=== PATIENT | female | born 1945 | race Caucasian/White ===

== ENCOUNTER → 2023-11-18 15:11 | Outpatient (REF) | payer MEDICARE, OTHER, SELFPAY | LOC: DHCBC MAIN 15:11 | PROVIDERS: ATTENDING PHYSICIAN Internal Medicine Cardiovascular Disease; FAMILY PHYSICIAN Family Medicine | DX: I25.10 Atherosclerotic heart disease of native coronary artery without angina pectoris (principal); I50.20 Unspecified systolic (congestive) heart failure; I42.0 Dilated cardiomyopathy | CPT/HCPCS: 93308 ==

== ENCOUNTER → 2023-12-17 12:46 | Outpatient (REF) | payer MEDICARE, OTHER, SELFPAY | LOC: RCS 12:46 | PROVIDERS: ATTENDING PHYSICIAN Internal Medicine Cardiovascular Disease; FAMILY PHYSICIAN Family Medicine | DX: I50.20 Unspecified systolic (congestive) heart failure (principal); I50.22 Chronic systolic (congestive) heart failure | CPT/HCPCS: 93308; Q9950 ==

== ENCOUNTER 2024-07-20 17:32 | Emergency (ER) | payer MEDICARE, OTHER, SELFPAY ==
[2024-07-20 17:39] VITALS: BP 153/91
[2024-07-20 17:43] VITALS: BMI 32.3
--- NOTE | 2024-07-20 17:44 | ED.GENMED ---
History of Present Illness
General
Chief Complaint: Weakness
Source: patient
Exam Limitations: none
Time Seen by Provider: 07/20/24 17:36
History of Present Illness
History of Present Illness:
See MDM
Past History
Past History
ED Past Medical History: HTN, Hypercholesterolemia and NIDDM
ED Past Surgical History: Appendectomy
Social History
Tobacco: Former smoker
Alcohol: None
Drug: None
Phy Exam
Physical Exam
Physical Exam:
See MDM
Course
Orders/Labs/Results
Orders:
Orders
07/20/24 17:38
Electrocardiogram (*1) Urgent
Reason for Study: Tachycardia
CXR2 [CR Chest - 2 Views ] Urgent
Comment:
Reason For Exam: weakness
07/20/24 17:39
EKG- Treatment ONCE
07/20/24 17:51
Complete Blood Count/With Diff Urgent
Comprehensive Metabolic Panel Urgent
NT-proBNP Urgent
Troponin I Urgent
07/20/24 18:02
Urinalysis Reflex To Culture Urgent
Date Specimen was Collected: 07/20/24
Time Specimen was Collected: 17:59
Urine Microscopic Reflex Cult Urgent
Urine Culture Urgent
BHUMI Source: U
Specimen Description:
Date Specimen was Collected: 07/20/24
Time Specimen was Collected: 17:59
07/20/24 20:12
Cephalexin Monohydrate [Keflex] 500 mg PO NOW STA
Abnormal Lab Results
07/20/24 07/20/24
17:51 18:02
RBC 4.05 L 10^6/uL
(4.20-5.40)
Hct 36.6 L %
(37.0-47.0)
MCH 33.1 H pg
(27.0-31.0)
MPV 11.2 H fL
(7.4-10.4)
BUN 27 H mg/dl
(7-17)
Creatinine 1.3 H mg/dL
(0.6-1.0)
Glucose 272 H mg/dl
(70-99)
Calcium 10.3 H mg/dl
(8.4-10.2)
AST 39 H U/L
(14-36)
Urine Ketones Trace A
(Negative)
Ur Occult Blood Reflex 4+ A
(Negative)
Urine Bilirubin 1+ A
(Negative)
Leukocyte Esterase Rfl 2+ A
(Negative)
Urine RBC >100 A /HPF
(0-2)
Urine WBC (Reflex) 50-60 A /HPF
(0-5)
Urine Bacteria (Reflex) Few A
(Negative)
Urine Glucose 2+ A
(Negative)
Urine Albumin (Reflex) 2+ A
(Neg - Trace)
07/20/24 17:51
07/20/24 17:51
Vital Signs
Initial and Last Documented VS:
Initial Vital Signs
Temp Pulse Resp BP Pulse Ox
98.7 F 120 20 153/91 96
07/20/24 17:39 07/20/24 17:39 07/20/24 17:39 07/20/24 17:39 07/20/24 17:39
Last Documented Vital Signs
Temp Pulse Resp BP Pulse Ox
98.7 F 114 23 128/69 92
07/20/24 17:39 07/20/24 18:45 07/20/24 18:45 07/20/24 18:16 07/20/24 18:45
MDM/Problems Addressed
Differential Diagnosis Includes:
HPI and MDM Narrative:
79-year-old female presenting for general unwell feeling. Patient states she started get nervous because she had similar symptoms 1 year ago and diagnosed with congestive heart failure. Patient claims compliance with the medicine. She denies pain
with urination, cough or fevers. Given her history, will obtain basic blood work, urinalysis and chest x-ray.
I did question possible urinary tract infection. Patient has noted that she may be urinating more frequently and noticed a discoloration of urine recently
Physical exam
General: Well appearing and non-toxic
HEENT: protecting airway. Mildly dry mucous membranes
Neck: appears supple
CV: No evidence of cyanosis. Tachycardic but regular rhythm
Resp: No accessory muscle use
Abd: Non-distended
Extremities: No deformities
Neuro: alert
Psych: Normal affect
Skin: Intact
Problems Addressed including Acute and Chronic Conditions affecting care:
1. General unwell feeling
Acuity: acute
Prognosis: stable
Details: Will obtain basic blood work to rule out metabolic abnormalities. Will obtain chest x-ray to rule out fluid versus pneumonia
2. UTI
Acuity: acute
Prognosis: stable
Details: Will start Keflex. Discussed having PCP reevaluate urine to evaluate for cessation of hematuria
Updates
After explained with patient that I believe she may have a urinary tract infection, patient feeling better. She is no longer anxious appearing and her tachycardia is resolving. Will start Keflex. Patient states she wants to go home
Differential Diagnosis (but not limited to): Hyponatremia, congestive heart failure, pneumonia, dehydration, overdiuresis
Testing considered: CT head but she has no focal deficits
Drug therapy (if applicable): OTC meds, please see d/c instruction regarding Rx drugs
Amount and/or Complexity of Data Reviewed
Clinical info obtained from: Patient
External data reviewed: N/A
Labs I independently reviewed (but not limited to): Urinalysis
Radiology: X-ray independently reviewed: Chest x-ray clear
Pulse Ox: not hypoxic
EKG independently reviewed: Sinus tachycardia, normal axis, no STEMI
Backwinder: N/A
Critical Care: N/A
Risk of Complication:
Social Determinants of health: Good social support
Discussed with other providers: N/A
Escalation of Care includes Admit/Obs: After being observed in the Emergency Department, pt stable for discharge.
Occasional wrong word or 'sound a like' substitutions may have occurred due to the inherent limitations of voice recognition software. Read the chart carefully and recognize, using context, where substitutions have occurred.
*Critical Care Note
Total Time (30-74mins, 75-104mins- exclusive of procedures): Not Applicable
ED Attending Note
-
Portions of this chart may have been created with voice recognition software.� Occasional wrong word or��sound alike� substitutions may have occurred due to the inherent limitations of voice recognition software.
Discharge Plan
Departure
Patient Disposition: Home (Routine Discharge)
Date of Disposition: 07/20/24
Time of Disposition: 20:14
Patient with high blood pressure during this ER visit?: No
Discharge Problem:
Acute UTI
Instructions: Urinary Tract Infection, Adult ED
Prescriptions:
New
cephalexin 500 mg capsule
500 mg PO BID 7 Days Qty: 14 0RF
No Action
pravastatin 40 MG tablet
40 mg PO DAILY
fenofibrate 160 MG tablet
160 mg PO DAILY
therapeutic multivitamin Tablet
1 tab PO DAILY
timolol maleate 0.5 % Drops
1 drp ophthalmic (eye) DAILY
Rx Instructions:
08/21/2023, patient applies one drop into affected eye according to [facility] records.
polyethylene glycol 3350 17 gram powder in packet
17 g PO DAILY
aspirin [Children's Aspirin] 81 mg Tablet,Chewable
81 mg PO DAILY Qty: 30 0RF
metoprolol succinate 25 mg Tablet Extended Release 24 Hr
25 mg PO DAILY Qty: 30 0RF
lisinopril 2.5 mg Tablet
2.5 mg PO DAILY Qty: 30 0RF
furosemide 20 mg Tablet
20 mg PO DAILY Qty: 30 0RF
Farxiga 10 mg Tablet
10 mg PO DAILY Qty: 30 0RF
Referrals:
Efren Orellana, DO [Family Provider] -
Activity Restrictions/Additional Instructions:
Please return for any worsening symptoms.
You may return at any time if you have further concerns.
Please follow up with your doctor at the first available appointment, preferably this week.
Please discuss your symptoms and have your urine reevaluated to ensure that the blood in your urine resolves. If the blood in your urine persist, your doctor may want to perform other tests.
Thank you for choosing [facility].
Interventions
Interventions:
*Risk Screen - Suicide Last Done: 07/20/24 17:43
*General Assessment Last Done: 07/20/24 17:42
*Neglect/Abuse Screening Last Done: 07/20/24 17:42
Discharge Date and Time
Print Language: KINYARWANDA
[2024-07-20 18:05] LABS: % Basophils 0.5 % (0-2); % Immature Granulocytes 0.4 % (0-0.5); % Lymphocytes 29.1 % (20.5-51.1); % Monocytes 7.9 % (1.7-9.3); % Neutrophils 60.1 % (42.2-75.2); Absolute Eosinophils 0.2 10^3/uL (0-0.7); Absolute Lymphocytes 2.3 10^3/uL (1.2-3.4); Absolute Monocytes 0.6 10^3/uL (0.1-0.6); Absolute Neutrophils 4.8 10^3/uL (1.4-6.5); Hematocrit 36.6 % (37.0-47.0); Hemoglobin 13.4 g/dL (12.0-16.0); Mean Corp Hgb Conc. 36.6 g/dL (33.0-37.0); Mean Corpuscular Hgb 33.1 pg (27.0-31.0); Mean Corpuscular Volume 90.4 fL (81.0-99.0); Mean Platelet Volume 11.2 fL (7.4-10.4); Nucleated Red Blood Cells % 0 %; Platelet Count 221 10^3/uL (130-400); Red Blood Cell Count 4.05 10^6/uL (4.20-5.40); Red Cell Dist. Width 12.2 % (11.5-14.5)
[2024-07-20 18:11] LABS: Urine Albumin 2+ (Neg - Trace); Urine Bilirubin 1+ (Negative); Urine Character Very Cloudy (Clear); Urine Color Yellow; Urine Glucose 2+ (Negative); Urine Ketone Trace (Negative); Urine Leukocyte 2+ (Negative); Urine Nitrite Negative (Negative); Urine Occult Blood 4+ (Negative); Urine Urobilinogen 1+ (Neg - 1+)
[2024-07-20 18:16] VITALS: BP 128/69
[2024-07-20 18:20] LABS: ALT (SGPT) 34 U/L (0-35); AST (SGOT) 39 U/L (14-36); Albumin 4.7 g/dl (3.5-5.0); Alkaline Phosphatase 64 U/L (38-126); Blood Urea Nitrogen 27 mg/dl (7-17); Calcium 10.3 mg/dl (8.4-10.2); Carbon Dioxide 22 mmol/L (22-30); Chloride 100 mmol/L (98-107); Estimated Creatinine Clearance 34 ml/min; Glucose 272 mg/dl (70-99); Potassium 4.5 mmol/L (3.5-5.1); Sodium 140 mmol/L (135-145); Total Bilirubin 0.6 mg/dl (0.2-1.3); Total Protein 7.2 g/dl (6.3-8.2); eGFR 41.83
[2024-07-20 18:25] LABS: NT-proBNP 1940 pg/ml; Troponin I 0.019 ng/ml
[2024-07-20 18:33] LABS: Urine Red Blood Cell >100 /HPF (0-2)
[2024-07-20 18:34] LABS: Urine Bacteria Few (Negative); Urine White Cell 50-60 /HPF (0-5)
[2024-07-20 19:00] VITALS: BP 115/68
[2024-07-20 20:00] VITALS: BP 123/65
[2024-07-20] MEDS: KEFLEX 500 MG PO (20:23)
== END 2024-07-20 20:37 | disposition home or self-care (01) ==
LOC: EMR 17:32
PROVIDERS: EMERGENCY PHYSICIAN Student in an Organized Health Care Education/Training Program; FAMILY PHYSICIAN Family Medicine
DX: N39.0 Urinary tract infection, site not specified (principal); I11.9 Hypertensive heart disease without heart failure; E78.00 Pure hypercholesterolemia, unspecified; E11.9 Type 2 diabetes mellitus without complications; Z87.891 Personal history of nicotine dependence; Z90.49 Acquired absence of other specified parts of digestive tract
CPT/HCPCS: 99283; 71046; 80053; 81003; 81015; 83880; 84484; 85025; 87086; 93005

== ENCOUNTER → 2024-08-17 12:28 | Outpatient (REF) | payer MEDICARE, OTHER, SELFPAY ==
--- NOTE | 2024-08-17 13:55 | CARDSERVLU ---
Echocardiogram with [facility] completed after protocol screening completed. Allergies verified.
Patent IV site: __new start 1st attempt 24 P RH___
IV site flushed with 0.9% NaCl pre and post administration.
Diluted bolus method utilized to enhance visualization of ventricular russo.
Total volume given: __4.0__ mL
Patient tolerated all procedures well without complications.
== END ==
LOC: RCS 12:28
PROVIDERS: ATTENDING PHYSICIAN Internal Medicine Cardiovascular Disease; FAMILY PHYSICIAN Family Medicine
DX: I50.20 Unspecified systolic (congestive) heart failure (principal); I25.10 Atherosclerotic heart disease of native coronary artery without angina pectoris; I42.0 Dilated cardiomyopathy; I50.22 Chronic systolic (congestive) heart failure
CPT/HCPCS: 93306; Q9950

== ENCOUNTER 2025-02-17 02:58 | Inpatient (IN) | payer MEDICARE, OTHER, SELFPAY ==
[2025-02-16 22:53] VITALS: BP 144/94
[2025-02-16 22:55] VITALS: BP 145/94
[2025-02-16 23:00] VITALS: BP 132/74
[2025-02-16 23:02] VITALS: BMI 31.2
[2025-02-17] VITALS (16 sets, daily range): BP systolic 96–149; BP diastolic 50–78; BMI 30.6
--- NOTE | 2025-02-17 01:30 | ED.GENMED ---
History of Present Illness
General
Chief Complaint: Musculo-Skeletal Complaint
Source: patient, spouse and ambulance crew
Exam Limitations: none
Time Seen by Provider: 02/16/25 23:01
Nursing documentation reviewed up to this point in time: agreed with
History of Present Illness
History of Present Illness:
80-year-old female past medical history of hypertension hyperlipidemia, diabetes presenting to the emergency department after she turned quickly at home lost her balance and hit her left anterior knee directly immediately felt a crack unable to
ambulate since and called EMS and was brought here. Think she may have hit the left side of her head but denies any significant discomfort to the area no neck pain no chest pain or abdominal pain. No numbness or weakness.
Past History
Past History
ED Past Medical History: HTN, Hypercholesterolemia and NIDDM
ED Past Surgical History: Appendectomy
Social History
Tobacco: Former smoker
Alcohol: None
Drug: None
Review of Systems
Review of Systems
Allergies reviewed?: Yes
All Other Systems: ROS reviewed and negative except as documented in HPI and ROS
Phy Exam
Physical Exam
Physical Exam:
GENERAL: Alert , in no apparent distress
EYE: pupils equal and reactive
NECK: Supple, no significant adenopathy.
ENT: o/p clr, mmm.
CARDIAC: Regular rate and rhythm .
LUNGS: Clear breath sounds bilaterally, no acute respiratory distress, no wheezes/rales/rhonchi
ABDOMEN: Soft, without focal tenderness, no r/g, no cvat
NEUROLOGICAL: Alert and oriented, no focal neuro deficits
SKIN: Warm and dry, skin intact.
MUSCULOSKELETAL: Swelling to the proximal cheng anteriorly on the left side pain at the tibial plateau no tenderness to the patella. Patient unwilling to straight leg raise or move at the knee to any extent. Able to move the ankle. No tenderness
to the ankle or foot. No tenderness to the thigh. Well perfused.
PSYCH: Normal and appropriate interaction.
Course
Orders/Labs/Results
Orders:
Orders
02/16/25 23:08
Tibia/Fibula, Left 2 View [CR Leg Tibia/fibula Left 2 Vw] Urgent
Comment:
Reason For Exam: fell, upper tibia swollen and tender
02/17/25 00:30
CT Head W/o Iv Contrast Urgent
Comment:
Reason For Exam: fall hit left head
CT Lower Ext W/o Iv Cont Lt Urgent
Comment:
Reason For Exam: left proximal tib/fib fx
Cervical Spine wo Contrast CT [CT Cervical Spine W/o Iv Contr] Urgent
Comment:
Reason For Exam: fall neck [pain
02/17/25 00:40
BMP [Basic Metabolic Panel] Urgent
CBC/With Diff [Complete Blood Count/With Diff] Urgent
02/17/25 02:38
Admit/Transfer Patient As Directed
Co-Sign Provider:
Level of Care: Inpatient admission
Assign to:: Medical/Surgical
Physician / Group: Nestor
Diagnosis: L Tib-Fib Fracture
Reason for Hospitalization: L Tib-Fib Fracture
Expected length of stay greater than two midnights?: Yes
ELOS- Estimated Length of Stay in days: 3
I certify the patient meets the requirements for IP care: Yes
EKG [Electrocardiogram (*1)] Urgent
Reason for Study: PreOp
02/17/25 02:39
PRN Pain Medication Management As Directed
May give lesser potent ordered pain med per pt: Yes
preference::
Protocol:: Medication orders for pain may be administered in a
manner that supports deferring to patient preference
when the pt is:
- Requesting an ordered lesser potent pain medication.
Least to most potent pain medications are defined
as: acetaminophen < NSAID < tramadol < opioids
(morphine, oxycodone, hydromorphone).
- Requesting a lesser dose of the same medication IF
ORDERED.
- Requesting a less intrusive route of administration
if both routes are prescribed by the provider (PO <
IV).
02/17/25 02:40
Code Status As Directed
Resuscitation Status: Full Code
Abnormal Lab Results
02/17/25
00:40
RBC 3.40 L 10^6/uL
(4.20-5.40)
Hgb 10.6 L g/dL
(12.0-16.0)
Hct 32.7 L %
(37.0-47.0)
MCH 31.2 H pg
(27.0-31.0)
MCHC 32.4 L g/dL
(33.0-37.0)
RDW 14.6 H %
(11.5-14.5)
MPV 11.8 H fL
(7.4-10.4)
Monocytes % 9.4 H %
(1.7-9.3)
Chloride 110 H mmol/L
(98-107)
BUN 25 H mg/dl
(7-17)
Glucose 121 H mg/dl
(70-99)
02/17/25 00:40
02/17/25 00:40
Vital Signs
Initial and Last Documented VS:
Initial Vital Signs
Temp Pulse Resp BP Pulse Ox
97.8 F 94 18 144/94 97
02/16/25 22:53 02/16/25 22:53 02/16/25 22:53 02/16/25 22:53 02/16/25 22:53
Last Documented Vital Signs
Temp Pulse Resp BP Pulse Ox
97.8 F 84 19 115/63 96
02/16/25 22:53 02/17/25 00:46 02/17/25 00:46 02/17/25 02:04 02/16/25 23:30
Procedures
Splinting/Sling Placement
Left Posterior Leg:
Pre-splint extermity exam: neurovascular intact
Type of splint: posterior long leg
Splint material: fiberglass
Splint checked by provider?: Yes
Normal distal neurovascular exam?: Yes
MDM/Problems Addressed
MDM/Problems Addressed:
80-year-old female presenting to the emergency department today with concerns of mechanical fall injuring her left leg. Also may have hit her head as well. Patient is on a baby aspirin daily but no other additional blood thinning agents. Patient
has obvious swelling to the proximal tibia and fibula region. X-ray showing fracture. CT scan ordered for further assessment. Tibia and fibular injury possibly. Case discussed with Ortho that will need to take to the OR. Long-leg splint was
placed. Otherwise neurovascular intact distally. Admitted to medicine.
*Critical Care Note
Total Time (30-74mins, 75-104mins- exclusive of procedures): Not Applicable
ED Attending Note
-
Portions of this chart may have been created with voice recognition software.� Occasional wrong word or��sound alike� substitutions may have occurred due to the inherent limitations of voice recognition software.
Discharge Plan
Departure
Patient Disposition: Admit
Date of Disposition: 02/17/25
Time of Disposition: 03:34
Admit to: Med/Surg
Admit to doctor: Nestor
Presentation/result/management discussed w/ accepting MD/DO: Hospitalist
Patient with high blood pressure during this ER visit?: No
Condition: Good
Covid-19: Not Applicable
Discharge Problem:
Closed tibial fracture, Fracture of fibula, proximal
Interventions
Interventions:
*Risk Screen - Suicide Last Done: 02/16/25 22:53
*Neglect/Abuse Screening Last Done: 02/16/25 22:53
*ED- Fall Risk Assessment Last Done: 02/16/25 23:02
*ED COVID-19 Vaccine History Last Done: 02/16/25 23:02
ED-Musculoskeletal Assessment Last Done: 02/16/25 23:02
ED- Neurological Assessment Last Done: 02/16/25 23:02
ED-Skin Assessment Last Done: 02/16/25 23:02
[2025-02-17 01:35] LABS: % Basophils 0.4 % (0-2); % Eosinophils 3.1 % (0-6); % Immature Granulocytes 0.1 % (0-0.5); % Monocytes 9.4 % (1.7-9.3); Absolute Eosinophils 0.2 10^3/uL (0-0.7); Absolute Lymphocytes 2.5 10^3/uL (1.2-3.4); Absolute Monocytes 0.6 10^3/uL (0.1-0.6); Absolute Neutrophils 3.5 10^3/uL (1.4-6.5); Hematocrit 32.7 % (37.0-47.0); Hemoglobin 10.6 g/dL (12.0-16.0); Mean Corp Hgb Conc. 32.4 g/dL (33.0-37.0); Mean Corpuscular Hgb 31.2 pg (27.0-31.0); Mean Corpuscular Volume 96.2 fL (81.0-99.0); Mean Platelet Volume 11.8 fL (7.4-10.4); Nucleated Red Blood Cells % 0 %; Platelet Count 223 10^3/uL (130-400); Red Cell Dist. Width 14.6 % (11.5-14.5); White Blood Cell Count 6.8 10^3/uL (4.8-10.8)
[2025-02-17 01:52] LABS: Blood Urea Nitrogen 25 mg/dl (7-17); Calcium 9.5 mg/dl (8.4-10.2); Carbon Dioxide 26 mmol/L (22-30); Chloride 110 mmol/L (98-107); Estimated Creatinine Clearance 54 ml/min; Glucose 121 mg/dl (70-99); Potassium 4.2 mmol/L (3.5-5.1); Sodium 142 mmol/L (135-145); eGFR > 60.00
--- NOTE | 2025-02-17 02:45 | HPS.HSE ---
Family Physician
-
Family Physician: Efren Orellana
Chief Complaint
-
Fall, LLE Pain
History of Present Illness
Patient is an 80y F with PMH significant for hypertension, DM-II and HFrEF who presents to ED complaining of fall at home and L leg pain. Patient states that she has been feeling well recently. This evening she was walking with her cane when her
L foot 'stuck' and she lost her balance and fell. Patient notes that she struck her head on a chair during her fall. She did not lose consciousness and complained of no significant headache / pain. She landed on her L side. Patient did note
immediate pain in the L leg / knee area. 911 was called and patient was brought to the ED for further evaluation and treatment.
Evaluation in the ED reveals L tib-fib fracture. No other significant fracture / dislocation.
Patient denies any prodrome of lightheadedness, dizziness, chest pain or dyspnea prior to her fall.
Medical History
Past Medical History
Past Medical History: Reports Other
Additional Past Medical History:
Hypertension
DM-II
Ischemic Cardiomyopathy
Chronic HFrEF (25%)
Osteoporosis
Glaucoma
Anxiety
Past Surgical History: Reports Other
Additional Past Surgical History:
Cardiac Cath - No Stent
Appendectomy
Eye Surgery
Social History
Tobacco: Former Smoker (Quit smoking many years ago.)
Alcohol: None
Drug: None
Family History
Family History: Not pertinent
Allergies / Home Medications
Allergies reflects when Allergies were last updated in [email or web address].
Home Medications with original date entered in [email or web address]
Allergy/Medication List:
Allergies
Allergy/AdvReac Type Severity Reaction Status Date / Time
No Known Allergies Allergy Verified 02/16/25 22:58
Home Medications
fenofibrate 160 mg tablet 160 mg PO DAILY High Cholesterol 12/06/14
polyethylene glycol 3350 17 gram oral powder packet 17 g PO DAILY PRN Constipation 08/21/23
therapeutic multivitamin 1 tab PO DAILY Supplement 08/21/23
aspirin 81 mg chewable tablet (Children's Aspirin) 81 mg PO DAILY #30 tabs 08/27/23
furosemide 20 mg tablet 20 mg PO DAILY #30 tabs 08/27/23
atorvastatin 40 mg tablet 40 mg PO QPM 02/17/25
latanoprost 0.005 % eye drops 1 drp ophthalmic (eye) QPM 02/17/25
metformin 850 mg tablet 850 mg PO BID 02/17/25
metoprolol succinate 100 mg tablet,extended release 24 hr 150 mg PO QPM 02/17/25
pioglitazone 30 mg tablet 30 mg PO QPM 02/17/25
valsartan 160 mg tablet 160 mg PO DAILY 02/17/25
Review of Systems
-
History Source: Patient
A 12 point ROS was completed and negative except as noted: Yes
Constitutional: Denies Fever or Chills
Respiratory: Denies Cough or Trouble Breathing
Cardiac: Denies Chest Pain or Palpitations
Abdomen/GI: Denies Abdominal Pain, Nausea, Vomiting or Diarrhea
: Denies Dysuria, Frequency or Flank Pain
Musculoskeletal: Reports Joint Pain, Joint Swelling and Edema
Neurological: Denies Dizzy or Headache
Psych: Denies Depression or Anxiety
Physical Exam
Vital Signs
Vital Signs
Temp Pulse Resp BP Pulse Ox
97.8 F 84 19 115/63 96
02/16/25 22:53 02/17/25 00:46 02/17/25 00:46 02/17/25 02:04 02/16/25 23:30
Physical Exam
General: Other (80y F in mild distress due to pain.)
HEENT: Moist mucous membranes and PERRLA
Respiratory: Clear; No Wheezes, Rales or Rhonchi
Cardiac: S1/S2 and Regular Rhythm; No Murmur
GI: Soft, Non Tender, Non Distended and Normal Bowel Sounds
Musculoskeletal: Other (LLE with evident deformity lateral aspect of the leg just distal to the knee. Mild bruising. 1+ edema b/l feet.)
Neuro: AO x 3
Laboratory Results
-
02/17/25 00:40
02/17/25 00:40
Impression/Plan
-
A/P: Patient is an 80y F with PMH significant for HFrEF, hypertension and DM-II who presents to ED complaining of LLE pain s/p fall at home.
Left Tib-Fib Fracture
Left Ankle Hemarthrosis
- Admit for further evaluation and treatment.
- Immobilize / splint to be placed in ED.
- Supportive care, pain control, bedrest.
- Ortho eval for probable operative repair.
- Post-op PT, DVT prophylaxis, etc per Ortho.
Ischemic Cardiomyopathy
Chronic HFrEF
- Stable. Mild increase in edema recently - likely related to pioglitazone.
- Would avoid this medication given HFrEF.
- Continue usual diuretic dose.
- Continue Toprol / ARB.
- Follow I/Os, daily weights, etc.
- Will ask Cardiology to evaluate patient in kate-operative period given cardiomyopathy.
Normocytic Anemia
- Hgb = 10.6. Baseline somewhat variable - most recent 13 but multiple prior values in the 9-10 range.
- Patient denies any gross blood loss.
- Not on OAC - takes ASA 81mg only.
- Check iron studies, B12, etc.
- Follow H&H for any changes.
- Monitor for any evidence of bleeding, etc.
Benign Hypertension
- Stable. Continue metoprolol and valsartan with holding parameters.
DM-II
- Stable. Hold / discontinue pioglitazone as noted above.
- Follow glucose and cover with SSI as needed.
- Update A1C.
Glaucoma
- Stable. Continue latanoprost.
DVT Prophylaxis: None at present given planned surgery / lower leg injury. Post-op DVT prophylaxis per Ortho.
Code Status: Full
[2025-02-17 05:07] LABS: Glucose - Point of Care 158 mg/dl (70-99)
--- NOTE | 2025-02-17 07:33 | W.PN.UPDATE ---
Update Note
Progress Note Update
Full orthopedic consult dictated:
Dx: Left tibial plateau fracture with proximal fibular fracture
Plan: Patient is going to require open reduction internal fixation left tibial plateau fracture later today with Dr. Barajas. She was placed into knee immobilizer and will be on bedrest for now. Remain n.p.o. and Ancef on-call to operating
room. Await cardiac clearance.
[2025-02-17] MEDS: TYLENOL 1000 MG PO ×3 (07:49→22:56)
[2025-02-17] MEDS: LOW STRENGTH ASPIRIN 81 MG PO (07:49)
[2025-02-17] MEDS: DIOVAN 160 MG PO (07:49)
[2025-02-17] MEDS: LASIX 20 MG PO (07:49)
[2025-02-17 08:49] LABS: Hematocrit 29.7 % (37.0-47.0); Hemoglobin 9.7 g/dL (12.0-16.0); Mean Corp Hgb Conc. 32.7 g/dL (33.0-37.0); Mean Corpuscular Hgb 30.8 pg (27.0-31.0); Mean Corpuscular Volume 94.3 fL (81.0-99.0); Mean Platelet Volume 10.9 fL (7.4-10.4); Platelet Count 222 10^3/uL (130-400); Red Blood Cell Count 3.15 10^6/uL (4.20-5.40); Red Cell Dist. Width 14.6 % (11.5-14.5); White Blood Cell Count 8.3 10^3/uL (4.8-10.8)
--- NOTE | 2025-02-17 09:13 | CON.CAR ---
Addendum entered and electronically signed by Dereck Cisneros MD 02/17/25 12:37:
80 yo female with PMH of multivessel CAD, ICM EF 25%, chronic HFrEF is admitted following a mechanical fall. She needs ORIF for left tibial plateau fracture with proximal fibular fracture. She has no symptoms concerning for acute HF or unstable
angina. Exam with RRR, no murmurs, no edema. Cr 0.8. EKG: NSR, LAFB, LVH.
She is a high risk surgical candidate. She is medically optimized and can proceed to OR. ASA and metoprolol should not be interrupted.
Original Note:
Consultation
Consultation Request
Date/Time Consultation Requested: 02/17/25340
Date/Time Consultation Performed: 02/17/25912
Requesting Provider: Dr. Baez
Performing Provider: Yakelin HORTA for Dr. Cisneros
Reason for Consultation: pre-op cardiovascular risk assessment
Medical History
-
Chief Complaint: fall with LLE pain
History of Present Illness:
80 y/o female (patient of Dr. Diaz) with multivessel CAD, ICM (most recent EF 25%), dyslipidemia, DM2, chronic pancreatitis who had a fall (foot was stuck, no syncope) and sustained left tibial plateau fracture with proximal fibular fracture.
Plan is for surgical intervention and we are consulted for pre-op cardiovascular risk assessment. She has no CP or SOB.
Past Medical History
Past Medical History: CAD, CHF, Hypercholesterolemia, NIDDM and Other (as above )
Social History
Tobacco: Former Smoker
Family History
Family History: Reviewed & Not Pertinent
Allergies / Home Medications
Allergy/AdvReac Type Severity Reaction Status Date / Time
No Known Allergies Allergy Verified 02/16/25 22:58
�Medication �Instructions �Recorded �Confirmed �Type
fenofibrate 160 mg tablet 160 mg PO DAILY High Cholesterol 12/06/14 02/17/25 History
polyethylene glycol 3350 17 gram 17 g PO DAILY PRN Constipation 08/21/23 02/17/25 History
oral powder packet
therapeutic multivitamin 1 tab PO DAILY Supplement 08/21/23 02/17/25 History
aspirin 81 mg chewable tablet 81 mg PO DAILY #30 tabs 08/27/23 02/17/25 Rx
([facility] Aspirin)
furosemide 20 mg tablet 20 mg PO DAILY #30 tabs 08/27/23 02/17/25 Rx
atorvastatin 40 mg tablet 40 mg PO QPM 02/17/25 02/17/25 History
latanoprost 0.005 % eye drops 1 drp ophthalmic (eye) QPM 02/17/25 02/17/25 History
metformin 850 mg tablet 850 mg PO BID 02/17/25 02/17/25 History
metoprolol succinate 100 mg 150 mg PO QPM 02/17/25 02/17/25 History
tablet,extended release 24 hr
pioglitazone 30 mg tablet 30 mg PO QPM 02/17/25 02/17/25 History
valsartan 160 mg tablet 160 mg PO DAILY 02/17/25 02/17/25 History
Review of Systems
-
History Source: Patient
All other systems: Negative unless noted
Musculoskeletal: Other (fall with LLE pain)
Physical Exam
Vital Signs
Temp Pulse Resp BP Pulse Ox
98.6 F 90 18 147/75 96
02/17/25 07:30 02/17/25 07:30 02/17/25 07:30 02/17/25 07:30 02/17/25 07:30
Lab Results
02/17/25 08:05
Physical Exam
General: Well Developed, Well Nourished and No Apparent Distress
HEENT: Normocephalic and Anicteric
Respiratory: Clear and Non Labored Respirations
Cardiac: Regular Rhythm
Skin: Warm and Dry
Neuro: AO x 3
Psych: Calm
Impression / Plan
-
Left tibial plateau fracture with proximal fibular fracture:
-this diagnosis is threat to bodily function
-plan per ortho open reduction internal fixation left tibial plateau fracture today with Dr. Barajas
-pre-op risk assessment: patient has significant CAD (medically managed) and chronic HFrEF with CM EF 20-25%. She is at elevated risk for proposed procedure. Does not have angina and does not appear volume overloaded. Continue ASA, statin, BB.
Follow telemetry and monitor volume.
HFrEF, chronic:
-continue lasix and monitor volume
-regarding ICM EF 25%- on Lasix, metoprolol, valsartan. SGLT2I unaffordable. She declined spironolactone (didn't want more meds) and ICD.
CAD, multivessel:
-cath 2022: Right dominant circulation with severe, multivessel coronary artery disease. There is a subtotal occlusion of the mid RCA, tandem 40-50% lesions in the proximal LAD followed by chronic total occlusion of the mid LAD, a 50% lesion in the
ostium of the circumflex followed by discrete 70% lesion in the proximal vessel and a long 70% lesion in the mid vessel.
-symptomatically stable without CP
-continue ASA, statin, BB
HTN:
-continue ARB and BB and monitor
Data Reviewed
-
EKG: Tracing Personally Visualized and interpreted (NSR LAFB similar to previous)
CT Scan: Report Reviewed by me (head CT: No acute intracranial abnormality noted.) and Other (Acute fractures of the proximal tibia and fibula)
Medical Tests (Nuc Med, Echo etc): Report Reviewed by me (echo 08/17/24: Dilated LV with severe global hypokinesis and an ejection fraction of approximately 25% by visual estimation. 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 Normal right ventricular
size and function. No significant valvular disease. Estimated PASP of 16 mmHg. )
Labs: Labs Reviewed by me
[2025-02-17 09:52] LABS: Blood Urea Nitrogen 20 mg/dl (7-17); Calcium 9.5 mg/dl (8.4-10.2); Carbon Dioxide 27 mmol/L (22-30); Chloride 109 mmol/L (98-107); Estimated Creatinine Clearance 53 ml/min; Glucose 134 mg/dl (70-99); Iron 60 ug/dl (37-170); Potassium 3.9 mmol/L (3.5-5.1); Sodium 142 mmol/L (135-145); eGFR > 60.00
[2025-02-17 10:03] LABS: Percent Saturation 13 % (20-50); Total Iron Binding Capacity 433 ug/dl (265-497)
[2025-02-17 10:30] LABS: Ferritin 43.1 ng/ml (11.1-264.0)
[2025-02-17 10:44] LABS: Vitamin B12 215 pg/ml (239-931)
[2025-02-17 10:52] LABS: Glycohemoglobin (HgbA1c) 6.7 % (4.0-5.6)
[2025-02-17 11:44] LABS: Glucose - Point of Care 131 mg/dl (70-99)
--- NOTE | 2025-02-17 13:40 | W.PN.UPDATE ---
Update Note
Progress Note Update
Going to the OR today
Pain is under control
PT/OT and DVT prophylaxis after
[2025-02-17 19:19] LABS: Hepatitis C Antibody Negative (Negative)
[2025-02-17 21:24] LABS: Glucose - Point of Care 104 mg/dl (70-99)
--- NOTE | 2025-02-17 21:55 | W.IMMPOSTOP ---
Surgical Immed Post Op Note
-
Primary Surgeon: Desmond Barajas MD
Assisting Surgeon:
Pre-op Diagnosis: left tibial plateau fracture, tibial tubercle fracture
Post-op Diagnosis: left tibial plateau fracture, tibial tubercle fracture
Procedure Performed: open reduction and internal fixation left tibial plateau and tibial tubercle
Anesthesia Type: general and spinal
Specimen / Cultures: none
Estimated Blood Loss: 50mL
Complications: none apparent
Operative Findings: separate tibial tubercle fracture
Implants: [employer] AxSOS 3 Titanium 4mm 4 hole lateral tibial plateau plate; 4.0mm cannulated partially threaded screws with washers x2; OsteoSelect DBM putty
Operative dictation #: [id number]
[2025-02-17] MEDS: TOPROL XL 150 MG PO (22:56)
[2025-02-17] MEDS: SENOKOT 17.2 MG PO (22:56)
[2025-02-17] MEDS: LIPITOR 40 MG PO (22:57)
[2025-02-17] MEDS: XALATAN OPHTHALMIC SOLUTION 1 DROP BOTH EYES (22:58)
--- NOTE | 2025-02-17 23:00 | PTCARENOTE ---
Received report and patient from Baldo LERMA. S/P ORIF L TIB/FIB. Patient AAO*4, Neurovascular check intact and completed with SHUTTLER. Pt denies any pain, VSS on 4LNC. Purwick placed as patient is on bedrest. Pt appears comfortable, no distress
noted. Bed placed in low position with call dorsey in reach. All orders reviewed and discussed with patient. Will continue to monitor.
[2025-02-17] MEDS: ANCEF 5 IV (23:17)
[2025-02-17] MEDS: ROXICODONE 5 MG PO (23:23)
[2025-02-18] VITALS (11 sets, daily range): BP systolic 108–144; BP diastolic 52–71; PULSE 89; O2SAT 94
[2025-02-18] MEDS: MORPHINE SULFATE 2 MG IV (02:47)
[2025-02-18] MEDS: ROXICODONE 10 MG PO (04:54)
[2025-02-18] MEDS: ASPIRIN 325 MG PO ×2 (04:54→14:22)
[2025-02-18 07:36] LABS: Hematocrit 27.5 % (37.0-47.0); Hemoglobin 9.2 g/dL (12.0-16.0); Mean Corp Hgb Conc. 33.5 g/dL (33.0-37.0); Mean Corpuscular Hgb 31.7 pg (27.0-31.0); Mean Corpuscular Volume 94.8 fL (81.0-99.0); Mean Platelet Volume 10.9 fL (7.4-10.4); Platelet Count 188 10^3/uL (130-400); Red Cell Dist. Width 14.7 % (11.5-14.5); White Blood Cell Count 8.5 10^3/uL (4.8-10.8)
[2025-02-18 08:10] LABS: Blood Urea Nitrogen 17 mg/dl (7-17); Calcium 9.2 mg/dl (8.4-10.2); Carbon Dioxide 29 mmol/L (22-30); Chloride 107 mmol/L (98-107); Estimated Creatinine Clearance 48 ml/min; Glucose 140 mg/dl (70-99); Sodium 141 mmol/L (135-145); eGFR > 60.00
[2025-02-18 08:16] LABS: Glucose - Point of Care 151 mg/dl (70-99)
--- NOTE | 2025-02-18 08:43 | W.PN.ORTHO ---
Today's Communication / Plan
-
80-year-old female postop day 1 left tibial plateau ORIF with Dr. Barajas
- PT/OT/discharge planning
- Nonweightbearing to left lower extremity. Brace will be locked in extension when ambulatory however nonweightbearing
- Currently in postoperative hinged knee brace. May progress to 0 to 30 degrees of flexion and range of motion but again nonweightbearing
- Pain currently controlled with current regimen
- Diet per primary
- DVT PPx: ASA 325 mg daily for at least 30 days unless recommend otherwise per primary
Orthopedic surgery will continue to follow
Assessment
.
Distal Motor Intact: Yes
Dressing:
Clean, dry and intact.
Plan
.
Surgery / Date: 02/17/[address] Barajas
DVT Prophylaxis: Aspirin
Activity:
Out of bed.
PT/OT
Subjective
.
.:
Patient resting comfortably. Reports occasional sharp pain to dorsum of foot.
Vital Signs and Labs
.
Vital Signs and Labs:
Lab Results
02/18/25 07:10
02/18/25 07:10
Temp Pulse Resp BP Pulse Ox
97.9 F 84 16 108/64 90
02/18/25 07:35 02/18/25 07:35 02/18/25 07:35 02/18/25 07:35 02/18/25 07:35
[2025-02-18] MEDS: DIOVAN PO (09:57)
[2025-02-18] MEDS: LOW STRENGTH ASPIRIN 81 MG PO (09:58)
[2025-02-18] MEDS: TYLENOL 1000 MG PO ×2 (09:58→17:22)
[2025-02-18] MEDS: LASIX 20 MG PO (09:58)
[2025-02-18] MEDS: ANCEF 5 IV (09:59)
[2025-02-18] MEDS: COLACE PO (10:07)
[2025-02-18] MEDS: NOVOLOG FLEXPEN-LOW RESISTANCE SC ×3 (10:55→17:21)
--- NOTE | 2025-02-18 11:35 | W.PN.CD ---
Addendum entered and electronically signed by Dereck Cisneros MD 02/18/25 12:22:
80 yo female with PMH of multivessel CAD, ICM EF 25%, chronic HFrEF is admitted following a mechanical fall. s/p ORIF for left tibial plateau fracture with proximal fibular fracture 02/18. Exam with RRR, no murmurs, no edema. Cr 0.9. Tele: sinus
80s, no arrhythmia.
Stable from cardiac perspective post op.
Continue current regimen for ICM, including Toprol XL and valsartan.
Original Note:
Today's Communication / Plan
-
continue medical therapy.
Impression / Plan
-
Left tibial plateau fracture with proximal fibular fracture - s/p ORIF by Dr. Barajas.
- hemodynamically stable.
- pain well controlled, managed by ortho.
HFrEF/ICM EF 25% - chronic.
- continue Lasix and monitor volume, daily weights.
- on Lasix, metoprolol, valsartan.
- SGLT2I is unaffordable.
- She declined spironolactone (didn't want more meds) and ICD.
CAD, multivessel - stable.
- denies angina.
- cath 2022: Right dominant circulation with severe, multivessel coronary artery disease. There is a subtotal occlusion of the mid RCA, tandem 40-50% lesions in the proximal LAD followed by chronic total occlusion of the mid LAD, a 50% lesion in
the ostium of the circumflex followed by discrete 70% lesion in the proximal vessel and a long 70% lesion in the mid vessel.
- continue ASA, statin, BB
HTN - stable.
- continue ARB and BB and monitor.
Physical Exam
Vital Signs/Labs
Vital Signs
Temp Pulse Resp BP Pulse Ox
97.9 F 84 16 108/66 90
02/18/25 07:35 02/18/25 07:35 02/18/25 07:35 02/18/25 09:57 02/18/25 07:35
02/17/25 02/18/25 02/19/25
06:59 06:59 06:59
Actual Weight 167 lb
02/18/25 07:10
02/18/25 07:10
Physical Exam
Constitutional: No acute distress
EENT: Anicteric and Moist mucous membranes
Cardiovascular: Rhythm & rate is regular
Respiratory: Respiratory effort normal and Lungs clear to auscul.
GI: Soft, Non tender and Normal bowel sounds
Neuro/Psych: AO x 3
Other: Skin (warm, dry )
Data Reviewed
-
Date of Service: February 18, 2025
Medical Decision Making: External Notes
EKG: Tracing Personally Visualized and interpreted
Echo: Report Reviewed by me
Labs: Labs Reviewed by me
Old Records: Reviewed
[2025-02-18 12:14] LABS: Glucose - Point of Care 173 mg/dl (70-99)
--- NOTE | 2025-02-18 12:55 | PN.CDI ---
CDI
- -
CDI:
Physician Documentation Request
Admit Date: 02/17/25 02:58
Dear Doctor,
Please review the following and provide your response in the progress notes.
Clinical Indicators:
Pt admitted with left tibial plateau fracture, tibial tubercle fracture s/p ORIF
Documented in the record in ' HX of Osteoporosis'
Documented per ED, ' she turned quickly at home lost her balance and hit her left anterior knee directly immediately felt a crack unable to ambulate since and called EMS and was brought here....'
Please specify the suspected etiology of the documented fractures :
left tibial plateau fracture, tibial tubercle fracture multifactorial due to osteoporosis / fall
left tibial plateau fracture, tibial tubercle fracture due to osteoporosis
left tibial plateau fracture, tibial tubercle fracture due to fall
Other ( please specify)
Use of terms such as suspected, likely, concern for, or probable (associated with a specific diagnosis that is being evaluated, monitored, or treated as if it exists) are acceptable and can be coded in the inpatient setting, when documented at the
time of discharge.
Thank you,
Janet Nugent RN
CDI Specialist
[place] [facility]
Please use your independent medical judgment in providing your response.
--- NOTE | 2025-02-18 13:19 | W.PN.HOSP.TC ---
Today's Communication/Plan
-
325mg daily asa
PT/OT
monitor hgb
monitor foot drop
Assessment / Plan
Assessment / Plan
Physical Exam
Constitutional: No acute distress
EENT: Anicteric and Moist mucous membranes
Cardiovascular: Rhythm & rate is regular
Respiratory: Respiratory effort normal and Lungs clear to auscul.
GI: Soft, Non tender and Normal bowel sounds
Neuro/Psych: AO x 3; Left foot weakness/drop - reportded to Ortho
Other: Skin (warm, dry )
A/P: Patient is an 80y F with PMH significant for HFrEF, hypertension and DM-II who presents to ED complaining of LLE pain s/p fall at home.
Left Tib-Fib Fracture
Left Ankle Hemarthrosis
Postop day 1 left tibial plateau ORIF
PT/OT/discharge planning
- Nonweightbearing to left lower extremity. Brace will be locked in extension when ambulatory however nonweightbearing
- Currently in postoperative hinged knee brace. May progress to 0 to 30 degrees of flexion and range of motion but again nonweightbearing
- Pain currently controlled with current regimen
-- DVT PPx: ASA 325 mg daily for at least 30 days
-monitor HgB
#Left foot drop
-most likely neurapraxia of the peroneal nerves.
-informed Ortho, they are aware
-monitor
Ischemic Cardiomyopathy
Chronic HFrEF
- Stable. Mild increase in edema recently - likely related to pioglitazone.
- Would avoid this medication given HFrEF.
- Continue usual diuretic dose.
- Continue Toprol / ARB.
- Follow I/Os, daily weights, etc.
- Will ask Cardiology to evaluate patient in kate-operative period given cardiomyopathy.
Normocytic Anemia
- Hgb = 10.6. Baseline somewhat variable - most recent 13 but multiple prior values in the 9-10 range.
- Patient denies any gross blood loss.
- Not on OAC - takes ASA 81mg only.; On ASA 325mg daily for 30 days
- Check iron studies, B12, etc.
- Follow H&H for any changes.
- Monitor for any evidence of bleeding, etc.
Benign Hypertension
- Stable. Continue metoprolol and valsartan with holding parameters.
DM-II
- Stable. Hold / discontinue pioglitazone as noted above.
- Follow glucose and cover with SSI as needed.
- Update A1C.
Glaucoma
- Stable. Continue latanoprost.
DVT Prophylaxis: Aspirin 325
Code Status: Full
Anticipated Discharge: 24 - 48 hours
Subjective/Interval History
-
Date of Service: February 18, 2025
no acute events
day 1 left tibial plateau ORIF with Dr. Barajas
Objective Data
-
Labs:
Laboratory Results
02/18/25
07:10
WBC 8.5
Hgb 9.2 L
Hct 27.5 L
Plt Count 188
Sodium 141
Potassium 4.0
Chloride 107
Carbon Dioxide 29
BUN 17
Creatinine 0.9
Glucose 140 H
Calcium 9.2
Vital Signs:
Vital Signs
Temp Pulse Resp BP Pulse Ox
98.8 F 88 16 125/56 90
02/18/25 11:30 02/18/25 11:30 02/18/25 11:30 02/18/25 11:30 02/18/25 11:30
I&O
02/17/25 02/18/25 02/19/25
06:59 06:59 06:59
Output Total 250 / 250 950 / 950
Balance -250 / -250 -950 / -950
Review of Systems
-
History Source: Patient
All other systems: Not reviewed unless documented
Data Reviewed
-
Diagnostic Radiology: Report Reviewed by me
Labs: Labs Reviewed by me
[2025-02-18 16:42] LABS: Glucose - Point of Care 150 mg/dl (70-99)
[2025-02-18] MEDS: LIPITOR 40 MG PO (17:22)
[2025-02-18] MEDS: TOPROL XL 150 MG PO (17:22)
[2025-02-18] MEDS: COLACE 100 MG PO (20:29)
[2025-02-18] MEDS: SENOKOT 17.2 MG PO (20:29)
--- NOTE | 2025-02-18 20:30 | PTCARENOTE ---
Patient refused to OOB at this time
[2025-02-18] MEDS: XALATAN OPHTHALMIC SOLUTION 1 DROP BOTH EYES (20:33)
[2025-02-18 21:47] LABS: Glucose - Point of Care 173 mg/dl (70-99)
[2025-02-18] MEDS: TYLENOL PO (23:36)
[2025-02-19] VITALS (7 sets, daily range): BP systolic 106–143; BP diastolic 50–69; PULSE 92; O2SAT 99; BMI 28.3
[2025-02-19 07:09] LABS: Hematocrit 24.6 % (37.0-47.0); Hemoglobin 8.1 g/dL (12.0-16.0); Mean Corp Hgb Conc. 32.9 g/dL (33.0-37.0); Mean Corpuscular Hgb 30.9 pg (27.0-31.0); Mean Corpuscular Volume 93.9 fL (81.0-99.0); Mean Platelet Volume 10.9 fL (7.4-10.4); Platelet Count 157 10^3/uL (130-400); Red Blood Cell Count 2.62 10^6/uL (4.20-5.40); Red Cell Dist. Width 14.6 % (11.5-14.5); White Blood Cell Count 9.2 10^3/uL (4.8-10.8)
[2025-02-19 08:17] LABS: Blood Urea Nitrogen 19 mg/dl (7-17); Calcium 9.1 mg/dl (8.4-10.2); Carbon Dioxide 26 mmol/L (22-30); Chloride 105 mmol/L (98-107); Estimated Creatinine Clearance 46 ml/min; Glucose 143 mg/dl (70-99); Potassium 3.9 mmol/L (3.5-5.1); Sodium 141 mmol/L (135-145); eGFR > 60.00
[2025-02-19 08:30] LABS: Glucose - Point of Care 153 mg/dl (70-99)
--- NOTE | 2025-02-19 08:33 | W.PN.UPDATE ---
Update Note
Progress Note Update
Ms. Farfan is POD2 following her left tibial plateau ORIF performed by Dr. Barajas. She is resting comfortably in bed this morning. She endorses only a mild amount of aching pain in the knee at present.
Directed exam of the left lower extremity reveals hinged knee brace in place. Dressing clean, dry and intact. No significant tenderness to palpation about the knee. Calf soft and nontender. Patient has flicker of dorsiflexion, but has difficulty
extending toes. Sensation intact to light touch. Capillary refill <2 seconds.
Hgb 8.1 this AM.
80-year-old female postop day left tibial plateau ORIF with Dr. Barajas
--Nonweightbearing to left lower extremity. Brace will be locked in extension when ambulatory. May progress to 0 to 30 degrees of flexion and range of motion when seated. We appreciate the assistance of PT/OT.
--Recommend ASA 325 mg daily for at least 30 days for DVT ppx unless recommend otherwise per primary.
--Pain control prn. Ice and elevation for edema control.
--Dressing to remain in place.
--Case management consult for dc planning. Plan for outpatient follow up at 2 weeks post-op.
--Orthopedic surgery will continue to follow
[2025-02-19] MEDS: ASPIRIN 325 MG PO (09:50)
[2025-02-19] MEDS: NOVOLOG FLEXPEN-LOW RESISTANCE SC ×3 (09:50→17:50)
[2025-02-19] MEDS: DIOVAN 160 MG PO (09:51)
[2025-02-19] MEDS: TYLENOL 1000 MG PO ×3 (09:51→22:50)
[2025-02-19] MEDS: LASIX 20 MG PO (09:51)
[2025-02-19] MEDS: LOW STRENGTH ASPIRIN PO ×2 (09:51→13:46)
[2025-02-19] MEDS: COLACE 100 MG PO ×2 (09:51→20:58)
[2025-02-19] MEDS: FLUSH (NSS) 1 FLUSH IV (09:52)
[2025-02-19 11:54] LABS: Hemoglobin 7.9 g/dL (12.0-16.0)
[2025-02-19 12:29] LABS: Glucose - Point of Care 183 mg/dl (70-99)
--- NOTE | 2025-02-19 13:23 | W.PN.HOSP.TC ---
Today's Communication/Plan
-
monitor hgb
Asa 325mg daily, stop asa 81mg
Ortho recs
Assessment / Plan
Assessment / Plan
Physical Exam
Constitutional: No acute distress
EENT: Anicteric and Moist mucous membranes
Cardiovascular: Rhythm & rate is regular
Respiratory: Respiratory effort normal and Lungs clear to auscul.
GI: Soft, Non tender and Normal bowel sounds
Neuro/Psych: AO x 3; Left foot weakness/drop - reportded to Ortho
Other: Skin (warm, dry )
A/P: Patient is an 80y F with PMH significant for HFrEF, hypertension and DM-II who presents to ED complaining of LLE pain s/p fall at home.
Left Tib-Fib Fracture
Left Ankle Hemarthrosis
Postop day 2 left tibial plateau ORIF
PT/OT/discharge planning
- Nonweightbearing to left lower extremity. Brace will be locked in extension when ambulatory however nonweightbearing
- Currently in postoperative hinged knee brace. May progress to 0 to 30 degrees of flexion and range of motion but again nonweightbearing
- Pain currently controlled with current regimen
-- DVT PPx: ASA 325 mg daily for at least 30 days
-Plan for outpatient follow up at 2 weeks post-op.
-monitor HgB
#Acute Blood Loss Anemia
-kate-operative +/- post operative blood losses
-transfuse as needed
-HgB goal >7
- ASA 325mg daily
#Left foot drop
-most likely neurapraxia of the peroneal nerves.
-informed Ortho, they are aware
-monitor
#Ischemic Cardiomyopathy
#Chronic HFrEF
- Stable. Mild increase in edema recently - likely related to pioglitazone.
- Would avoid this medication given HFrEF.
- Continue usual diuretic dose.
- Continue Toprol / ARB.
- Follow I/Os, daily weights, etc.
- Will ask Cardiology to evaluate patient in kate-operative period given cardiomyopathy.
Normocytic Anemia
- Hgb = 10.6. Baseline somewhat variable - most recent 13 but multiple prior values in the 9-10 range.
- Patient denies any gross blood loss.
- Not on OAC - takes ASA 81mg only.; On ASA 325mg daily for 30 days
- Check iron studies, B12, etc.
- Follow H&H for any changes.
- Monitor for any evidence of bleeding, etc.
Benign Hypertension
- Stable. Continue metoprolol and valsartan with holding parameters.
DM-II
- Stable. Hold / discontinue pioglitazone as noted above.
- Follow glucose and cover with SSI as needed.
- Update A1C.
Glaucoma
- Stable. Continue latanoprost.
DVT Prophylaxis: Aspirin 325
Code Status: Full
Anticipated Discharge: 24 - 48 hours
Subjective/Interval History
-
Date of Service: February 19, 2025
no acute events
Objective Data
-
Labs:
Laboratory Results
02/19/25 02/19/25
06:31 11:00
WBC 9.2
Hgb 8.1 L 7.9 L
Hct 24.6 L
Plt Count 157
Sodium 141
Potassium 3.9
Chloride 105
Carbon Dioxide 26
BUN 19 H
Creatinine 0.9
Glucose 143 H
Calcium 9.1
Vital Signs:
Vital Signs
Temp Pulse Resp BP Pulse Ox
98.5 F 92 16 115/53 95
02/19/25 11:10 02/19/25 11:10 02/19/25 11:10 02/19/25 11:10 02/19/25 11:10
I&O
02/18/25 02/19/25 02/20/25
06:59 06:59 06:59
Intake Total 240 / 240
Output Total 950 / 950 500 / 500
Balance -950 / -950 -260 / -260
Review of Systems
-
History Source: Patient
All other systems: Not reviewed unless documented
Data Reviewed
-
Diagnostic Radiology: Report Reviewed by me
Labs: Labs Reviewed by me
[2025-02-19] MEDS: NOVOLOG FLEXPEN-LOW RESISTANCE 1 UNITS SC (14:11)
--- NOTE | 2025-02-19 15:49 | CM ---
Alert awake oriented patient who lives with her Matty in a 2 story home with 10 steps to enter and 6 steps to bed/bathroom. She is independent in activates of daily living.She does not drive .She uses a cane . Pt had surgery ORIF Left
tibia on 02/17/25.PT indicated SNF . Pt agrees with SNF.NWB Left leg.
VN in past . No SNF hx
Pharmacy [facility]
PCP Dr Orellana
PLAN To SNf after located
[2025-02-19] MEDS: ROXICODONE 5 MG PO ×2 (16:55→20:58)
[2025-02-19] MEDS: LIPITOR 40 MG PO (16:56)
[2025-02-19] MEDS: TOPROL XL 150 MG PO (16:57)
[2025-02-19 17:23] LABS: Glucose - Point of Care 137 mg/dl (70-99)
[2025-02-19] MEDS: SENOKOT 17.2 MG PO (20:58)
[2025-02-19 22:19] LABS: Glucose - Point of Care 244 mg/dl (70-99)
[2025-02-19] MEDS: XALATAN OPHTHALMIC SOLUTION 1 DROP BOTH EYES (22:50)
[2025-02-20] VITALS (8 sets, daily range): BP systolic 107–147; BP diastolic 54–76; PULSE 98; O2SAT 94; BMI 28.4
[2025-02-20 06:30] LABS: Hematocrit 24.2 % (37.0-47.0); Mean Corp Hgb Conc. 33.1 g/dL (33.0-37.0); Mean Corpuscular Hgb 30.7 pg (27.0-31.0); Mean Corpuscular Volume 92.7 fL (81.0-99.0); Mean Platelet Volume 10.8 fL (7.4-10.4); Platelet Count 166 10^3/uL (130-400); Red Blood Cell Count 2.61 10^6/uL (4.20-5.40); Red Cell Dist. Width 14.5 % (11.5-14.5); White Blood Cell Count 6.8 10^3/uL (4.8-10.8)
[2025-02-20 06:54] LABS: Blood Urea Nitrogen 23 mg/dl (7-17); Calcium 9.4 mg/dl (8.4-10.2); Carbon Dioxide 26 mmol/L (22-30); Chloride 108 mmol/L (98-107); Estimated Creatinine Clearance 59 ml/min; Glucose 150 mg/dl (70-99); Potassium 3.8 mmol/L (3.5-5.1); Sodium 143 mmol/L (135-145); eGFR > 60.00
[2025-02-20 08:24] LABS: Glucose - Point of Care 165 mg/dl (70-99)
[2025-02-20] MEDS: NOVOLOG FLEXPEN-LOW RESISTANCE 1 UNITS SC ×3 (08:55→17:46)
[2025-02-20] MEDS: TYLENOL 1000 MG PO ×3 (08:57→21:00)
[2025-02-20] MEDS: ASPIRIN 325 MG PO (08:57)
[2025-02-20] MEDS: LASIX 20 MG PO (08:58)
[2025-02-20] MEDS: DIOVAN 160 MG PO (08:58)
[2025-02-20] MEDS: COLACE 100 MG PO ×2 (08:58→21:00)
--- NOTE | 2025-02-20 09:35 | W.PN.UPDATE ---
Update Note
Progress Note Update
Ms. Farfan is POD3 following her left tibial plateau ORIF performed by Dr. Barajas. She is resting comfortably in bed this morning. She endorses only a mild amount of aching pain in the knee, but states her primary concern is pain in the dorsal
aspect of her foot. She endorses only occasional 'zinging' pain in the foot. She otherwise reports she is doing well.
Directed exam of the left lower extremity reveals hinged knee brace in place. Dressing clean, dry and intact. Mild tenderness about the anterior knee. Calf soft and nontender. Patient has flicker of dorsiflexion, but has difficulty extending toes
(patient reports this has been an ongoing issue for her and is not new post-operatively). Sensation intact to light touch. Capillary refill <2 seconds.
Hgb 8.0 this AM.
80-year-old female postop day 3 left tibial plateau ORIF with Dr. Barajas
--Nonweightbearing to left lower extremity. Brace will be locked in extension when ambulatory. May progress to 0 to 30 degrees of flexion and range of motion when seated. We appreciate the assistance of PT/OT.
--Patient reports baseline difficulty extending her toes and dorsiflexing her ankle. This significantly decreases my concern for post-operative peroneal nerve injury.
--Recommend ASA 325 mg daily for at least 30 days for DVT ppx unless recommend otherwise per primary.
--Pain control prn. Ice and elevation for edema control.
--Dressing to remain in place.
--Case management consult for dc planning. Plan for outpatient follow up at 2 weeks post-op.
--Patient is stable post-operatively from an orthopedic standpoint. Orthopedics will sign off for now. Please reach out with any additional orthopedic questions or concerns.
--- NOTE | 2025-02-20 13:58 | W.PN.HOSP.TC ---
Addendum entered and electronically signed by Jamshid Reyes MD 02/20/25 14:51:
left tibial plateau fracture, tibial tubercle fracture multifactorial due to osteoporosis / fall
Original Note:
Today's Communication/Plan
-
medically clear
asa 325
dc ready, cm aware
Assessment / Plan
Assessment / Plan
Physical Exam
Constitutional: No acute distress
EENT: Anicteric and Moist mucous membranes
Cardiovascular: Rhythm & rate is regular
Respiratory: Respiratory effort normal and Lungs clear to auscul.
GI: Soft, Non tender and Normal bowel sounds
Neuro/Psych: AO x 3; Left foot weakness/drop - reportded to Ortho
Other: Skin (warm, dry )
A/P: Patient is an 80y F with PMH significant for HFrEF, hypertension and DM-II who presents to ED complaining of LLE pain s/p fall at home.
Left Tib-Fib Fracture
Left Ankle Hemarthrosis
Postop day 2 left tibial plateau ORIF
PT/OT/discharge planning
- Nonweightbearing to left lower extremity. Brace will be locked in extension when ambulatory however nonweightbearing
- Currently in postoperative hinged knee brace. May progress to 0 to 30 degrees of flexion and range of motion but again nonweightbearing
- Pain currently controlled with current regimen
-- DVT PPx: ASA 325 mg daily for at least 30 days
-Plan for outpatient follow up at 2 weeks post-op.
-monitor HgB
#Acute Blood Loss Anemia
-kate-operative +/- post operative blood losses
-transfuse as needed
-HgB goal >7
-appears stable
- ASA 325mg daily
#Left foot drop, improving
-most likely neurapraxia of the peroneal nerves.
-informed Ortho, they are aware
-monitor
#Ischemic Cardiomyopathy
#Chronic HFrEF
- Stable. Mild increase in edema recently - likely related to pioglitazone.
- Would avoid this medication given HFrEF.
- Continue usual diuretic dose.
- Continue Toprol / ARB.
- Follow I/Os, daily weights, etc.
- Will ask Cardiology to evaluate patient in kate-operative period given cardiomyopathy.
Normocytic Anemia
- Hgb = 10.6. Baseline somewhat variable - most recent 13 but multiple prior values in the 9-10 range.
- Patient denies any gross blood loss.
- Not on OAC - takes ASA 81mg only.; On ASA 325mg daily for 30 days
- Check iron studies, B12, etc.
- Follow H&H for any changes.
- Monitor for any evidence of bleeding, etc.
Benign Hypertension
- Stable. Continue metoprolol and valsartan with holding parameters.
DM-II
- Stable. Hold / discontinue pioglitazone as noted above.
- Follow glucose and cover with SSI as needed.
- Update A1C.
Glaucoma
- Stable. Continue latanoprost.
DVT Prophylaxis: Aspirin 325
Code Status: Full
Anticipated Discharge: Within 24 hours
Subjective/Interval History
-
Date of Service: February 20, 2025
no acute events
Objective Data
-
Labs:
Laboratory Results
02/20/25
06:16
WBC 6.8
Hgb 8.0 L
Hct 24.2 L
Plt Count 166
Sodium 143
Potassium 3.8
Chloride 108 H
Carbon Dioxide 26
BUN 23 H
Creatinine 0.7
Glucose 150 H
Calcium 9.4
Vital Signs:
Vital Signs
Temp Pulse Resp BP Pulse Ox
98.1 F 95 18 115/55 92
02/20/25 11:10 02/20/25 11:10 02/20/25 11:10 02/20/25 11:10 02/20/25 11:10
I&O
02/19/25 02/20/25 02/21/25
06:59 06:59 06:59
Intake Total 240 / 240 720 / 720
Output Total 500 / 500 100 / 100
Balance -260 / -260 620 / 620
Review of Systems
-
History Source: Patient
All other systems: Not reviewed unless documented
Physical Exam
-
General: No Apparent Distress
HEENT: Moist Mucous Membranes
Respiratory: Clear to Auscultation
Cardiac: Regular Rhythm and S1/S2
GI: Soft, Nontender, Nondistended and Normal Bowel Sounds
Genito-urinary: No Costovertebral Tender
Neuro: AO x 3
Psych: Calm
Data Reviewed
-
Diagnostic Radiology: Report Reviewed by me
Labs: Labs Reviewed by me
[2025-02-20 14:26] LABS: Glucose - Point of Care 161 mg/dl (70-99)
[2025-02-20] MEDS: ROXICODONE 5 MG PO (16:26)
[2025-02-20 17:38] LABS: Glucose - Point of Care 178 mg/dl (70-99)
[2025-02-20] MEDS: TOPROL XL 150 MG PO (17:44)
[2025-02-20] MEDS: LIPITOR 40 MG PO (17:45)
[2025-02-20] MEDS: SENOKOT 17.2 MG PO (21:00)
[2025-02-20] MEDS: XALATAN OPHTHALMIC SOLUTION 1 DROP BOTH EYES (21:01)
[2025-02-20 21:23] LABS: Glucose - Point of Care 202 mg/dl (70-99)
[2025-02-21 03:00] VITALS: BP 134/75
[2025-02-21] MEDS: ROXICODONE 5 MG PO ×2 (03:09→16:07)
[2025-02-21 06:00] VITALS: BMI 28.1
[2025-02-21 07:10] VITALS: BP 139/72
[2025-02-21 07:55] LABS: Hematocrit 23.2 % (37.0-47.0); Hemoglobin 7.7 g/dL (12.0-16.0); Mean Corp Hgb Conc. 33.2 g/dL (33.0-37.0); Mean Corpuscular Hgb 31.3 pg (27.0-31.0); Mean Corpuscular Volume 94.3 fL (81.0-99.0); Mean Platelet Volume 10.5 fL (7.4-10.4); Platelet Count 206 10^3/uL (130-400); Red Blood Cell Count 2.46 10^6/uL (4.20-5.40); Red Cell Dist. Width 14.2 % (11.5-14.5); White Blood Cell Count 6.4 10^3/uL (4.8-10.8)
[2025-02-21 08:05] LABS: Blood Urea Nitrogen 24 mg/dl (7-17); Calcium 9.3 mg/dl (8.4-10.2); Carbon Dioxide 26 mmol/L (22-30); Chloride 108 mmol/L (98-107); Estimated Creatinine Clearance 51 ml/min; Glucose 144 mg/dl (70-99); Potassium 4.3 mmol/L (3.5-5.1); Sodium 142 mmol/L (135-145); eGFR > 60.00
[2025-02-21 08:07] LABS: Glucose - Point of Care 154 mg/dl (70-99)
[2025-02-21] MEDS: NOVOLOG FLEXPEN-LOW RESISTANCE 1 UNITS SC ×2 (09:46→17:33)
[2025-02-21] MEDS: DIOVAN 160 MG PO (09:47)
[2025-02-21] MEDS: TYLENOL 1000 MG PO ×2 (09:47→16:06)
[2025-02-21] MEDS: ASPIRIN 325 MG PO (09:48)
[2025-02-21] MEDS: LASIX 20 MG PO (09:48)
[2025-02-21] MEDS: COLACE 100 MG PO (09:49)
--- NOTE | 2025-02-21 10:14 | W.PN.HOSP.TC ---
Today's Communication/Plan
-
see bold
Assessment / Plan
Assessment / Plan
Gen: NAD, AAOx3.
Eyes: EOMI, PERRLA, no scleral icterus.
Neck: supple.
CV: RRR, +S1/S2, no m/r/g.
Resp: CTAB, no rales, wheezes, or rhonchi.
Abd: +BS, soft, NT, ND
Skin: No rashes.
Neuro: CN 2-12 intact, non-focal.
Psych: Normal mood and affect.
Left Tib-Fib Fracture, Left Ankle Hemarthrosis:
-s/p left tibial plateau ORIF 02/17/25
-Nonweightbearing to left lower extremity. Currently in postoperative hinged knee brace. Brace will be locked in extension when ambulatory however nonweightbearing
-PT/OT
-pain control
-DVT PPx: ASA 325 mg daily for at least 30 days as per ortho
Acute Blood Loss Anemia:
-due to surgery
-Hb stable and > 7
Left foot drop:
-improving
-most likely neurapraxia of the peroneal nerves
-ortho made aware
Chronic HFrEF/ICM:
-Mild increase in edema recently, likely due to pioglitazone. Would avoid thiazolidinediones in this HF pt.
-cont BB/ARB/Lasix
DM2: a1c 6.7%, SSI/accucheck/diabetic diet
Essential HTN: cont BB/ARB
Glaucoma: cont latanoprost
FULL/Aspirin
Medically cleared for d/c, case management aware.
Anticipated Discharge: Today
Subjective/Interval History
-
Date of Service: February 21, 2025
Denies chest pain or shortness of breath.
Objective Data
-
Labs:
Laboratory Results
02/21/25
07:04
WBC 6.4
Hgb 7.7 L
Hct 23.2 L
Plt Count 206 D
Sodium 142
Potassium 4.3
Chloride 108 H
Carbon Dioxide 26
BUN 24 H
Creatinine 0.8
Glucose 144 H
Calcium 9.3
Vital Signs:
Vital Signs
Temp Pulse Resp BP Pulse Ox
98.2 F 98 16 139/72 93
02/21/25 07:10 02/21/25 07:10 02/21/25 07:10 02/21/25 09:47 02/21/25 07:10
I&O
02/20/25 02/21/25 02/22/25
06:59 06:59 06:59
Intake Total 720 / 720 960 / 960
Output Total 100 / 100 200 / 200
Balance 620 / 620 760 / 760
[2025-02-21 11:05] VITALS: BP 143/74
[2025-02-21 12:46] LABS: Glucose - Point of Care 216 mg/dl (70-99)
[2025-02-21] MEDS: NOVOLOG FLEXPEN-LOW RESISTANCE 2 UNITS SC (13:01)
[2025-02-21 13:27] VITALS: BP 143/76; PULSE 100
[2025-02-21 13:33] VITALS: BP 98/66; PULSE 110; O2SAT 93
--- NOTE | 2025-02-21 14:58 | CM ---
Received confirmation from attending that patient is cleared for discharge. [facility] and spoke with Siobhan in admissions who confirmed acceptance # For report [phone] fax# [phone].
Met with patient who initially was not agreeable to transferring however stated that she would go.
Completed medical necessity and transfer sheet for discharge.
IMM completed, signed and on chart.
Plan: Case management will continue to follow and assist with discharge planning. Sherlyn Webster.
[2025-02-21 15:10] VITALS: BP 128/67
--- NOTE | 2025-02-21 16:34 | W.DCSUMMARY ---
Discharge Summary
Discharge Data
Date of Admission: 02/17/25
Date of Discharge: 02/21/25
-
Pending Results: No
Hospital Course
Primary Diagnoses:
Left Tib-Fib Fracture, Left Ankle Hemarthrosis, s/p left tibial plateau ORIF 02/17/25
Acute blood loss anemia due to surgery
Secondary Diagnoses:
Left foot drop
Chronic heart failure with reduced ejection fraction nonischemic cardiomyopathy
Type 2 diabetes mellitus
Essential hypertension
Glaucoma
Consultants:
Orthopedics
Imaging:
CT LLE: Acute fractures of the proximal tibia and fibula
CT brain: No acute intracranial abnormality noted.
CT C-spine: No acute fractures identified. Multilevel degenerative disc disease.
Hospital course: 80-year-old female who presented with a chief complaint of a fall resulting in left hip pain as outlined in the H&P done on admission. She was found to have a left Tib-Fib Fracture as well as Left Ankle Hemarthrosis. She underwent
left tibial plateau ORIF on 02/17/25 and tolerated the procedure well. She had acute blood loss centimeters her surgery but did not require packed red blood cell transfusion. Her hemoglobin was stable at the time of discharge and greater than 7.
She was to be nonweightbearing to left lower extremity. Currently in postoperative hinged knee brace. Brace will be locked in extension when ambulatory however nonweightbearing. Patient was discharged in medically stable condition on aspirin for
DVT prophylaxis as per orthopedics.
Discharge Plan
-
Patient Disposition: Care Home/SNF
Discharge Diagnosis/Procedures: Left Tib-Fib Fracture, Left Ankle Hemarthrosis, s/p left tibial plateau ORIF 02/17/25
Condition: Good
Diet: Diabetic, Carb Controlled
Activity: With assistance
Additional Activity: Nonweightbearing to left lower extremity. Currently in postoperative hinged knee brace. Brace will be locked in extension when ambulatory however nonweightbearing
Driving Restrictions: No driving
Referrals:
Efren Orellana, DO [Family Provider] - in less than 1 week
Prescriptions:
New
acetaminophen 325 mg Tablet
650 mg PO Q4HPRN PRN (Reason: headache, temp >101F) Qty: 0 0RF
aspirin 325 mg Tablet
325 mg PO DAILY Qty: 0 0RF
docusate sodium 100 mg Capsule
100 mg PO BID Qty: 0 0RF
sennosides [Sharron-xiao] 8.6 mg Tablet
17.2 mg PO HS Qty: 0 0RF
Continued
fenofibrate 160 MG tablet
160 mg PO DAILY
therapeutic multivitamin Tablet
1 tab PO DAILY
polyethylene glycol 3350 17 gram powder in packet
17 g PO DAILY PRN (Reason: Constipation)
furosemide 20 mg Tablet
20 mg PO DAILY Qty: 30 0RF
latanoprost 0.005 % Drops
1 drp OPHTHALMIC (EYE) QPM
Rx Instructions:
1 gtt both eyes at bedtime daily
atorvastatin 40 mg Tablet
40 mg PO QPM
metoprolol succinate 100 mg Tablet Extended Release 24 Hr
150 mg PO QPM
metformin 850 mg Tablet
850 mg PO BID
valsartan 160 mg Tablet
160 mg PO DAILY
Discontinued
aspirin [Children's Aspirin] 81 mg Tablet,Chewable
81 mg PO DAILY Qty: 30 0RF
pioglitazone 30 mg Tablet
30 mg PO QPM
Discharge Orders:
Discharge Patient (As Directed); Ordered 02/21/25
Ordered By: Vivke Thorne
Discharge Date and Time
Print Language: JAMAICAN
[2025-02-21 16:56] LABS: Glucose - Point of Care 150 mg/dl (70-99)
[2025-02-21] MEDS: TOPROL XL 150 MG PO (17:34)
[2025-02-21] MEDS: LIPITOR 40 MG PO (17:34)
== END 2025-02-21 18:28 | DRG 493 ==
LOC: 4 EAST ACU 02:58
PROVIDERS: Internal Medicine; Physician Assistant; ADMITTING PHYSICIAN Hospitalist; ATTENDING PHYSICIAN Internal Medicine; CONSULT PHYSICIAN Student in an Organized Health Care Education/Training Program; EMERGENCY PHYSICIAN Emergency Medicine; FAMILY PHYSICIAN Family Medicine; OTHER PHYSICIAN Internal Medicine
PROC: 0QSH04Z Reposition Left Tibia with Internal Fixation Device, Open Approach (ICD-10-PCS; 2025-02-17)
DX: M80.062A Age-related osteoporosis with current pathological fracture, left lower leg, initial encounter for fracture (principal); D62 Acute posthemorrhagic anemia; I50.22 Chronic systolic (congestive) heart failure; K86.1 Other chronic pancreatitis; I11.0 Hypertensive heart disease with heart failure; I25.10 Atherosclerotic heart disease of native coronary artery without angina pectoris; I25.5 Ischemic cardiomyopathy; E11.40 Type 2 diabetes mellitus with diabetic neuropathy, unspecified; F41.9 Anxiety disorder, unspecified; E78.00 Pure hypercholesterolemia, unspecified; W01.0XXA Fall on same level from slipping, tripping and stumbling without subsequent striking against object, initial encounter; H40.9 Unspecified glaucoma; M21.372 Foot drop, left foot; Z87.891 Personal history of nicotine dependence; Z79.899 Other long term (current) drug therapy; Z79.84 Long term (current) use of oral hypoglycemic drugs; Z79.82 Long term (current) use of aspirin; Y92.009 Unspecified place in unspecified non-institutional (private) residence as the place of occurrence of the external cause
CPT/HCPCS: 29505; 70450; 72125; 73560; 73590; 73700; 76000; 80048; 82607; 82728; 82962; 83036; 83540; 83550; 85018; 85025; 85027; 86803; 86850; 86900; 86901; 93005; 97163; 97167; 97530; 97535; 99285

== ENCOUNTER 2025-03-18 02:51 | Inpatient (IN) | payer MEDICARE, OTHER, SELFPAY ==
[2025-03-18] VITALS (34 sets, daily range): BP systolic 71–112; BP diastolic 45–65; BMI 26.3; BMI 26.6
[2025-03-18 00:34] LABS: % Basophils 0.5 % (0-2); % Eosinophils 2.9 % (0-6); % Immature Granulocytes 2.1 % (0-0.5); % Lymphocytes 18.9 % (20.5-51.1); % Monocytes 6.5 % (1.7-9.3); % Neutrophils 69.1 % (42.2-75.2); Absolute Basophils 0.1 10^3/uL (0-0.2); Absolute Eosinophils 0.4 10^3/uL (0-0.7); Absolute Immature Granulocytes 0.3 10^3/uL (0-0.05); Absolute Lymphocytes 2.8 10^3/uL (1.2-3.4); Absolute Neutrophils 10.1 10^3/uL (1.4-6.5); Hematocrit 32.9 % (37.0-47.0); Hemoglobin 10.7 g/dL (12.0-16.0); Mean Corp Hgb Conc. 32.5 g/dL (33.0-37.0); Mean Corpuscular Hgb 30.7 pg (27.0-31.0); Mean Corpuscular Volume 94.3 fL (81.0-99.0); Mean Platelet Volume 10.8 fL (7.4-10.4); Nucleated Red Blood Cells % 0 %; Platelet Count 295 10^3/uL (130-400); Red Blood Cell Count 3.49 10^6/uL (4.20-5.40); Red Cell Dist. Width 15.3 % (11.5-14.5); White Blood Cell Count 14.6 10^3/uL (4.8-10.8)
[2025-03-18 00:53] LABS: ALT (SGPT) 39 U/L (0-35); AST (SGOT) 69 U/L (14-36); Albumin 3.4 g/dl (3.5-5.0); Alkaline Phosphatase 75 U/L (38-126); Calcium 9.5 mg/dl (8.4-10.2); Carbon Dioxide 17 mmol/L (22-30); Chloride 113 mmol/L (98-107); Estimated Creatinine Clearance 19 ml/min; Glucose 101 mg/dl (70-99); Potassium 4.8 mmol/L (3.5-5.1); Sodium 140 mmol/L (135-145); Total Bilirubin 1.2 mg/dl (0.2-1.3); Total Protein 6.2 g/dl (6.3-8.2); eGFR 23.38
[2025-03-18 01:04] LABS: Blood Urea Nitrogen 134 mg/dl (7-17)
--- NOTE | 2025-03-18 01:11 | ED.GENMED ---
History of Present Illness
General
Chief Complaint: Abnormal Lab Value
Source: patient and ambulance crew
Exam Limitations: none
Time Seen by Provider: 03/18/25 01:11
Nursing documentation reviewed up to this point in time: agreed with
History of Present Illness
History of Present Illness:
Pleasant 80-year-old female from [facility] presents to the emergency department with elevated BUN. She had lab work earlier today and it came back elevated. [facility] sent her here for evaluation. Patient has no complaints. She states
that she has been eating and drinking less than normal. Denies fever, chills, nausea or vomiting. No chest pain or shortness of breath. Denies any known bleeding. She does have a sacral decubiti which has been followed.
Past History
Past History
ED Past Medical History: HTN, Hypercholesterolemia and NIDDM
ED Past Surgical History: Appendectomy
Social History
Tobacco: Former smoker
Alcohol: None
Drug: None
Review of Systems
Review of Systems
Allergies reviewed?: Yes
All Other Systems: ROS reviewed and negative except as documented in HPI and ROS
Constitutional: Reports no symptoms
EENT: Reports no symptoms
Respiratory: Reports no symptoms
Cardiac: Reports no symptoms
ABD/GI: Reports anorexia; Denies abdominal pain, nausea, vomiting, diarrhea, constipated or bloody stools
: Reports no symptoms
Musculoskeletal: Reports no symptoms
Skin: Reports no symptoms
Neurological: Reports no symptoms
Endocrine: Reports no symptoms
Hematologic/Lymphatic: Reports no symptoms
Psychiatric: Reports anxiety
Phy Exam
General Physical Exam
General Presentation: well appearing and no apparent distress
General age: appears stated age
General Skin: warm and pale
General Habitus: elderly
General Mental: alert
General Hydration: dry mucous membranes
ENT Exam
ENT Exam: EOMI, pharynx normal, neck supple and normocephalic
Eye Exam
Eye Exam: PERRL, cornea clear and conjunctiva normal
Cardiovascular Exam
Cardiovascular Exam: regular rate/rhythm, no edema, no murmur and normal peripheral pulses
Pulmonary Exam
Pulmonary Exam: lungs clear, no respiratory distress, no rales, no crackles, no rhonchi, no stridor, no wheezing and no cough
Gastrointestinal Exam
Gastrointestinal Exam: normal bowel sounds, non tender, soft, no organomegaly, no pulsatile mass and non distended
Neurological Exam
Neurological Exam: alert, oriented x3, no motor deficits and speech normal
Musculoskeletal Exam
Musculoskeletal Exam: full ROM and no edema
Skin Exam
Skin Exam: warm/dry, no rash, no petechia and pallor
Psychiatric Exam
Psychiatric Exam: normal mood/affect
Course
Orders/Labs/Results
Orders:
Orders
03/18/25 00:18
Complete Blood Count/With Diff Urgent
Comprehensive Metabolic Panel Urgent
03/18/25 01:14
0.9% Sodium Chloride 1000 ml [Nss] 1,000 ml IV BOLUS
03/18/25 01:16
Urinalysis Reflex To Culture Urgent
03/18/25 01:17
Osmolality, Random Urine Urgent
03/18/25 01:24
Lactic Acid Q4H
Comment: CANCEL 2nd LACTIC ACID IF 1st LACTIC ACID IS LESS THAN 2
NT-proBNP Urgent
03/18/25 05:30
Lactic Acid Q4H
Comment: CANCEL 2nd LACTIC ACID IF 1st LACTIC ACID IS LESS THAN 2
Abnormal Lab Results
03/18/25
00:18
WBC 14.6 H 10^3/uL
(4.8-10.8)
RBC 3.49 L 10^6/uL
(4.20-5.40)
Hgb 10.7 L g/dL
(12.0-16.0)
Hct 32.9 L %
(37.0-47.0)
MCHC 32.5 L g/dL
(33.0-37.0)
RDW 15.3 H %
(11.5-14.5)
MPV 10.8 H fL
(7.4-10.4)
Abs Immat Gran (auto) 0.3 H 10^3/uL
(0-0.05)
Absolute Neuts (auto) 10.1 H 10^3/uL
(1.4-6.5)
Absolute Monos (auto) 1.0 H 10^3/uL
(0.1-0.6)
Immature Gran % 2.1 H %
(0-0.5)
Lymphocytes % 18.9 L %
(20.5-51.1)
Chloride 113 H mmol/L
(98-107)
Carbon Dioxide 17 L mmol/L
(22-30)
BUN 134 H* mg/dl
(7-17)
Creatinine 2.1 H mg/dL
(0.6-1.0)
Glucose 101 H mg/dl
(70-99)
AST 69 H U/L
(14-36)
ALT 39 H U/L
(0-35)
Total Protein 6.2 L g/dl
(6.3-8.2)
Albumin 3.4 L g/dl
(3.5-5.0)
03/18/25 00:18
03/18/25 00:18
Vital Signs
Initial and Last Documented VS:
Initial Vital Signs
Temp Pulse Resp BP Pulse Ox
98.1 F 93 16 100/53 94
03/18/25 00:10 03/18/25 00:10 03/18/25 00:10 03/18/25 00:10 03/18/25 00:10
Last Documented Vital Signs
Temp Pulse Resp BP Pulse Ox
98.1 F 88 18 101/56 95
03/18/25 00:10 03/18/25 01:45 03/18/25 01:45 03/18/25 01:37 03/18/25 01:30
*Pulse Oximetry
Patient hypoxic: no (Pulse ox 95 on room air)
*Critical Care Note
Total Time (30-74mins, 75-104mins- exclusive of procedures): 38 (Critical care statement: A total of 38 minutes of critical care time was provided for this patient. This time is separate from time utilized to perform the aforementioned documented
procedures. Aggregate critical care time includes only time during which I was engaged in work directl)
Update Note
Update Note:
Spoke with nephrology Dr. Mariee, and reviewed lab work. He recommended 2 L of IV fluid. This has been already ordered. Patient to be admitted to the hospitalist
ED Attending Note
-
Portions of this chart may have been created with voice recognition software.� Occasional wrong word or��sound alike� substitutions may have occurred due to the inherent limitations of voice recognition software.
Discharge Plan
Departure
Patient Disposition: Admit
Date of Disposition: 03/18/25
Time of Disposition: 01:45
Presentation/result/management discussed w/ accepting MD/DO: Hospitalist
Condition: Fair
Discharge Problem:
Azotemia, Hypotension
Prescriptions:
No Action
fenofibrate 160 MG tablet
160 mg PO DAILY
therapeutic multivitamin Tablet
1 tab PO DAILY
polyethylene glycol 3350 17 gram powder in packet
17 g PO DAILY PRN (Reason: Constipation)
furosemide 20 mg Tablet
20 mg PO DAILY Qty: 30 0RF
latanoprost 0.005 % Drops
1 drp OPHTHALMIC (EYE) QPM
Rx Instructions:
1 gtt both eyes at bedtime daily
atorvastatin 40 mg Tablet
40 mg PO QPM
metoprolol succinate 100 mg Tablet Extended Release 24 Hr
150 mg PO QPM
metformin 850 mg Tablet
850 mg PO BID
valsartan 160 mg Tablet
160 mg PO DAILY
acetaminophen 325 mg Tablet
650 mg PO Q4HPRN PRN (Reason: headache, temp >101F) Qty: 0 0RF
aspirin 325 mg Tablet
325 mg PO DAILY Qty: 0 0RF
docusate sodium 100 mg Capsule
100 mg PO BID Qty: 0 0RF
sennosides [Sharron-xiao] 8.6 mg Tablet
17.2 mg PO HS Qty: 0 0RF
Referrals:
Issa Mancini MD [Family Provider]
Interventions
Interventions:
*Risk Screen - Suicide Last Done: 03/18/25 00:10
*General Assessment Last Done: 03/18/25 00:10
*Neglect/Abuse Screening Last Done: 03/18/25 00:10
*ED- Fall Risk Assessment Last Done: 03/18/25 00:26
*ED COVID-19 Vaccine History Last Done: 03/18/25 00:26
Discharge Date and Time
Print Language: TELUGU
[2025-03-18] MEDS: NSS 1000 IV (01:34)
--- NOTE | 2025-03-18 01:46 | HPS.HSE ---
Family Physician
-
Family Physician: Issa Mancini
Chief Complaint
-
Abnormal blood work
History of Present Illness
This is a 80-year-old female with past medical history significant for hypertension, hyperlipidemia, CHF with a EF of 25% 1 year ago presents to the emergency management from rehab facility for elevated creatinine to 2.1 and a BUN of 140 on routine
blood test.
Patient was recently admitted to the hospital about 1 month ago following fall and left hip pain for which she was found to have a left tib-fib fracture as well as a left ankle hemarthrosis. She underwent left tibial plateau ORIF on 02 17 and is
currently in immobilizer on the left leg. She had transient blood loss in the OR and was discharged with a hemoglobin of 7 she did not require transfusion. Patient apparently had been doing well in rehab and she self denied any symptoms until
being transferred to the emergency department today for elevated creatinine.
On questioning patient reports reduced appetite and low p.o. intake. She denies diarrhea. She denies any melena or hematochezia. She denies vomiting. She denies any urinary symptoms but is unable to quantify how much urine she makes. She
reports soreness in the back secondary to chronic sacral decubitus ulcer. She denies having any chills. She denies any fevers. Patient denies any flank pain abdominal distention or bloating.
On arrival in the emergency department she was hypotensive to 88/50, pulse was in the 90s and she was satting 95% on room air. She was afebrile. She had a white count of 14.6 with 2.1% immature cells, hemoglobin was 10.7 up from 7.7 on discharge.
Platelet count was normal.
Sodium 140, potassium 4.8, chloride 113, bicarb 17, BUN 134, creatinine 2.1 and normal glucose. She had mild elevation in the AST to 79 and ALT 239. Baseline creatinine was 0.8 and BUN of around 20 last month.
Medical History
Past Medical History
Past Medical History: Reports Other
Additional Past Medical History:
Hypertension
DM-II
Ischemic Cardiomyopathy
Chronic HFrEF (25%)
Osteoporosis
Glaucoma
Anxiety
Past Surgical History: Reports Other
Additional Past Surgical History:
Cardiac Cath - No Stent
Appendectomy
Eye Surgery
Social History
Tobacco: Former Smoker (Quit smoking many years ago.)
Alcohol: None
Drug: None
Family History
Family History: Not pertinent
Allergies / Home Medications
Allergies reflects when Allergies were last updated in [facility].
Home Medications with original date entered in [facility]
Allergy/Medication List:
Allergies
Allergy/AdvReac Type Severity Reaction Status Date / Time
No Known Allergies Allergy Verified 02/16/25 22:58
Home Medications
fenofibrate 160 mg tablet 160 mg PO DAILY High Cholesterol 12/06/14
polyethylene glycol 3350 17 gram oral powder packet 17 g PO DAILY PRN Constipation 08/21/23
therapeutic multivitamin 1 tab PO DAILY Supplement 08/21/23
aspirin 81 mg chewable tablet (Children's Aspirin) 81 mg PO DAILY #30 tabs 08/27/23
furosemide 20 mg tablet 20 mg PO DAILY #30 tabs 08/27/23
atorvastatin 40 mg tablet 40 mg PO QPM 02/17/25
latanoprost 0.005 % eye drops 1 drp ophthalmic (eye) QPM 02/17/25
metformin 850 mg tablet 850 mg PO BID 02/17/25
metoprolol succinate 100 mg tablet,extended release 24 hr 150 mg PO QPM 02/17/25
pioglitazone 30 mg tablet 30 mg PO QPM 02/17/25
valsartan 160 mg tablet 160 mg PO DAILY 02/17/25
Review of Systems
-
Constitutional: Reports No Symptoms
EENT: Reports No Symptoms
Respiratory: Reports No Symptoms
Cardiac: Reports No Symptoms
Abdomen/GI: Reports No Symptoms
: Reports No Symptoms
Musculoskeletal: Reports No Symptoms
Skin: Reports No Symptoms
Neurological: Reports No Symptoms
Endocrine: Reports No Symptoms
Hematologic/Lymphatic: Reports No Symptoms
Psych: Reports No Symptoms
Physical Exam
Vital Signs
Vital Signs
Temp Pulse Resp BP Pulse Ox
98.1 F 88 18 101/56 95
03/18/25 00:10 03/18/25 01:45 03/18/25 01:45 03/18/25 01:37 03/18/25 01:30
Physical Exam
General: Other (Patient uncomfortable due to discomfort in lower back secondary to early ulcer); No Comfortable
HEENT: Moist mucous membranes and PERRLA; No Oxygen
Respiratory: Clear; No Wheezes, Rales or Rhonchi
Cardiac: S1/S2 and Regular Rhythm; No Murmur
GI: Soft, Non Tender, Non Distended and Normal Bowel Sounds
Rectal: Deferred by Provider
Genito-urinary: Deferred by me
Musculoskeletal: Other (LLE with evident deformity lateral aspect of the leg just distal to the knee. Mild bruising. 1+ edema b/l feet.)
Neuro: AO x 3
Laboratory Results
-
03/18/25 00:18
03/18/25 00:18
Laboratory Results
Total Bilirubin 1.2 mg/dl (0.2-1.3) 03/18/25 00:18
AST 69 U/L (14-36) H 03/18/25 00:18
ALT 39 U/L (0-35) H 03/18/25 00:18
Alkaline Phosphatase 75 U/L (38-126) 03/18/25 00:18
Data Reviewed
-
Lab Data: Labs Reviewed by me
Old Records: Reviewed
Impression/Plan
-
IMPRESSION:
80-year-old presented emergency department with acute kidney injury. Creatinine 2.1 up from a baseline of 0.8. BUN 134 from a baseline of 20s. Soft BPs on arrival in the emergency department. She has not been able to provide any urine and
bladder scan shows no retention. Potassium is 4.8, bicarb 17.
PLAN:
LISETTE on mild CKD without any acute indication for BOILER TUBE BLOWER at this time. She is not volume overloaded despite history of CHF with EF of 25%. Based on BUN to creatinine ratio suspect prerenal azotemia. Cannot rule out internal bleeding as patient was
placed on aspirin for DVT prophylaxis after surgery. She self denies any melena or hematochezia denies any abdominal pain nausea or vomiting. She is not on any nephrotoxins but does take diuretics and ARB. Suspect prerenal azotemia but cannot
rule out ATN if blood pressure has been low for some time. She shows no signs of active infection at this time to suggest sepsis.
-Admit to telemetry for serial V/S due to relative low BP
-Will give sepsis fluid resuscitation of 1.5 L total
-Continue with bicarb drip after that 60 cc an hour
- lactate pending, get Blood cultures if febrile or lactate elevated
-UA urine cultures
-Acute renal serologies including ESR CRP rheumatoid factor, DANO, ANCA, ASO, C3-C4
-Holding ARB, holding diuretic,
-Metoprolol with hold parameters will reduce dose for now to 50 mg daily
- Renal ultrasound with Dopplers
-Strict I/O's
- fecal occult testing
- orthostatics
-Nephrology consultation
[2025-03-18 01:48] LABS: Lactic Acid 0.7 mmol/L (0.7-2.0)
[2025-03-18 02:00] LABS: NT-proBNP 1900 pg/ml
[2025-03-18] MEDS: ProAmatine 2.5 MG PO (02:56)
[2025-03-18] MEDS: FLUSH (NSS) 1 FLUSH IV (02:56)
[2025-03-18] MEDS: NSS 500 IV (02:59)
[2025-03-18] MEDS: SODIUM BICARBONATE 50 MEQ IV (02:59)
[2025-03-18] MEDS: SODIUM CHLORIDE 1109.625 MEQ IV ×4 (04:57→20:32)
[2025-03-18 05:34] LABS: Hematocrit 28.5 % (37.0-47.0); Hemoglobin 9.3 g/dL (12.0-16.0); Mean Corp Hgb Conc. 32.6 g/dL (33.0-37.0); Mean Corpuscular Hgb 30.6 pg (27.0-31.0); Mean Corpuscular Volume 93.8 fL (81.0-99.0); Mean Platelet Volume 10.9 fL (7.4-10.4); Platelet Count 233 10^3/uL (130-400); Red Blood Cell Count 3.04 10^6/uL (4.20-5.40); Red Cell Dist. Width 15.2 % (11.5-14.5); White Blood Cell Count 11.2 10^3/uL (4.8-10.8)
[2025-03-18 06:24] LABS: Blood Urea Nitrogen 120 mg/dl (7-17); Calcium 8.9 mg/dl (8.4-10.2); Carbon Dioxide 18 mmol/L (22-30); Chloride 117 mmol/L (98-107); Estimated Creatinine Clearance 23 ml/min; Glucose 90 mg/dl (70-99); Potassium 4.6 mmol/L (3.5-5.1); Sodium 143 mmol/L (135-145); eGFR 30.13
[2025-03-18 06:27] LABS: Cortisol, Random 25.1 ug/dl
[2025-03-18 08:01] LABS: Glucose - Point of Care 99 mg/dl (70-99)
--- NOTE | 2025-03-18 08:14 | W.CON.NEPH ---
Consultation
-
Date/Time Consultation Requested: 03/18/2025 7 AM
Date/Time Consultation Performed: 03/18/2025 8 AM
Requesting Provider: Dr. Jorge
Performing Provider: Dr. Stockton
Reason for Consultation: LISETTE, azotemia
Medical History
-
Chief Complaint: LISETTE
History of Present Illness:
This is a 80-year-old female with hypertension typically on a multidrug regimen, hyperlipidemia treated with statin therapy and stable, HFrEF 25% on chronic diuretic therapy who was in the hospital at the end of February with a left tib-fib fracture and
ankle hemarthrosis. She underwent left tibial plateau ORIF on February 17. She was placed in an immobilizer and ultimately was sent to rehab. She was anemic at the time of discharge with a hemoglobin around 7. While at rehab oral intake may not have
been as robust. At 1 point blood work was checked which revealed elevated creatinine and BUN and she was sent to the hospital for evaluation. On admission her creatinine was 2.1 up from a baseline of 0.83 weeks prior. BUN was 134. She was also
noted to be hypotensive. There is also a mild metabolic acidosis. She was started on intravenous fluids. We are asked to assist with management of her acute kidney injury. Also of note is borderline oxygen saturations as well as elevated LFTs.
Past Medical History
Hypertension
DM-II
Ischemic Cardiomyopathy
Chronic HFrEF (25%)
Osteoporosis
Glaucoma
Anxiety
left tibial plateau ORIF
Cardiac Cath - No Stent
Appendectomy
Eye Surgery
Social History
Tobacco: Former Smoker
Alcohol: None
Family History
Family History: Not Pertinent
Allergies / Home Medications
Allergy/AdvReac Type Severity Reaction Status Date / Time
No Known Allergies Allergy Verified 03/18/25 00:09
�Medication �Instructions �Recorded �Confirmed �Type
fenofibrate 160 mg tablet 160 mg PO DAILY High Cholesterol 12/06/14 02/17/25 History
polyethylene glycol 3350 17 gram 17 g PO DAILY PRN Constipation 08/21/23 02/17/25 History
oral powder packet
therapeutic multivitamin 1 tab PO DAILY Supplement 08/21/23 02/17/25 History
furosemide 20 mg tablet 20 mg PO DAILY #30 tabs 08/27/23 02/17/25 Rx
atorvastatin 40 mg tablet 40 mg PO QPM High Cholesterol 02/17/25 02/17/25 History
latanoprost 0.005 % eye drops 1 drp ophthalmic (eye) QPM Eye 02/17/25 02/17/25 History
Condition
metformin 850 mg tablet 850 mg PO BID Diabetes 02/17/25 02/17/25 History
metoprolol succinate 100 mg 150 mg PO QPM Blood Pressure 02/17/25 02/17/25 History
tablet,extended release 24 hr
valsartan 160 mg tablet 160 mg PO DAILY Blood Pressure 02/17/25 02/17/25 History
acetaminophen 325 mg tablet 650 mg (2 x 325 mg) PO Q4HPRN PRN 02/21/25 Rx
headache, temp >101F #0 tabs
aspirin 325 mg tablet 325 mg PO DAILY #0 tabs 02/21/25 Rx
docusate sodium 100 mg capsule 100 mg PO BID #0 caps 02/21/25 Rx
sennosides 8.6 mg tablet (Sharron-xiao) 17.2 mg (2 x 8.6 mg) PO HS #0 tabs 02/21/25 Rx
Review of Systems
-
Poor appetite, mild thirst. No chest pain. No shortness of breath. No diarrhea. Decreased urine output
All other systems: Negative unless noted
Physical Exam
Vital Signs
Vital Signs
Temp Pulse Resp BP Pulse Ox
97.9 F 88 21 111/61 91
03/18/25 04:19 03/18/25 06:00 03/18/25 06:00 03/18/25 06:00 03/18/25 05:42
Lab Results
WBC 11.2 10^3/uL (4.8-10.8) H 03/18/25 05:06
RBC 3.04 10^6/uL (4.20-5.40) L 03/18/25 05:06
Hgb 9.3 g/dL (12.0-16.0) L 03/18/25 05:06
Hct 28.5 % (37.0-47.0) L 03/18/25 05:06
Plt Count 233 10^3/uL (130-400) D 03/18/25 05:06
Sodium 143 mmol/L (135-145) 03/18/25 05:06
Potassium 4.6 mmol/L (3.5-5.1) 03/18/25 05:06
Chloride 117 mmol/L (98-107) H 03/18/25 05:06
Carbon Dioxide 18 mmol/L (22-30) L 03/18/25 05:06
BUN 120 mg/dl (7-17) H* 03/18/25 05:06
Creatinine 1.7 mg/dL (0.6-1.0) H 03/18/25 05:06
eGFR 30.13 03/18/25 05:06
Glucose 90 mg/dl (70-99) 03/18/25 05:06
Calcium 8.9 mg/dl (8.4-10.2) 03/18/25 05:06
Fsi-Y-Tpbmcnjuxeh Pept 1900 pg/ml 03/18/25 01:24
Albumin 3.4 g/dl (3.5-5.0) L 03/18/25 00:18
Laboratory Tests
02/21/25 03/18/25 03/18/25
07:04 00:18 01:24
Chloride 108 H
Carbon Dioxide 26
BUN 24 H 134 H*
Creatinine 0.8 2.1 H
Lactic Acid 0.7
AST 69 H
ALT 39 H
Random Cortisol
03/18/25
05:06
Chloride
Carbon Dioxide
BUN
Creatinine
Lactic Acid
AST
ALT
Random Cortisol 25.1
Physical Exam
Patient is awake alert oriented and in no distress. Mood and affect were pleasant, insight and judgment were fair.. Pupils are equal round and reactive to light, extraocular movements are intact, sclera were anicteric. Hearing was normal, ears and
nose are intact. Oropharynx was clear but dry. Neck was supple with trachea midline and no thyromegaly. Heart was regular rate and rhythm without rubs. Lower extremities without edema. Lungs were clear to auscultation bilaterally and with normal
excursion. Abdomen was soft, nontender, with normal active bowel sounds, and no hepatosplenomegaly. Skin was without rash and with normal turgor.
Data Reviewed
-
Radiology: Image Personally Visualized and interpreted (Chest x-ray 03/18/2025 by my reading shows no acute disease)
Medical Tests (Nuc Med, Echo etc): Report Reviewed by me (Echocardiogram 08/17/2024 EF 25% no valvular disease)
Labs: Labs Reviewed by me
Old Records: Reviewed
Assessment/Plan
-
Assessment
Left tib-fib fracture, ORIF, immobilizer
LISETTE
azotemia
Metabolic acidosis
Hypotension
HFrEF 25%
Plan
Continue light IV fluids with bicarbonate therapy
Follow BMP
Urine studies when available
Check bladder scan
Holding metformin and Lasix and valsartan
Watch hemoglobin especially if she is hemoconcentrated
[2025-03-18 08:17] LABS: Erythrocyte Sed Rate 62 mm/hour (0-20)
[2025-03-18] MEDS: NOVOLOG FLEXPEN-LOW RESISTANCE SC ×3 (09:00→17:35)
[2025-03-18] MEDS: HEPARIN 5000 UNITS SC ×2 (09:15→17:33)
[2025-03-18] MEDS: SODIUM BICARBONATE 650 MG PO ×3 (09:16→20:59)
[2025-03-18 12:18] LABS: Glucose - Point of Care 94 mg/dl (70-99)
--- NOTE | 2025-03-18 14:36 | W.PN.HOSP.TC ---
Today's Communication/Plan
-
IVF with bicarb, monitor BP
consulted ortho re: LLE brace
Assessment / Plan
Assessment / Plan
80-year-old w/HTN, HLD, CHF, Ef25%, recent L Tib-fib fx s/p ORIF, presents from acute rehab with acute kidney injury on routine labs, found to be hypotensive in ED.
LISETTE
suspect poor renal perfusion 2/2 dehydration, hypotension. no e/o obstruction on renal US, no CHUCKY on renal artery duplex
holding BP meds and nephrotoxic agents
improved somewhat after IVF
continue IVF
appreciate nephrology c/s
Metabolic acidosis
Acute renal serologies including ESR CRP rheumatoid factor, DANO, ANCA, ASO, C3-C4
Nephrology consulted pt is getting bicarb drip - continue for now, monitor BMP
Hypotension
remains low despite gentle IVF and holding BP meds. LA wnl
no e/o active bleed
if needed will support with peripheral levophed as IVF will be limited by her severe CHF
left hip hip fracture s/p ORIF
Nonweightbearing to left leg
Consulted orthopedic surgery for follow-up as patient is still in a brace
DVT ppx
HSQ
Anticipated Discharge: > 48 hours
Subjective/Interval History
-
Date of Service: March 18, 2025
Patient was sleeping when I entered the room, when I woke her up she denied any acute issues. was at bedside
Objective Data
-
Labs:
Laboratory Results
03/18/25
05:06
WBC 11.2 H
Hgb 9.3 L
Hct 28.5 L
Plt Count 233 D
Sodium 143
Potassium 4.6
Chloride 117 H
Carbon Dioxide 18 L
BUN 120 H*
Creatinine 1.7 H
Glucose 90
Calcium 8.9
Vital Signs:
Vital Signs
Temp Pulse Resp BP Pulse Ox
98.0 F 90 21 111/57 80
03/18/25 12:15 03/18/25 12:04 03/18/25 12:04 03/18/25 12:04 03/18/25 12:02
Review of Systems
-
History Source: Patient and Family
All other systems: Reviewed and negative
Physical Exam
-
General: Well Developed, No Apparent Distress, Comfortable and Obese
HEENT: Anicteric, PERRLA, Neck Non Tender and Other (Dry oral mucosa)
Respiratory: Rales and Non Labored Respirations; Negative Wheezes or Rhonchi
Cardiac: Regular Rhythm and S1/S2; Negative Murmur
GI: Soft, Nontender, Nondistended and Normal Bowel Sounds
Musculoskeletal: Other (Left leg in brace)
Skin: Warm and Dry
Neuro: Awake and AO x 3
Hematologic / Lymphatic: No Lymphadenopathy
Psych: Calm
Data Reviewed
-
Diagnostic Radiology: Image personally visualized and interpreted and Discussed with Patient (CXR)
Labs: Labs Reviewed by me, Discussed with Patient and Discussed with Family
--- NOTE | 2025-03-18 16:11 | PTCARENOTE ---
Pt presents as assessed. Aox3. NSR on tele monitor. BP remains soft; MD aware. Grossly incontinent of urine, kate care completed. Q2T and bed alarm maintained.
--- NOTE | 2025-03-18 16:44 | CM ---
Patient from [facility] with Hx left hip hip fracture s/p ORIF, NWB left leg with Dx metabolic acidosis, hypotension. Room air, Receiving IVF w Bicarb.
Spoke with Adm Siobh[facility];
the patient was there for STR and was not on a bed hold.
She required mod assist for bed mobility and transfers and was utilizing w/c - was dependent for ambulation.
Dressing required max assist, dependent for toileting.
Patient will need PT/OT Evals when stable.
Plan follow up with patient re; return to [facility] for rehab.
[2025-03-18] MEDS: TOPROL XL PO (17:34)
[2025-03-18] MEDS: XALATAN OPHTHALMIC SOLUTION 1 DROP BOTH EYES (17:37)
[2025-03-18 17:46] LABS: Glucose - Point of Care 84 mg/dl (70-99)
[2025-03-18] MEDS: LEVOPHED 250 IV (20:39)
[2025-03-18 21:28] LABS: Glucose - Point of Care 119 mg/dl (70-99)
[2025-03-19] VITALS (50 sets, daily range): BP systolic 88–136; BP diastolic 32–104; BMI 26.6
[2025-03-19] MEDS: HEPARIN 5000 UNITS SC ×4 (00:41→22:01)
[2025-03-19 06:09] LABS: Hematocrit 31.3 % (37.0-47.0); Hemoglobin 10.4 g/dL (12.0-16.0); Mean Corp Hgb Conc. 33.2 g/dL (33.0-37.0); Mean Corpuscular Hgb 30.7 pg (27.0-31.0); Mean Corpuscular Volume 92.3 fL (81.0-99.0); Mean Platelet Volume 10.8 fL (7.4-10.4); Platelet Count 262 10^3/uL (130-400); Red Blood Cell Count 3.39 10^6/uL (4.20-5.40); Red Cell Dist. Width 15.4 % (11.5-14.5); White Blood Cell Count 12.2 10^3/uL (4.8-10.8)
[2025-03-19 06:29] LABS: Blood Urea Nitrogen 79 mg/dl (7-17); Calcium 9.4 mg/dl (8.4-10.2); Carbon Dioxide 20 mmol/L (22-30); Chloride 111 mmol/L (98-107); Estimated Creatinine Clearance 40 ml/min; Glucose 162 mg/dl (70-99); Potassium 4.2 mmol/L (3.5-5.1); Sodium 145 mmol/L (135-145); eGFR 56.95
--- NOTE | 2025-03-19 08:13 | W.PN.HOSP.TC ---
Today's Communication/Plan
-
Monitor kidney function.
Wean Levophed
Assessment / Plan
Assessment / Plan
Impression:
patient is 80-year-old with past medical history known for hypertension, hyperlipidemia, congestive heart failure with EF 25%,recent L Tib-fib fx s/p ORIF, presented emergency department with acute kidney injury. Creatinine 2.1 up from a baseline
of 0.8. BUN 134 from a baseline of 20s. Soft BPs on arrival in the emergency department. She has not been able to provide any urine and bladder scan shows no retention. Potassium is 4.8, bicarb 17
Kidney function continue to improve but the patient dropped her blood pressure and required to start Levophed.
Assessment/plan:
LISETTE
suspect poor renal perfusion 2/2 dehydration, hypotension. no e/o obstruction on renal US, no CHUCKY on renal artery duplex
holding BP meds and nephrotoxic agents
improved somewhat after IVF
continue IVF
appreciate nephrology c/s
03/19
Kidney function improved
Metabolic acidosis
Secondary to kidney failure, improving
Hypotension/hypovolemia
Cautious with IV fluid secondary to history of CHF
Started on Levophed
left hip hip fracture s/p ORIF
Nonweightbearing to left leg
Appreciate orthopedic input.
History of diabetes mellitus
Hold metformin
Insulin sliding scale
Blood sugar controlled, no need for diabetic diet
Hemoglobin A1c pending
CODE STATUS: Full code
DVT prophylaxis: Heparin
Diet: regular.
Total time spent on today's encounter was 75 minutes which included time spent in counseling the patient/family regarding diagnosis and treatment plan as listed above, goals of care, and symptom management. Case was discussed with nursing staff,
specialists, and care coordinators/case management. All labs and imaging personally reviewed by me. Remainder the time spent in detailed review of previous records, lab data, imaging, and other medical provider documentation.
Anticipated Discharge: > 48 hours
Subjective/Interval History
-
Date of Service: March 19, 2025
Patient seen and examined at bedside, patient looks tired but otherwise denies any chest pain or shortness of breath, seen by orthopedic today, continue to not weight-bear left lower extremity.
Overnight blood pressure dropped required Levophed.
Objective Data
-
Labs:
Laboratory Results
03/19/25
05:40
WBC 12.2 H
Hgb 10.4 L
Hct 31.3 L
Plt Count 262
Sodium 145
Potassium 4.2
Chloride 111 H
Carbon Dioxide 20 L
BUN 79 H
Creatinine 1.0
Glucose 162 H
Calcium 9.4
Vital Signs:
Vital Signs
Temp Pulse Resp BP Pulse Ox
97.6 F 79 19 116/58 96
03/19/25 03:25 03/19/25 06:30 03/19/25 06:30 03/19/25 06:30 03/18/25 23:32
I&O
03/18/25 03/19/25 03/20/25
06:59 06:59 06:59
Output Total 250 / 250
Balance -250 / -250
Physical Exam
-
General: Well Developed, Well Nourished and Other (Looks tired)
HEENT: Normocephalic, Atraumatic, Moist Mucous Membranes, No Ptosis, PERRLA and Nose Appears Normal
Respiratory: Rales and Non Labored Respirations
Cardiac: Regular Rhythm and S1/S2
Breast: Deferred by me
GI: Soft, Nontender, Nondistended and Normal Bowel Sounds
Genito-urinary: No Costovertebral Tender
Musculoskeletal: No Clubbing, No Cyanosis and Other (Left lower extremity brace, left foot cold, discoloration noted at left big toe )
Skin: Warm
Neuro: Awake, Alert, Oriented, AO x 3 and No Motor Deficits
Psych: Calm
Data Reviewed
-
Diagnostic Radiology: Image personally visualized and interpreted and Report Reviewed by me
CT Scan: Image personally visualized and interpreted and Report Reviewed by me
Ultrasound: Image personally visualized and interpreted and Report Reviewed by me
MRI: Image personally visualized and interpreted and Report Reviewed by me
Medical Tests (Nuc Med, Echo etc): Image personally visualized and interpreted and Report Reviewed by me
Labs: Labs Reviewed by me
Old Records: Reviewed
[2025-03-19 08:14] LABS: Glucose - Point of Care 157 mg/dl (70-99)
--- NOTE | 2025-03-19 09:30 | W.PN.NEPH.PH ---
Today's Communication / Plan
-
continue IVF
Assessment/Plan
-
Assessment
Left tib-fib fracture, ORIF, immobilizer
LISETTE
azotemia
Metabolic acidosis
Hypotension
HFrEF 25%
Plan
Continue light IV fluids with bicarbonate therapy
Follow BMP
Urine studies when available
wean levophed as allowed
Holding metformin and Lasix and valsartan
critical care time 31 minutes
-
-
Date of Service: March 19, 2025
CC / HPI / ROS
-
Chief Complaint:
LISETTE
History of Present Illness:
BP low, on levophed
LISETTE/Cr down to 1.0
mild acidosis persists
poor appetite
Review of Systems:
no CP/SOB
feels cold
Labs
-
Labs:
WBC 12.2 10^3/uL (4.8-10.8) H 03/19/25 05:40
RBC 3.39 10^6/uL (4.20-5.40) L 03/19/25 05:40
Hgb 10.4 g/dL (12.0-16.0) L 03/19/25 05:40
Hct 31.3 % (37.0-47.0) L 03/19/25 05:40
Plt Count 262 10^3/uL (130-400) 03/19/25 05:40
Sodium 145 mmol/L (135-145) 03/19/25 05:40
Potassium 4.2 mmol/L (3.5-5.1) 03/19/25 05:40
Chloride 111 mmol/L (98-107) H 03/19/25 05:40
Carbon Dioxide 20 mmol/L (22-30) L 03/19/25 05:40
BUN 79 mg/dl (7-17) H 03/19/25 05:40
Creatinine 1.0 mg/dL (0.6-1.0) 03/19/25 05:40
eGFR 56.95 03/19/25 05:40
Glucose 162 mg/dl (70-99) H 03/19/25 05:40
Calcium 9.4 mg/dl (8.4-10.2) 03/19/25 05:40
Akx-U-Ofwwisbfpyz Pept 1900 pg/ml 03/18/25 01:24
Albumin 3.4 g/dl (3.5-5.0) L 03/18/25 00:18
Physical Exam
-
Vital Signs:
Vital Signs
Temp Pulse Resp BP Pulse Ox
97.8 F 104 21 118/92 96
03/19/25 08:34 03/19/25 08:00 03/19/25 08:00 03/19/25 08:00 03/18/25 23:32
Cardiovascular:: Regular rate and rhythm
Respiratory:: Bilateral: CTA
Lung Excursion:: Normal
Abdomen:: Nontender and Soft
Bowel Sounds:: Normal
Extremity Edema:: None: Bilateral:
[2025-03-19] MEDS: SODIUM BICARBONATE 650 MG PO ×2 (10:53→16:18)
[2025-03-19] MEDS: NOVOLOG FLEXPEN-LOW RESISTANCE 1 UNITS SC ×3 (10:54→18:21)
[2025-03-19] MEDS: SODIUM CHLORIDE 1109.625 MEQ IV ×2 (10:54)
[2025-03-19 12:07] LABS: Glucose - Point of Care 190 mg/dl (70-99)
--- NOTE | 2025-03-19 12:22 | W.PN.UPDATE ---
Update Note
Progress Note Update
Patient is status post a left tibial plateau ORIF, performed under the direction of Dr. Barajas on 02/17/2025. She was seen in the outpatient office at 2 weeks postop, where repeat x-rays were taken and the brace was unlocked to allow 90 degrees of
flexion. This brace will remain in place and locked at 90 degrees until further notice. Repeat x-rays taken during her hospital admission show stable appearance of the tibial plateau. No evidence of hardware failure. She will remain
nonweightbearing on her left lower extremity until further follow-up with Dr. Barajas. She has an appointment to follow-up in the outpatient office with Dr. Barajas on 03/30/2025.
[2025-03-19] MEDS: LEVOPHED 250 IV (16:25)
[2025-03-19] MEDS: TYLENOL 650 MG PO (16:39)
--- NOTE | 2025-03-19 18:00 | PTCARENOTE ---
Patient levo drip at 2mcg all day. Drip needed to be increased to 4mcg/15mls/hr. SBP trending below 100. IV fluids infusing as ordered. Patient remains on bedrest. NWB at left leg. Splint/brace in place. Patient appetite poor. Diet changed to
regular diet. Medicated patient with tylenol and repositioned for sacral pain. Patient [place] and slightly forgetful. Using call dorsey appropriately.
[2025-03-19] MEDS: TOPROL XL PO ×2 (18:10→18:32)
[2025-03-19] MEDS: XALATAN OPHTHALMIC SOLUTION 1 DROP BOTH EYES (18:11)
[2025-03-19 18:14] LABS: Glucose - Point of Care 186 mg/dl (70-99)
[2025-03-19 18:45] LABS: Osmolality Urine 466 mOsm/kg (300-900)
[2025-03-19 20:24] LABS: Urine Protein 168 mg/dl; Urine Sodium 77 mmol/L (30-90)
[2025-03-19 20:53] LABS: Protein/creatinine Ratio 4.9
--- NOTE | 2025-03-19 21:20 | PTCARENOTE ---
Received pt at change of shift. Attempted to wean Levo down to 3 mcg/min; SBP <90; increased gtt back up to 4 mcg/min. Notified VAT for midline placement.
[2025-03-19 21:55] LABS: Glucose - Point of Care 176 mg/dl (70-99)
[2025-03-19] MEDS: ZOFRAN 4 MG IV (22:01)
[2025-03-19] MEDS: SODIUM BICARBONATE PO (22:01)
[2025-03-20] VITALS (54 sets, daily range): BP systolic 78–136; BP diastolic 46–118; BMI 26.5
[2025-03-20 04:01] LABS: ANA, IgG Reflex to HEp-2 None Detected (None Detected)
[2025-03-20 04:43] LABS: Hematocrit 30.4 % (37.0-47.0); Hemoglobin 10.2 g/dL (12.0-16.0); Mean Corp Hgb Conc. 33.6 g/dL (33.0-37.0); Mean Corpuscular Volume 92.4 fL (81.0-99.0); Mean Platelet Volume 10.6 fL (7.4-10.4); Platelet Count 205 10^3/uL (130-400); Red Blood Cell Count 3.29 10^6/uL (4.20-5.40); Red Cell Dist. Width 15.4 % (11.5-14.5); White Blood Cell Count 9.4 10^3/uL (4.8-10.8)
[2025-03-20 04:57] LABS: Blood Urea Nitrogen 55 mg/dl (7-17); Calcium 9.1 mg/dl (8.4-10.2); Carbon Dioxide 30 mmol/L (22-30); Chloride 108 mmol/L (98-107); Estimated Creatinine Clearance 36 ml/min; Glucose 171 mg/dl (70-99); Magnesium 1.6 mg/dl (1.6-2.3); Potassium 4.2 mmol/L (3.5-5.1); Sodium 144 mmol/L (135-145)
[2025-03-20 07:42] LABS: Glucose - Point of Care 158 mg/dl (70-99)
[2025-03-20] MEDS: NOVOLOG FLEXPEN-LOW RESISTANCE 1 UNITS SC ×2 (08:43→12:42)
[2025-03-20] MEDS: HEPARIN 5000 UNITS SC ×3 (08:43→23:49)
[2025-03-20] MEDS: SODIUM BICARBONATE 650 MG PO ×3 (08:44→20:51)
[2025-03-20] MEDS: SODIUM CHLORIDE IV ×2 (09:31)
--- NOTE | 2025-03-20 09:34 | W.PN.NEPH.PH ---
Today's Communication / Plan
-
IV fluids
Assessment/Plan
-
Assessment
Left tib-fib fracture, ORIF, immobilizer
LISETTE
azotemia
Metabolic acidosis
Hypotension
HFrEF 25%
Nephrotic range proteinuria 4.9 g
Plan
IV fluids at this time
Follow BMP
Urine studies when available
wean levophed as allowed
Holding metformin and Lasix and valsartan
Check A1c this may be diabetic nephropathy. Serologies are pending
Encourage p.o. intake
critical care time 31 minutes
-
-
Date of Service: March 20, 2025
CC / HPI / ROS
-
Chief Complaint:
LISETTE
History of Present Illness:
BP low, on levophed still
LISETTE/Cr stable 1.1
mild acidosis resolved
poor appetite still
Review of Systems:
no CP/SOB
Labs
-
Labs:
WBC 9.4 10^3/uL (4.8-10.8) 03/20/25 04:19
RBC 3.29 10^6/uL (4.20-5.40) L 03/20/25 04:19
Hgb 10.2 g/dL (12.0-16.0) L 03/20/25 04:19
Hct 30.4 % (37.0-47.0) L 03/20/25 04:19
Plt Count 205 10^3/uL (130-400) D 03/20/25 04:19
Sodium 144 mmol/L (135-145) 03/20/25 04:19
Potassium 4.2 mmol/L (3.5-5.1) 03/20/25 04:19
Chloride 108 mmol/L (98-107) H 03/20/25 04:19
Carbon Dioxide 30 mmol/L (22-30) 03/20/25 04:19
BUN 55 mg/dl (7-17) H 03/20/25 04:19
Creatinine 1.1 mg/dL (0.6-1.0) H 03/20/25 04:19
eGFR 50.80 03/20/25 04:19
Glucose 171 mg/dl (70-99) H 03/20/25 04:19
Calcium 9.1 mg/dl (8.4-10.2) 03/20/25 04:19
Dcx-R-Renxwxiwgqp Pept 1900 pg/ml 03/18/25 01:24
Albumin 3.4 g/dl (3.5-5.0) L 03/18/25 00:18
Physical Exam
-
Vital Signs:
Vital Signs
Temp Pulse Resp BP Pulse Ox
97.8 F 94 17 109/66 95
03/20/25 08:58 03/20/25 07:30 03/20/25 07:30 03/20/25 07:30 03/19/25 18:26
Cardiovascular:: Regular rate and rhythm
Respiratory:: Bilateral: CTA
Lung Excursion:: Normal
Abdomen:: Nontender and Soft
Bowel Sounds:: Normal
Extremity Edema:: None: Bilateral:
[2025-03-20 12:10] LABS: Glucose - Point of Care 174 mg/dl (70-99)
[2025-03-20 12:52] LABS: Myeloperoxidase Antibody 0 AU/mL (0-19); Serine Protease-3, IgG 0 AU/mL (0-19)
--- NOTE | 2025-03-20 13:59 | W.PN.HOSP.TC ---
Today's Communication/Plan
-
Wean Levophed
Physical therapy evaluation
Assessment / Plan
Assessment / Plan
Impression:
patient is 80-year-old with past medical history known for hypertension, hyperlipidemia, congestive heart failure with EF 25%,recent L Tib-fib fx s/p ORIF, presented emergency department with acute kidney injury. Creatinine 2.1 up from a baseline
of 0.8. BUN 134 from a baseline of 20s. Soft BPs on arrival in the emergency department. She has not been able to provide any urine and bladder scan shows no retention. Potassium is 4.8, bicarb 17
Kidney function continue to improve but the patient dropped her blood pressure and required to start Levophed.
03/20
Pressure improved but then dropped again at 7 AM, Levophed started.
Kidney function improved.
Physical therapy evaluation pending.
Assessment/plan:
LISETTE
suspect poor renal perfusion 2/2 dehydration, hypotension. no e/o obstruction on renal US, no CHUCKY on renal artery duplex
holding BP meds and nephrotoxic agents
improved somewhat after IVF
continue IVF
appreciate nephrology c/s
03/19
Kidney function improved
Metabolic acidosis
Secondary to kidney failure, improving
Hypotension/hypovolemia
Cautious with IV fluid secondary to history of CHF
Started on Levophed
left hip hip fracture s/p ORIF
Nonweightbearing to left leg
Appreciate orthopedic input.
History of diabetes mellitus
Hold metformin
Insulin sliding scale
Blood sugar controlled, no need for diabetic diet
Hemoglobin A1c pending
CODE STATUS: Full code
DVT prophylaxis: Heparin
Diet: regular.
Total time spent on today's encounter was 75 minutes which included time spent in counseling the patient/family regarding diagnosis and treatment plan as listed above, goals of care, and symptom management. Case was discussed with nursing staff,
specialists, and care coordinators/case management. All labs and imaging personally reviewed by me. Remainder the time spent in detailed review of previous records, lab data, imaging, and other medical provider documentation.
Anticipated Discharge: > 48 hours
Subjective/Interval History
-
Date of Service: March 20, 2025
Patient seen and examined at bedside, creatinine remained stable but patient still hypotensive required Levophed.
Will wean Levophed.
Patient denies any chest pain or shortness of breath.
Objective Data
-
Labs:
Laboratory Results
03/20/25
04:19
WBC 9.4
Hgb 10.2 L
Hct 30.4 L
Plt Count 205 D
Sodium 144
Potassium 4.2
Chloride 108 H
Carbon Dioxide 30
BUN 55 H
Creatinine 1.1 H
Glucose 171 H
Calcium 9.1
Vital Signs:
Vital Signs
Temp Pulse Resp BP Pulse Ox
98.1 F 94 17 109/66 97
03/20/25 12:13 03/20/25 07:30 03/20/25 07:30 03/20/25 07:30 03/20/25 08:45
I&O
03/19/25 03/20/25 03/21/25
06:59 06:59 06:59
Intake Total 2480 / 2480
Output Total 250 / 250 850 / 850
Balance -250 / -250 1630 / 1630
Physical Exam
-
General: Well Developed, Well Nourished and Other (Looks tired)
HEENT: Normocephalic, Atraumatic, Moist Mucous Membranes, No Ptosis, PERRLA and Nose Appears Normal
Respiratory: Rales and Non Labored Respirations
Cardiac: Regular Rhythm and S1/S2
Breast: Deferred by me
GI: Soft, Nontender, Nondistended and Normal Bowel Sounds
Genito-urinary: No Costovertebral Tender
Musculoskeletal: No Clubbing, No Cyanosis and Other (Left lower extremity brace, left foot cold, discoloration noted at left big toe )
Skin: Warm
Neuro: Awake, Alert, Oriented, AO x 3 and No Motor Deficits
Psych: Calm
Data Reviewed
-
Diagnostic Radiology: Image personally visualized and interpreted and Report Reviewed by me
CT Scan: Image personally visualized and interpreted and Report Reviewed by me
Ultrasound: Image personally visualized and interpreted and Report Reviewed by me
MRI: Image personally visualized and interpreted and Report Reviewed by me
Medical Tests (Nuc Med, Echo etc): Image personally visualized and interpreted and Report Reviewed by me
Labs: Labs Reviewed by me
Old Records: Reviewed
[2025-03-20 17:17] LABS: Glucose - Point of Care 148 mg/dl (70-99)
[2025-03-20] MEDS: XALATAN OPHTHALMIC SOLUTION 1 DROP BOTH EYES (18:10)
[2025-03-20] MEDS: TOPROL XL 50 MG PO (18:10)
[2025-03-20] MEDS: NOVOLOG FLEXPEN-LOW RESISTANCE SC ×2 (18:10→18:12)
--- NOTE | 2025-03-20 19:00 | PTCARENOTE ---
Patient alert and oriented x3. very [place] but communicates well if pt can see person and read lips along with listening. Pt assessment completed and documented. Complete care provide as needed and pt encouraged to participate in self care. Her hair is
completed matted to her head and adamantly refuses staff to assist in detangling it. Hygiene provided with much encouragement and convincing. Pt pleasant but disinterested in care at times. Appetite is improving but liquid po intake is poor, pt
generally drinks water with meds and ice chips otherwise no fluids to drink.
[2025-03-20 19:24] LABS: Urine Albumin 3+ (Neg - Trace); Urine Bilirubin Negative (Negative); Urine Character Slightly Cloudy (Clear); Urine Color Yellow; Urine Glucose Negative (Negative); Urine Ketone 1+ (Negative); Urine Leukocyte 3+ (Negative); Urine Nitrite Positive (Negative); Urine Occult Blood 4+ (Negative); Urine Urobilinogen Negative (Neg - 1+)
[2025-03-20 19:29] LABS: Urine Squamous Cell 0-2 /LPF (Few)
[2025-03-20 19:31] LABS: Urine Bacteria Many (Negative)
[2025-03-20 19:32] LABS: Urine White Cell >100 /HPF (0-5)
[2025-03-20 19:34] LABS: Urine Red Blood Cell 90-100 /HPF (0-2); Urine Triple Phosphate Crystal Present
[2025-03-20] MEDS: ProAmatine 5 MG PO (20:51)
[2025-03-20 21:19] LABS: Glucose - Point of Care 179 mg/dl (70-99)
[2025-03-20 23:41] LABS: Complement C3 124 mg/dl (88-165)
[2025-03-21] VITALS (27 sets, daily range): BP systolic 57–119; BP diastolic 29–81; PULSE 116; O2SAT 98; BMI 26.2
--- NOTE | 2025-03-21 02:05 | PTCARENOTE ---
Received pt at change of shift. Pt currently off Levo since dayshift. BP starting to drop with SBP into the 80s. Notified ENGINEERING SCIENTIST. Dose of Midodrine prior to putting pt back on Levo. SBP remains >90. Pt offers no complaints at this time. Resting
in bed with call dorsey in reach.
[2025-03-21 06:35] LABS: Blood Urea Nitrogen 43 mg/dl (7-17); Calcium 8.9 mg/dl (8.4-10.2); Carbon Dioxide 29 mmol/L (22-30); Chloride 113 mmol/L (98-107); Estimated Creatinine Clearance 35 ml/min; Glucose 126 mg/dl (70-99); Magnesium 1.7 mg/dl (1.6-2.3); Potassium 3.7 mmol/L (3.5-5.1); Sodium 147 mmol/L (135-145); eGFR 56.95
[2025-03-21 08:47] LABS: Glucose - Point of Care 121 mg/dl (70-99)
[2025-03-21 10:07] LABS: Glycohemoglobin (HgbA1c) 5.8 % (4.0-5.6)
[2025-03-21] MEDS: HEPARIN 5000 UNITS SC ×3 (10:18→23:38)
[2025-03-21] MEDS: SODIUM BICARBONATE 650 MG PO (10:18)
[2025-03-21] MEDS: NOVOLOG FLEXPEN-LOW RESISTANCE SC ×2 (10:35→18:09)
[2025-03-21 10:44] LABS: Rheumatoid Agglutinin Less Than 10 IU (<10 IU)
--- NOTE | 2025-03-21 10:49 | W.PN.NEPH.PH ---
Today's Communication / Plan
-
follow bmp
Push p.o. fluids are I will have to start hypotonic fluids for worsening dehydration (discussed with nursing)
Assessment/Plan
-
Assessment
Left tib-fib fracture, ORIF, immobilizer
LISETTE
azotemia
Metabolic acidosis
Hypotension
HFrEF 25%
Nephrotic range proteinuria 4.9 g
Plan
Will push p.o. fluids given evolving hypernatremia
If hyponatremia exacerbates I will have to give hypotonic IV fluid
LISETTE and azotemia resolving
Follow BMP
Continues to be intermittently hemodynamically labile
DC p.o. sodium bicarbonate as metabolic acidosis resolved
Holding metformin and Lasix and valsartan
Check A1c this may be diabetic nephropathy. 5.8, serologies negative
Encourage p.o. intake
-
-
Date of Service: March 21, 2025
CC / HPI / ROS
-
Chief Complaint:
LISETTE
History of Present Illness:
hemodynamically labile
Hypernatremia worsening
LISETTE/Cr stable 1.0
mild acidosis resolved
poor appetite still
Review of Systems:
no CP/SOB
Labs
-
Labs:
WBC 9.4 10^3/uL (4.8-10.8) 03/20/25 04:19
RBC 3.29 10^6/uL (4.20-5.40) L 03/20/25 04:19
Hgb 10.2 g/dL (12.0-16.0) L 03/20/25 04:19
Hct 30.4 % (37.0-47.0) L 03/20/25 04:19
Plt Count 205 10^3/uL (130-400) D 03/20/25 04:19
Sodium 147 mmol/L (135-145) H 03/21/25 05:55
Potassium 3.7 mmol/L (3.5-5.1) 03/21/25 05:55
Chloride 113 mmol/L (98-107) H 03/21/25 05:55
Carbon Dioxide 29 mmol/L (22-30) 03/21/25 05:55
BUN 43 mg/dl (7-17) H 03/21/25 05:55
Creatinine 1.0 mg/dL (0.6-1.0) 03/21/25 05:55
eGFR 56.95 03/21/25 05:55
Glucose 126 mg/dl (70-99) H 03/21/25 05:55
Calcium 8.9 mg/dl (8.4-10.2) 03/21/25 05:55
Zna-R-Hedcecydbjr Pept 1900 pg/ml 03/18/25 01:24
Albumin 3.4 g/dl (3.5-5.0) L 03/18/25 00:18
Physical Exam
-
Vital Signs:
Vital Signs
Temp Pulse Resp BP Pulse Ox
97.6 F 87 18 116/67 97
03/21/25 03:05 03/21/25 09:00 03/21/25 09:00 03/21/25 09:00 03/21/25 10:11
Cardiovascular:: Regular rate and rhythm
Respiratory:: Bilateral: CTA
Lung Excursion:: Normal
Abdomen:: Nontender and Soft
Bowel Sounds:: Normal
Extremity Edema:: None: Bilateral:
[2025-03-21 12:14] LABS: Glucose - Point of Care 240 mg/dl (70-99)
--- NOTE | 2025-03-21 14:44 | PN.CDI ---
CDI
- -
CDI:
Physician Documentation Request
Admit Date: 03/18/25 02:51
Dear Doctor Marcell,
Clinical Indicators:
Patient admitted with LISETTE.
6 PN, 'Hypotension/hypovolemia...Started on Levophed'
Levophed requirements:
03/18/25
20:43 03/19/25
18:00 03/19/25
19:40
CURRENT dosage in mcg/min 2 4 3
03/19/25
20:33 03/20/25
06:06 03/20/25
07:00
CURRENT dosage in mcg/min 4 0 2
Please clarify which of the following is the most likely etiology of the above symptoms and treatment rendered:
Hypovolemic shock
Hypotension only
Other, please specify
Use of terms such as suspected, likely, concern for, or probable (associated with a specific diagnosis that is being evaluated, monitored, or treated as if it exists) are acceptable and can be coded in the inpatient setting, when documented at the
time of discharge.
Thank you,
MELLO Arias RN
CDI Specialist
available via tiger text
Please use your independent medical judgment in providing your response.
--- NOTE | 2025-03-21 15:32 | W.PN.HOSP.TC ---
Addendum entered and electronically signed by Peter Faith MD 03/21/25 15:43:
Hypovolemic shock
Original Note:
Today's Communication/Plan
-
Monitor lab, monitor BP
Assessment / Plan
Assessment / Plan
Impression:
patient is 80-year-old with past medical history known for hypertension, hyperlipidemia, congestive heart failure with EF 25%,recent L Tib-fib fx s/p ORIF, presented emergency department with acute kidney injury. Creatinine 2.1 up from a baseline
of 0.8. BUN 134 from a baseline of 20s. Soft BPs on arrival in the emergency department. She has not been able to provide any urine and bladder scan shows no retention. Potassium is 4.8, bicarb 17
Kidney function continue to improve but the patient dropped her blood pressure and required to start Levophed.
03/20
Pressure improved but then dropped again at 7 AM, Levophed started.
Kidney function improved.
Physical therapy evaluation pending.
03/21
Physical therapy recommending rehab.
Worsening hypernatremia
Assessment/plan:
LISETTE
suspect poor renal perfusion 2/2 dehydration, hypotension. no e/o obstruction on renal US, no CHUCKY on renal artery duplex
holding BP meds and nephrotoxic agents
improved somewhat after IVF
continue IVF
appreciate nephrology c/s
03/19
Kidney function improved
Hypernatremia
Encourage oral intak
Metabolic acidosis
Secondary to kidney failure, improving
Hypotension/hypovolemia
Cautious with IV fluid secondary to history of CHF
Started on Levophed
Chronic HFrEF/ICM:
-stable
left hip hip fracture s/p ORIF
Nonweightbearing to left leg
Appreciate orthopedic input.
History of diabetes mellitus
Hold metformin
Insulin sliding scale
Blood sugar controlled, no need for diabetic diet
Hemoglobin A1c 5.8
CODE STATUS: Full code
DVT prophylaxis: Heparin
Diet: regular.
Total time spent on today's encounter was 75 minutes which included time spent in counseling the patient/family regarding diagnosis and treatment plan as listed above, goals of care, and symptom management. Case was discussed with nursing staff,
specialists, and care coordinators/case management. All labs and imaging personally reviewed by me. Remainder the time spent in detailed review of previous records, lab data, imaging, and other medical provider documentation.
Anticipated Discharge: 24 - 48 hours
Subjective/Interval History
-
Date of Service: March 21, 2025
Patient looks very tired, denies chest pain or shortness of breath.
Physical therapy recommending rehab.
Objective Data
-
Labs:
Laboratory Results
03/21/25
05:55
Sodium 147 H
Potassium 3.7
Chloride 113 H
Carbon Dioxide 29
BUN 43 H
Creatinine 1.0
Glucose 126 H
Calcium 8.9
Vital Signs:
Vital Signs
Temp Pulse Resp BP Pulse Ox
97.6 F 87 18 116/67 97
03/21/25 03:05 03/21/25 09:00 03/21/25 09:00 03/21/25 09:00 03/21/25 10:11
I&O
03/20/25 03/21/25 03/22/25
06:59 06:59 06:59
Intake Total 2480 / 2480 320 / 320
Output Total 850 / 850 550 / 550
Balance 1630 / 1630 -230 / -230
Physical Exam
-
General: Well Developed, Well Nourished and Other (Looks tired)
HEENT: Normocephalic, Atraumatic, Moist Mucous Membranes, No Ptosis, PERRLA and Nose Appears Normal
Respiratory: Rales and Non Labored Respirations
Cardiac: Regular Rhythm and S1/S2
Breast: Deferred by me
GI: Soft, Nontender, Nondistended and Normal Bowel Sounds
Genito-urinary: No Costovertebral Tender
Musculoskeletal: No Clubbing, No Cyanosis and Other (Left lower extremity brace, left foot cold, discoloration noted at left big toe )
Skin: Warm
Neuro: Awake, Alert, Oriented, AO x 3 and No Motor Deficits
Psych: Calm
Data Reviewed
-
Diagnostic Radiology: Image personally visualized and interpreted and Report Reviewed by me
CT Scan: Image personally visualized and interpreted and Report Reviewed by me
Ultrasound: Image personally visualized and interpreted and Report Reviewed by me
MRI: Image personally visualized and interpreted and Report Reviewed by me
Medical Tests (Nuc Med, Echo etc): Image personally visualized and interpreted and Report Reviewed by me
Labs: Labs Reviewed by me
Old Records: Reviewed
[2025-03-21] MEDS: NOVOLOG FLEXPEN-LOW RESISTANCE 2 UNITS SC (15:38)
--- NOTE | 2025-03-21 16:00 | PTCARENOTE ---
Patient drowsy today. Sleeping intermittently. BP's better today. Patient on 1L o2, tried to wean her but she dropped to 86-87%. She has a frequent moist nonproductive cough. Unable to work with therapy today due to feeling dizzy. Patient
needs encouragement to eat and drink more. INC of soft BM today. Will monitor.
[2025-03-21 18:07] LABS: Glucose - Point of Care 135 mg/dl (70-99)
[2025-03-21] MEDS: XALATAN OPHTHALMIC SOLUTION 1 DROP BOTH EYES (18:10)
[2025-03-21] MEDS: TOPROL XL PO (18:10)
[2025-03-21 22:18] LABS: Glucose - Point of Care 181 mg/dl (70-99)
[2025-03-21] MEDS: TYLENOL 650 MG PO (22:18)
[2025-03-22] VITALS (20 sets, daily range): BP systolic 89–141; BP diastolic 28–83; BMI 26.4
--- NOTE | 2025-03-22 03:11 | PTCARENOTE ---
assumed care of patient. patient is AAOx3 but forgetful. incontinent using the purewick. 1L NC. NSR on monitor. right midline in place. non weight bearing on left leg. assessment and vital signs as charted. call dorsey in reach.
[2025-03-22 03:50] LABS: Hematocrit 28.3 % (37.0-47.0); Hemoglobin 9.2 g/dL (12.0-16.0); Mean Corp Hgb Conc. 32.5 g/dL (33.0-37.0); Mean Corpuscular Hgb 30.5 pg (27.0-31.0); Mean Corpuscular Volume 93.7 fL (81.0-99.0); Mean Platelet Volume 10.8 fL (7.4-10.4); Platelet Count 208 10^3/uL (130-400); Red Blood Cell Count 3.02 10^6/uL (4.20-5.40); Red Cell Dist. Width 15.6 % (11.5-14.5); White Blood Cell Count 8.5 10^3/uL (4.8-10.8)
[2025-03-22 04:12] LABS: Blood Urea Nitrogen 37 mg/dl (7-17); Calcium 9.2 mg/dl (8.4-10.2); Carbon Dioxide 31 mmol/L (22-30); Chloride 111 mmol/L (98-107); Estimated Creatinine Clearance 36 ml/min; Glucose 142 mg/dl (70-99); Magnesium 1.6 mg/dl (1.6-2.3); Potassium 3.6 mmol/L (3.5-5.1); Sodium 147 mmol/L (135-145)
[2025-03-22 09:12] LABS: Glucose - Point of Care 148 mg/dl (70-99)
[2025-03-22] MEDS: HEPARIN 5000 UNITS SC ×3 (10:30→22:41)
[2025-03-22] MEDS: TYLENOL 650 MG PO (10:30)
[2025-03-22] MEDS: NOVOLOG FLEXPEN-LOW RESISTANCE SC (10:30)
--- NOTE | 2025-03-22 12:05 | W.PN.NEPH.PH ---
Today's Communication / Plan
-
D5W x 1 L for persistent hypernatremia
Follow BMP
Assessment/Plan
-
Assessment
Left tib-fib fracture, ORIF, immobilizer
LISETTE
azotemia
Metabolic acidosis
Hypotension
HFrEF 25%
Nephrotic range proteinuria 4.9 g
Plan
Will push p.o. fluids given persistent hypernatremia, patient does not appear to adequately be able to maintain p.o. fluid and
I will provide 1 L of D5W
Creatinine at 1.1
If hyponatremia exacerbates I will have to give hypotonic IV fluid
LISETTE and azotemia resolving
Follow BMP
Hemodynamically more
DC p.o. sodium bicarbonate as metabolic acidosis resolved
Holding metformin and Lasix and valsartan,weights unchanged
Check A1c this may be diabetic nephropathy. 5.8, serologies negative
Encourage p.o. intake
-
-
Date of Service: March 22, 2025
CC / HPI / ROS
-
Chief Complaint:
LISETTE
History of Present Illness:
hemodynamically more stable
Hypernatremia unchanged to 140s
LISETTE/Cr stable 1.1
mild acidosis resolved
poor appetite still
Review of Systems:
no CP/SOB
Subjectively nonoliguric
Weights unchanged
Labs
-
Labs:
WBC 8.5 10^3/uL (4.8-10.8) 03/22/25 03:25
RBC 3.02 10^6/uL (4.20-5.40) L 03/22/25 03:25
Hgb 9.2 g/dL (12.0-16.0) L 03/22/25 03:25
Hct 28.3 % (37.0-47.0) L 03/22/25 03:25
Plt Count 208 10^3/uL (130-400) 03/22/25 03:25
Sodium 147 mmol/L (135-145) H 03/22/25 03:25
Potassium 3.6 mmol/L (3.5-5.1) 03/22/25 03:25
Chloride 111 mmol/L (98-107) H 03/22/25 03:25
Carbon Dioxide 31 mmol/L (22-30) H 03/22/25 03:25
BUN 37 mg/dl (7-17) H 03/22/25 03:25
Creatinine 1.1 mg/dL (0.6-1.0) H 03/22/25 03:25
eGFR 50.80 03/22/25 03:25
Glucose 142 mg/dl (70-99) H 03/22/25 03:25
Calcium 9.2 mg/dl (8.4-10.2) 03/22/25 03:25
Eod-U-Dorrzwudcwt Pept 1900 pg/ml 03/18/25 01:24
Albumin 3.4 g/dl (3.5-5.0) L 03/18/25 00:18
Physical Exam
-
Vital Signs:
Vital Signs
Temp Pulse Resp BP Pulse Ox
97.3 F 114 24 130/70 94
03/22/25 07:45 03/22/25 10:26 03/22/25 10:26 03/22/25 10:26 03/22/25 10:26
Cardiovascular:: Regular rate and rhythm
Respiratory:: Bilateral: CTA
Lung Excursion:: Normal
Abdomen:: Nontender and Soft
Bowel Sounds:: Normal
Extremity Edema:: None: Bilateral:
[place] Catheter: No
[2025-03-22 12:33] LABS: Glucose - Point of Care 235 mg/dl (70-99)
[2025-03-22] MEDS: NOVOLOG FLEXPEN-LOW RESISTANCE 2 UNITS SC (13:52)
[2025-03-22] MEDS: D5W 1000 IV (13:52)
[2025-03-22] MEDS: FLUSH (NSS) 1 FLUSH IV (13:53)
--- NOTE | 2025-03-22 14:02 | W.PN.HOSP.TC ---
Today's Communication/Plan
-
Continue to monitor sodium
Start low-dose midodrine
Assessment / Plan
Assessment / Plan
Impression:
patient is 80-year-old with past medical history known for hypertension, hyperlipidemia, congestive heart failure with EF 25%,recent L Tib-fib fx s/p ORIF, presented emergency department with acute kidney injury. Creatinine 2.1 up from a baseline
of 0.8. BUN 134 from a baseline of 20s. Soft BPs on arrival in the emergency department. She has not been able to provide any urine and bladder scan shows no retention. Potassium is 4.8, bicarb 17
Kidney function continue to improve but the patient dropped her blood pressure and required to start Levophed.
03/20
Pressure improved but then dropped again at 7 AM, Levophed started.
Kidney function improved.
Physical therapy evaluation pending.
03/21
Physical therapy recommending rehab.
Worsening hypernatremia
03/22
Trial of D5W
Assessment/plan:
LISETTE
suspect poor renal perfusion 2/2 dehydration, hypotension. no e/o obstruction on renal US, no CHUCKY on renal artery duplex
holding BP meds and nephrotoxic agents
improved somewhat after IVF
continue IVF
appreciate nephrology c/s
03/19
Kidney function improved
Hypernatremia
Encourage oral intak
D5W
Metabolic acidosis
Secondary to kidney failure, improving
Hypotension/hypovolemia
Cautious with IV fluid secondary to history of CHF
Started on Levophed
03/22
Blood pressure improved, will start midodrine
Chronic HFrEF/ICM:
-stable
left hip hip fracture s/p ORIF
Nonweightbearing to left leg
Appreciate orthopedic input.
History of diabetes mellitus
Hold metformin
Insulin sliding scale
Blood sugar controlled, no need for diabetic diet
Hemoglobin A1c 5.8
CODE STATUS: Full code
DVT prophylaxis: Heparin
Diet: regular.
Recommendation: tried to call the but no answer, I called the son with updates.
Total time spent on today's encounter was 65 minutes which included time spent in counseling the patient/family regarding diagnosis and treatment plan as listed above, goals of care, and symptom management. Case was discussed with nursing staff,
specialists, and care coordinators/case management. All labs and imaging personally reviewed by me. Remainder the time spent in detailed review of previous records, lab data, imaging, and other medical provider documentation.
Anticipated Discharge: > 48 hours
Subjective/Interval History
-
Date of Service: March 22, 2025
Patient looks tired, still with hypernatremia, discussed discharge plan, tried to call the but no answer, I called the son with updates.
Objective Data
-
Labs:
Laboratory Results
03/22/25
03:25
WBC 8.5
Hgb 9.2 L
Hct 28.3 L
Plt Count 208
Sodium 147 H
Potassium 3.6
Chloride 111 H
Carbon Dioxide 31 H
BUN 37 H
Creatinine 1.1 H
Glucose 142 H
Calcium 9.2
Vital Signs:
Vital Signs
Temp Pulse Resp BP Pulse Ox
97.3 F 99 20 102/55 91
03/22/25 07:45 03/22/25 12:00 03/22/25 12:00 03/22/25 12:00 03/22/25 12:00
I&O
03/21/25 03/22/25 03/23/25
06:59 06:59 06:59
Intake Total 320 / 320 720 / 720 240 / 240
Output Total 550 / 550 210 / 210 100 / 100
Balance -230 / -230 510 / 510 140 / 140
Physical Exam
-
General: Well Developed, Well Nourished and Other (Looks tired)
HEENT: Normocephalic, Atraumatic, Moist Mucous Membranes, No Ptosis, PERRLA and Nose Appears Normal
Respiratory: Rales and Non Labored Respirations
Cardiac: Regular Rhythm and S1/S2
Breast: Deferred by me
GI: Soft, Nontender, Nondistended and Normal Bowel Sounds
Genito-urinary: No Costovertebral Tender
Musculoskeletal: No Clubbing, No Cyanosis and Other (Left lower extremity brace, left foot cold, discoloration noted at left big toe )
Skin: Warm
Neuro: Awake, Alert, Oriented, AO x 3 and No Motor Deficits
Psych: Calm
Data Reviewed
-
Diagnostic Radiology: Image personally visualized and interpreted and Report Reviewed by me
CT Scan: Image personally visualized and interpreted and Report Reviewed by me
Ultrasound: Image personally visualized and interpreted and Report Reviewed by me
MRI: Image personally visualized and interpreted and Report Reviewed by me
Medical Tests (Nuc Med, Echo etc): Image personally visualized and interpreted and Report Reviewed by me
Labs: Labs Reviewed by me
Old Records: Reviewed
--- NOTE | 2025-03-22 15:22 | PN.CDI ---
CDI
- -
CDI:
Physician Documentation Request
Admit Date: 03/18/25 02:51
Dear Doctor Marcell,
Clinical Indicators:
Patient admitted with LISETTE.
03/18 - 03/20 RN skin/wound assessments: Sacrum Stage 3 Pressure Injury, POA
Treatment: Silicone border foam dressing
Physician documentation of the type and location of wounds is required for compliant documentation. Based on the above clinical findings and your assessment, please provide the following in your progress note:
1. Location of the ulcer/wound, including laterality.
2. Type (etiology) of ulcer/wound:
- Pressure (decubitus) ulcer
- Other, please specify
3. If a pressure ulcer, please also include the stage* of the ulcer:
- Stage 1 - Skin intact, non-blanchable redness
- Stage 2 - Partial thickness loss of dermis, includes intact or open blister
- Stage 3 - Full thickness tissue not including bone, tendon or muscle
- Stage 4 - Full thickness tissue loss, including exposed bone, tendon or muscle
- Unstageable - Full thickness loss in which the base of the ulcer is covered by slough (yellow, krueger, hawkins, green or brown) and/or eschar (krueger, brown or black) in the wound bed.
- Unable to determine
Use of terms such as suspected, likely, concern for, or probable (associated with a specific diagnosis that is being evaluated, monitored, or treated as if it exists) are acceptable and can be coded in the inpatient setting, when documented at the
time of discharge.
Thank you,
MELLO Arias RN
CDI Specialist
available via tiger text
Please use your independent medical judgment in providing your response.
*Source: National Pressure Ulcer Advisory Panel (NPUAP)
--- NOTE | 2025-03-22 15:39 | CM ---
Patient from [facility] with Hx left hip fracture s/p ORIF, with Dx LISETTE. NWB left leg. Room air. Receiving IVF. PT recommends skilled rehab. Per nurse; drowsy.
Met with patient who was sleeping.
Spoke with Matty by phone;
he states he does not want his to return to [facility] as they did not promptly respond to her changing condition.
He volunteers that he and his son are planning on going over to [facility] tomorrow to take a tour.
Matty is agreeable to a referral to [facility]. He does not want any additional referrals at this time.
Phone call to [facility], [facility]; left message notifying her of referral and that family is planning on taking a tour.
Plan follow up with Ketan for acceptance/bed availability.
--- NOTE | 2025-03-22 15:45 | PTCARENOTE ---
Medicated patient with tylenol for lower back and sacral pain. Repositioned patient for comfort. IV fluids infusing as per renal D5W@70mls/hr via right midline. VS stable. BP's stable,afebrile. Patient's appetite continues to be poor.
Encouraging oral fluids. Urine cloudy josette. Sacral dressing intact. Patient downgraded to telemetry. SR/ST on monitor HR 90-low 100's.
[2025-03-22] MEDS: ProAmatine 2.5 MG PO ×2 (18:00→22:34)
[2025-03-22] MEDS: NOVOLOG FLEXPEN-LOW RESISTANCE 1 UNITS SC (18:05)
[2025-03-22] MEDS: TOPROL XL PO (18:06)
[2025-03-22] MEDS: XALATAN OPHTHALMIC SOLUTION 1 DROP BOTH EYES (18:06)
[2025-03-22 18:20] LABS: Glucose - Point of Care 151 mg/dl (70-99)
--- NOTE | 2025-03-22 18:51 | PTCARENOTE ---
Report given to Milan LERMA. Patient transferred to [address] [place] [address] bed 2. All belongings with the patient.
[2025-03-22 19:09] LABS: Glucose - Point of Care 151 mg/dl (70-99)
[2025-03-22 21:29] LABS: Glucose - Point of Care 146 mg/dl (70-99)
[2025-03-23] VITALS (7 sets, daily range): BP systolic 103–171; BP diastolic 58–107; PULSE 110–120; O2SAT 95
[2025-03-23] MEDS: ROXICODONE 5 MG PO ×2 (03:19→13:10)
[2025-03-23 07:16] LABS: Glucose - Point of Care 130 mg/dl (70-99)
[2025-03-23] MEDS: NOVOLOG FLEXPEN-LOW RESISTANCE SC ×2 (08:33→17:32)
[2025-03-23] MEDS: HEPARIN 5000 UNITS SC ×2 (08:35→16:17)
[2025-03-23] MEDS: ProAmatine 2.5 MG PO ×3 (08:37→21:20)
[2025-03-23] MEDS: STERILE WATER FOR INJECTION 10 ML IV (10:22)
[2025-03-23] MEDS: ROCEPHIN 1000 MG IV (10:22)
[2025-03-23] MEDS: TYLENOL 650 MG PO (10:48)
--- NOTE | 2025-03-23 11:16 | W.PN.HOSP.TC ---
Addendum entered and electronically signed by Peter Faith MD 03/24/25 11:44:
Patient has Sacrum Stage 3 Pressure Injury, POA
1. Location of the ulcer/wound, Sacrum
2. Type (etiology) of ulcer/wound: Pressure (decubitus) ulcer
3. Stage: Stage 3 - Full thickness tissue not including bone, tendon or muscle
Original Note:
Today's Communication/Plan
-
Started Rocephin.
Discharge to rehab once bed available
Assessment / Plan
Assessment / Plan
Impression:
patient is 80-year-old with past medical history known for hypertension, hyperlipidemia, congestive heart failure with EF 25%,recent L Tib-fib fx s/p ORIF, presented emergency department with acute kidney injury. Creatinine 2.1 up from a baseline
of 0.8. BUN 134 from a baseline of 20s. Soft BPs on arrival in the emergency department. She has not been able to provide any urine and bladder scan shows no retention. Potassium is 4.8, bicarb 17
Kidney function continue to improve but the patient dropped her blood pressure and required to start Levophed.
03/20
Pressure improved but then dropped again at 7 AM, Levophed started.
Kidney function improved.
Physical therapy evaluation pending.
03/21
Physical therapy recommending rehab.
Worsening hypernatremia
03/22
Trial of D5W
03/23
Mental status improved.
Patient found to have UTI, started Rocephin
Assessment/plan:
Severe sepsis with acute organ dysfunction
Septic shock
Patient meets sepsis criteria on admission
Tachycardia and leukocytosis
Source of infection is UTI
IV fluid/previously was on levo
IV antibiotic in form of Rocephin
Blood culture Negative
Urine culture came back Proteus Mirabilis
Switch to Ceftin
LISETTE
suspect poor renal perfusion 2/2 dehydration, hypotension. no e/o obstruction on renal US, no CHUCKY on renal artery duplex
holding BP meds and nephrotoxic agents
improved somewhat after IVF
continue IVF
appreciate nephrology c/s
03/19
Kidney function improved
Hypernatremia
Encourage oral intak
D5W
Improving
Metabolic acidosis
Secondary to kidney failure, improving
Hypotension/hypovolemia secondary to sepsis
Cautious with IV fluid secondary to history of CHF
Started on Levophed
03/22
Blood pressure improved, will start midodrine
Chronic HFrEF/ICM:
-stable
left hip hip fracture s/p ORIF
Nonweightbearing to left leg
Appreciate orthopedic input.
History of diabetes mellitus
Hold metformin
Insulin sliding scale
Blood sugar controlled, no need for diabetic diet
Hemoglobin A1c 5.8
CODE STATUS: Full code
DVT prophylaxis: Heparin
Diet: regular.
Recommendation: Discussed with son and in the phone.
Total time spent on today's encounter was 65 minutes which included time spent in counseling the patient/family regarding diagnosis and treatment plan as listed above, goals of care, and symptom management. Case was discussed with nursing staff,
specialists, and care coordinators/case management. All labs and imaging personally reviewed by me. Remainder the time spent in detailed review of previous records, lab data, imaging, and other medical provider documentation.
Anticipated Discharge: Within 24 hours
Subjective/Interval History
-
Date of Service: March 23, 2025
Patient seen and examined at bedside, looks better, denies any chest pain or shortness of breath, no abdominal pain, no nausea, no vomiting, no diarrhea or constipation.
Objective Data
-
Labs:
Laboratory Results
03/23/25
06:00
Sodium Pending
Potassium Pending
Chloride Pending
Carbon Dioxide Pending
BUN Pending
Creatinine Pending
Glucose Pending
Calcium Pending
Vital Signs:
Vital Signs
Temp Pulse Resp BP Pulse Ox
97.4 F 121 20 103/60 92
03/23/25 11:12 03/23/25 11:12 03/23/25 11:12 03/23/25 11:12 03/23/25 11:12
I&O
03/22/25 03/23/25 03/24/25
06:59 06:59 06:59
Intake Total 720 / 720 805 / 805 240 / 240
Output Total 210 / 210 375 / 375
Balance 510 / 510 430 / 430 240 / 240
Physical Exam
-
General: Well Developed, Well Nourished and Other (Looks tired)
HEENT: Normocephalic, Atraumatic, Moist Mucous Membranes, No Ptosis, PERRLA and Nose Appears Normal
Respiratory: Rales and Non Labored Respirations
Cardiac: Regular Rhythm and S1/S2
Breast: Deferred by me
GI: Soft, Nontender, Nondistended and Normal Bowel Sounds
Genito-urinary: No Costovertebral Tender
Musculoskeletal: No Clubbing, No Cyanosis and Other (Left lower extremity brace, left foot cold, discoloration noted at left big toe )
Skin: Warm
Neuro: Awake, Alert, Oriented, AO x 3 and No Motor Deficits
Psych: Calm
Data Reviewed
-
Diagnostic Radiology: Image personally visualized and interpreted and Report Reviewed by me
CT Scan: Image personally visualized and interpreted and Report Reviewed by me
Ultrasound: Image personally visualized and interpreted and Report Reviewed by me
MRI: Image personally visualized and interpreted and Report Reviewed by me
Medical Tests (Nuc Med, Echo etc): Image personally visualized and interpreted and Report Reviewed by me
Labs: Labs Reviewed by me
Old Records: Reviewed
[2025-03-23 12:00] LABS: Glucose - Point of Care 261 mg/dl (70-99)
--- NOTE | 2025-03-23 12:53 | WOUNDNOTE ---
[facility] RN note: Patient admitted with acute kidney injury.
See H&P for complete history.
PMH: hypertension, hyperlipidemia, congestive heart failure with EF 25%,recent L Tib-fib fx s/p ORIF, presented emergency department with acute kidney injury.
Wound Location and type/assessment: Patient admitted with: stage 3 sacral/coccyx pressure injury vs unstageable, ulcer yellow fibrin with scattered pink tissue. R lateral ankle scabbed abrasion. Heels blanchable red and intact.
Appetite: good.
Pressure redistribution devices in place: [employer] air bed. Patient on a turning schedule. Air chair cushion. Foam turning wedge.
Plan: Sacral silicone border foam dressing changed. Patient turned to left semi side lying position with help from [facility] RN student Natasha. Heels off bed with pillow and air chair cushion. Confirmed with Elizabeth Eckert that is there is a concern of L leg
skin breakdown, may open/remove L leg brace and re-wrap Issa while patient in bed avoiding knee flexion greater than 90 degrees daily prn concern for skin breakdown.
Will confirm orders with Dr. Faith and updated RN Anand nurse.
Care plan to be updated and will follow as needed.
Note to case management of equipment requested for discharge: Air mattress at [facility].
Recommend follow up at wound care center upon discharge.
[2025-03-23] MEDS: NOVOLOG FLEXPEN-LOW RESISTANCE 3 UNITS SC (13:10)
--- NOTE | 2025-03-23 14:07 | W.PN.NEPH.PH ---
Today's Communication / Plan
-
encourage po intake
Assessment/Plan
-
Assessment
Left tib-fib fracture, ORIF, immobilizer
LISETTE
azotemia
Metabolic acidosis
Hypotension
HFrEF 25%
Nephrotic range proteinuria 4.9 g
Plan
d/w pt need to drink 64oz/day.
she said she couldn't do that and would only drink if thirsty (which is <40oz/day)
follow BMP
dc planning
high risk of readmission
-
-
Date of Service: March 23, 2025
CC / HPI / ROS
-
Chief Complaint:
LISETTE
History of Present Illness:
hemodynamically more stable
Hypernatremia 147 yesterday, no labs today
LISETTE/Cr stable 1.1 yesterday
mild acidosis resolved
poor appetite still
Review of Systems:
no CP/SOB
Subjectively nonoliguric
Weights unchanged
Labs
-
Labs:
WBC 8.5 10^3/uL (4.8-10.8) 03/22/25 03:25
RBC 3.02 10^6/uL (4.20-5.40) L 03/22/25 03:25
Hgb 9.2 g/dL (12.0-16.0) L 03/22/25 03:25
Hct 28.3 % (37.0-47.0) L 03/22/25 03:25
Plt Count 208 10^3/uL (130-400) 03/22/25 03:25
eGFR 50.80 03/22/25 03:25
Nfb-W-Ursxpxvlgmg Pept 1900 pg/ml 03/18/25 01:24
Albumin 3.4 g/dl (3.5-5.0) L 03/18/25 00:18
Physical Exam
-
Vital Signs:
Vital Signs
Temp Pulse Resp BP Pulse Ox
97.4 F 121 20 103/60 92
03/23/25 11:12 03/23/25 11:12 03/23/25 11:12 03/23/25 11:12 03/23/25 11:12
Cardiovascular:: Regular rate and rhythm
Respiratory:: Bilateral: Coarse
Lung Excursion:: Normal
Abdomen:: Nontender and Soft
Bowel Sounds:: Normal
Extremity Edema:: None: Bilateral:
--- NOTE | 2025-03-23 16:10 | WOUNDNOTE ---
WOC RN note: Kwaku eHrnandez re: recommend an air mattress for patient at SNF. She has a stage 3 sacral/coccyx pressure injury.
[2025-03-23 16:53] LABS: Glucose - Point of Care 108 mg/dl (70-99)
--- NOTE | 2025-03-23 16:57 | CM ---
Spoke with pt and .
Both requested [facility] .
[facility] requested air mattress at SNF .
Ambar at [facility] said she has a rehab bed tomorrow and she will pass on pt needs air mattress.
IMM reviewed and all questions answered IMM signed on chart.
Pt requested ambulance
[facility]
report [phone]
fax [phone]
PLAN To [facility] in am
[2025-03-23] MEDS: TOPROL XL 50 MG PO (17:38)
[2025-03-23] MEDS: XALATAN OPHTHALMIC SOLUTION 1 DROP BOTH EYES (17:39)
[2025-03-23 21:12] LABS: Glucose - Point of Care 129 mg/dl (70-99)
[2025-03-24] MEDS: HEPARIN 5000 UNITS SC ×2 (00:05→08:21)
[2025-03-24 03:22] VITALS: BP 113/63
[2025-03-24 07:14] LABS: Blood Urea Nitrogen 26 mg/dl (7-17); Calcium 9.1 mg/dl (8.4-10.2); Carbon Dioxide 26 mmol/L (22-30); Chloride 111 mmol/L (98-107); Estimated Creatinine Clearance 44 ml/min; Glucose 120 mg/dl (70-99); Potassium 3.7 mmol/L (3.5-5.1); Sodium 142 mmol/L (135-145); eGFR > 60.00
[2025-03-24 07:22] LABS: Hematocrit 27.7 % (37.0-47.0); Hemoglobin 9.2 g/dL (12.0-16.0); Mean Corp Hgb Conc. 33.2 g/dL (33.0-37.0); Mean Corpuscular Volume 93.3 fL (81.0-99.0); Mean Platelet Volume 11.7 fL (7.4-10.4); Platelet Count 214 10^3/uL (130-400); Red Blood Cell Count 2.97 10^6/uL (4.20-5.40); Red Cell Dist. Width 15.3 % (11.5-14.5); White Blood Cell Count 8.8 10^3/uL (4.8-10.8)
[2025-03-24 07:23] LABS: Glucose - Point of Care 138 mg/dl (70-99)
[2025-03-24 07:25] VITALS: BP 135/74
[2025-03-24] MEDS: NOVOLOG FLEXPEN-LOW RESISTANCE SC ×2 (08:20→12:34)
[2025-03-24] MEDS: ProAmatine PO (08:29)
[2025-03-24] MEDS: ROCEPHIN 1000 MG IV (08:29)
[2025-03-24] MEDS: STERILE WATER FOR INJECTION 10 ML IV (08:30)
--- NOTE | 2025-03-24 10:34 | CM ---
Addendum entered by Treasure Fernandes 03/24/25 10:47:
Patient scheduled for 3:30 p.m. ambulance transport.
Original Note:
CM reviewed chart, patient seen bedside, for discharge today. CM confirmed [facility] has ability to accept patient, ambulance transport required. CM will continue to follow for all discharge planning needs.
Plan; [facility], ambulance transport
[facility]
Report [phone]
[2025-03-24 11:07] VITALS: BP 121/70
[2025-03-24 11:53] LABS: Glucose - Point of Care 171 mg/dl (70-99)
--- NOTE | 2025-03-24 12:06 | W.PN.HOSP.TC ---
Today's Communication/Plan
-
Discharge to rehab
Assessment / Plan
Assessment / Plan
Impression:
patient is 80-year-old with past medical history known for hypertension, hyperlipidemia, congestive heart failure with EF 25%,recent L Tib-fib fx s/p ORIF, presented emergency department with acute kidney injury. Creatinine 2.1 up from a baseline
of 0.8. BUN 134 from a baseline of 20s. Soft BPs on arrival in the emergency department. She has not been able to provide any urine and bladder scan shows no retention. Potassium is 4.8, bicarb 17
Kidney function continue to improve but the patient dropped her blood pressure and required to start Levophed.
03/20
Pressure improved but then dropped again at 7 AM, Levophed started.
Kidney function improved.
Physical therapy evaluation pending.
03/21
Physical therapy recommending rehab.
Worsening hypernatremia
03/22
Trial of D5W
03/23
Mental status improved.
Patient found to have UTI, started Rocephin
03/24
Overall clinically patient improved and will be discharged to rehab once bed available on [facility] for additional 5 days.
Assessment/plan:
Severe sepsis with acute organ dysfunction
Septic shock
Patient meets sepsis criteria on admission
Tachycardia and leukocytosis
Source of infection is UTI
IV fluid/previously was on levo
IV antibiotic in form of Rocephin
Blood culture Negative
Urine culture came back Proteus Mirabilis
Switch to Ceftin
LISETTE
suspect poor renal perfusion 2/2 dehydration, hypotension. no e/o obstruction on renal US, no CHUCKY on renal artery duplex
holding BP meds and nephrotoxic agents
improved somewhat after IVF
continue IVF
appreciate nephrology c/s
03/19
Kidney function improved
Hypernatremia
Encourage oral intak
D5W
Improving
Metabolic acidosis
Secondary to kidney failure, improving
Hypotension/hypovolemia secondary to sepsis
Cautious with IV fluid secondary to history of CHF
Started on Levophed
03/22
Blood pressure improved, will start midodrine
Chronic HFrEF/ICM:
-stable
left hip hip fracture s/p ORIF
Nonweightbearing to left leg
Appreciate orthopedic input.
History of diabetes mellitus
Hold metformin
Insulin sliding scale
Blood sugar controlled, no need for diabetic diet
Hemoglobin A1c 5.8
CODE STATUS: Full code
DVT prophylaxis: Heparin
Diet: regular.
Recommendation: Discharge to rehab
Total time spent on today's encounter was 65 minutes which included time spent in counseling the patient/family regarding diagnosis and treatment plan as listed above, goals of care, and symptom management. Case was discussed with nursing staff,
specialists, and care coordinators/case management. All labs and imaging personally reviewed by me. Remainder the time spent in detailed review of previous records, lab data, imaging, and other medical provider documentation.
Anticipated Discharge: Today
Subjective/Interval History
-
Date of Service: March 24, 2025
Patient seen and examined at bedside, denies any chest pain or shortness of breath, no abdominal pain, no nausea, no vomiting, no diarrhea or constipation.
Objective Data
-
Labs:
Laboratory Results
03/24/25
05:49
WBC 8.8
Hgb 9.2 L
Hct 27.7 L
Plt Count 214
Sodium 142
Potassium 3.7
Chloride 111 H
Carbon Dioxide 26
BUN 26 H
Creatinine 0.9
Glucose 120 H
Calcium 9.1
Vital Signs:
Vital Signs
Temp Pulse Resp BP Pulse Ox
97.7 F 104 18 121/70 96
03/24/25 11:07 03/24/25 11:07 03/24/25 11:07 03/24/25 11:07 03/24/25 11:07
I&O
03/23/25 03/24/25 03/25/25
06:59 06:59 06:59
Intake Total 805 / 805 1200 / 1200
Output Total 375 / 375
Balance 430 / 430 1200 / 1200
Physical Exam
-
General: Well Developed, Well Nourished and Other (Looks tired)
HEENT: Normocephalic, Atraumatic, Moist Mucous Membranes, No Ptosis, PERRLA and Nose Appears Normal
Respiratory: Rales and Non Labored Respirations
Cardiac: Regular Rhythm and S1/S2
Breast: Deferred by me
GI: Soft, Nontender, Nondistended and Normal Bowel Sounds
Genito-urinary: No Costovertebral Tender
Musculoskeletal: No Clubbing, No Cyanosis and Other (Left lower extremity brace, left foot cold, discoloration noted at left big toe )
Skin: Warm
Neuro: Awake, Alert, Oriented, AO x 3 and No Motor Deficits
Psych: Calm
Data Reviewed
-
Diagnostic Radiology: Image personally visualized and interpreted and Report Reviewed by me
CT Scan: Image personally visualized and interpreted and Report Reviewed by me
Ultrasound: Image personally visualized and interpreted and Report Reviewed by me
MRI: Image personally visualized and interpreted and Report Reviewed by me
Medical Tests (Nuc Med, Echo etc): Image personally visualized and interpreted and Report Reviewed by me
Labs: Labs Reviewed by me
Old Records: Reviewed
--- NOTE | 2025-03-24 12:10 | W.DCSUMMARY ---
Discharge Summary
Discharge Data
Date of Admission: 03/18/25
Date of Discharge: 03/24/25
-
Pending Results: No
Hospital Course
Hospital course
patient is 80-year-old with past medical history known for hypertension, hyperlipidemia, congestive heart failure with EF 25%,recent L Tib-fib fx s/p ORIF, presented emergency department with acute kidney injury. Creatinine 2.1 up from a baseline
of 0.8. BUN 134 from a baseline of 20s. Soft BPs on arrival in the emergency department. She has not been able to provide any urine and bladder scan shows no retention. Potassium is 4.8, bicarb 17
Kidney function continue to improve but the patient dropped her blood pressure and required to start Levophed.
03/20
Pressure improved but then dropped again at 7 AM, Levophed started.
Kidney function improved.
Physical therapy evaluation pending.
03/21
Physical therapy recommending rehab.
Worsening hypernatremia
03/22
Trial of D5W
03/23
Mental status improved.
Patient found to have UTI, started Rocephin
03/24
Overall clinically patient improved and will be discharged to rehab once bed available on Ceftin for additional 5 days.
During hospitalization patient was treated from the following
Severe sepsis with acute organ dysfunction
Septic shock
Patient meets sepsis criteria on admission
Tachycardia and leukocytosis
Source of infection is UTI
IV fluid/previously was on levo
IV antibiotic in form of Rocephin
Blood culture Negative
Urine culture came back Proteus Mirabilis
Switch to Ceftin
LISETTE
suspect poor renal perfusion 2/2 dehydration, hypotension. no e/o obstruction on renal US, no CHUCKY on renal artery duplex
holding BP meds and nephrotoxic agents
improved somewhat after IVF
continue IVF
appreciate nephrology c/s
03/19
Kidney function improved
Hypernatremia
Encourage oral intak
D5W
Improving
Metabolic acidosis
Secondary to kidney failure, improving
Hypotension/hypovolemia secondary to sepsis
Cautious with IV fluid secondary to history of CHF
Started on Levophed
03/22
Blood pressure improved, will start midodrine
Chronic HFrEF/ICM:
-stable
left hip hip fracture s/p ORIF
Nonweightbearing to left leg
Appreciate orthopedic input.
History of diabetes mellitus
Hold metformin
Insulin sliding scale
Blood sugar controlled, no need for diabetic diet
Hemoglobin A1c 5.8
CODE STATUS: Full code
DVT prophylaxis: Heparin
Diet: regular.
Recommendation: Discharge to rehab
Total time spent on today's encounter was 40 minutes which included time spent in counseling the patient/family regarding diagnosis and treatment plan as listed above, goals of care, and symptom management. Case was discussed with nursing staff,
specialists, and care coordinators/case management. All labs and imaging personally reviewed by me. Remainder the time spent in detailed review of previous records, lab data, imaging, and other medical provider documentation.
Anticipated Discharge: Today
Discharge Plan
-
Patient Disposition: Halfway/SNF
Discharge Diagnosis/Procedures: Acute renal failure
Acute UTI
Diet: As tolerated
Activity: As tolerated
Other Services: PT and OT
Activity Restrictions/Additional Instructions:
Wound Care Instructions
Sacral/coccyx ulcer-clean with saline or soap and water, honey gel, alginate, silicone border foam, change daily and prn drainage.
L leg brace. May open/remove L leg brace, re-wrap Issa, and reapply/secure brace while patient in bed avoiding knee flexion greater than 90 degrees daily prn concern for skin breakdown.
NWB LLE.
May open/remove L leg brace, re-wrap Issa, and reapply/secure brace while patient in bed avoiding knee flexion greater than 90 degrees daily prn concern for skin breakdown.
Elevate heels off bed with pillow/s and air chair cushion/s.
Pressure redistributing chair cushion (i.e. air chair cushion, Roho).
Air mattress.
Turning schedule
Follow up with orthopedic surgeon.
Follow up with wound customer care voice consultant or at wound care center call for an appointment.
Referrals:
Dawson Conte DO [Active, Nephrology] - in three to four weeks
Issa Mancini MD [Family Provider]
Prescriptions:
New
metoprolol succinate 50 mg Tablet Extended Release 24 Hr
50 mg PO QPM Qty: 0 0RF
midodrine 2.5 mg Tablet
2.5 mg PO TID Qty: 30 0RF
Rx Instructions:
hold for SBP>110
oxycodone 5 mg Tablet
5 mg PO Q6HPRN PRN (Reason: severe pain) Qty: 5 0RF
cefuroxime axetil 500 mg tablet
500 mg PO BID 5 Days Qty: 10 0RF
Continued
fenofibrate 160 MG tablet
160 mg PO DAILY
therapeutic multivitamin Tablet
1 tab PO DAILY
polyethylene glycol 3350 17 gram powder in packet
17 g PO DAILY PRN (Reason: Constipation)
latanoprost 0.005 % Drops
1 drp OPHTHALMIC (EYE) QPM
Rx Instructions:
1 gtt both eyes at bedtime daily
atorvastatin 40 mg Tablet
40 mg PO QPM
metformin 850 mg Tablet
850 mg PO BID
acetaminophen 325 mg Tablet
650 mg PO Q4HPRN PRN (Reason: headache, temp >101F) Qty: 0 0RF
aspirin 325 mg Tablet
325 mg PO DAILY Qty: 0 0RF
sennosides [Sharron-xiao] 8.6 mg Tablet
17.2 mg PO HS Qty: 0 0RF
Changed
docusate sodium 100 mg Capsule
100 mg PO BID PRN (Reason: Constipation) Qty: 0 0RF
Held
furosemide 20 mg Tablet
20 mg PO DAILY Qty: 30 0RF
Hold Instructions: hold till seen by nephrology
Discontinued
metoprolol succinate 100 mg Tablet Extended Release 24 Hr
150 mg PO QPM
valsartan 160 mg Tablet
160 mg PO DAILY
Discharge Orders:
Discharge Patient (As Directed); Ordered 03/24/25
Ordered By: Peter Faith
Discharge Date and Time
Print Language: [place]AST [place]
--- NOTE | 2025-03-24 12:48 | W.PN.NEPH.PH ---
Today's Communication / Plan
-
dc
Assessment/Plan
-
Assessment
Left tib-fib fracture, ORIF, immobilizer
LISETTE
azotemia
Metabolic acidosis
Hypotension
HFrEF 25%
Nephrotic range proteinuria 4.9 g
Plan
d/w pt need to drink 64oz/day.
follow BMP
for dc
-
-
Date of Service: March 24, 2025
CC / HPI / ROS
-
Chief Complaint:
LISETTE
History of Present Illness:
hemodynamically more stable
Hypernatremia better 142
LISETTE/Cr stable 0.9
mild acidosis resolved
Review of Systems:
no CP/SOB
Subjectively nonoliguric
Weights unchanged
Labs
-
Labs:
WBC 8.8 10^3/uL (4.8-10.8) 03/24/25 05:49
RBC 2.97 10^6/uL (4.20-5.40) L 03/24/25 05:49
Hgb 9.2 g/dL (12.0-16.0) L 03/24/25 05:49
Hct 27.7 % (37.0-47.0) L 03/24/25 05:49
Plt Count 214 10^3/uL (130-400) 03/24/25 05:49
Sodium 142 mmol/L (135-145) 03/24/25 05:49
Potassium 3.7 mmol/L (3.5-5.1) 03/24/25 05:49
Chloride 111 mmol/L (98-107) H 03/24/25 05:49
Carbon Dioxide 26 mmol/L (22-30) 03/24/25 05:49
BUN 26 mg/dl (7-17) H 03/24/25 05:49
Creatinine 0.9 mg/dL (0.6-1.0) 03/24/25 05:49
eGFR > 60.00 03/24/25 05:49
Glucose 120 mg/dl (70-99) H 03/24/25 05:49
Calcium 9.1 mg/dl (8.4-10.2) 03/24/25 05:49
Pcx-O-Ilbnxzpkqbf Pept 1900 pg/ml 03/18/25 01:24
Albumin 3.4 g/dl (3.5-5.0) L 03/18/25 00:18
Physical Exam
-
Vital Signs:
Vital Signs
Temp Pulse Resp BP Pulse Ox
97.7 F 104 18 121/70 96
03/24/25 11:07 03/24/25 11:07 03/24/25 11:07 03/24/25 11:07 03/24/25 11:07
Cardiovascular:: Regular rate and rhythm
Respiratory:: Bilateral: Coarse
Lung Excursion:: Normal
Abdomen:: Nontender and Soft
Bowel Sounds:: Normal
Extremity Edema:: None: Bilateral:
[2025-03-24 13:39] VITALS: BMI 26.4
[2025-03-24] MEDS: ROXICODONE 5 MG PO (14:14)
== END 2025-03-24 15:31 | DRG 871 ==
LOC: 4 EAST ACU 02:51
PROVIDERS: ADMITTING PHYSICIAN Internal Medicine; ATTENDING PHYSICIAN General Practice; EMERGENCY PHYSICIAN Student in an Organized Health Care Education/Training Program; FAMILY PHYSICIAN Internal Medicine; OTHER PHYSICIAN Specialist
DX: A41.9 Sepsis, unspecified organism (principal); L89.153 Pressure ulcer of sacral region, stage 3; R65.21 Severe sepsis with septic shock; N39.0 Urinary tract infection, site not specified; N17.9 Acute kidney failure, unspecified; E87.0 Hyperosmolality and hypernatremia; E87.20 Acidosis, unspecified; I13.0 Hypertensive heart and chronic kidney disease with heart failure and stage 1 through stage 4 chronic kidney disease, or unspecified chronic kidney disease; I50.22 Chronic systolic (congestive) heart failure; E78.00 Pure hypercholesterolemia, unspecified; N18.2 Chronic kidney disease, stage 2 (mild); E86.1 Hypovolemia; E11.22 Type 2 diabetes mellitus with diabetic chronic kidney disease; Z79.84 Long term (current) use of oral hypoglycemic drugs; I25.5 Ischemic cardiomyopathy; M81.0 Age-related osteoporosis without current pathological fracture; F41.9 Anxiety disorder, unspecified; Z87.891 Personal history of nicotine dependence; Z79.82 Long term (current) use of aspirin; Z79.899 Other long term (current) drug therapy; K59.00 Constipation, unspecified
CPT/HCPCS: 71045; 73560; 73590; 76770; 80048; 80053; 81003; 81015; 82533; 82570; 82962; 83036; 83516; 83605; 83735; 83880; 83935; 84156; 84300; 85025; 85027; 85652; 86038; 86140; 86160; 86430; 87040; 87070; 87077; 87086; 87186; 93975; 96360; 96361; 97163; 97530; 99291

== ENCOUNTER → 2025-03-28 09:50 | Outpatient (REF) | payer OTHER, MEDICARE, SELFPAY ==
[2025-03-28 13:17] LABS: Hematocrit 30.8 % (37.0-47.0); Hemoglobin 9.7 g/dL (12.0-16.0); Mean Corp Hgb Conc. 31.5 g/dL (33.0-37.0); Mean Corpuscular Hgb 30.6 pg (27.0-31.0); Mean Corpuscular Volume 97.2 fL (81.0-99.0); Mean Platelet Volume 12.1 fL (7.4-10.4); Platelet Count 218 10^3/uL (130-400); Red Blood Cell Count 3.17 10^6/uL (4.20-5.40); Red Cell Dist. Width 16.2 % (11.5-14.5); White Blood Cell Count 7.1 10^3/uL (4.8-10.8)
[2025-03-28 13:50] LABS: ALT (SGPT) 29 U/L (0-35); AST (SGOT) 41 U/L (14-36); Albumin 3.3 g/dl (3.5-5.0); Alkaline Phosphatase 76 U/L (38-126); Blood Urea Nitrogen 18 mg/dl (7-17); Calcium 9.7 mg/dl (8.4-10.2); Carbon Dioxide 23 mmol/L (22-30); Chloride 113 mmol/L (98-107); Glucose 112 mg/dl (70-99); Magnesium 1.4 mg/dl (1.6-2.3); Potassium 4.1 mmol/L (3.5-5.1); Sodium 141 mmol/L (135-145); Total Bilirubin 0.6 mg/dl (0.2-1.3); eGFR > 60.00
== END ==
LOC: OLABWHC 09:50
PROVIDERS: ATTENDING PHYSICIAN Family Medicine
DX: S82.202D Unspecified fracture of shaft of left tibia, subsequent encounter for closed fracture with routine healing (principal); E11.9 Type 2 diabetes mellitus without complications; I50.9 Heart failure, unspecified
CPT/HCPCS: 36415; 80053; 83735; 85027

== ENCOUNTER → 2025-04-19 11:28 | Outpatient (REF) | payer OTHER, MEDICARE, SELFPAY ==
[2025-04-19 11:50] LABS: Hematocrit 27.1 % (37.0-47.0); Hemoglobin 8.7 g/dL (12.0-16.0); Mean Corp Hgb Conc. 32.1 g/dL (33.0-37.0); Mean Corpuscular Volume 95.4 fL (81.0-99.0); Platelet Count 207 10^3/uL (130-400); Red Cell Dist. Width 15.9 % (11.5-14.5)
[2025-04-19 12:16] LABS: ALT (SGPT) 36 U/L (0-35); AST (SGOT) 42 U/L (14-36); Albumin 3.3 g/dl (3.5-5.0); Alkaline Phosphatase 47 U/L (38-126); Blood Urea Nitrogen 19 mg/dl (7-17); Calcium 9.5 mg/dl (8.4-10.2); Carbon Dioxide 26 mmol/L (22-30); Chloride 107 mmol/L (98-107); Glucose 102 mg/dl (70-99); Magnesium 1.2 mg/dl (1.6-2.3); Potassium 3.7 mmol/L (3.5-5.1); Sodium 139 mmol/L (135-145); Total Protein 5.6 g/dl (6.3-8.2); eGFR > 60.00
== END ==
LOC: OLABWHC 11:28
PROVIDERS: ATTENDING PHYSICIAN Family Medicine
DX: E11.9 Type 2 diabetes mellitus without complications (principal); E78.5 Hyperlipidemia, unspecified; I10 Essential (primary) hypertension
CPT/HCPCS: 36415; 80053; 83735; 85027

== ENCOUNTER 2025-04-27 21:01 | Inpatient (IN) | payer MEDICARE, OTHER, SELFPAY ==
[2025-04-27] VITALS (7 sets, daily range): BP systolic 108–136; BP diastolic 59–102; BMI 28.7; BMI 28.5
--- NOTE | 2025-04-27 16:35 | ED.GENMED ---
History of Present Illness
<Shelly Fletcher NP - Last Filed: 04/28/25 17:11>
General
Chief Complaint: Fever
Source: patient and correction
Exam Limitations: none
Time Seen by Provider: 04/27/25 16:23
Nursing documentation reviewed up to this point in time: agreed with
History of Present Illness
History of Present Illness:
Patient to ED from [place] for chills, vomiting. Symptoms started 'a couple days ago'. SHe had labs drawn at [place], WBC 15.7. Sent to ED for eval. SHe denies any pain but states her abd. feels 'uncomfortable'. Denies any cough or SOB, no urinary
symptoms. Brought to ED via EMS
Past History
<Shelly Fletcher SAND TEMPERER - Last Filed: 04/28/25 17:11>
Past History
ED Past Medical History: HTN, Hypercholesterolemia, NIDDM, Renal failure and Other (glaucoma)
ED Past Surgical History: Appendectomy
Social History
Tobacco: Former smoker
Alcohol: None
Drug: None
Review of Systems
<Shelly Fletcher NP - Last Filed: 04/28/25 17:11>
Review of Systems
Allergies reviewed?: Yes
All Other Systems: ROS reviewed and negative except as documented in HPI and ROS
Constitutional: Reports fever and chills
EENT: Reports no symptoms
Respiratory: Reports no symptoms
Cardiac: Reports no symptoms
ABD/GI: Reports vomiting
: Reports no symptoms
Musculoskeletal: Reports no symptoms
Skin: Reports no symptoms
Neurological: Reports weakness
Psychiatric: Reports no symptoms
Phy Exam
<Shelly Fletcher SAND TEMPERER - Last Filed: 04/28/25 17:11>
General Physical Exam
General Presentation: moderate distress
General age: appears stated age
General Skin: dry, feels hot and pale
General Habitus: elderly and obese
General Mental: alert
Cardiovascular Exam
Cardiovascular Exam: regular rate/rhythm
Pulmonary Exam
Pulmonary Exam: lungs clear and no respiratory distress
Gastrointestinal Exam
Gastrointestinal Exam: normal bowel sounds, soft, no organomegaly, no pulsatile mass and non distended
Palpation: left upper quadrant: Mild tenderness, left lower quadrant: Mild tenderness, right upper quadrant: Mild tenderness and right lower quadrant: Mild tenderness
Musculoskeletal Exam
Musculoskeletal Exam: full ROM and neuro vasc intact
Skin Exam
Skin Exam: warm/dry, no rash and pallor
Psychiatric Exam
Psychiatric Exam: normal mood/affect
Sepsis
<Shelly Fletcher SAND TEMPERER - Last Filed: 04/28/25 17:11>
Sepsis Screening
Sepsis Assessment: Sepsis
Sepsis Screen
Sepsis Screen: Sepsis
Date: 04/28/25
Time: 17:11
Course
<Shelly Fletcher SAND TEMPERER - Last Filed: 04/28/25 17:11>
Orders/Labs/Results
Orders:
Orders
04/27/25 Breakfast
Cholesterol Lowering
At Your Request: Limited Participation
Cholesterol Lowering: Sodium, 2 Gram
1800 brody/15 CHO Diabetic
04/27/25 16:31
ECG [Electrocardiogram (*1)] Urgent
Reason for Study: Tachycardia
04/27/25 16:32
EKG- Treatment ONCE
04/27/25 16:33
Acetaminophen 1000MG/100Ml [Ofirmev] 1,000 mg in 100 ml IV ONCE
Acetaminophen IV Indication:: No MD & No Enteral Access
04/27/25 16:34
Ondansetron Injectable [Zofran] 4 mg IV NOW STA
04/27/25 16:35
CT Abd/pelvis W Iv Cont Urgent
Comment:
Reason For Exam: fever, vomiting
Complete Blood Count/With Diff Urgent
Comprehensive Metabolic Panel Urgent
Lactate Level [Lactic Acid] Q4H
Lipase Urgent
Blood Culture Urgent
BHUMI Source: Blood/Venous
Specimen Description:
CR Chest - 2 Views Urgent
Comment:
Reason For Exam: fever
04/27/25 17:21
Piperacillin/Tazo 4.5 Gram [Zosyn] 4.5 gram in 100 ml IV NOW
04/27/25 17:32
COVID-19 Antigen Urgent
Source: Nasal Swab
Influenza A+B Rapid Molecular Urgent
BHUMI Source: Nasal Swab
Specimen Description:
04/27/25 17:58
0.9% Sodium Chloride 500 ml [Nss] 500 ml IV BOLUS
04/27/25 18:38
Vancomycin [Vancocin] 2,000 mg 0.9% Sodium Chloride 500 ml [Nss] 500 ml IV NOW
04/27/25 19:01
Urinalysis Reflex To Culture Urgent
Date Specimen was Collected: 04/27/25
Time Specimen was Collected: 18:40
Urine Microscopic Reflex Cult Urgent
Urine Culture Urgent
BHUMI Source: U
Specimen Description:
Date Specimen was Collected: 04/27/25
Time Specimen was Collected: 18:40
04/27/25 20:42
Admit/Transfer Patient As Directed
Co-Sign Provider:
Level of Care: Inpatient admission
Assign to:: IMU- Intermediate Care
Physician / Group: htay
Diagnosis: sepsis due to complicated UTI with acute PN, LISETTE, Hypotension
Reason for Hospitalization: sepsis due to complicated UTI with acute PN, LISETTE, Hypotension
Expected length of stay greater than two midnights?: Yes
ELOS- Estimated Length of Stay in days: 3
I certify the patient meets the requirements for IP care: Yes
04/27/25 20:44
Code Status As Directed
Resuscitation Status: Full Code
04/27/25 21:43
Lactate Level [Lactic Acid] Q4H
04/27/25 22:58
Blood Culture Q30M
BHUMI Source: Blood/Venous
Specimen Description:
Comment: IF NOT OBTAINED IN ED
Dextrose 50%-Water [Dextrose 50% Syringe] 12.5 grams IV [id number] PRN
Glucagon [GlucaGen] 1 mg IM PRN PRN
Lactated Ringers [Lr] 1,000 ml IV 80 mls/hr
04/27/25 22:58
Urinalysis Reflex To Culture Urgent
Date Specimen was Collected: 04/28/25
Time Specimen was Collected: 06:07
Activity As Directed
Activity Level: With Assistance
Bedside Glucose Monitoring As Directed
Frequency: AC&HS
Additional Instructions:: Change to q6h if pt on TPN, tube feeding or not eating
Intake/ Output As Directed
Frequency: Per unit guidelines
Vital Signs As Directed
Frequency: Per unit guidelines
Weight As Directed
Frequency: Daily
DX Deep Vein Thrombosis Video Routine
04/27/25 23:00
Latanoprost [Xalatan Ophthalmic Solution] See Dose Instructions OPHTH HS
04/27/25 23:28
Blood Culture Q30M
BHUMI Source: Blood/Venous
Specimen Description:
Comment: IF NOT OBTAINED IN ED
04/28/25 00:00
Piperacillin/Tazo 2.25 Gram [Zosyn] 2.25 grams in 50 ml IV Q6H
04/28/25 03:31
Complete Blood Count/No Diff IN AM
Comprehensive Metabolic Panel IN AM
Glycohemoglobin (HgbA1c) IN AM
04/28/25 07:30
Insulin Aspart Corrective Low [Novolog Flexpen-Low Resistance] See Protocol SC AC
04/28/25 08:00
Aspirin 325 mg PO DAILY
Heparin 5,000 units SC Q12
Abnormal Lab Results
04/27/25 04/27/25
16:35 19:01
WBC 16.3 H 10^3/uL
(4.8-10.8)
RBC 3.16 L 10^6/uL
(4.20-5.40)
Hgb 9.8 L g/dL
(12.0-16.0)
Hct 30.5 L %
(37.0-47.0)
MCHC 32.1 L g/dL
(33.0-37.0)
RDW 15.6 H %
(11.5-14.5)
MPV 11.0 H fL
(7.4-10.4)
Abs Immat Gran (auto) 0.1 H 10^3/uL
(0-0.05)
Absolute Neuts (auto) 14.1 H 10^3/uL
(1.4-6.5)
Absolute Monos (auto) 0.9 H 10^3/uL
(0.1-0.6)
Neutrophils % 86.5 H %
(42.2-75.2)
Lymphocytes % 7.1 L %
(20.5-51.1)
BUN 23 H mg/dl
(7-17)
Creatinine 1.3 H mg/dL
(0.6-1.0)
Glucose 140 H mg/dl
(70-99)
Lactic Acid 3.0 H mmol/L
(0.7-2.0)
AST 47 H U/L
(14-36)
Ur Occult Blood Reflex 2+ A
(Negative)
Leukocyte Esterase Rfl 1+ A
(Negative)
Urine RBC 7-10 A /HPF
(0-2)
Urine WBC (Reflex) 50-60 A /HPF
(0-5)
Urine Bacteria (Reflex) Moderate A
(Negative)
Urine Albumin (Reflex) 3+ A
(Neg - Trace)
04/27/25 16:35
04/27/25 16:35
Vital Signs
Initial and Last Documented VS:
Initial Vital Signs
Temp Pulse Resp BP Pulse Ox
101.9 F H 125 24 136/102 94
04/27/25 16:20 04/27/25 16:20 04/27/25 16:20 04/27/25 16:20 04/27/25 16:20
Last Documented Vital Signs
Temp Pulse Resp BP Pulse Ox
98.6 F 104 33 137/82 96
04/28/25 16:12 04/28/25 16:30 04/28/25 16:30 04/28/25 14:09 04/28/25 16:30
<Dawson Pettit, DO - Last Filed: 04/27/25 23:50>
Orders/Labs/Results
Orders:
Orders
04/27/25 Breakfast
Cholesterol Lowering
At Your Request: Limited Participation
Cholesterol Lowering: Sodium, 2 Gram
1800 brody/15 CHO Diabetic
04/27/25 16:31
ECG [Electrocardiogram (*1)] Urgent
Reason for Study: Tachycardia
04/27/25 16:32
EKG- Treatment ONCE
04/27/25 16:33
Acetaminophen 1000MG/100Ml [Ofirmev] 1,000 mg in 100 ml IV ONCE
Acetaminophen IV Indication:: No MD & No Enteral Access
04/27/25 16:34
Ondansetron Injectable [Zofran] 4 mg IV NOW STA
04/27/25 16:35
CT Abd/pelvis W Iv Cont Urgent
Comment:
Reason For Exam: fever, vomiting
Complete Blood Count/With Diff Urgent
Comprehensive Metabolic Panel Urgent
Lactate Level [Lactic Acid] Q4H
Lipase Urgent
Blood Culture Urgent
BHUMI Source: Blood/Venous
Specimen Description:
CR Chest - 2 Views Urgent
Comment:
Reason For Exam: fever
04/27/25 17:21
Piperacillin/Tazo 4.5 Gram [Zosyn] 4.5 gram in 100 ml IV NOW
04/27/25 17:32
COVID-19 Antigen Urgent
Source: Nasal Swab
Influenza A+B Rapid Molecular Urgent
BHUMI Source: Nasal Swab
Specimen Description:
04/27/25 17:58
0.9% Sodium Chloride 500 ml [Nss] 500 ml IV BOLUS
04/27/25 18:38
Vancomycin [Vancocin] 2,000 mg 0.9% Sodium Chloride 500 ml [Nss] 500 ml IV NOW
04/27/25 19:01
Urinalysis Reflex To Culture Urgent
Date Specimen was Collected: 04/27/25
Time Specimen was Collected: 18:40
Urine Microscopic Reflex Cult Urgent
Urine Culture Urgent
BHUMI Source: U
Specimen Description:
Date Specimen was Collected: 04/27/25
Time Specimen was Collected: 18:40
04/27/25 20:42
Admit/Transfer Patient As Directed
Co-Sign Provider:
Level of Care: Inpatient admission
Assign to:: IMU- Intermediate Care
Physician / Group: htay
Diagnosis: sepsis due to complicated UTI with acute PN, LISETTE, Hypotension
Reason for Hospitalization: sepsis due to complicated UTI with acute PN, LISETTE, Hypotension
Expected length of stay greater than two midnights?: Yes
ELOS- Estimated Length of Stay in days: 3
I certify the patient meets the requirements for IP care: Yes
04/27/25 20:44
Code Status As Directed
Resuscitation Status: Full Code
04/27/25 21:43
Lactate Level [Lactic Acid] Q4H
04/27/25 22:58
Blood Culture Q30M
BHUMI Source: Blood/Venous
Specimen Description:
Comment: IF NOT OBTAINED IN ED
Dextrose 50%-Water [Dextrose 50% Syringe] 12.5 grams IV [id number] PRN
Glucagon [GlucaGen] 1 mg IM PRN PRN
Lactated Ringers [Lr] 1,000 ml IV 80 mls/hr
04/27/25 22:58
Urinalysis Reflex To Culture Urgent
Date Specimen was Collected: 04/28/25
Time Specimen was Collected: 06:07
Activity As Directed
Activity Level: With Assistance
Bedside Glucose Monitoring As Directed
Frequency: AC&HS
Additional Instructions:: Change to q6h if pt on TPN, tube feeding or not eating
Intake/ Output As Directed
Frequency: Per unit guidelines
Vital Signs As Directed
Frequency: Per unit guidelines
Weight As Directed
Frequency: Daily
DX Deep Vein Thrombosis Video Routine
04/27/25 23:00
Latanoprost [Xalatan Ophthalmic Solution] See Dose Instructions OPHTH HS
04/27/25 23:28
Blood Culture Q30M
BHUMI Source: Blood/Venous
Specimen Description:
Comment: IF NOT OBTAINED IN ED
04/28/25 00:00
Piperacillin/Tazo 2.25 Gram [Zosyn] 2.25 grams in 50 ml IV Q6H
04/28/25 03:31
Complete Blood Count/No Diff IN AM
Comprehensive Metabolic Panel IN AM
Glycohemoglobin (HgbA1c) IN AM
04/28/25 07:30
Insulin Aspart Corrective Low [Novolog Flexpen-Low Resistance] See Protocol SC AC
04/28/25 08:00
Aspirin 325 mg PO DAILY
Heparin 5,000 units SC Q12
Abnormal Lab Results
04/27/25 04/27/25
16:35 19:01
WBC 16.3 H 10^3/uL
(4.8-10.8)
RBC 3.16 L 10^6/uL
(4.20-5.40)
Hgb 9.8 L g/dL
(12.0-16.0)
Hct 30.5 L %
(37.0-47.0)
MCHC 32.1 L g/dL
(33.0-37.0)
RDW 15.6 H %
(11.5-14.5)
MPV 11.0 H fL
(7.4-10.4)
Abs Immat Gran (auto) 0.1 H 10^3/uL
(0-0.05)
Absolute Neuts (auto) 14.1 H 10^3/uL
(1.4-6.5)
Absolute Monos (auto) 0.9 H 10^3/uL
(0.1-0.6)
Neutrophils % 86.5 H %
(42.2-75.2)
Lymphocytes % 7.1 L %
(20.5-51.1)
BUN 23 H mg/dl
(7-17)
Creatinine 1.3 H mg/dL
(0.6-1.0)
Glucose 140 H mg/dl
(70-99)
Lactic Acid 3.0 H mmol/L
(0.7-2.0)
AST 47 H U/L
(14-36)
Ur Occult Blood Reflex 2+ A
(Negative)
Leukocyte Esterase Rfl 1+ A
(Negative)
Urine RBC 7-10 A /HPF
(0-2)
Urine WBC (Reflex) 50-60 A /HPF
(0-5)
Urine Bacteria (Reflex) Moderate A
(Negative)
Urine Albumin (Reflex) 3+ A
(Neg - Trace)
04/27/25 16:35
04/27/25 16:35
Vital Signs
Initial and Last Documented VS:
Initial Vital Signs
Temp Pulse Resp BP Pulse Ox
101.9 F H 125 24 136/102 94
04/27/25 16:20 04/27/25 16:20 04/27/25 16:20 04/27/25 16:20 04/27/25 16:20
Last Documented Vital Signs
Temp Pulse Resp BP Pulse Ox
98.6 F 104 33 137/82 96
04/28/25 16:12 04/28/25 16:30 04/28/25 16:30 04/28/25 14:09 04/28/25 16:30
<Shelly Fletcher NP - Last Filed: 04/28/25 17:11>
*Radiology
Radiology exam reviewed: radiology read reviewed
*Pulse Oximetry
SaO2: 94
Oxygen Mode of Delivery: Room air
Patient hypoxic: no
<Dawson Pettit DO - Last Filed: 04/27/25 23:50>
*Radiology
Radiology exam reviewed: preliminary read by ED provider (No acute process)
*Die Attaching Machine Tender Interpretation
Rate: tachycardiac
Interpretation: abnormal
Rhythm: sinus
*Critical Care Note
Total Time (30-74mins, 75-104mins- exclusive of procedures): 40 minutes
ED Attending Note
<Shelly Fletcher NP - Last Filed: 04/28/25 17:11>
-
Portions of this chart may have been created with voice recognition software.� Occasional wrong word or��sound alike� substitutions may have occurred due to the inherent limitations of voice recognition software.
<Dawson Pettit DO - Last Filed: 04/27/25 23:50>
ED Attending Note
Patient seen and examined by attending physician: Yes
I performed the substantive portion of visit, reviewed & personally made and approve the management plan that is documented in note by myself or LINA.: Yes
ED Attending Note:
80-year-old female with recent ORIF to the left lower extremity who presents with fever, tachycardia and evidence of sepsis and possibly severe sepsis. CT suspicious for pyelonephritis and confirmed by urinalysis. Treat with broad-spectrum
antibiotics, IV fluids. Patient is mentating well. Blood culture sent
Discharge Plan
Departure
Patient Disposition: Admit
Date of Disposition: 04/27/25
Time of Disposition: 19:20
Presentation/result/management discussed w/ accepting MD/DO: Hospitalist
Patient with high blood pressure during this ER visit?: No
Condition: Fair
Covid-19: Not Applicable
Discharge Problem:
Sepsis, Acute pyelonephritis
Interventions
Interventions:
*Risk Screen - Suicide Last Done: 04/27/25 16:30
*General Assessment Last Done: 04/27/25 16:30
*Neglect/Abuse Screening Last Done: 04/27/25 16:30
*ED- Fall Risk Assessment Last Done: 04/27/25 19:58
*ED COVID-19 Vaccine History Last Done: 04/27/25 19:58
*Nursing Disposition Last Done: 04/27/25 23:07
YR-Enbhfo-Eislthjjmz Assessment Last Done: 04/27/25 17:11
ED- Neurological Assessment Last Done: 04/27/25 17:11
ED-Skin Assessment Last Done: 04/27/25 17:11
Discharge Date and Time
Discharge Date/Time: 04/27/25 23:08
[2025-04-27 16:42] LABS: Hematocrit 30.5 % (37.0-47.0); Hemoglobin 9.8 g/dL (12.0-16.0); Mean Corp Hgb Conc. 32.1 g/dL (33.0-37.0); Mean Corpuscular Volume 96.5 fL (81.0-99.0); Nucleated Red Blood Cells % 0 %; Platelet Count 231 10^3/uL (130-400); Red Cell Dist. Width 15.6 % (11.5-14.5)
[2025-04-27] MEDS: OFIRMEV 100 IV (16:48)
[2025-04-27] MEDS: ZOFRAN 4 MG IV ×2 (16:48→22:44)
[2025-04-27 17:06] LABS: ALT (SGPT) 33 U/L (0-35); AST (SGOT) 47 U/L (14-36); Albumin 4.1 g/dl (3.5-5.0); Alkaline Phosphatase 53 U/L (38-126); Blood Urea Nitrogen 23 mg/dl (7-17); Calcium 10.1 mg/dl (8.4-10.2); Carbon Dioxide 27 mmol/L (22-30); Chloride 106 mmol/L (98-107); Estimated Creatinine Clearance 32 ml/min; Glucose 140 mg/dl (70-99); Potassium 4.3 mmol/L (3.5-5.1); Sodium 140 mmol/L (135-145); Total Protein 6.7 g/dl (6.3-8.2); eGFR 41.57
[2025-04-27 17:07] LABS: Lipase 122 U/L (23-300)
[2025-04-27 18:05] LABS: COVID-19 Antigen Negative (Negative)
[2025-04-27] MEDS: NSS 500 IV (18:35)
[2025-04-27] MEDS: ZOSYN 100 IV (18:35)
[2025-04-27 19:17] LABS: Urine Character Clear (Clear)
[2025-04-27 19:23] LABS: Urine Squamous Cell 0-2 /LPF (Few)
[2025-04-27 19:24] LABS: Urine White Cell 50-60 /HPF (0-5)
[2025-04-27] MEDS: VANCOCIN 540 MG IV (19:50)
--- NOTE | 2025-04-27 20:35 | HPS.HSE ---
Family Physician
-
Family Physician: Armen Hernandez MD
Chief Complaint
-
for chills, vomiting
History of Present Illness
HPI
80F Res of [place] , Brought to ED via EMS with PMHX hypertension, hyperlipidemia, chr HFrEF , LVEF 25%, sepsis with shock due to UTI, LISETTE Nephrotic range proteinuria 4.9gm sent to ER ;
- evaluation for for chills, vomiting. Symptoms started 'a couple days ago'.
- labs drawn at [place], WBC 15.7.
- Then sent to ED for eval.
ROS
denies any pain but states her abd. feels 'uncomfortable'.
Denies any cough or SOB, no urinary symptoms.
Medical History
Past Medical History
Past Medical History: Reports Other
Additional Past Medical History:
Hypertension
DM-II
Ischemic Cardiomyopathy
Chronic HFrEF (25%)
Osteoporosis
Glaucoma
Anxiety
Past Surgical History: Reports Other
Additional Past Surgical History:
Cardiac Cath - No Stent
Appendectomy
Eye Surgery
Social History
Tobacco: Former Smoker (Quit smoking many years ago.)
Alcohol: None
Drug: None
Family History
Family History: Not pertinent
Allergies / Home Medications
Allergies reflects when Allergies were last updated in [facility].
Home Medications with original date entered in [facility]
Allergy/Medication List:
Allergies
Allergy/AdvReac Type Severity Reaction Status Date / Time
No Known Allergies Allergy Verified 02/16/25 22:58
Home Medications
fenofibrate 160 mg tablet 160 mg PO DAILY High Cholesterol 12/06/14
polyethylene glycol 3350 17 gram oral powder packet 17 g PO DAILY PRN Constipation 08/21/23
therapeutic multivitamin 1 tab PO DAILY Supplement 08/21/23
aspirin 81 mg chewable tablet (Children's Aspirin) 81 mg PO DAILY #30 tabs 08/27/23
furosemide 20 mg tablet 20 mg PO DAILY #30 tabs 08/27/23
atorvastatin 40 mg tablet 40 mg PO QPM 02/17/25
latanoprost 0.005 % eye drops 1 drp ophthalmic (eye) QPM 02/17/25
metformin 850 mg tablet 850 mg PO BID 02/17/25
metoprolol succinate 100 mg tablet,extended release 24 hr 150 mg PO QPM 02/17/25
pioglitazone 30 mg tablet 30 mg PO QPM 02/17/25
valsartan 160 mg tablet 160 mg PO DAILY 02/17/25
Review of Systems
-
Constitutional: Reports Chills
EENT: Reports No Symptoms
Respiratory: Reports No Symptoms
Cardiac: Reports No Symptoms
Abdomen/GI: Reports No Symptoms
: Reports No Symptoms
Musculoskeletal: Reports No Symptoms
Skin: Reports No Symptoms
Neurological: Reports No Symptoms
Endocrine: Reports No Symptoms
Hematologic/Lymphatic: Reports No Symptoms
Psych: Reports No Symptoms
Physical Exam
Vital Signs
Vital Signs
Temp Pulse Resp BP Pulse Ox
98.4 F 106 26 114/59 98
04/27/25 19:47 04/27/25 20:00 04/27/25 19:00 04/27/25 20:00 04/27/25 20:06
Physical Exam
General: Well Developed, Well Nourished and No Apparent Distress
HEENT: NormoCephalic, Moist mucous membranes and Atraumatic
Respiratory: Clear
Cardiac: S1/S2, Regular Rhythm and Tachycardia; No Murmur or Rub
GI: Soft, Non Tender, Non Distended and Normal Bowel Sounds; No Organomegaly
Rectal: Deferred by Provider
Musculoskeletal: No Clubbing, No Cyanosis and No Edema
Skin: No Rash
Neuro: Nonfocal/grossly intact
Laboratory Results
-
04/27/25 16:35
04/27/25 16:35
Laboratory Results
Lactic Acid 3.0 mmol/L (0.7-2.0) H 04/27/25 16:35
Total Bilirubin 1.1 mg/dl (0.2-1.3) 04/27/25 16:35
AST 47 U/L (14-36) H 04/27/25 16:35
ALT 33 U/L (0-35) 04/27/25 16:35
Alkaline Phosphatase 53 U/L (38-126) 04/27/25 16:35
Lipase 122 U/L (23-300) 04/27/25 16:35
Data Reviewed
-
CT Scan: Report Reviewed by me
Lab Data: Labs Reviewed by me
Old Records: Requested
Impression/Plan
-
Vital Signs
Temp Pulse Resp BP Pulse Ox
98.4 F 106 26 114/59 98
04/27/25 19:47 04/27/25 20:00 04/27/25 19:00 04/27/25 20:00 04/27/25 20:06
significant admissin Data
03/28/25 04/27/25 04/27/25
: 16:35 17:32
WBC 16.3 H
Hgb 9.7 L 9.8 L
Plt Count 231
BUN 23 H
Creatinine 1.3 H
eGFR 41.57
AST 47 H
Leukocyte Esterase Rfl 1+
Urine WBC (Reflex) 50-60
Urine Bacteria (Reflex) moderate
SARS-CoV-2 Antigen Negative
EKG
SINUS TACHYCARDIA
LEFT ANTERIOR FASCICULAR BLOCK
MINIMAL VOLTAGE CRITERIA FOR LVH, MAY BE NORMAL VARIANT ( [place] product )
POSSIBLE LATERAL INFARCT (CITED ON OR BEFORE 06-DEC-2014)
ABNORMAL ECG
WHEN COMPARED WITH ECG OF 17-FEB-2025 05:33,
VENT. RATE HAS INCREASED BY 40 BPM
ST ELEVATION NOW PRESENT IN ANTERIOR LEADS
T WAVE INVERSION LESS EVIDENT IN ANTEROLATERAL LEADS
CXR
No acute cardiopulmonary abnormality.
CT AP W Iv Cont
- mild urinary bladder wall thickening with surrounding stranding suggestive of cystitis.
- asymmetric stranding and edema along the right ureter and kidney suggestive of ascending infection/right-sided pyelonephritis. Recommend correlation with urinalysis.
- There is a 1.1 cm stone in the lower pole of the right kidney just proximal to the renal pelvis.
- Findings of likely chronic pancreatitis. There are no findings suggestive of acute on chronic pancreatitis.
- 2.4 cm hyperdense lesion along the posterior aspect of the uterine fundus which likely represents a uterine fibroid.
Last hospitalist admission:03/18/25 - 03/24/25
ASSESSMENT & PLAN
Pending Rx reconciliation
Severe sepsis due to complicated UTI , likely with acute ascending infection/right-sided pyelonephritis.
Hypotension/hypovolemia to sepsis: s/p 1 L NS
HX UCx POS for Proteus Mirabilis
- switch to LR IVF
- risk for evolving septic shock - and at risk for requirement of pressors
- holding BP Meds
- Pending LA
- BCx sent
- Agree with empiric IV vancomycin nadn Zosyn
LISETTE suspect poor renal perfusion 2/2 dehydration, hypotension.
- no prior Renal US evidence of obstruction ,, no CHUCKY on renal artery duplex
- holding BP Meds and nephrotoxic agents
- Trend Cr in to septic IVF
HX chr HFrEF
- at risk for decompensated chr HFrEF in repsosne to septic fluid
- Hold valsartan and Frusemide due to sepsis associated hypotension
T2DM
- Hold metformin
- Low ISS
- last A1C 5.8 in March 2025
DVT Px: SQH
Full code
IMU
--- NOTE | 2025-04-27 23:14 | PHA.VAN.IN ---
Assessment
- Assessment
Renal Function: SCR Appears Elevated from baseline (04/19/25 BASELINE SCR: 0.7)
Concomitant Antimicrobials: ZOSYN
- Previous Dosing Experience
Previous Regimen: NONE
Plan
- Plan
Initial / Loading Dose: 2GM
Maintenance Regimen: DOSING BY RANDOM LEVEL
Monitoring: RANDOM VANCOMYCIN LEVEL 04/28/25 AM
Pharmacokinetics Vancomycin I
- -
Patient Age: 80
Patient Sex: Female
Vancomycin Day #: 1
Indication: Genito-Urinary Tract (SEPSIS)
Requesting Provider: HTAY
Height / Weight:
Height 5 ft 2 in
Actual Weight 71.2 kg
- Vital Signs / Lab Results
Temp Pulse Resp BP Pulse Ox
98.4 F 122 26 115/82 95
04/27/25 19:47 04/27/25 22:30 04/27/25 19:00 04/27/25 22:00 04/27/25 22:15
Lab Results - Hematology
04/27/25
16:35
WBC 16.3 H
Lab Results - Chemistry
04/27/25
16:35
BUN 23 H
Creatinine 1.3 H
Estimated Creat Clear 32
Albumin 4.1
04/27/25 04/27/25
16:35 21:43
Lactic Acid 3.0 H 0.9
Lab Results - Urine
04/27/25
19:01
Urine Nitrite (Reflex) Negative
Leukocyte Esterase Rfl 1+ A
Urine WBC (Reflex) 50-60 A
Ur Squamous Epith Cells 0-2
Urine Bacteria (Reflex) Moderate A
Microbiology Results
04/27/25 17:32 Influenza Types A & B (DANY) - Final
Nasal Swab Negative for Influenza A & B, NAAT
Negative results must be combined with clinical observations
and patient history.
Nucleic Acid Amplification test (NAAT)performed on the
[employer] NOW platform.
[2025-04-27] MEDS: LR 1000 IV (23:49)
[2025-04-27] MEDS: ZOSYN 50 IV (23:54)
[2025-04-27] MEDS: XALATAN OPHTHALMIC SOLUTION 1 DROP OPHTH (23:54)
[2025-04-28] VITALS (12 sets, daily range): BP systolic 116–137; BP diastolic 61–88; BMI 28.3
--- NOTE | 2025-04-28 01:02 | PTCARENOTE ---
Pt received to floor from ED RN. this RN assuming care of Pt. Pt aaox3, [place]. leg brace present to left leg from previous injury prior to admission, to be removed to while lying in bed per pt. Admission completed. LR infusing @ 80 ml/hr per order via
right AC site. BP 127/70(87). Pt on 3L 02 satting 98%, dyspneic on exertion. c/o nausea, but has since subsided, per MAR Pt received zofran in the ED shortly before coming to floor. CHG bath completed. call light in reach.
[2025-04-28 04:06] LABS: Hematocrit 24.8 % (37.0-47.0); Hemoglobin 8.1 g/dL (12.0-16.0); Mean Corp Hgb Conc. 32.7 g/dL (33.0-37.0); Mean Corpuscular Volume 95.0 fL (81.0-99.0); Platelet Count 169 10^3/uL (130-400); Red Cell Dist. Width 15.6 % (11.5-14.5)
[2025-04-28 04:15] LABS: ALT (SGPT) 30 U/L (0-35); AST (SGOT) 63 U/L (14-36); Albumin 3.1 g/dl (3.5-5.0); Alkaline Phosphatase 45 U/L (38-126); Blood Urea Nitrogen 24 mg/dl (7-17); Calcium 9.6 mg/dl (8.4-10.2); Carbon Dioxide 25 mmol/L (22-30); Chloride 111 mmol/L (98-107); Estimated Creatinine Clearance 38 ml/min; Glucose 155 mg/dl (70-99); Potassium 4.1 mmol/L (3.5-5.1); Sodium 139 mmol/L (135-145); Total Protein 5.5 g/dl (6.3-8.2); eGFR 50.80
[2025-04-28] MEDS: ZOSYN 50 IV ×4 (05:16→23:04)
--- NOTE | 2025-04-28 05:52 | W.PN.UPDATE ---
Update Note
Progress Note Update
RN reports hgb drop from 9.8-8.1, asymptomatic, 98.2, 21, 107, 123/66,100.9, will check heme test, h&h series.
[2025-04-28] MEDS: TYLENOL 650 MG PO ×2 (06:10→14:01)
[2025-04-28] MEDS: ZOFRAN 4 MG IV (06:10)
[2025-04-28 06:21] LABS: Urine Character Slightly Cloudy (Clear)
--- NOTE | 2025-04-28 06:28 | PTCARENOTE ---
am hgb 8.1. Pt c/o chills and nausea. rectal temp 100.9. PAPER TUBE GRADER on shift made aware. order received for q6 hgb, PO tylenol, and Iv zofran order received. medications administered. HR 115. BP 128/79(92).
[2025-04-28 06:29] LABS: Urine Squamous Cell >30 /LPF (Few)
[2025-04-28 06:30] LABS: Urine White Cell 80-90 /HPF (0-5)
[2025-04-28 06:56] LABS: Hematocrit 26.9 % (37.0-47.0); Hemoglobin 8.7 g/dL (12.0-16.0)
[2025-04-28 08:07] LABS: Glucose - Point of Care 167 mg/dl (70-99)
--- NOTE | 2025-04-28 08:10 | WOUNDNOTE ---
LLE/DISTAL LATERAL KNEE
--- NOTE | 2025-04-28 08:10 | WOUNDNOTE ---
[facility] RN note: Patient admitted with UTI, R sided pyelonephritis. Patient admitted from [facility] rehab.
See H&P for complete history.
PMH: HTN, CHF, UTI, DM, CM, anxiety, [place], former smoker, obesity, ORIF L tibial plateau (patient wears a brace while out of bed).
Wound Location and type/assessment: Patient admitted with: Newly healed sacral pressure injury with red scar/fragile skin. R heel blanchable red/boggy. L lateral knee bony prominence slow to grecia red. Dry scabbed small R lateral ankle abrasion.
Appetite: on low cholesterol, 2 gm Sodium diet/15 CHO diet.
Pressure redistribution devices in place: [employer] air bed. Patient can turn self in bed.
Plan: Protective silicone border foam applied to L lateral knee. Protective foam applied to heels and dry scabbed R lateral ankle abrasion. Sacral shaped silicone border foam applied to sacrum. Patient turned with help from MARIA GUADALUPE Mcclain. L heel off
bed with pillow. R heel off bed with folded bath blanket. t/c SPD and ordered air chair cushion and pillows.
Will confirm orders with Dr. Calvin and discussed with RN.
Care plan to be updated, will sign off, call if needed.
Note to case management of equipment requested for discharge: Air mattress if not already in place.
--- NOTE | 2025-04-28 09:39 | PHA.VAN.FU ---
Vancomycin Assessment / Plan
- Assessment
Renal Function: SCR Decreasing
WBC's are: Trending Down
Concomitant Antimicrobials: piperacillin/tazobactam
- Assessment - Therapeutic Drug Monitoring
Random Level: 20.5 - drawn ~7.5H after 2g loading dose
- Dosing Plan
Dosing by Level: Hold off on dosing today
- Monitoring Plan
Random Level: 04/29 06
- Follow Up
Pharmacy will continue to follow.
Vancomycin Follow UP
- -
Patient Age: 80
Patient Sex: Female
Vancomycin Day #: 2
Indication: Genito-Urinary Tract
Requesting Provider: Dr. Schneider
Pertinent Antimicrobial Allergies:
NKDA
Height / Weight:
Height 5 ft 2 in
Actual Weight 70.08 kg
Pertinent Past Medical History: DM II
- Vital Signs / Lab Results
Temp Pulse Resp BP Pulse Ox
98.3 F 115 31 128/79 97
04/28/25 07:44 04/28/25 06:30 04/28/25 06:30 04/28/25 06:15 04/28/25 06:30
Lab Results - Hematology
04/27/25 04/28/25
16:35 03:31
WBC 16.3 H 14.4 H
Lab Results - Chemistry
04/27/25 04/28/25
16:35 03:31
BUN 23 H 24 H
Creatinine 1.3 H 1.1 H
Estimated Creat Clear 32 38
Albumin 4.1 3.1 L
04/27/25 04/27/25 04/27/25
16:35 21:43 22:58
Lactic Acid 3.0 H 0.9 Cancelled
04/28/25 04/28/25 04/28/25
02:58 06:58 10:58
Lactic Acid Cancelled Cancelled Cancelled
Lab Results - Urine
04/27/25 04/28/25
19:01 06:09
Urine Nitrite (Reflex) Negative Negative
Leukocyte Esterase Rfl 1+ A 2+ A
Ur Squamous Epith Cells 0-2 >30
Microbiology Results
04/27/25 16:35 Blood Culture - Preliminary
Blood/Venous Escherichia coli
Proteus species
Gram Stain - Final
04/27/25 17:32 Influenza Types A & B (DANY) - Final
Nasal Swab Negative for Influenza A & B, NAAT
Negative results must be combined with clinical observations
and patient history.
Nucleic Acid Amplification test (NAAT)performed on the
[address] platform.
Therapeutic Drug Monitoring
Random Vancomycin 20.5 ug/ml 04/28/25 03:31
[2025-04-28] MEDS: ASPIRIN 325 MG PO (10:16)
[2025-04-28] MEDS: NOVOLOG FLEXPEN-LOW RESISTANCE 1 UNITS SC ×3 (10:16→18:49)
[2025-04-28] MEDS: HEPARIN 5000 UNITS SC ×2 (10:18→20:54)
--- NOTE | 2025-04-28 10:40 | CM ---
Addendum entered by Lise Dow 04/28/25 14:44:
CM called to [facility] and will send referral, Per admissions and they will accept patient if bed available. CM will continue to follow for discharge planning needs.
Original Note:
Patient seen at bedside with physician in IMU. Patient from [facility] where she was living for [facility]. CM will continue to follow for discharge planning needs/
--- NOTE | 2025-04-28 11:10 | W.PN.HOSP.TC ---
Addendum entered and electronically signed by Debbie Calvin MD 04/28/25 14:55:
I saw and evaluated the patient independently. I reviewed the resident�s note and agree with findings and plan as documented by Dr. Frank.
GENERAL: well developed, well nourished, in no apparent distress
HEENT:NC/AT, O2 NC in place--[place]
HEART: regular rate and rhythm, +S1, +S2
LUNGS : clear to auscultation bilaterally
ABDOM: soft, nontender, nondistended, + bowel sounds
EXT: no cyanosis, clubbing, or edema
NEUROLOGIC: grossly intact
Severe sepsis with lactic acidosis due to complicated UTI/pyelonephritis--also with nonobstructing stone--lactate 3 down to 0.9-- blood cultures positive for E. coli and Proteus, await repeat--cont IVF--cont zosyn--can stop vanco
LISETTE --due to sepsis--cont IVF--creat 1.3 but baseline 0.9--renal dose meds--hold nephrotoxic agents
Anemia of chronic disease--no signs of bleeding--recent drop likely due to IVF dilution
Elevated AST--likely due to infection--trend
chronic HFrEF --watch volume status, given need for IVF--holding valsartan and lasix for now
type 2 DM--hold metformin--SSI with accuchecks--HGB A1C March 2025= 5.8
DVT Proph
CODE STATUS--Full code
Original Note:
Today's Communication/Plan
-
Urine cultures with Proteus mirabilis
Blood cultures with E. coli Proteus mirabilis
DC vancomycin
Continue IV fluids, Zosyn
Zofran as needed
Assessment / Plan
Assessment / Plan
Ms Farfan is an 80-year-old woman with a history of hypertension hyperlipidemia heart failure with reduced ejection fraction LVEF 25% type 2 diabetes osteoporosis glaucoma and anxiety presenting from [facility] for chills, vomiting. Symptoms started 'a
couple days ago'. She had labs drawn at [place], WBC 15.7. Sent to ED, she denies any pain but states her abd but feels 'uncomfortable'. Denies any cough or SOB, no urinary symptoms. Urine and blood cultures were sent. In the ED she was tachycardic
febrile tachypneic with blood pressures in the 110s over 50s and requiring supplementary oxygen, she met SIRS and sepsis criteria. Lactic acid was 3 but improved
to 0.9. Creatinine was 1.3 on presentation, BUN 23. Urine culture positive for Proteus mirabilis, patient has history of Proteus mirabilis UTI, blood cultures positive for E. coli and Proteus species. Patient was discontinued from vancomycin
#Severe sepsis due to complicated UTI
# Pyelonephritis
# Nephrolithiasis
CT positive for right-sided nephrolithiasis 1.1 cm
likely with acute ascending infection/right-sided pyelonephritis.
Lactic acid 3--0.9
Patient was fluid responsive
HX UCx POS for Proteus Mirabilis
-LR IVF
- holding BP Meds
- UA with WBCs, leukoesterase, RBCs
-Urine culture positive for Proteus mirabilis pending sensitivities
- BCx positive for E. coli Proteus mirabilis pending sensitivities
- empiric Zosyn
- Discontinue vancomycin
- Zofran as needed for nausea
#LISETTE
Baseline around 0.9
CR admission 1.3--1.1
suspect poor renal perfusion 2/2 dehydration, hypotension.
-IV fluids
- no prior Renal US
- holding BP Meds and nephrotoxic agents
- Trend Cr
# Anemia
Hgb drop from 9.8-8.1
No associated symptoms
Likely dilutional
- Trend H&H
# Elevated AST
47�63
In the setting of acute infection
Continue to trend
#HX chr HFrEF
- at risk for decompensated chr HFrEF in repsosne to septic fluid
- Hold valsartan and Frusemide due to sepsis associated hypotension
#T2DM
- Hold metformin
- Low ISS
- last A1C 5.8 in March 2025
DVT Px:
SQH
CODE STATUS
Full code
Anticipated Discharge: > 48 hours
Subjective/Interval History
-
She reports feeling slightly better but still has some shortness of breath. She does not use oxygen at home but here is requiring 3 L. She reports no symptoms of burning with urination, but does report slight discomfort on her right abdominal
side started a week ago. The pain comes and goes and she reports that she has not felt this kind of pain before. She also still reports feeling warm. Date of Service: April 28, 2025
Objective Data
-
Labs:
Laboratory Results
04/28/25 04/28/25 04/28/25
03:31 06:46 12:00
WBC 14.4 H
Hgb 8.1 L 8.7 L Pending
Hct 24.8 L 26.9 L Pending
Plt Count 169 D
Sodium 139
Potassium 4.1
Chloride 111 H
Carbon Dioxide 25
BUN 24 H
Creatinine 1.1 H
Glucose 155 H
Calcium 9.6
Total Bilirubin 1.2
AST 63 H
ALT 30
Alkaline Phosphatase 45
04/28/25
18:00
WBC
Hgb Pending
Hct Pending
Plt Count
Sodium
Potassium
Chloride
Carbon Dioxide
BUN
Creatinine
Glucose
Calcium
Total Bilirubin
AST
ALT
Alkaline Phosphatase
Vital Signs:
Vital Signs
Temp Pulse Resp BP Pulse Ox
98.3 F 90 29 120/68 97
04/28/25 07:44 04/28/25 10:00 04/28/25 10:00 04/28/25 10:00 04/28/25 10:00
I&O
04/27/25 04/28/25 04/29/25
06:59 06:59 06:59
Output Total 300 / 300
Balance -300 / -300
Review of Systems
-
History Source: Patient
Constitutional: Reports Fever; Denies Fatigue
EENT: Denies Tearing or Runny Nose
Respiratory: Reports Trouble Breathing; Denies Wheezing
Cardiac: Reports No Symptoms; Denies Chest Pain or Palpitations
Abdomen/GI: Reports Abdominal Pain and Nausea; Denies Vomiting
Genitourinary: Reports Flank Pain; Denies Dysuria or Frequency
Musculoskeletal: Reports No Symptoms
Skin: Reports No Symptoms
Neuro: Reports No Symptoms
Physical Exam
-
General: Well Developed and Well Nourished
HEENT: Normocephalic, Atraumatic and Oxygen (3 L)
Respiratory: Clear to Auscultation and Other (Tachypneic); Negative Wheezes or Crackles
Cardiac: Regular Rhythm, S1/S2 and Tachycardic; Negative Murmur
GI: Soft, Nontender, Nondistended and Normal Bowel Sounds
Musculoskeletal: No Clubbing, No Edema and Other (Left lower extremity in Issa bandage, known fibular tibia fracture)
Skin: Warm and Dry; Negative Rash
Neuro: Awake, Alert and Oriented
[2025-04-28 11:36] LABS: Glucose - Point of Care 155 mg/dl (70-99)
[2025-04-28 12:20] LABS: Hematocrit 23.7 % (37.0-47.0); Hemoglobin 7.8 g/dL (12.0-16.0)
[2025-04-28] MEDS: ZOFRAN 4 MG PO ×2 (13:50→22:45)
[2025-04-28] MEDS: LR 1000 IV (15:44)
[2025-04-28 17:20] LABS: Glucose - Point of Care 162 mg/dl (70-99)
--- NOTE | 2025-04-28 17:21 | PTCARENOTE ---
Patient needed to be straight cath x2. Unable to void. Last straight cath at 1715. Bladder scanned for 415mls and removed 450mls. Patient had oral temperature of 100.6 at 1500. Tylenol given and patient now afebrile at 98.2. Patient INC of
soft stool x2.
[2025-04-28 18:53] LABS: Hematocrit 23.0 % (37.0-47.0); Hemoglobin 7.6 g/dL (12.0-16.0)
[2025-04-28] MEDS: XALATAN OPHTHALMIC SOLUTION 1 DROP OPHTH (21:08)
[2025-04-28 21:59] LABS: Glucose - Point of Care 158 mg/dl (70-99)
[2025-04-29] VITALS (29 sets, daily range): BP systolic 99–145; BP diastolic 51–115; PULSE 2–117; BMI 28.2
--- NOTE | 2025-04-29 00:28 | W.PN.UPDATE ---
Update Note
Progress Note Update
RN reports patient with HR 150 sustaining, BP 128/78 30 89-91% 3L, 99.0. Patient seen and evaluated, reports shortness of breath, nausea, denies chest pain, denies fever/chills, Lungs with rales/wheezes, tachypneic 36, tachy RR, +BS tender pubic
area
labs now, chest xray, bladder scan, ABG
IV Metoprolol 1mg IV, Morphine 1mg IV, DuoNeb, hold fluid for now
On metoprolol at home
lab results, chest results in
Discussed case with the Pattern Layout Worker.
Acute on Heart Failure, Respiratory Acidosis
IV Lasix 40mg, Sodium Bicarb 50meq IVx1 Bipap
Added labs Pro BNP Troponin now,
Echo in AM
Patient refusing neb treatment, BiPap. addressed code status, remains full code.
VS 106/60 HR 115 28 94% 3l
will order labs, VBG in AM.
D Dimer elevated Trop elevated, Bank Consultant Consult, Trend Troponin, heparin infusion per [facility] protocol
[2025-04-29] MEDS: MORPHINE SULFATE 1 MG IV (00:37)
[2025-04-29] MEDS: LOPRESSOR 2.5 MG IV (00:37)
[2025-04-29 00:57] LABS: Blood Urea Nitrogen 26 mg/dl (7-17); Calcium 9.5 mg/dl (8.4-10.2); Carbon Dioxide 17 mmol/L (22-30); Chloride 111 mmol/L (98-107); Estimated Creatinine Clearance 29 ml/min; Glucose 166 mg/dl (70-99); Magnesium 2.3 mg/dl (1.6-2.3); Potassium 4.3 mmol/L (3.5-5.1); Sodium 142 mmol/L (135-145); eGFR 38.03
[2025-04-29 00:59] LABS: Hematocrit 30.3 % (37.0-47.0); Hemoglobin 9.3 g/dL (12.0-16.0); Mean Corp Hgb Conc. 30.7 g/dL (33.0-37.0); Mean Corpuscular Volume 100.0 fL (81.0-99.0); Platelet Count 264 10^3/uL (130-400); Red Cell Dist. Width 15.1 % (11.5-14.5)
[2025-04-29] MEDS: DUONEB 3 ML INH (01:06)
[2025-04-29 01:10] LABS: B.E. -13.8 mmol/L; O2 Saturation % 98.5 % (94-98); PCO2 31 mmHg (32-35); PO2 160 mmHg (83-108)
[2025-04-29 01:11] LABS: HCO3 12.7 mmol/L (21-28)
[2025-04-29 01:40] LABS: D-Dimer 3.72 ug/mlFEU (0.00-0.50)
[2025-04-29] MEDS: ZOFRAN 4 MG IV ×2 (01:47→15:01)
[2025-04-29] MEDS: SODIUM BICARBONATE 50 MEQ IV (01:48)
[2025-04-29] MEDS: LASIX 40 MG IV (01:50)
[2025-04-29] MEDS: LR IV (01:57)
--- NOTE | 2025-04-29 02:19 | RESPNOTE ---
PT was ordered for BIPAP STAT due to her increased WOB/SOB and I attempted to place it on. She adamantly refused, I tried to coax her to try it for a little while and she ripped it off immediately. Machine is on STBY at the bedside.
--- NOTE | 2025-04-29 02:36 | PTCARENOTE ---
Addendum entered by Elizabeth Gutierrez RN 04/29/25 06:15:
D-dimer 3.72. Troponin 13.7. BNP >01420. RULA Richardson new orders for heparin. Baseline PTT drawn, heparin gtt started see MAR and worklist.
Original Note:
Assumed care for patient overnight. Pt became tachypneic RR 40 and had increase SOB with increased WOB. SpO2 90% on 3L NC. Pt bumped up to 4L NC. Pt coarse with rhonchi throughout the lungs. Pt restless. Pt pallor with mottled legs. HR 150s
sustaining. Pt c/o nausea at change of shift, administered PO Zofran with minimal relief. Pt coughing with worsening tachycardia tachypnea. RULA Richardson made aware. Orders for STAT CXR, morphine see MAR, Lopressor see MAR. Orders to hold IV fluids.
Increased O2 to 4L NC. EKG showed Sinus tach HR 147. ABG ordered and drawn. Bicarb 12.7. IV Bicarb ordered and administered, 40 mg IV Lasix, and IV Zofran see MAR. Orders for BiPAP RT bedside to attempt to place mask, pt adamantly refusing and
ripping off mask. RULA Richardson bedside to speak to pt. HR 110s SpO2 96% on 4L NC.
[2025-04-29 02:56] LABS: Troponin I 13.700 ng/ml
[2025-04-29] MEDS: HEPARIN 25000 UNITS/250 ML IV (05:15)
[2025-04-29 05:17] LABS: Venous Blood Gas B.E. -4.0 mmol/L (-4 to +4); Venous Blood Gas O2 Sat % 98.9 %
[2025-04-29] MEDS: ZOSYN 50 IV ×4 (05:20→23:36)
[2025-04-29 05:41] LABS: APTT 34.9 Sec (23.4-35.0)
[2025-04-29 05:43] LABS: Hematocrit 24.6 % (37.0-47.0); Hemoglobin 7.9 g/dL (12.0-16.0); Mean Corp Hgb Conc. 32.1 g/dL (33.0-37.0); Mean Corpuscular Volume 95.3 fL (81.0-99.0); Platelet Count 138 10^3/uL (130-400); Red Cell Dist. Width 14.8 % (11.5-14.5)
[2025-04-29 05:58] LABS: Blood Urea Nitrogen 30 mg/dl (7-17); Calcium 8.9 mg/dl (8.4-10.2); Carbon Dioxide 21 mmol/L (22-30); Chloride 110 mmol/L (98-107); Estimated Creatinine Clearance 26 ml/min; Glucose 173 mg/dl (70-99); Potassium 4.5 mmol/L (3.5-5.1); Sodium 140 mmol/L (135-145); eGFR 32.40
[2025-04-29 06:15] LABS: Troponin I 16.800 ng/ml
[2025-04-29] MEDS: ZOFRAN 4 MG PO (06:44)
[2025-04-29 08:13] LABS: Glucose - Point of Care 190 mg/dl (70-99)
[2025-04-29] MEDS: ASPIRIN 325 MG PO (08:19)
[2025-04-29] MEDS: NOVOLOG FLEXPEN-LOW RESISTANCE 1 UNITS SC (08:19)
--- NOTE | 2025-04-29 09:51 | PTCARENOTE ---
Assumed care of patient this morning. She is aaox3 but anxious. Reports she is still nauseous and having abdominal pain to lower abd when she coughs. Pt remains on 4L O2, she reports breathing is better but still not fully comfortable. Lungs with
fine crackles at the bases. Heparin gtt infusing. All complaints voiced to and . Orders for CT abd/pelvis, ABG, LA, troponin and Lasix IV. Ureña catheter also to be placed for strict I&O's. also at bedside and advised
to trend troponins but no further orders. Assessment, care and VS as charted.
[2025-04-29 10:18] LABS: B.E. -3.8 mmol/L; HCO3 20.3 mmol/L (21-28); O2 Saturation % 98.7 % (94-98); PCO2 32 mmHg (32-35); PO2 94 mmHg (83-108)
[2025-04-29] MEDS: LASIX 80 MG IV ×2 (10:32→14:49)
--- NOTE | 2025-04-29 10:44 | CON.CAR ---
Consultation
Consultation Request
Date/Time Consultation Requested: 04/29/2025 at 8 AM
Date/Time Consultation Performed: 04/29/2025 at 8:15 AM
Requesting Provider: Hospitalist
Performing Provider: Dr. Diaz
Reason for Consultation: Abnormal troponin
Medical History
-
History of Present Illness:
.
80-year-old woman with a history of severe multivessel coronary artery disease including chronic LAD occlusion and RCA subtotal occlusion (previously evaluated by CT surgery and plan is for continued medical therapy), cardiomyopathy with ejection
fraction 25% based on echocardiogram 08/2024, HFrEF, diabetes, hypertension, hypercholesterolemia. Patient is admitted with sepsis and pyelonephritis and is noted to have elevation in troponin which is up to 16. No complaints of chest pain.
Patient states she has just not felt well for the last 2 to 3 days. Currently has some lower abdominal pain across her lower abdomen. No nausea vomiting or diarrhea. No chest pain or shortness of breath.
Past medical history
Multivessel coronary artery disease. Last catheterization in 2022 with occluded LAD subocclusive RCA. Patient was seen by CT surgery at that time based on risk and benefit decision was made not to proceed with surgery and patient's been maintained
on medical therapy
Heart failure reduced ejection fraction
Ischemic cardiomyopathy with ejection fraction 25%
Diabetes
Hypertension
Hypercholesterolemia
Anemia
Social History
Tobacco: Other ()
Family History
Family History: CAD
Allergies / Home Medications
Allergy/AdvReac Type Severity Reaction Status Date / Time
No Known Allergies Allergy Verified 03/18/25 00:09
�Medication �Instructions �Recorded �Confirmed �Type
fenofibrate 160 mg tablet 160 mg PO DAILY High Cholesterol 12/06/14 02/17/25 History
polyethylene glycol 3350 17 gram 17 g PO DAILY PRN Constipation 08/21/23 02/17/25 History
oral powder packet
therapeutic multivitamin 1 tab PO DAILY Supplement 08/21/23 02/17/25 History
furosemide 20 mg tablet 20 mg PO DAILY #30 tabs 08/27/23 02/17/25 Rx
Held on 03/24/25.
Instructions: hold till seen
by nephrology
atorvastatin 40 mg tablet 40 mg PO QPM High Cholesterol 02/17/25 02/17/25 History
latanoprost 0.005 % eye drops 1 drp ophthalmic (eye) QPM Eye 02/17/25 02/17/25 History
Condition
metformin 850 mg tablet 850 mg PO BID Diabetes 02/17/25 02/17/25 History
acetaminophen 325 mg tablet 650 mg (2 x 325 mg) PO Q4HPRN PRN 02/21/25 Rx
headache, temp >101F #0 tabs
aspirin 325 mg tablet 325 mg PO DAILY #0 tabs 02/21/25 Rx
sennosides 8.6 mg tablet (Sharron-xiao) 17.2 mg (2 x 8.6 mg) PO HS #0 tabs 02/21/25 Rx
cefuroxime axetil 500 mg tablet 500 mg PO BID 5 days #10 tabs 03/24/25 Rx
docusate sodium 100 mg capsule 100 mg PO BID PRN Constipation #0 03/24/25 Rx
caps
metoprolol succinate 50 mg 50 mg PO QPM #0 tabs 03/24/25 Rx
tablet,extended release 24 hr
midodrine 2.5 mg tablet 2.5 mg PO TID #30 tabs 03/24/25 Rx
oxycodone 5 mg tablet 5 mg PO Q6HPRN PRN severe pain #5 03/24/25 Rx
tabs
Review of Systems
-
All other systems: Negative unless noted
Physical Exam
Vital Signs
Temp Pulse Resp BP Pulse Ox
97.5 F 112 24 129/92 96
04/29/25 07:30 04/29/25 10:32 04/29/25 09:00 04/29/25 10:32 04/29/25 09:32
Lab Results
04/29/25 05:08
04/29/25 05:08
Troponin I 16.800 ng/ml H* 04/29/25 05:08
Wdx-M-Ylhmgfimawy Pept > 18580 pg/ml 04/29/25 02:07
Physical Exam
General: Other (Awake alert reports lower abdominal pain in general just feels hot. Appears pale)
HEENT: Normocephalic and Other (No clear JVD no carotid bruit)
Respiratory: Other (No wheezes rales or rhonchi)
Cardiac: Regular Rhythm
Rectal: Other (Soft. No masses detected reports diffuse lower abdominal discomfort)
Musculoskeletal: No Clubbing, No Cyanosis and No Edema
Neuro: Awake
Psych: Calm
Impression / Plan
-
.
Elevated troponin/Up to 16.8. No complaints of chest pain ECG with sinus rhythm LVH and nonspecific ICD. Likely type II HI secondary to combination of severe multivessel coronary artery disease, sepsis and severe anemia
- No plans for cardiac catheterization at this time
- Continue supportive treatment
- Treatment of sepsis/pyelonephritis
- Would recommend additional optimization/treatment of anemia consider addition of PRBCs will need additional diuresis and then would need diuretic with PRBC
-Aspirin
.
Coronary artery disease. Known multivessel coronary artery disease with chronically occluded LAD and subtotally occluded RCA based on prior cardiac catheterization. Continued medical therapy as noted above
.
Heart failure reduced ejection fraction. Acute on chronic
- Ischemic cardiomyopathy ejection fraction 25%.
- GDMT in the past has been limited based on what patient is willing to take and what she can afford.
- Most recent chest x-ray with component of left heart failure.
- Cautious diuresis.
.
Sepsis/pyelonephritis. Management directed by primary team
.
Diabetes management as directed by primary team
Data Reviewed
-
EKG: Report Reviewed by me
Radiology: Report Reviewed by me
Medical Tests (Nuc Med, Echo etc): Report Reviewed by me
Labs: Discussed with Physician
--- NOTE | 2025-04-29 10:45 | W.CON.NEPH ---
Consultation
-
Date/Time Consultation Requested: 04/29/2025 10:30 AM
Date/Time Consultation Performed: 04/29/2025 1045 AM
Requesting Provider: Dr. Barnes
Performing Provider: Dr. Small
Reason for Consultation: Acute kidney injury
Medical History
-
Chief Complaint: Acute kidney injury
History of Present Illness:
The patient is an 80-year-old female with a past medical history of chronic hypotension on midodrine, diabetes on metformin, dyslipidemia on statin therapy. She has a known history of cardiomyopathy with an LVEF of 25% maintained chronically on
diuretic therapy. She has a history of nephrotic range proteinuria. She was sent to the emergency room for chills vomiting and fevers which were consistent with urosepsis. Over the course of her admission she has developed acute renal failure
with her creatinine escalating from 0.7-1.6 and nephrology was consulted. Of note patient did undergo CAT scan of abdomen and pelvis with IV contrast on date 04/27/2025 for further diagnostic workup. Asymmetric stranding and edema was noted along
the right ureter and kidneys suggestive of possible infection and pyelonephritis. Patient now having Ureña catheter placement due to urinary retention.
Past Medical History
Hypertension
DM-II
Ischemic Cardiomyopathy
Chronic HFrEF (25%)
Osteoporosis
Glaucoma
Anxiety
Social History
Tobacco: Former Smoker
Alcohol: None
Drug: None
Family History
Family History: Not Pertinent
Allergies / Home Medications
Allergy/AdvReac Type Severity Reaction Status Date / Time
No Known Allergies Allergy Verified 03/18/25 00:09
�Medication �Instructions �Recorded �Confirmed �Type
fenofibrate 160 mg tablet 160 mg PO DAILY High Cholesterol 12/06/14 02/17/25 History
polyethylene glycol 3350 17 gram 17 g PO DAILY PRN Constipation 08/21/23 02/17/25 History
oral powder packet
therapeutic multivitamin 1 tab PO DAILY Supplement 08/21/23 02/17/25 History
furosemide 20 mg tablet 20 mg PO DAILY #30 tabs 08/27/23 02/17/25 Rx
Held on 03/24/25.
Instructions: hold till seen
by nephrology
atorvastatin 40 mg tablet 40 mg PO QPM High Cholesterol 02/17/25 02/17/25 History
latanoprost 0.005 % eye drops 1 drp ophthalmic (eye) QPM Eye 02/17/25 02/17/25 History
Condition
metformin 850 mg tablet 850 mg PO BID Diabetes 02/17/25 02/17/25 History
acetaminophen 325 mg tablet 650 mg (2 x 325 mg) PO Q4HPRN PRN 02/21/25 Rx
headache, temp >101F #0 tabs
aspirin 325 mg tablet 325 mg PO DAILY #0 tabs 02/21/25 Rx
sennosides 8.6 mg tablet (Sharron-xiao) 17.2 mg (2 x 8.6 mg) PO HS #0 tabs 02/21/25 Rx
cefuroxime axetil 500 mg tablet 500 mg PO BID 5 days #10 tabs 03/24/25 Rx
docusate sodium 100 mg capsule 100 mg PO BID PRN Constipation #0 03/24/25 Rx
caps
metoprolol succinate 50 mg 50 mg PO QPM #0 tabs 03/24/25 Rx
tablet,extended release 24 hr
midodrine 2.5 mg tablet 2.5 mg PO TID #30 tabs 03/24/25 Rx
oxycodone 5 mg tablet 5 mg PO Q6HPRN PRN severe pain #5 03/24/25 Rx
tabs
Review of Systems
-
History Source: Patient
All other systems: Negative unless noted
Respiratory: Trouble Breathing
Cardiac: No Symptoms
Abdomen/GI: Abdominal Pain and Nausea
: Difficulty Voiding
Physical Exam
Vital Signs
Vital Signs
Temp Pulse Resp BP Pulse Ox
97.5 F 112 24 129/92 96
04/29/25 07:30 04/29/25 10:32 04/29/25 09:00 04/29/25 10:32 04/29/25 09:32
Lab Results
EKG
SINUS TACHYCARDIA
LEFT ANTERIOR FASCICULAR BLOCK
MINIMAL VOLTAGE CRITERIA FOR LVH, MAY BE NORMAL VARIANT ( [place] product )
POSSIBLE LATERAL INFARCT (CITED ON OR BEFORE 06-DEC-2014)
ABNORMAL ECG
WHEN COMPARED WITH ECG OF 17-FEB-2025 05:33,
VENT. RATE HAS INCREASED BY 40 BPM
ST ELEVATION NOW PRESENT IN ANTERIOR LEADS
T WAVE INVERSION LESS EVIDENT IN ANTEROLATERAL LEADS
04/29/25 05:08
04/29/25 05:08
WBC 10.1 10^3/uL (4.8-10.8) 04/29/25 05:08
RBC 2.58 10^6/uL (4.20-5.40) L 04/29/25 05:08
Hgb 7.9 g/dL (12.0-16.0) L 04/29/25 05:08
Hct 24.6 % (37.0-47.0) L 04/29/25 05:08
Plt Count 138 10^3/uL (130-400) D 04/29/25 05:08
Sodium 140 mmol/L (135-145) 04/29/25 05:08
Potassium 4.5 mmol/L (3.5-5.1) 04/29/25 05:08
Chloride 110 mmol/L (98-107) H 04/29/25 05:08
Carbon Dioxide 21 mmol/L (22-30) L 04/29/25 05:08
BUN 30 mg/dl (7-17) H 04/29/25 05:08
Creatinine 1.6 mg/dL (0.6-1.0) H 04/29/25 05:08
eGFR 32.40 04/29/25 05:08
Glucose 173 mg/dl (70-99) H 04/29/25 05:08
Calcium 8.9 mg/dl (8.4-10.2) 04/29/25 05:08
Wmg-P-Nipgvrnbeua Pept > 23047 pg/ml 04/29/25 02:07
Albumin 3.1 g/dl (3.5-5.0) L 04/28/25 03:31
Physical Exam
General: AOx3, ill-appearing,
HEENT: PERRL, EOMI, Anicteric, Conjunctivae Clear, Ear/Nose Intact, Hearing Normal, Oropharynx Clear/Moist, Dentition Intact, Facial Symmetry, Neck Supple, Neck: Trachea Midline, No JVD and No Thyromegaly, no Bruits
Respiratory: Clear to auscultation bilaterally with normal lung excursion , increased respirations noted
Cardiac: S1/S2 and Regular , tachycardic
Breast: Deferred by me
Abdomen: Soft, Nontender, Nondistended, Normal Bowel Sounds and No Hepatosplenomegaly
Rectal: Deferred by Provider
Genito-urinary: No Costovertebral Tenderness
Extremities: No Clubbing, No Cyanosis and No Edema
Skin: No Rash or open lesions
Neuro: Nonfocal/Grossly Intact, CN II-XII (Intact) and Strength (Musculoskeletal exam 5 out of 5 both upper and lower extremities)
Hematologic/Lymphatic: No Cervical Lymphadenopathy, No Submandibular Lymphadenopathy and No Supraclavicular Lymphadenopathy
Psych: Mood/afflect pleasant, Insight/judgement good and Appropriate
Vascular: plus 2 pedal and radial pulses
Data Reviewed
-
Radiology: Image Personally Visualized and interpreted (Chest x-ray personally reviewed : possible interstitial edematous changes)
Labs: Labs Reviewed by me (BMP CBC urinalysis)
Old Records: Reviewed (Reviewed discharge summary from March 24, 2025 when patient had been admitted with acute kidney injury with associated nephrotic syndrome nephrology consult reviewed from 03/18/2025)
Assessment/Plan
-
Impression:
LISETTE
Urosepsis (E. coli and Proteus bacteremia)
Concern for right-sided pyelonephritis, noted 1.1 cm nonobstructive right-sided nephrolith
Anemia
Diabetes
Cardiomyopathy with EF 20 to 25%
Anemia
Troponin elevation
History of recent left hip fracture
Metabolic acidosis
History of nephrotic range proteinuria
Plan:
LISETTE:
- Likely exacerbated by IV contrast administration on date 04/27/2025 CT scan and/or urinary retention
- With holding ARB and metformin given acute renal failure with underlying metabolic acidosis
- Hemodynamically stable
- Zosyn renally adjusted for renal failure
-IV fluids now held and Lasix was provided earlier today given concern for possible evolving congestive heart failure on chest x-ray
-We can provide repeat 80 mg IV Lasix if no significant urine output over the next couple hours following Ureña catheter placement
-Ureña catheter being placed for accurate I's and O's and due to some urinary retention that required straight cath procedure
-No acute dialysis requirement
-
--- NOTE | 2025-04-29 11:10 | CON.PUL ---
Consultation
Consultation Request
Date/Time Consultation Requested: 04/29/25
Date/Time Consultation Performed: 04/29/25
Performing Provider: Nikita
Reason for Consultation: SOB
Medical History
-
History of Present Illness:
Patient is an 80-year-old female with previous history of chronic hypotension on midodrine, COPD, chronic heart failure with reduced ejection fraction EF 25%, presenting to ER with chills, vomiting, LISETTE. On arrival to ER she had remarkable labs
of leukocytosis with UA demonstrating possible UTI. She is admitted to IMU with antibiotics. She had rapid heart rate event overnight with development of shortness of breath. Chest x-ray demonstrating pulmonary edema, proBNP on admission was
greater than 27,000. She is also in acute on chronic heart failure exacerbation.
ABG obtained without notable hypercarbia. She does have mild increased work of breathing. She is 94% on 4 L.
Past Medical History
Past Medical History: Other (see list below)
Social History
Tobacco: Former Smoker
Alcohol: None
Drug: None
Family History
Family History: Reviewed & Not Pertinent
Allergies / Home Medications
Allergies
Allergy/AdvReac Type Severity Reaction Status Date / Time
No Known Allergies Allergy Verified 03/18/25 00:09
Home Medications
�Medication �Instructions �Recorded �Confirmed �Last Taken �Type
fenofibrate 160 mg tablet 160 mg PO DAILY High Cholesterol 12/06/14 02/17/25 05/23/22 History
polyethylene glycol 3350 17 gram 17 g PO DAILY PRN Constipation 08/21/23 02/17/25 Unknown History
oral powder packet
therapeutic multivitamin 1 tab PO DAILY Supplement 08/21/23 02/17/25 Unknown History
furosemide 20 mg tablet 20 mg PO DAILY #30 tabs 08/27/23 02/17/25 Unknown Rx
Held on 03/24/25.
Instructions: hold till seen
by nephrology
atorvastatin 40 mg tablet 40 mg PO QPM High Cholesterol 02/17/25 02/17/25 Unknown History
latanoprost 0.005 % eye drops 1 drp ophthalmic (eye) QPM Eye 02/17/25 02/17/25 Unknown History
Condition
metformin 850 mg tablet 850 mg PO BID Diabetes 02/17/25 02/17/25 Unknown History
acetaminophen 325 mg tablet 650 mg (2 x 325 mg) PO Q4HPRN PRN 02/21/25 Unknown Rx
headache, temp >101F #0 tabs
aspirin 325 mg tablet 325 mg PO DAILY #0 tabs 02/21/25 Unknown Rx
sennosides 8.6 mg tablet (Sharron-xiao) 17.2 mg (2 x 8.6 mg) PO HS #0 tabs 02/21/25 Unknown Rx
cefuroxime axetil 500 mg tablet 500 mg PO BID 5 days #10 tabs 03/24/25 Unknown Rx
docusate sodium 100 mg capsule 100 mg PO BID PRN Constipation #0 03/24/25 Unknown Rx
caps
metoprolol succinate 50 mg 50 mg PO QPM #0 tabs 03/24/25 Unknown Rx
tablet,extended release 24 hr
midodrine 2.5 mg tablet 2.5 mg PO TID #30 tabs 03/24/25 Unknown Rx
oxycodone 5 mg tablet 5 mg PO Q6HPRN PRN severe pain #5 03/24/25 Unknown Rx
tabs
Review of Systems
-
History Source: Patient
All other systems: Negative unless noted
Vitals / Labs / Diagnostic Testing
Vital Signs
Temp Pulse Resp BP Pulse Ox
97.5 F 112 24 129/92 96
04/29/25 07:30 04/29/25 10:32 04/29/25 09:00 04/29/25 10:32 04/29/25 09:32
Lab Data
04/29/25 05:08
04/29/25 05:08
Laboratory Results
04/29/25 04/29/25 04/29/25
01:03 05:08 10:10
APTT 34.9
pH 7.22 L 7.41
pCO2 31 L 32
pO2 160 H 94
HCO3 12.7 L* 20.3 L
O2 Delivery Level
Microbiology
04/27/25 16:35 Blood/Venous Blood Culture - Preliminary
Escherichia coli
Proteus species
04/27/25 16:35 Blood/Venous Gram Stain - Final
04/28/25 05:05 Blood/Venous Blood Culture - Preliminary
No Growth in 24 hours- Final report to follow
04/28/25 03:31 Blood/Venous Blood Culture - Preliminary
No Growth in 24 hours- Final report to follow
04/27/25 17:32 Nasal Swab Influenza Types A & B (DANY) - Final
Negative for Influenza A & B, NAAT
Negative results must be combined with clinical observations
and patient history.
Nucleic Acid Amplification test (NAAT)performed on the
[employer] NOW platform.
Diagnostic Testing:
Physical Exam
-
HEENT: Normocephalic, Anicteric, Other (hirsutism) and Other ([place])
Cardiovascular: S1/S2, Regular Rhythm and Peripheral Edema
Respiratory: Rales
GI: Soft, Non Distended and Non Tender
Neurology: Awake, Alert and Oriented
Skin: Warm, Dry and Other (pale appearing)
General: Respiratory Distress (mild, dyspneic with conversation) and Other (NAD)
Assessment
-
Patient is an 80-year-old female with previous history of COPD, chronic heart failure with reduced ejection fraction EF 25%, presenting to ER with chills, vomiting, LISETTE. On arrival to ER she had remarkable labs of leukocytosis with UA
demonstrating possible UTI. She is admitted to IMU with antibiotics. She had rapid heart rate event overnight with development of shortness of breath. Chest x-ray demonstrating pulmonary edema, proBNP on admission was greater than 27,000. She is
also in acute on chronic heart failure exacerbation. ABG obtained without notable hypercarbia. She does have mild increased work of breathing. She is 94% on 4 L. WE are consulted for evaluation of SOB.
Severe sepsis
Multi-organism bacteremia
Complicated UTI/pyelonephritis
Lactic acidosis
Non-obstructing kidney stone
LISETTE
Anemia
Elevated trops 2/2 demand ischemia, type II
SOB, acute hypoxic respiratory failure
Acute on chronic HF exacerbation, proBNP >02360/effusions
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
DH adm 2022-CAP/Acute hypoxic respiratory failure status post intubation/Extubated 08/23/23
Chronic systolic heart failure, EF 20-25%
COPD, moderate obstruction PFT 2022
Former smoker >20 PYs
Multivessel coronary artery disease
s/p LHC 2022 with occluded LAD subocclusive RCA, non-operable per CTS
Mixed hyperlipidemia�
Type 2 diabetes mellitus with other circulatory complications� �
Essential hypertension�
Anxiety�
Glaucoma of both eyes
Other proteinuria�
Age-related osteoporosis without fracture�
Sinus tachycardia�
Plan
She is currently on 4l NC satting 94%
She has history of COPD but is not known to have home oxygen
Prior PFT demonstrated moderate obstruction in 2022, she is not currently on inhalers
Chest x-ray demonstrating pulmonary edema with proBNP greater than 27,000
She appears to be in acute on chronic heart failure exacerbation.
ECHO reviewed indicating acute systolic dysfunction, EF 20-25%
Cards following
Diuresis as indicated per team, her urine output has been poor
History of chronic hypotension on midodrine at home
She is not currently on pressors
Can trial PAP usage, patient has been intolerant to fullface mask
Reviewed with RT to use nasal mask
ABG reviewed without evidence of hypercarbia, this would be more for heart failure management and work of breathing
She has history of COPD
Former smoker 15-20 PY, quit 2004
Supplemental O2 as indicated to maintain sats > 89%
She has been told to follow-up with pulmonary, noncompliant
LISETTE as noted, renal consult obtained
Urine output ongoing is poor, will continue to follow with daily weights
Ongoing treatment for UTI, IV antibiotics per team
Overall prognosis appears poor in a patient with severe cardiomyopathy, noncompliance, moderate COPD
It would be recommended that if she does not improve, goals of care discussions would be warranted
She remains full code
We will follow
Diagnostic Data
CXR 04/29/25- New findings suggesting pulmonary edema. Pneumonia cannot be completely excluded. Clinical and laboratory correlation recommended. Mild cardiomegaly. New
CXR 04/27/25- No acute cardiopulmonary abnormality.
Chest X-Ray: 08/21/23- Endotracheal tube with tip in trachea above the ada. No pneumothorax. Bilateral patchy opacities which could represent pneumonitis, less likely pulmonary edema.
05/25/22- No radiographically demonstrable left rib fracture. No pleural effusion or pneumothorax. No acute cardiopulmonary process.
CT Scan: AP 05/24/22- No renal or ureteral calculus. No urinary bladder calculus. No evidence of obstructive uropathy. Mild bilateral nonspecific perinephric soft tissue stranding. Diverticulosis without acute diverticulitis. No evidence of bowel
obstruction. Chronic pancreatitis without acute inflammatory component. Mild fatty dictation of liver.
ECHO 08/17/24- Dilated LV with severe global hypokinesis and an ejection fraction of approximately 25% by visual estimation. 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 Normal right ventricular size and function. No significant valvular disease. Estimated
PASP of 16 mmHg. Compared to prior from December 17, 2023, no significant change.
Echo: 08/21/23- Dilated left ventricle. Severely reduced left ventricular systolic function.�Estimated� Left ventricular ejection fraction is 20-25%.� global hypokinesis.�Apical akinesis. Best contractility at the baseof the LV ( basal lateral,�basal
inferior and basal anterior russo. � Mild concentric left ventricular�hypertrophy. Diastolic function indeterminate.
Spirometry 08/26/23: FEV1 1.17L 64%, FVC 1.84L 75%, ratio 64. Post FEV1 1.22L 67% No BD response (moderate obstruction)
Reports and relevant images were personally reviewed.
-----
Total time spent on this consultation/encounter __77__ minutes which includes review of history, physical exam, medications, laboratory data, personal review of imaging, extensive review of outpatient records, discussion with care team and
respiratory therapy.
--- NOTE | 2025-04-29 11:20 | PN.CDI ---
CDI
- -
CDI:
Physician Documentation Request
Admit Date: 04/27/25 21:01
Dear Doctor,
Please review the following and provide your response in the progress notes.
Clinical Indicators:
Pt admitted with Sever sepsis due to complicated UTI.
04/28 WO RN documented in Wound Panel stage 1 Left lateral knee Pressure injury
Physician documentation of the type and location of wounds is required for compliant documentation. Based on the above clinical findings and your assessment, please provide the following in your progress note:
1. Location of the ulcer/wound, including laterality.
2. Type (etiology) of ulcer/wound:
Left lateral knee pressure injury POA
Left lateral knee non-pressure injury POA
Other
Use of terms such as suspected, likely, concern for, or probable (associated with a specific diagnosis that is being evaluated, monitored, or treated as if it exists) are acceptable and can be coded in the inpatient setting, when documented at the
time of discharge.
Thank you,
Luz Maria Gutierrez RN, BSN
CDI Specialist
Chana Text
Please use your independent medical judgment in providing your response.
*Source: National Pressure Ulcer Advisory Panel (NPUAP)
[2025-04-29 12:17] LABS: Glucose - Point of Care 143 mg/dl (70-99)
[2025-04-29 12:26] LABS: Troponin I 27.900 ng/ml
[2025-04-29 12:33] LABS: Glycohemoglobin (HgbA1c) 5.7 % (4.0-5.6)
[2025-04-29 12:40] LABS: APTT 36.2 Sec (23.4-35.0)
[2025-04-29] MEDS: NOVOLOG FLEXPEN-LOW RESISTANCE SC ×2 (12:47→17:55)
--- NOTE | 2025-04-29 12:58 | W.PN.HOSP.TC ---
Addendum entered and electronically signed by Debbie Calvin MD 04/29/25 18:00:
Total Critical Care Time 40 minutes. I was immediately available to the patient and staff. I personally examined, reviewed labs, diagnostic images/reports, interpretations, treatment plans, discussed patient care with other providers and family
or caregivers (if patient is unable to make decisions), entered orders as appropriate and documented the medical record.
Addendum entered and electronically signed by Debbie Calvin MD 04/29/25 17:59:
I saw and evaluated the patient independently. I reviewed the resident�s note and agree with findings and plan as documented by Dr. Frank.
GENERAL: well developed, well nourished, female in distress
HEENT:NC/AT, O2 NC in place--[place]
HEART: regular rate and rhythm, +S1, +S2, tachy
LUNGS : clear to auscultation bilaterally, tachypneic
ABDOM: soft, nontender, nondistended, + bowel sounds
EXT: no cyanosis, clubbing, or edema
NEUROLOGIC: grossly intact
acute hypoxemic resp failure--events of last night noted--was SOB with chest pain--IVF stopped and bicarb given due to developing acidosis--now on BiPAP but not tolerating--moved to ICU--on BiPAP with nasal pillow--apprec bindery machine setter/set up operator--IV diuresis
attempted but very little urine output with this (80mg IV BID with don placed for I/Os)--bumex 4 mg given--heading toward intubation--follow ABG
ACS with NSTEMI--troponin 13.7, 16.8, 27.9--likely poor cardiac index--ECHO today with EF 15-20%--not cath or surgical candidate
Severe sepsis with lactic acidosis--5.4 but cannot give IVF--due to complicated UTI/pyelonephritis--also with nonobstructing stone--- blood cultures positive for E. coli and Proteus, repeat negative, urine culture with gm neg bacilli---cont
zosyn--can stop vanco--likely will need ID consult
LISETTE --due to sepsis, contrast administration-trying to diurese--creat climbing, very little urine output now 1.6 (baseline 0.9)--renal dose meds--hold nephrotoxic agents--apprec renal--cont don
Anemia of chronic disease--no signs of bleeding but given known CAD with NSTEMI will transfuse 1 unit to keep HGB > 8--recent drop likely due to IVF dilution
Elevated AST--likely due to infection--trend
chronic HFrEF --watch volume status, given need for IVF, needed to be stopped overnight--holding valsartan and lasix for now
type 2 DM--hold metformin--SSI with accuchecks--HGB A1C March 2025= 5.8
DVT Proph
CODE STATUS--Full code
poor prognosis
Dr. Frank updated family
Original Note:
Today's Communication/Plan
-
Patient with increased shortness of breath
Elevated troponin
Trend troponin
CPAP
Diuresis with IV Lasix
ABG
Echo ordered
Pulmonology consult
Nephrology consult
Cardiology consult
Transfer to ICU
Assessment / Plan
Assessment / Plan
Ms Farfan is an 80-year-old woman with a history of hypertension hyperlipidemia heart failure with reduced ejection fraction LVEF 25% type 2 diabetes osteoporosis glaucoma and anxiety presenting from [facility] for chills, vomiting. Symptoms started 'a
couple days ago'. She had labs drawn at [facility], WBC 15.7. Sent to ED, she denies any pain but states her abd but feels 'uncomfortable'. Denies any cough or SOB, no urinary symptoms. Urine and blood cultures were sent. In the ED she was tachycardic
febrile tachypneic with blood pressures in the 110s over 50s and requiring supplementary oxygen, she met SIRS and sepsis criteria. Lactic acid was 3 but improved to 0.9. Creatinine was 1.3 on presentation, BUN 23. Urine culture positive for
Proteus mirabilis, patient has history of Proteus mirabilis UTI, blood cultures positive for E. coli and Proteus species. Patient was discontinued from vancomycin. Overnight 04/29 she had increased shortness of breath tachypnea and tachycardia into
the 150s without hypotension. She did not have chest pain or diaphoresis. An EKG chest x-ray and troponin was ordered. EKGs showed no significant changes but chest x-ray showed increased pulmonary vascularity and had troponin elevation of 13 with
a repeat of 16 with a repeat at 27 and and proBNP 27,000. The sports physical therapist was called to bedside who ordered some tests. She continued to have increased shortness of breath and IV fluids were stopped. ABG showed acidemia pH 7.22 pCO2 31 pO2 160
HCO3 12.7, repeat lactic acid 5.4, patient refused DuoNebs or BiPAP due to anxiety. Repeat ABG showed pH 7.4 [id number] PO294 HCO3 20.3. Repeat labs showed a creatinine of 1.6. She received a dose of Lasix and sodium bicarb, echo was ordered for the
morning. Nephrology was consulted who renally dosed Zosyn. Don was placed to monitor I's and O's, and due to urinary retention from earlier in the night. Pulmonology was consulted who were able to work with the patient to trial CPAP since she
could not tolerate BiPAP due to anxiety. Patient was transferred to the ICU and cardiology and bindery machine setter/set up operator ordered 1 packed red blood cells for patient's anemia. Hot Stick Worker think patient had type II WI due to sepsis stress, and severe anemia,
would not pursue catheterization.
#Severe sepsis due to complicated UTI
# Pyelonephritis
# Nephrolithiasis
CT positive for right-sided nephrolithiasis 1.1 cm
likely with acute ascending infection/right-sided pyelonephritis.
Lactic acid 3--0.9--5.4
Patient was fluid responsive
HX UCx POS for Proteus Mirabilis
-LR IVF stopped
- holding BP Meds
- UA with WBCs, leukoesterase, RBCs
-Urine culture positive for Proteus mirabilis pansensitive
- BCx positive for E. coli Proteus mirabilis pending sensitivities
- empiric Zosyn
- Discontinue vancomycin
- Zofran as needed for nausea
# Acute on chronic heart failure
# Acute hypoxemic respiratory failure
# Elevated troponin
#HX chr HFrEF
# Type II WI
# COPD
LVEF 20 to 25%
Currently on 4 L O2
Type II WI in the setting of sepsis, acute on chronic heart failure demand ischemia
Elevated troponins 13 16 27
ABG showed acidosis
Lactic acid 5.4
- at risk for decompensated chr HFrEF in repsosne to septic fluid
- hold hypertensive medications
- Lasix 80 mg IV twice daily
- Transfer to ICU
- Pulmonology consult, nephrology consult, bindery machine setter/set up operator consult, cardiology consult
- Appreciate recs
- CPAP patient cannot tolerate BiPAP
- Stop IV fluids
- Echo ordered
- Trend troponins
- ABG
-Insert Don, strict I's and O's
#LISETTE
Baseline around 0.9
CR admission 1.3--1.1--1.6
suspect due to contrast, cardiorenal syndrome
- holding BP Meds and nephrotoxic agents
- Trend Cr
- Monitor with IV diuresis
# Anemia
Hgb drop from 9.8-8.1--7.9
Likely dilutional
May be contributing to demand ischemia
- Trend H&H
- Type and cross
- 1 pack red blood cells given
# Elevated AST
47�63
In the setting of acute infection
Continue to trend
# Left lateral knee wound
# Bilateral lower extremity foot ulcers
Stage I pressure ulcer
Continue to monitor
Wound management consult
#T2DM
- Hold metformin
- Low ISS
- last A1C 5.8 in March 2025
DVT Px:
SQH
CODE STATUS
Full code
Anticipated Discharge: > 48 hours
Subjective/Interval History
-
Patient was not feeling better today. Overnight she had increased shortness of breath and tachycardia into the 150s. She did not have chest pain or diaphoresis. An EKG chest x-ray and troponin was ordered. EKGs showed no significant changes but
chest x-ray showed increased pulmonary vascularity and had troponin elevation and the sports physical therapist was called to bedside who ordered some tests. She continued to have increased shortness of breath and IV fluids were stopped. She received a dose of
Lasix. This morning she does not endorse any chest pain but does have shortness of breath. Her heart rate had improved but she still did not feel better. She also continued to endorse nausea despite Zofran, and would prefer IV Zofran. Date of
Service: April 29, 2025
Objective Data
-
Labs:
Laboratory Results
04/29/25 04/29/25 04/29/25
00:20 01:03 02:07
WBC 25.7 H
Hgb 9.3 L D Cancelled
Hct 30.3 L Cancelled
Plt Count 264 D
APTT
HCO3 12.7 L*
Sodium
Potassium
Chloride
Carbon Dioxide
BUN
Creatinine
Glucose
Calcium
04/29/25 04/29/25 04/29/25
05:08 10:10 12:24
WBC 10.1
Hgb 7.9 L
Hct 24.6 L
Plt Count 138 D
APTT 34.9 36.2 H
HCO3 20.3 L
Sodium 140
Potassium 4.5
Chloride 110 H
Carbon Dioxide 21 L
BUN 30 H
Creatinine 1.6 H
Glucose 173 H
Calcium 8.9
04/29/25
18:50
WBC
Hgb
Hct
Plt Count
APTT Pending
HCO3
Sodium
Potassium
Chloride
Carbon Dioxide
BUN
Creatinine
Glucose
Calcium
Vital Signs:
Vital Signs
Temp Pulse Resp BP Pulse Ox
97.4 F 110 35 114/84 97
04/29/25 11:54 04/29/25 12:02 04/29/25 12:02 04/29/25 12:02 04/29/25 12:02
I&O
04/28/25 04/29/25 04/30/25
06:59 06:59 06:59
Intake Total 530 / 530
Output Total 750 / 750 250 / 250
Balance -220 / -220 -250 / -250
Review of Systems
-
History Source: Patient
Constitutional: Reports Fatigue; Denies Fever
EENT: Denies Tearing or Runny Nose
Respiratory: Reports Trouble Breathing; Denies Cough, Wheezing or Pleurisy
Cardiac: Denies Chest Pain, Diaphoresis, Palpitations or Syncope
Abdomen/GI: Reports Nausea; Denies Abdominal Pain, Vomiting or Diarrhea
Genitourinary: Reports No Symptoms; Denies Dysuria, Frequency, Flank Pain or Difficulty Voiding
Musculoskeletal: Reports No Symptoms
Skin: Reports No Symptoms
Neuro: Reports No Symptoms; Denies Dizzy or Headache
Physical Exam
-
General: Well Developed, Well Nourished, Respiratory Distress and Conversant; Negative Fever
HEENT: Normocephalic, Atraumatic and Oxygen (On 4 L satting at 97)
Respiratory: Clear to Auscultation and Other (Tachypneic); Negative Wheezes or Crackles
Cardiac: Regular Rhythm, S1/S2 and Tachycardic; Negative Murmur
GI: Soft, Nontender, Nondistended and Normal Bowel Sounds
Musculoskeletal: No Clubbing, No Cyanosis, No Edema and Other (Stage I pressure wound lateral to left knee)
Skin: Warm, Dry and Other (Stage I pressure wound lateral left knee knee)
Neuro: Awake, Alert and Oriented; Negative Slurred Speech
--- NOTE | 2025-04-29 13:00 | PTCARENOTE ---
Patient asked to call her daughter for an update. made aware and advised he would call her. Patient reports he wants her to be primary contact, chart updated.
--- NOTE | 2025-04-29 13:39 | PTCARENOTE ---
Pt transferred to ICU [id number], reports given to MARIA GUADALUPE [place].
[2025-04-29] MEDS: NSS (PRESERVATIVE FREE) 10 ML IV (14:49)
[2025-04-29] MEDS: PROTONIX IV 40 MG IV (15:00)
--- NOTE | 2025-04-29 15:00 | PTCARENOTE ---
Received pt into ICU rm [id number] s/p transfer upgrade @ approx 1400. Pt. drowsy. awakens to verbal stim; ox3; anxious and w/drawn affect; denies pain. ST on monitor. SpO2 96% on continuous BiPAP 12/5, 4L. Noted increased work of breathing; RR mid
20's-low 30's. Auscultated dim breath sounds throughout and fine crackles @ bases. Inc bowel; NPO status d/t worsening resp status. Don in place draining yellow urine; 300 output s/p don insertion and AM Lasix admin. R FA w heparin gtt- see
flow sheet. R A patent, dressing c/d/i. Dr. Doan to beside to assess pt. and aware of critical lab work.
--- NOTE | 2025-04-29 15:36 | W.PN.UPDATE ---
Update Note
Progress Note Update
Patient reassessed no complaints of chest pain awake alert currently on BiPAP. Patient has since been transferred to the ICU. Please see pulmonary critical care note. Patient has troponin up to 28. Reviewed films with interventional cardiology.
Considering patient's degree of coronary disease with known LAD occlusion with collaterals RCA subtotally occluded and circumflex disease patient is set up for type II WV with physical stress of sepsis and severe anemia. Patient with severely
reduced left ventricular function EF 15 to 20%. Challenging management issue. Limited treatment options.. Issues were reviewed with interventional cardiology. Due to lack of chest pain, complexity of disease,ongoing respiratory sufficiency
sepsis and severe anemia would not proceed with cardiac catheterization. Continue with supportive treatment
- Optimize respiratory status
- Continue treatment of sepsis
- Continue aspirin
- Monitor CBC. Issues related to anemia management and transfusion reviewed with supervisor powder and primer canning
--- NOTE | 2025-04-29 15:51 | CM ---
Patient seen at bedside in IMU, Patient transferred to ICU following discussion with physicians and cardiology. Patient has been accepted to [facility] when medically appropriate but currently on Bipap per pulmonology physician. CM will continue to
follow for discharge planning needs.
Plan; return to [facility] when medically appropriate and bed available
[2025-04-29] MEDS: LIPITOR PO (17:23)
[2025-04-29] MEDS: BUMEX 4 MG IV ×2 (17:23→20:59)
[2025-04-29 17:26] LABS: B.E. -9.5 mmol/L; PCO2 23 mmHg (32-35); PO2 74 mmHg (83-108)
[2025-04-29 17:28] LABS: O2 Saturation % 94.4 % (94-98)
[2025-04-29 17:30] LABS: HCO3 13.6 mmol/L (21-28)
--- NOTE | 2025-04-29 18:00 | PTCARENOTE ---
1 unit PRBC transfused per order- see TAR. Pt. noted w worsening tachypnea. Dr. Doan made aware. ABG drawn and sent to lab. STAT CXR obtained. RR remains 30-40 but not consistently above 35. Labs/imaging/clinical assessment reviewed by
Danica. BiPAP settings altered to 14/6, 4L. Plan to keep BiPAP and attempt more diuresis- see MAR. Dr. Doan updated oncoming provider Chidi HORTA.
[2025-04-29 18:10] LABS: Glucose - Point of Care 134 mg/dl (70-99)
--- NOTE | 2025-04-29 18:10 | W.PN.UPDATE ---
Update Note
Progress Note Update
Spoke with patient's primary contact daughter Ericka who lives in [place]. Informed her of situation and escalation of ICU care. Informed her that there may be a need for intubation if there is a deterioration in the situation.
Encouraged her to reach out to the rest of the family members and let them know about the situation and the possible need to have a goals of care conversation with the rest of the family. Ericka is aware of her mother's health status including
heart problems, sepsis, and the need for BiPAP. Ericka verbalized understanding of full code and informed her that we will do the best we can in any situation and we will update her as things progress. Answered all of her questions as best as
possible.
[2025-04-29 18:58] LABS: INR 1.79; PT 21.0 Sec (11.4-14.6)
[2025-04-29 18:59] LABS: APTT 39.9 Sec (23.4-35.0)
[2025-04-29 19:00] LABS: Hematocrit 30.8 % (37.0-47.0); Hemoglobin 10.1 g/dL (12.0-16.0); Mean Corp Hgb Conc. 32.8 g/dL (33.0-37.0); Mean Corpuscular Volume 93.1 fL (81.0-99.0); Platelet Count 162 10^3/uL (130-400); Red Cell Dist. Width 15.7 % (11.5-14.5)
[2025-04-29 19:17] LABS: Albumin 3.4 g/dl (3.5-5.0); Alkaline Phosphatase 55 U/L (38-126); Blood Urea Nitrogen 36 mg/dl (7-17); Calcium 8.6 mg/dl (8.4-10.2); Carbon Dioxide 12 mmol/L (22-30); Chloride 108 mmol/L (98-107); Estimated Creatinine Clearance 16 ml/min; Glucose 138 mg/dl (70-99); Potassium 5.0 mmol/L (3.5-5.1); Sodium 139 mmol/L (135-145); Total Protein 5.9 g/dl (6.3-8.2); eGFR 18.09
[2025-04-29 19:19] LABS: Troponin I 27.300 ng/ml
--- NOTE | 2025-04-29 19:30 | PTCARENOTE ---
At 1830 pt. repeatedly stating 'no more,' and 'I quit.' OPTICAL LAB TECHNICIAN, Madison Rubin, notified of patient statements and to bedside to assess/discuss goals of care. Pt. and family (daughter-Ericka and pt.'s ) agreeable to DNR status; ordered changed
by Chidi Rubin. Family discussion in progress regarding further goals of care. [facility], updated.
--- NOTE | 2025-04-29 19:33 | W.PN.UPDATE ---
Update Note
Progress Note Update
Patient stated that she does not want any further treatment. She�is alert and oriented, and able to make decisions. Situation discussed with her daughter, Ericka Josue. Ericka was in agreement to make her mother a�DNR. The current plan is to
keep patient on Bipap as long as possible for Ericka to arrive from [place]. But if the situation escalates, we'll reconsider the plan.��
[2025-04-29 19:50] LABS: ALT (SGPT) 4385 U/L (0-35); AST (SGOT) > 7500 U/L (14-36)
--- NOTE | 2025-04-29 21:11 | PTCARENOTE ---
Handoff report received from off going RN. Dual RN gtt signoff completed. Patient received on heparin gtt at 1250 units/hr. Pt's AAOx3 and able to make her needs known. Verbalizes not being able to breath. Tachypneic on the monitor with HR 35-40.
Nebulizer treatment offered to the patient and patient declined stating 'no more. I don't want it' Teaching provided on the relief with breathing that a neb treatment will have and the patient continued declining stating that she didn't want any
further treatment. COOKY PACKER, updated. Sinus tachy on the monitor. Pulses are weak but palpable. SpO2 at 93% on BiPaP setting 14/16 & 6L. Crackles to the bases. Hypoactive BS. Patient is however passing flatus. Ureña catheter is draining scant amount of
josette urine in the tube. Sacral foam removed for assessment. Healed sacral wound. Foam is cdi. Left leg issa bandage removed. Steri strips remain in place. Issa wrap placed. Bumex 4 mg IV ordered and administered.
[2025-04-29] MEDS: XALATAN OPHTHALMIC SOLUTION OPHTH (22:06)
[2025-04-29 23:14] LABS: Glucose - Point of Care 140 mg/dl (70-99)
[2025-04-30] VITALS (27 sets, daily range): BP systolic 89–131; BP diastolic 57–94; PULSE 2–89; BMI 28.6
--- NOTE | 2025-04-30 00:09 | PTCARENOTE ---
Patient reassessed. AAOx3 and drowsy. MAEx4 with difficulty/pain to LLE. Patient is incontinent of stool. had large BM. Patient cleansed and full linen change completed. Mouth swabs provided. Patient turned and repositioned. SpO2 at 99% on BiPAP
14/16 & 4L. RR 25. Small amount of urine noted. Pt's family are at the bedside.
[2025-04-30 00:59] LABS: APTT 47.2 Sec (23.4-35.0)
[2025-04-30 01:21] LABS: Troponin I 24.700 ng/ml
[2025-04-30 03:59] LABS: Venous Blood Gas B.E. -7.0 mmol/L (-4 to +4); Venous Blood Gas O2 Sat % 97.7 %
[2025-04-30 04:06] LABS: Hematocrit 27.8 % (37.0-47.0); Hemoglobin 9.2 g/dL (12.0-16.0); Mean Corp Hgb Conc. 33.1 g/dL (33.0-37.0); Mean Corpuscular Volume 93.0 fL (81.0-99.0); Platelet Count 139 10^3/uL (130-400); Red Cell Dist. Width 15.9 % (11.5-14.5)
[2025-04-30 04:30] LABS: Albumin 3.3 g/dl (3.5-5.0); Alkaline Phosphatase 52 U/L (38-126); Blood Urea Nitrogen 49 mg/dl (7-17); Calcium 8.4 mg/dl (8.4-10.2); Carbon Dioxide 20 mmol/L (22-30); Chloride 108 mmol/L (98-107); Estimated Creatinine Clearance 12 ml/min; Glucose 136 mg/dl (70-99); Magnesium 2.3 mg/dl (1.6-2.3); Potassium 4.5 mmol/L (3.5-5.1); Sodium 141 mmol/L (135-145); Total Protein 6.1 g/dl (6.3-8.2); eGFR 13.59
[2025-04-30 05:05] LABS: ALT (SGPT) 3992 U/L (0-35); AST (SGOT) 7465 U/L (14-36)
--- NOTE | 2025-04-30 05:11 | PTCARENOTE ---
~0440: Patient's daughter has arrived from [place]. Patient is asleep. No changes from the previous assessment upon entering the room with the patient's daughter. Family updated on current plan of care. Questions answered.
~0445: Patient's daughter states that the patient is in pain and is asking for pain medication. PAtient reassessed and states that she has pain all over her body. PRN pain management discussed with the patient and her family. Rohan Rubin CRNP
made aware. Tylenol and Dilaudid 0.25 mg IV ordered.
[2025-04-30] MEDS: HEPARIN 25000 UNITS/250 ML IV ×2 (05:28→22:46)
[2025-04-30] MEDS: TYLENOL 650 MG PO (05:32)
[2025-04-30] MEDS: DILAUDID 0.25 MG IV ×3 (05:32→21:19)
[2025-04-30] MEDS: ZOFRAN 4 MG IV (05:42)
[2025-04-30] MEDS: ZOSYN 50 IV ×4 (05:42→23:51)
[2025-04-30 05:59] LABS: Glucose - Point of Care 129 mg/dl (70-99)
--- NOTE | 2025-04-30 06:42 | W.PN.CD ---
Today's Communication / Plan
-
Patient currently awake alert O2 sats in the upper 80s but pleth is not great quality remains on BiPAP appears to be breathing more comfortably than last night. Note suggest patient declining additional aggressive treatment and particularly
currently DNR.
Patient admitted with pyelonephritis/sepsis and decompensation can be related to a combination of factors including sepsis,/septic shock, component of cardiogenic shock/severe ischemic cardiomyopathy/HFrEF, severe anemia LISETTE. Now also with severely
elevated LFTs consistent with shock liver. Overall prognosis with multisystem involvement appears poor. Limited treatment options . It also appears that the patient wants limited treatment. Currently DNR and there will be additional discussions
regarding goals of care. Patient's daughter apparently will be arriving close to 9 AM this morning will also we await further input from critical care team.
Will review with critical care team. Consider additional use of inotropes ( Dobutamine) if plan is to contnue agressive medical therapy.
Impression / Plan
-
80-year-old woman with history of severe multivessel coronary artery disease including chronic LAD occlusion and RCA subtotal occlusion , cardiomyopathy with ejection fraction 25%FrEF, diabetes, hypertension, hypercholesterolemia admitted with
pyelonephritis/sepsis and was noted to have a rising troponin. Patient with no complaints of chest discomfort. Labs also noted above for severe anemia. Initially mated to the IVU had some issues with increased shortness of breath respiratory
insufficiency component of CHF and then transferred to the ICU.
EVENTS
Throughout the course of the day 04/30/2025 patient had some decline in clinical status increased respiratory rate and decreased urine output despite escalating doses of diuretic. Due to severe anemia patient did receive 1 unit of PRBCs. Patient
continued to maintain blood pressure and has not required pressor support. Later in the evening patient stated that she did not want further treatment and at that point was made a DNR. Patient currently still receiving medications.
Patient reassessed this morning. Maintaining adequate blood pressure and mentating. Respiratory rate appears better than yesterday evening patient appears more comfortable but remains on BiPAP oximetry approximately 88% but quality of pleth is not
great. Patient with limited urine output over the last 24 hours and is not clear if she has had any in output over the last shift labs notable for creatinine up to 3.3 and severely elevated LFTs with AST greater than 7000 consistent with shock
liver.
.
Elevated troponin/Up to 28. Suspected type II CT secondary to combination of severe multivessel coronary artery disease (occluded LAD and subtotally occluded RCA), sepsis and severe anemia. Peaked at 28 no complaints of chest pain
- No plans for cardiac catheterization at this time
- Continue supportive treatment
.
Coronary artery disease. Known multivessel coronary artery disease with chronically occluded LAD and subtotally occluded RCA based on prior cardiac catheterization. Yesterday cath films and additional treatment plans were reviewed with
interventional cardiology. Continued medical therapy as noted above
.
Ischemic cardiomyopathy. Severely reduced left ventricular function. Most recent echo with ejection fraction of approximately 15% . heart failure reduced ejection fraction. Acute on chronic
- Ischemic cardiomyopathy ejection fraction 25%.
- GDMT in the past has been limited based on what patient is willing to take and what she can afford.
-Patient now also with LISETTE and oliguric versus an uric
Patient may have combination of septic shock and cardiogenic shock-would consider addition of dobutamine although patient's had issues with tachycardia earlier this admission heart rates are now down in the 90s could cautiously add dobutamine he
would need to watch rates, rhythms and BP closely. Will review with
.
Sepsis/pyelonephritis. Management directed by primary team
.
Diabetes management as directed by primary team
Physical Exam
Vital Signs/Labs
Vital Signs
Temp Pulse Resp BP Pulse Ox
99 F 106 38 138/106 93
04/29/25 23:34 04/29/25 22:05 04/29/25 18:37 04/29/25 22:05 04/29/25 19:35
04/28/25 04/29/25 04/30/25
06:59 06:59 06:59
Actual Weight 70.08 kg 69.9 kg 70.9 kg
04/30/25 03:51
04/30/25 03:51
PT 21.0 Sec (11.4-14.6) H 04/29/25 18:43
INR 1.79 04/29/25 18:43
APTT 47.2 Sec (23.4-35.0) H 04/30/25 00:41
Magnesium 2.3 mg/dl (1.6-2.3) 04/30/25 03:51
04/29/25
02:07
Ffi-D-Gkcvquvthxg Pept > 90764
LAB Results
04/29/25 04/29/25 04/29/25
02:07 05:08 11:17
Troponin I 13.700 H* 16.800 H* 27.900 H* D
04/29/25 04/29/25 04/29/25
15:45 18:43 21:45
Troponin I Cancelled 27.300 H* Cancelled
04/30/25
00:41
Troponin I 24.700 H*
Physical Exam
Constitutional: Other (ill appear on Bipap but appear more comfortable than last evening)
Cardiovascular: Rhythm & rate is regular
Respiratory: Wheeze Absent and Rhonchi Absent
GI: Soft
Neuro/Psych: Alert
Data Reviewed
-
Date of Service: April 30, 2025
Medical Decision Making: Reviewed Test Results
Echo: Report Reviewed by me
Medical Tests (PFT, Pathology etc): Report Reviewed by me
Labs: Labs Reviewed by me
--- NOTE | 2025-04-30 07:30 | PTCARENOTE ---
Received patient arousable to voice, follow commands, B/L hard of hearing, reported feeling very tired and whole body soreness/pain, on Bipap nasal mask @4L, NSR, Doppler pulses, NPO but okay w/ oral swabs, unable to take pill due to reported
difficulty swallowing and high aspiration risk, Ureña in place, minimal UOP overnight.
--- NOTE | 2025-04-30 07:53 | W.PN.NEPH.PH ---
Today's Communication / Plan
-
escalate bumex to 2mg IV q8
no acute HD requirement
Assessment/Plan
-
Impression:
LISETTE
Urosepsis (E. coli and Proteus bacteremia)
Concern for right-sided pyelonephritis, noted 1.1 cm nonobstructive right-sided nephrolith
Anemia
Diabetes
Cardiomyopathy with EF 20 to 25%
Anemia
Troponin elevation
History of recent left hip fracture
Metabolic acidosis
History of nephrotic range proteinuria
Plan:
LISETTE:
- Likely exacerbated by IV contrast administration on date 04/27/2025 CT scan and/or urinary retention
- With holding ARB and metformin given acute renal failure with underlying metabolic acidosis which continues to exacerbate
- Hemodynamically stable
-Creatinine now up to 3.3, urine output recorded at 600 cc via Ureña overnight
-Will attempt to escalate diuresis with bumex 2 mg IV every 8,weights up another Kg
-Chest x-ray personally reviewed notes mild pulmonary edema
- Zosyn renally adjusted for renal failure
-Ureña catheter being placed for accurate I's and O's and due to some urinary retention that required straight cath procedure
-No acute dialysis requirement yet however patient is DNR and per review of records may not want higher level measures (i.e. HD)
- Patient had increased high clinical risk with worsening renal failure and hypoxic respiratory failure requiring IV diuretics,bipap support in setting of decompensated congestive heart failure
-
-
Date of Service: April 30, 2025
CC / HPI / ROS
-
Chief Complaint:
LISETTE
History of Present Illness:
creatinine up to 3.3
hemodynamically stable
on bipap
Review of Systems:
weighs up 1kg
nonoliguric via [id number]
on bipap
no fever
Labs
-
Labs:
WBC 10.4 10^3/uL (4.8-10.8) 04/30/25 03:51
RBC 2.99 10^6/uL (4.20-5.40) L 04/30/25 03:51
Hgb 9.2 g/dL (12.0-16.0) L 04/30/25 03:51
Hct 27.8 % (37.0-47.0) L 04/30/25 03:51
Plt Count 139 10^3/uL (130-400) 04/30/25 03:51
Sodium 141 mmol/L (135-145) 04/30/25 03:51
Potassium 4.5 mmol/L (3.5-5.1) 04/30/25 03:51
Chloride 108 mmol/L (98-107) H 04/30/25 03:51
Carbon Dioxide 20 mmol/L (22-30) L 04/30/25 03:51
BUN 49 mg/dl (7-17) H 04/30/25 03:51
Creatinine 3.3 mg/dL (0.6-1.0) H 04/30/25 03:51
eGFR 13.59 04/30/25 03:51
Glucose 136 mg/dl (70-99) H 04/30/25 03:51
Calcium 8.4 mg/dl (8.4-10.2) 04/30/25 03:51
Poe-V-Kbuoxkjbrpc Pept > 30081 pg/ml 04/29/25 02:07
Albumin 3.3 g/dl (3.5-5.0) L 04/30/25 03:51
Physical Exam
-
Vital Signs:
Vital Signs
Temp Pulse Resp BP Pulse Ox
99 F 106 38 138/106 93
04/29/25 23:34 04/29/25 22:05 04/29/25 18:37 04/29/25 22:05 04/29/25 19:35
Cardiovascular:: Regular rate and rhythm
Respiratory:: Bilateral: Coarse
Lung Excursion:: Normal
Abdomen:: Nontender and Soft
Bowel Sounds:: Decreased
Extremity Edema:: +1: Bilateral:
Ureña Catheter: Yes
Other Findings::
GEN: bipapped
[2025-04-30 08:07] LABS: APTT 74.5 Sec (23.4-35.0)
[2025-04-30 08:22] LABS: Troponin I 20.500 ng/ml
[2025-04-30] MEDS: NSS (PRESERVATIVE FREE) 10 ML IV (08:48)
[2025-04-30] MEDS: PROTONIX IV 40 MG IV (08:48)
[2025-04-30] MEDS: ASPIRIN PO (09:00)
[2025-04-30] MEDS: LASIX 80 MG IV ×2 (09:04→16:12)
[2025-04-30] MEDS: LASIX IV ×2 (09:06→22:06)
[2025-04-30] MEDS: DILAUDID 0.5 MG IV ×2 (10:32→16:11)
--- NOTE | 2025-04-30 11:03 | CM ---
Patient seen at bedside in ICU. Patient family members here to support patient, now DNR. Patient on BIPAP. CM will continue to follow for discharge planning needs.
Plan; SNF when medically appropriate
--- NOTE | 2025-04-30 11:54 | W.PN.INTV ---
Today's Communication / Plan
Recommendations
- DNR/DNI
- Add Dilaudid on an as-needed basis for pain or air hunger
- Continue medical management for now
Assessment
-
Patient is an 80-year-old female with previous history of COPD, chronic heart failure with reduced ejection fraction EF 25%, presenting to ER with chills, vomiting, LISETTE. On arrival to ER she had remarkable labs of leukocytosis with UA
demonstrating possible UTI. She is admitted to IMU with antibiotics. She had rapid heart rate event overnight with development of shortness of breath. Chest x-ray demonstrating pulmonary edema, proBNP on admission was greater than 27,000. She is
also in acute on chronic heart failure exacerbation. ABG obtained without notable hypercarbia. She does have mild increased work of breathing. She is 94% on 4 L. WE are consulted for evaluation of SOB.
Conditions present ARMHOLE BASTER HAND
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
Chronic systolic heart failure, EF 20-25%
COPD, moderate obstruction PFT 2022
Former smoker >20 PYs
Multivessel coronary artery disease
s/p LHC 2022 with occluded LAD subocclusive RCA, non-operable per CTS
Mixed hyperlipidemia�
Type 2 diabetes mellitus with other circulatory complications� �
Essential hypertension�
Anxiety�
Glaucoma of both eyes
Other proteinuria�
Age-related osteoporosis without fracture�
Sinus tachycardia�
04/30, overview, patient currently not on any pressors, needing BiPAP support, MAP is around 96, saturating 100% on 4 L via BiPAP. Urine output around 50 cc all night, respiratory rate around 20.
Assessment and plan:
#1. UTI with severe sepsis with multiorgan dysfunction
- Patient has positive UTI along with bacteremia, now noted to have acute kidney injury as well as acute liver injury
- Continues to be critically ill, continue broad-spectrum antibiotics
- Not requiring any pressor support
#2. LISETTE
-Concerning for contrast nephropathy, ATN related to sepsis and severe cardiomyopathy
-Patient essentially an uric despite large doses of IV Lasix and IV Bumex
-Respiratory failure requiring BiPAP therapy. Nephrology service on case.
-Continue medical management with trial of IV diuresis, no hemodialysis per patient and family preference
#3. NSTEMI, severe cardiomyopathy, EF around 15%
-Suspect patient has low cardiac output with worsening renal function, shock liver, essentially anuric
-Cardiology service on case. Medical management for now
- Complex underlying coronary artery disease, not felt to be a good candidate for medical/surgical revascularization
#4. Acute hypoxic respiratory failure
- Related to pulmonary edema, multifactorial with underlying anuric renal failure as well as severe ischemic cardiomyopathy
- Continue BiPAP support, add Dilaudid as needed for pain or air hunger per patient preference
#5. Acute on suspect chronic congestive heart failure with reduced ejection fraction, EF around 15%.
- Patient an uric which is challenging considering inability to diurese
- Continue BiPAP support
#6. H/o COPD.
- History of smoking for about 15 to 20 years, quit in 2004.
- No wheezing on exam, current presentation is not suggestive of COPD exacerbation
Goals of care: 04/30. Met with patient's daughter at bedside. Patient has opted to proceed with DNR/DNI with more comfort focused approach with continuing medical management for now. Patient does not want to be intubated or sedated or
mechanically ventilated. No hemodialysis for now. Will continue current management, add as needed narcotics for air hunger or pain per patient's preference. Will continue to discuss goals of care daily. Depending upon patient's clinical course,
patient and family are inclined towards pursuing palliative care/hospice.
Critical Care time 52 mins -- The patient is admitted for acute critical illness for the treatment of vital organ failure and/or prevention of further life-threatening conditions. Total care includes time spent in review of history, physical exam,
medications, hemodynamic/ventilator parameters, laboratory data, imaging and discussion with house staff, pharmacy, respiratory therapy, boring and filling machine operator, and nursing.
Diagnostic Data
CXR 04/29/25- New findings suggesting pulmonary edema. Pneumonia cannot be completely excluded. Clinical and laboratory correlation recommended. Mild cardiomegaly. New
CXR 04/27/25- No acute cardiopulmonary abnormality.
Chest X-Ray: 08/21/23- Endotracheal tube with tip in trachea above the ada. No pneumothorax. Bilateral patchy opacities which could represent pneumonitis, less likely pulmonary edema.
05/25/22- No radiographically demonstrable left rib fracture. No pleural effusion or pneumothorax. No acute cardiopulmonary process.
CT Scan: AP 05/24/22- No renal or ureteral calculus. No urinary bladder calculus. No evidence of obstructive uropathy. Mild bilateral nonspecific perinephric soft tissue stranding. Diverticulosis without acute diverticulitis. No evidence of bowel
obstruction. Chronic pancreatitis without acute inflammatory component. Mild fatty dictation of liver.
ECHO 08/17/24- Dilated LV with severe global hypokinesis and an ejection fraction of approximately 25% by visual estimation. 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 Normal right ventricular size and function. No significant valvular disease. Estimated
PASP of 16 mmHg. Compared to prior from December 17, 2023, no significant change.
Echo: 08/21/23- Dilated left ventricle. Severely reduced left ventricular systolic function.�Estimated� Left ventricular ejection fraction is 20-25%.� global hypokinesis.�Apical akinesis. Best contractility at the baseof the LV ( basal lateral,�basal
inferior and basal anterior russo. � Mild concentric left ventricular�hypertrophy. Diastolic function indeterminate.
Spirometry 08/26/23: FEV1 1.17L 64%, FVC 1.84L 75%, ratio 64. Post FEV1 1.22L 67% No BD response (moderate obstruction)
Reports and relevant images were personally reviewed.
Subjective Dataa
Subjective Data
Date of Service:
Date of Service: April 30, 2025
Subjective:
Continues to be critically ill, currently on BiPAP support.
Review of Systems
Genitourinary: Other (Feels tired, intermittent short of breath, reports diffuse pain.)
Objective Data
Data Reviewed
Vital Signs / I&O / Oxygen:
Vital Signs
Temp Pulse Resp BP Pulse Ox
99 F 84 38 117/79 93
04/29/25 23:34 04/30/25 09:04 04/29/25 18:37 04/30/25 09:04 04/29/25 19:35
Intake and Output
04/29/25 04/30/25 05/01/25
06:59 06:59 06:59
Intake Total 530 / 530 862.5 / 862.5
Output Total 750 / 750 600 / 600
Balance -220 / -220 262.5 / 262.5
SaO2 93
Nasal Cannula flow liters per 4
minute
Physical Exam
General: Comfortable
HEENT: Normocephalic
Cardiovascular: S1-S2 and Peripheral Edema
Respiratory: Crackles
GI: Soft and Non Distended
Neurology: Awake and Alert
Labs/Micro/Reports
Lab Data
04/30/25 03:51
04/30/25 03:51
Laboratory Results
04/29/25 04/29/25 04/29/25
12:24 17:19 18:43
PT 21.0 H
INR 1.79
APTT 36.2 H 39.9 H
pH 7.38
pCO2 23 L
pO2 74 L
HCO3 13.6 L*
O2 Delivery Level
04/30/25 04/30/25
00:41 07:43
PT
INR
APTT 47.2 H 74.5 H
pH
pCO2
pO2
HCO3
O2 Delivery Level
Microbiology
04/27/25 16:35 Blood/Venous Blood Culture - Final
Proteus mirabilis
Escherichia coli
04/27/25 16:35 Blood/Venous Gram Stain - Final
04/27/25 19:01 Urine Urine Culture - Preliminary
Escherichia coli
Proteus species
04/28/25 05:05 Blood/Venous Blood Culture - Preliminary
No Growth in 48 hours- Final report to follow
04/28/25 03:31 Blood/Venous Blood Culture - Preliminary
No Growth in 48 hours- Final report to follow
04/27/25 17:32 Nasal Swab Influenza Types A & B (DANY) - Final
Negative for Influenza A & B, NAAT
Negative results must be combined with clinical observations
and patient history.
Nucleic Acid Amplification test (NAAT)performed on the
[employer] platform.
--- NOTE | 2025-04-30 12:00 | PTCARENOTE ---
Reassessed the patient, Radiologist talked with daughter Ericka regarding goal of care. Patient remains DNR DNI while continuing current medical treatments and providing comfort. No other changes from previous assessments.
[2025-04-30 12:08] LABS: Glucose - Point of Care 125 mg/dl (70-99)
--- NOTE | 2025-04-30 15:18 | W.PN.HOSP.TC ---
Addendum entered and electronically signed by Debbie Calvin MD 04/30/25 16:09:
I saw and evaluated the patient independently. I reviewed the resident�s note and agree with findings and plan as documented by Dr. Frank.
GENERAL: well developed, well nourished, female now on bipap with nasal pillow
HEENT:NC/AT, O2 NC in place--MOAPA
HEART: regular rate and rhythm, +S1, +S2, tachy
LUNGS : clear to auscultation bilaterally, tachypneic
ABDOM: soft, nontender, nondistended, + bowel sounds
EXT: no cyanosis, clubbing, or edema
NEUROLOGIC: grossly intact
acute hypoxemic resp failure--events of 04/28- night noted--was SOB with chest pain--IVF stopped and bicarb given due to developing acidosis--now on BiPAP--on BiPAP with nasal pillow--apprec senior software project manager--IV diuresis attempted but very little urine
output anf now in renal failure--creat rising and up to 3.3
ACS with NSTEMI--troponin 13.7, 16.8, peaked at 27.9 and now decreasing--likely poor cardiac index--ECHO today with EF 15-20%--not cath or surgical candidate
Shock physiology--mixed picture of septic with lactic acidosis (peaked at 7) and cardiogenic with severely depressed EF--very surprising that BP still holding steady on no pressors--now in liver failure with numbers > 7500 --infectious source
complicated UTI/pyelonephritis--also with nonobstructing stone--- blood cultures positive for E. coli and Proteus, repeat negative, urine culture with same---cont zosyn--can stop vanco
LISETTE --due to sepsis, contrast administration-trying to diurese--creat climbing, very little urine output, essential none now creat up to 3.3 (baseline 0.9)--renal dose meds--hold nephrotoxic agents--apprec renal--cont don
Anemia of chronic disease--no signs of bleeding but given known CAD with NSTEMI will transfuse 1 unit to keep HGB > 8--recent drop likely due to IVF dilution
chronic HFrEF --watch volume status, given need for IVF, needed to be stopped --holding valsartan and lasix for now
type 2 DM--hold metformin--SSI with accuchecks--HGB A1C March 2025= 5.8
wound (POA) --stage 1 Left lateral knee Pressure injury--apprec wound care
DVT Proph
CODE STATUS--Full code
poor prognosis--pt has changed code status to DNR/DNI--Dr. Doan spoke with family 04/30--IF pt worsens, hospice--for now cont current treatment without escalation of treatment
Dr. Frank updated family 04/29
Total Critical Care Time 32 minutes. I was immediately available to the patient and staff. I personally examined, reviewed labs, diagnostic images/reports, interpretations, treatment plans, discussed patient care with other providers and family
or caregivers (if patient is unable to make decisions), entered orders as appropriate and documented the medical record.
Original Note:
Today's Communication/Plan
-
Continue IV diuresis
CODE STATUS switch to DNR/DNI
Dilaudid as needed
Assessment / Plan
Assessment / Plan
Ms Farfan is an 80-year-old woman with a history of hypertension hyperlipidemia heart failure with reduced ejection fraction LVEF 25% type 2 diabetes osteoporosis glaucoma and anxiety presenting from [place] for chills, vomiting. Symptoms started 'a
couple days ago'. She had labs drawn at [place], WBC 15.7. Sent to ED, she denies any pain but states her abd but feels 'uncomfortable'. Denies any cough or SOB, no urinary symptoms. Urine and blood cultures were sent. In the ED she was tachycardic
febrile tachypneic with blood pressures in the 110s over 50s and requiring supplementary oxygen, she met SIRS and sepsis criteria. Lactic acid was 3 but improved to 0.9. Creatinine was 1.3 on presentation, BUN 23. Urine culture positive for
Proteus mirabilis, patient has history of Proteus mirabilis UTI, blood cultures positive for E. coli and Proteus species. Patient was discontinued from vancomycin. Overnight 04/29 she had increased shortness of breath tachypnea and tachycardia into
the 150s without hypotension. She did not have chest pain or diaphoresis. An EKG chest x-ray and troponin was ordered. EKGs showed no significant changes but chest x-ray showed increased pulmonary vascularity and had troponin elevation of 13 with
a repeat of 16 with a repeat at 27 and and proBNP 27,000. The licensed life and health agent was called to bedside who ordered some tests. She continued to have increased shortness of breath and IV fluids were stopped. ABG showed acidemia pH 7.22 pCO2 31 pO2 160
HCO3 12.7, repeat lactic acid 5.4, patient refused DuoNebs or BiPAP due to anxiety. Repeat ABG showed pH 7.4 [id number] HCO3 20.3. Repeat labs showed a creatinine of 1.6. She received a dose of Lasix and sodium bicarb, echo was ordered for the
morning. Nephrology was consulted who renally dosed Zosyn. Don was placed to monitor I's and O's, and due to urinary retention from earlier in the night. Pulmonology was consulted who were able to work with the patient to trial CPAP since she
could not tolerate BiPAP due to anxiety. Patient was transferred to the ICU and cardiology and senior software project manager ordered 1 packed red blood cells for patient's anemia. Pantograph Machine Set Up Operator think patient had type II NE due to sepsis stress, and severe anemia,
would not pursue catheterization. Patient had poor response to Lasix, Bumex was ordered however continued to have poor response with only 600 cc of urine. Patient was convinced to try BiPAP which improved ventilation and work of breathing, however
remained tachypneic. Repeated chest x-rays continue to show pulmonary congestion. Overnight patient went into multi organ failure with severely elevated LFTs consistent with liver shock, creatinine also continued to trend upwards to 3.3, troponin
continued to trend upwards to 27. Patient had discussion with daughter about goals of care and decided to change CODE STATUS from full to DNR DNI. Patient's daughter flew in from [place] to be by mother side. Patient requested no
aggressive treatment and we will medically manage. Continues to receive doses of Bumex and as needed Dilaudid for pain or air hunger. Patient remained satting in the 90s on 4 L and repeated ABG without notable hypercarbia.
#Severe sepsis due to complicated UTI with
# Pyelonephritis
# Cardiogenic shock
# Septic shock
# Multisystem organ failure due to cardiogenic, septic shock
Goals of care conversation, DNR/DNI
Blood gases continue to show acidosis
Lactic acid 3--0.9--5.4--7.0--3.9--1.9
AST greater than 7500
ALT greater than 4000
Troponin 27--24--20
Creatinine uptrending
HX UCx POS for Proteus Mirabilis
- holding BP Meds
- UA with WBCs, leukoesterase, RBCs
-Urine culture positive for Proteus mirabilis pansensitive
- BCx positive for E. coli Proteus mirabilis both pansensitive
- empiric Zosyn
- Dilaudid as needed
# Acute on chronic heart failure
# Acute hypoxemic respiratory failure
# Elevated troponin
#HX chr HFrEF
# Type II NE
# Cardiogenic shock
# COPD
04/29 echo with EF 15 to 20%
Currently on 4 L O2
Type II NE in the setting of sepsis, acute on chronic heart failure demand ischemia
Elevated troponins 13 16 27 24 20
ABG showed acidosis
Lactic acid 5.4 7 3.9 1.9
Patient transfused 1 packed red blood cells
- Bumex 2 mg IV, increase as needed
- Pulmonology consult, nephrology consult, senior software project manager consult, cardiology consult
- Appreciate recs
- patient on BiPAP
#LISETTE
Baseline around 0.9
CR admission 1.3--1.1--1.6--2.6--3.3
suspect due to contrast, cardiorenal syndrome
- holding BP Meds and nephrotoxic agents
- Trend Cr
- Monitor with IV diuresis
# Anemia, delusional
Hgb drop from 9.8-8.1--7.9
Likely dilutional
May be contributing to demand ischemia
- Trend H&H
- Type and cross
- 1 pack red blood cells given
# Elevated liver function tests
# Shock liver
In the setting of cardiogenic shock septic shock
# Left lateral knee wound
# Bilateral lower extremity foot ulcers
Stage I pressure ulcer
Continue to monitor
Wound management consult
#T2DM
- Hold metformin
- Low ISS
- last A1C 5.8 in March 2025
DVT Px:
SQH
CODE STATUS
Full code
Anticipated Discharge: > 48 hours
Subjective/Interval History
-
Patient was on BiPAP. She reported feeling about the same as yesterday. Overnight patient's liver and kidney function deteriorated. Ms Farfan talked with daughter and discussed treatment options, opted for nonaggressive treatment, and switch CODE
STATUS to DNR/DNI. Daughter flew in from [place] but was not at bedside by the time of rounding. She had poor response to Bumex and Lasix. Date of Service: April 30, 2025
Objective Data
-
Labs:
Laboratory Results
04/30/25 04/30/25 04/30/25
03:51 07:43 14:56
WBC 10.4
Hgb 9.2 L
Hct 27.8 L
Plt Count 139
APTT 74.5 H Pending
Sodium 141
Potassium 4.5
Chloride 108 H
Carbon Dioxide 20 L
BUN 49 H
Creatinine 3.3 H
Glucose 136 H
Calcium 8.4
Total Bilirubin 2.2 H
AST 7465 H*
ALT 3992 H*
Alkaline Phosphatase 52
Vital Signs:
Vital Signs
Temp Pulse Resp BP Pulse Ox
98.3 F 79 16 122/83 100
04/30/25 12:00 04/30/25 13:00 04/30/25 13:00 04/30/25 13:00 04/30/25 12:00
I&O
04/29/25 04/30/25 05/01/25
06:59 06:59 06:59
Intake Total 530 / 530 862.5 / 877.0 166.0 / 166.0
Output Total 750 / 750 600 / 650 50 / 50
Balance -220 / -220 262.5 / 227.0 116.0 / 116.0
Review of Systems
-
Unable to obtain full review of systems at this time due to: Acuity
History Source: Patient
Constitutional: Denies Fever
EENT: Denies Sore Throat or Runny Nose
Respiratory: Reports Trouble Breathing
Cardiac: Denies Chest Pain
Abdomen/GI: Reports Nausea
Genitourinary: Reports No Symptoms
Musculoskeletal: Reports No Symptoms
Skin: Reports No Symptoms
Neuro: Reports No Symptoms
Physical Exam
-
General: Respiratory Distress
HEENT: Normocephalic, Atraumatic and Oxygen (On BiPAP)
Respiratory: Crackles (Bilateral) and Other (Tachypneic)
Cardiac: Regular Rhythm, S1/S2 and Tachycardic; Negative Murmur
GI: Soft, Nontender and Nondistended
Musculoskeletal: Edema, Right Lower Extrem and Edema, Left Lower Extrem
Skin: Warm and Dry
Neuro: Awake, Alert and Oriented
[2025-04-30 15:19] LABS: APTT 114.7 Sec (23.4-35.0)
--- NOTE | 2025-04-30 16:30 | PTCARENOTE ---
Reassessed the patient, repositioned w/ foam wedge, PRN pain meds given, families at bedside, all needs addressed. Minimal UOP throughout shift, Bladder scanned, no urine seen.
[2025-04-30] MEDS: LIPITOR PO (17:15)
[2025-04-30 17:28] LABS: Glucose - Point of Care 111 mg/dl (70-99)
--- NOTE | 2025-04-30 20:25 | PTCARENOTE ---
Patient received in bed on heparin gtt at 1350 units/hr. Pt's AAOx4 and able to make her needs known. COOPER x4 with LLE weakness. Pain management and plan of care for the shift reviewed with the patient. Questions encouraged. Doppler pulses to
bilateral DPs & PTs. NSR on the monitor. SpO2 at 96% on BipAP 14/16 & 4L. Occasional nonproductive cough. +BS. LT leg toi wrap, sacral foam, and rt lateral knee foam removed and sites assessed. No uop. Ureña catheter is intact. Mouth care provided.
The patient's family are remains at the bedside. Call dorsey is within reach.
[2025-04-30] MEDS: XALATAN OPHTHALMIC SOLUTION 1 DROP OPHTH (21:23)
[2025-04-30 21:57] LABS: APTT 127.0 Sec (23.4-35.0)
[2025-04-30 23:50] LABS: Glucose - Point of Care 100 mg/dl (70-99)
[2025-05-01] VITALS (26 sets, daily range): BP systolic 101–128; BP diastolic 45–112; PULSE 2–87; BMI 28.7
--- NOTE | 2025-05-01 00:31 | PTCARENOTE ---
Reassessed patient. VSS on the monitor. Patient has her eyes closed. RR 16 and unlabored. Even chest rise. Arouse to verbal commands. SpO2 at 95% on BiPAP. Mouth swabs continued. Pt's son remains at the bedside. Call dorsey is within reach.
[2025-05-01] MEDS: DILAUDID 0.25 MG IV ×3 (03:53→12:59)
--- NOTE | 2025-05-01 04:03 | PTCARENOTE ---
Patient reassessed. Prn administered for 12/10 pain to whole body. Patient cleansed and CHG wipes bath provided. continued mouth swabs.
[2025-05-01 04:15] LABS: Hematocrit 28.5 % (37.0-47.0); Hemoglobin 9.6 g/dL (12.0-16.0); Mean Corp Hgb Conc. 33.7 g/dL (33.0-37.0); Mean Corpuscular Volume 90.2 fL (81.0-99.0); Platelet Count 132 10^3/uL (130-400); Red Cell Dist. Width 15.9 % (11.5-14.5)
[2025-05-01 04:28] LABS: APTT 148.3 Sec (23.4-35.0)
[2025-05-01 04:43] LABS: Albumin 3.2 g/dl (3.5-5.0); Alkaline Phosphatase 52 U/L (38-126); Blood Urea Nitrogen 64 mg/dl (7-17); Calcium 8.0 mg/dl (8.4-10.2); Carbon Dioxide 20 mmol/L (22-30); Chloride 108 mmol/L (98-107); Estimated Creatinine Clearance 10 ml/min; Glucose 100 mg/dl (70-99); Magnesium 2.3 mg/dl (1.6-2.3); Potassium 4.2 mmol/L (3.5-5.1); Sodium 142 mmol/L (135-145); Total Protein 5.8 g/dl (6.3-8.2); eGFR 10.18
[2025-05-01 05:05] LABS: ALT (SGPT) 2419 U/L (0-35); AST (SGOT) 2196 U/L (14-36)
[2025-05-01] MEDS: ZOSYN 50 IV ×3 (05:47→20:06)
--- NOTE | 2025-05-01 06:33 | W.PN.CD ---
Today's Communication / Plan
-
Patient remains awake alert on BiPAP adequate oxygenation, heart rate and blood pressure.
Nursing staff reports that based on discussions between critical care team patient/family plans for conservative management without aggressive measures. This is also outlined in sling operator note from yesterday.
Minimal urine output overnight creatinine up to 4.2 appears there is no plans for HD.
Continue supportive treatment
As per sling operator discussion with patient and family patient with continued conservative management still getting antibiotics and some measures directed towards comfort. If there are changes regarding level of aggressiveness, as as mentioned
yesterday, low-dose dobutamine could be considered, but based on current trend unclear this will impact LISETTE.
Impression / Plan
-
80-year-old woman with history of severe multivessel coronary artery disease including chronic LAD occlusion and RCA subtotal occlusion , cardiomyopathy with ejection fraction 25%FrEF, diabetes, hypertension, hypercholesterolemia admitted with
pyelonephritis/sepsis and was noted to have a rising troponin. Patient with no complaints of chest discomfort. Labs also noted above for severe anemia. Initially mated to the IVU had some issues with increased shortness of breath respiratory
insufficiency component of CHF and then transferred to the ICU.
EVENTS
Throughout the course of the day 04/29/2025 patient had some decline in clinical status increased respiratory rate and decreased urine output despite escalating doses of diuretic. Due to severe anemia patient did receive 1 unit of PRBCs. Patient
continued to maintain blood pressure and has not required pressor support. Later in the evening patient stated that she did not want further treatment and at that point was made a DNR. Patient currently still receiving medications. 04/29/25.
Appears there were additional discussions with patient and family. plan for conservative management. Without aggressive measures and appears no plan for HD.
Urine output overnight 04/30-05/01 26 ML. and Cr up to 4.2. BP stable and no pressors. remains on Bipap with stable O2 and Lfts trending down.
.
Elevated troponin/Up to 28. Suspected type II CO secondary to combination of severe multivessel coronary artery disease (occluded LAD and subtotally occluded RCA), sepsis and severe anemia. Peaked at 28 no complaints of chest pain
- No plans for cardiac catheterization at this time
- Continue supportive treatment
.
Coronary artery disease. Known multivessel coronary artery disease with chronically occluded LAD and subtotally occluded RCA based on prior cardiac catheterization. Yesterday cath films and additional treatment plans were reviewed with
interventional cardiology. Continued medical therapy as noted above
.
Ischemic cardiomyopathy. Severely reduced left ventricular function. Most recent echo with ejection fraction of approximately 15% . heart failure reduced ejection fraction. Acute on chronic
- Ischemic cardiomyopathy ejection fraction 25%.
- GDMT in the past has been limited based on what patient is willing to take and what she can afford.
-Patient now also with LISETTE and oliguric versus anuric
- may consider use of Dobutamine. reveiwed yesterday with primary team. Based on plan of care and patient wishes it was not added
.
Sepsis/pyelonephritis. Management directed by primary team
.
Diabetes management as directed by primary team
Physical Exam
Vital Signs/Labs
Vital Signs
Temp Pulse Resp BP Pulse Ox
97.6 F 84 18 119/75 98
05/01/25 03:00 05/01/25 05:00 05/01/25 05:00 05/01/25 05:00 05/01/25 05:00
04/29/25 04/30/25 05/01/25
06:59 06:59 06:59
Actual Weight 69.9 kg 70.9 kg 71 kg
05/01/25 04:03
05/01/25 04:03
PT 21.0 Sec (11.4-14.6) H 04/29/25 18:43
INR 1.79 04/29/25 18:43
APTT 148.3 Sec (23.4-35.0) H 05/01/25 04:03
Magnesium 2.3 mg/dl (1.6-2.3) 05/01/25 04:03
04/29/25
02:07
[id number] Pept > [id number]
LAB Results
04/29/25 04/29/25 04/29/25
02:07 05:08 11:17
Troponin I 13.700 H* 16.800 H* 27.900 H* D
04/29/25 04/29/25 04/29/25
15:45 18:43 21:45
Troponin I Cancelled 27.300 H* Cancelled
04/30/25 04/30/25
00:41 07:43
Troponin I 24.700 H* 20.500 H*
Physical Exam
Constitutional: No acute distress
Cardiovascular: Rhythm & rate is regular
Respiratory: Wheeze Absent and Rhonchi Absent
GI: Soft and Non tender
Neuro/Psych: Alert
Data Reviewed
-
Date of Service: May 01, 2025
Medical Decision Making: Reviewed Test Results
X-Ray/CT/US/MRI/NUC/PET: Report Reviewed by me
Medical Tests (PFT, Pathology etc): Report Reviewed by me
Labs: Labs Reviewed by me
--- NOTE | 2025-05-01 07:30 | PTCARENOTE ---
Received patient A&Ox3, on Bipap nasal mask, NSR, BP WNL, Oral swabs intermittently for comfort, Distended ABD, Ureña in place w/ minimal UOP, families at bedside visiting.
--- NOTE | 2025-05-01 07:57 | W.PN.NEPH.PH ---
Today's Communication / Plan
-
Transition to Bumex drip
No aggressive measures such as dialysis to be initiated as per family
Assessment/Plan
-
Impression:
LISETTE
Urosepsis (E. coli and Proteus bacteremia)
Concern for right-sided pyelonephritis, noted 1.1 cm nonobstructive right-sided nephrolith
Anemia
Diabetes
Cardiomyopathy with EF 20 to 25%
Anemia
Troponin elevation
History of recent left hip fracture
Metabolic acidosis
History of nephrotic range proteinuria
Plan:
LISETTE:
- Likely exacerbated by IV contrast administration on date 04/27/2025 CT scan and/or urinary retention
- With holding ARB and metformin given acute renal failure with underlying metabolic acidosis which continues to exacerbate
- Hemodynamically stable
-Creatinine now up to 4.2, urine output recorded at 52 cc via Ureña overnight
-Will attempt bumex gtt
-Chest x-ray personally reviewed notes mild pulmonary edema
- Zosyn renally adjusted for renal failure
-Ureña catheter being placed for accurate I's and O's and due to some urinary retention that required straight cath procedure
-No acute dialysis requirement yet however patient is DNR and per review of records may not want higher level measures (i.e. HD)
- Patient had increased high clinical risk with worsening renal failure and hypoxic respiratory failure requiring IV diuretics,bipap support in setting of decompensated congestive heart failure
-
-
Date of Service: May 01, 2025
CC / HPI / ROS
-
Chief Complaint:
LISETTE
History of Present Illness:
creatinine up to 4.2
hemodynamically stable
on bipap
Review of Systems:
weighs up
nonoliguric via [id number]
on bipap
no fever
Labs
-
Labs:
WBC 9.8 10^3/uL (4.8-10.8) 05/01/25 04:03
RBC 3.16 10^6/uL (4.20-5.40) L 05/01/25 04:03
Hgb 9.6 g/dL (12.0-16.0) L 05/01/25 04:03
Hct 28.5 % (37.0-47.0) L 05/01/25 04:03
Plt Count 132 10^3/uL (130-400) 05/01/25 04:03
Sodium 142 mmol/L (135-145) 05/01/25 04:03
Potassium 4.2 mmol/L (3.5-5.1) 05/01/25 04:03
Chloride 108 mmol/L (98-107) H 05/01/25 04:03
Carbon Dioxide 20 mmol/L (22-30) L 05/01/25 04:03
BUN 64 mg/dl (7-17) H 05/01/25 04:03
Creatinine 4.2 mg/dL (0.6-1.0) H* 05/01/25 04:03
eGFR 10.18 05/01/25 04:03
Glucose 100 mg/dl (70-99) H 05/01/25 04:03
Calcium 8.0 mg/dl (8.4-10.2) L 05/01/25 04:03
Jrj-W-Zmzlkgkzjyb Pept > 60860 pg/ml 04/29/25 02:07
Albumin 3.2 g/dl (3.5-5.0) L 05/01/25 04:03
Physical Exam
-
Vital Signs:
Vital Signs
Temp Pulse Resp BP Pulse Ox
98.4 F 84 18 119/75 98
05/01/25 07:07 05/01/25 05:00 05/01/25 05:00 05/01/25 05:00 05/01/25 05:00
Cardiovascular:: Regular rate and rhythm
Respiratory:: Bilateral: Coarse
Lung Excursion:: Normal
Abdomen:: Nontender and Soft
Bowel Sounds:: Decreased
Extremity Edema:: None: Bilateral:
Ureña Catheter: Yes
Other Findings::
GEN: bipapped
[2025-05-01] MEDS: NSS (PRESERVATIVE FREE) 10 ML IV (08:22)
[2025-05-01] MEDS: PROTONIX IV 40 MG IV (08:22)
[2025-05-01] MEDS: ASPIRIN 325 MG PO (08:22)
[2025-05-01] MEDS: BUMEX 50 IV ×3 (08:44→18:33)
[2025-05-01] MEDS: LASIX IV (09:02)
--- NOTE | 2025-05-01 09:15 | W.PN.INTV ---
Today's Communication / Plan
Recommendations
- Patient to be transferred to IMU
- Resume diet
- Pulmonary service will follow along
- Ongoing goals of care discussions
Assessment
-
Patient is an 80-year-old female with previous history of COPD, chronic heart failure with reduced ejection fraction EF 25%, presenting to ER with chills, vomiting, LISETTE. On arrival to ER she had remarkable labs of leukocytosis with UA
demonstrating possible UTI. She is admitted to IMU with antibiotics. She had rapid heart rate event overnight with development of shortness of breath. Chest x-ray demonstrating pulmonary edema, proBNP on admission was greater than 27,000. She is
also in acute on chronic heart failure exacerbation. ABG obtained without notable hypercarbia. She does have mild increased work of breathing. She is 94% on 4 L. WE are consulted for evaluation of SOB.
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
Chronic systolic heart failure, EF 20-25%
COPD, moderate obstruction PFT 2022
Former smoker >20 PYs
Multivessel coronary artery disease
s/p LHC 2022 with occluded LAD subocclusive RCA, non-operable per CTS
Mixed hyperlipidemia�
Type 2 diabetes mellitus with other circulatory complications� �
Essential hypertension�
Anxiety�
Glaucoma of both eyes
Other proteinuria�
Age-related osteoporosis without fracture�
Sinus tachycardia�
05/01, overview, patient currently not on any pressors, continues to be on BiPAP, MAP is around 92, saturating 92% on 4 L via BiPAP. Urine output around 52 cc over last 24 hrs, respiratory rate around 20.
Assessment and plan:
#1. UTI with severe sepsis with multiorgan dysfunction
- Patient has positive UTI along with bacteremia, now noted to have acute kidney injury as well as acute liver injury
- Continues to be critically ill, continue broad-spectrum antibiotics
- Not requiring any pressor support
#2. LISETTE
-Concerning for contrast nephropathy, ATN related to sepsis and severe cardiomyopathy
-Patient essentially anuric despite large doses of IV Lasix and IV Bumex. Currently being started on Bumex infusion
-Respiratory failure requiring BiPAP therapy. Nephrology service on case.
-Continue medical management with trial of IV diuresis, no hemodialysis per patient and family preference
#3. NSTEMI, severe cardiomyopathy, EF around 15%
-Suspect patient has low cardiac output with worsening renal function, shock liver, essentially anuric
-Cardiology service on case. Medical management for now
-Complex underlying coronary artery disease, not felt to be a good candidate for medical/surgical revascularization
#4. Acute hypoxic respiratory failure
- Related to pulmonary edema, multifactorial with underlying anuric renal failure as well as severe ischemic cardiomyopathy
- Continue BiPAP support, added Dilaudid as needed for pain or air hunger per patient preference
#5. Acute on suspect chronic congestive heart failure with reduced ejection fraction, EF around 15%.
- Patient anuric which is challenging considering inability to diurese
- Continue BiPAP support
#6. H/o COPD.
- History of smoking for about 15 to 20 years, quit in 2004.
- No wheezing on exam, current presentation is not suggestive of COPD exacerbation
Transfer out of ICU, pulmonary team will continue to follow along
Goals of care: 05/01: Met with patient and 2 daughters at bedside. Patient again confirmed her decision to stay DNR/DNI. She wants to continue medical treatment and as needed opiates for air hunger if needed. Patient wants to continue using
noninvasive positive pressure ventilation and does not want to discuss further regarding palliation or comfort focused care. At the same time patient does not want to pursue aggressive care including hemodialysis, intubation, mechanical ventilation
etc. We discussed regarding aspiration risk and at this point considering patient is more leaning towards less invasive care, okay to take p.o.
Goals of care: 04/30. Met with patient's daughter at bedside. Patient has opted to proceed with DNR/DNI with more comfort focused approach with continuing medical management for now. Patient does not want to be intubated or sedated or
mechanically ventilated. No hemodialysis for now. Will continue current management, add as needed narcotics for air hunger or pain per patient's preference. Will continue to discuss goals of care daily. Depending upon patient's clinical course,
patient and family are inclined towards pursuing palliative care/hospice.
Critical Care time 52 mins -- The patient is admitted for acute critical illness for the treatment of vital organ failure and/or prevention of further life-threatening conditions. Total care includes time spent in review of history, physical exam,
medications, hemodynamic/ventilator parameters, laboratory data, imaging and discussion with house staff, pharmacy, respiratory therapy, aboriginal community council member, and nursing.
Diagnostic Data
CXR 04/29/25- New findings suggesting pulmonary edema. Pneumonia cannot be completely excluded. Clinical and laboratory correlation recommended. Mild cardiomegaly. New
CXR 04/27/25- No acute cardiopulmonary abnormality.
Chest X-Ray: 08/21/23- Endotracheal tube with tip in trachea above the ada. No pneumothorax. Bilateral patchy opacities which could represent pneumonitis, less likely pulmonary edema.
05/25/22- No radiographically demonstrable left rib fracture. No pleural effusion or pneumothorax. No acute cardiopulmonary process.
CT Scan: AP 05/24/22- No renal or ureteral calculus. No urinary bladder calculus. No evidence of obstructive uropathy. Mild bilateral nonspecific perinephric soft tissue stranding. Diverticulosis without acute diverticulitis. No evidence of bowel
obstruction. Chronic pancreatitis without acute inflammatory component. Mild fatty dictation of liver.
ECHO 08/17/24- Dilated LV with severe global hypokinesis and an ejection fraction of approximately 25% by visual estimation. 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 Normal right ventricular size and function. No significant valvular disease. Estimated
PASP of 16 mmHg. Compared to prior from December 17, 2023, no significant change.
Echo: 08/21/23- Dilated left ventricle. Severely reduced left ventricular systolic function.�Estimated� Left ventricular ejection fraction is 20-25%.� global hypokinesis.�Apical akinesis. Best contractility at the baseof the LV ( basal lateral,�basal
inferior and basal anterior russo. � Mild concentric left ventricular�hypertrophy. Diastolic function indeterminate.
Spirometry 08/26/23: FEV1 1.17L 64%, FVC 1.84L 75%, ratio 64. Post FEV1 1.22L 67% No BD response (moderate obstruction)
Reports and relevant images were personally reviewed.
Subjective Dataa
Subjective Data
Date of Service:
Date of Service: May 01, 2025
Subjective:
Patient comfortably lying in bed in no acute distress.
Review of Systems
Genitourinary: Other (All 14 systems reviewed and negative except as stated above in the history of present illness.)
Objective Data
Data Reviewed
Vital Signs / I&O / Oxygen:
Vital Signs
Temp Pulse Resp BP Pulse Ox
98.4 F 82 18 117/83 98
05/01/25 07:07 05/01/25 08:21 05/01/25 05:00 05/01/25 08:21 05/01/25 05:00
Intake and Output
04/30/25 05/01/25 05/02/25
06:59 06:59 06:59
Intake Total 862.5 / 877.0 410.5 / 421.0 10.5 / 10.5
Output Total 600 / 650 102 / 102 0 / 0
Balance 262.5 / 227.0 308.5 / 319.0 10.5 / 10.5
SaO2 98
Nasal Cannula flow liters per 4
minute
Physical Exam
General: Comfortable
HEENT: Normocephalic
Cardiovascular: S1-S2 and Peripheral Edema (Trace)
Respiratory: Crackles
GI: Soft and Non Distended
Neurology: Awake and Alert
Labs/Micro/Reports
Lab Data
05/01/25 04:03
05/01/25 04:03
Laboratory Results
04/30/25 04/30/25 05/01/25
14:56 21:37 04:03
APTT 114.7 H 127.0 H 148.3 H
Microbiology
04/27/25 19:01 Urine Urine Culture - Final
Escherichia coli
Proteus mirabilis
04/28/25 05:05 Blood/Venous Blood Culture - Preliminary
No Growth in 72 hours- Final report to follow
04/28/25 03:31 Blood/Venous Blood Culture - Preliminary
No Growth in 72 hours- Final report to follow
04/27/25 16:35 Blood/Venous Blood Culture - Final
Proteus mirabilis
Escherichia coli
04/27/25 16:35 Blood/Venous Gram Stain - Final
--- NOTE | 2025-05-01 12:00 | PTCARENOTE ---
Reassessed the patient, off BiPAP mask, tolerating Nasal Cannula, families at bedside accompanying, all needs addressed. No other changes from previous assessments.
[2025-05-01 12:34] LABS: Glucose - Point of Care 93 mg/dl (70-99)
[2025-05-01 12:56] LABS: APTT 169.9 Sec (23.4-35.0)
--- NOTE | 2025-05-01 14:29 | W.PN.HOSP.TC ---
Addendum entered and electronically signed by Debbie Calvin MD 05/01/25 18:57:
I saw and evaluated the patient independently. I reviewed the resident�s note and agree with findings and plan as documented by Dr. Frank.
GENERAL: well developed, well nourished, female now on bipap with nasal pillow
HEENT:NC/AT, O2 NC in place--[place]
HEART: regular rate and rhythm, +S1, +S2, tachy
LUNGS : clear to auscultation bilaterally, tachypneic
ABDOM: soft, nontender, nondistended, + bowel sounds
EXT: no cyanosis, clubbing, or edema
NEUROLOGIC: grossly intact
acute hypoxemic resp failure--events of 04/28- night noted--was SOB with chest pain--IVF stopped and bicarb given due to developing acidosis--now on BiPAP with nasal pillow--apprec director business development--IV diuresis attempted but very little urine output and
now in renal failure--creat rising and up to 4.2
ACS with NSTEMI--troponin 13.7, 16.8, peaked at 27.9 and now decreasing--likely poor cardiac index--ECHO today with EF 15-20%--not cath or surgical candidate
Shock physiology--mixed picture of septic with lactic acidosis (peaked at 7) and cardiogenic with severely depressed EF--very surprising that BP still holding steady on no pressors--now in liver failure with numbers > 7500 but decreasing to 1999s
--infectious source complicated UTI/pyelonephritis--also with nonobstructing stone--- blood cultures positive for E. coli and Proteus, urine culture with same-- repeat negative ---cont zosyn--can stop vanco
LISETTE --due to sepsis, contrast administration-trying to diurese--creat climbing, very little urine output, essential none now creat up to 4.2 (baseline 0.9)--renal dose meds--hold nephrotoxic agents--apprec renal--cont don
Anemia of chronic disease--no signs of bleeding but given known CAD with NSTEMI will transfuse 1 unit to keep HGB > 8--recent drop likely due to IVF dilution
chronic HFrEF --watch volume status, given need for IVF, needed to be stopped --holding valsartan and lasix for now
type 2 DM--hold metformin--SSI with accuchecks--HGB A1C March 2025= 5.8
wound (POA) --stage 1 Left lateral knee Pressure injury--apprec wound care
DVT Proph
CODE STATUS--Full code
poor prognosis--pt has changed code status to DNR/DNI--Dr. Doan spoke with family 04/30--IF pt worsens, hospice--for now cont current treatment without escalation of treatment--leaning more towards comfort but not ready to fully commit
family at bedside and updated
Total Critical Care Time 33 minutes. I was immediately available to the patient and staff. I personally examined, reviewed labs, diagnostic images/reports, interpretations, treatment plans, discussed patient care with other providers and family
or caregivers (if patient is unable to make decisions), entered orders as appropriate and documented the medical record.
Original Note:
Today's Communication/Plan
-
Continue comfort measures
Family present at bedside
Downgraded to IMU
Assessment / Plan
Assessment / Plan
Ms Farfan is an 80-year-old woman with a history of hypertension hyperlipidemia heart failure with reduced ejection fraction LVEF 25% type 2 diabetes osteoporosis glaucoma and anxiety presenting from [facility] for chills, vomiting. Symptoms started 'a
couple days ago'. She had labs drawn at [facility], WBC 15.7. Sent to ED, she denies any pain but states her abd but feels 'uncomfortable'. Denies any cough or SOB, no urinary symptoms. Urine and blood cultures were sent. In the ED she was tachycardic
febrile tachypneic with blood pressures in the 110s over 50s and requiring supplementary oxygen, she met SIRS and sepsis criteria. Lactic acid was 3 but improved to 0.9. Creatinine was 1.3 on presentation, BUN 23. Urine culture positive for
Proteus mirabilis, patient has history of Proteus mirabilis UTI, blood cultures positive for E. coli and Proteus species. Patient was discontinued from vancomycin. Overnight 04/29 she had increased shortness of breath tachypnea and tachycardia into
the 150s without hypotension. She did not have chest pain or diaphoresis. An EKG chest x-ray and troponin was ordered. EKGs showed no significant changes but chest x-ray showed increased pulmonary vascularity and had troponin elevation of 13 with
a repeat of 16 with a repeat at 27 and and proBNP 27,000. The header up was called to bedside who ordered some tests. She continued to have increased shortness of breath and IV fluids were stopped. ABG showed acidemia pH 7.22 pCO2 31 pO2 160
HCO3 12.7, repeat lactic acid 5.4, patient refused DuoNebs or BiPAP due to anxiety. Repeat ABG showed pH 7.4 [id number] HCO3 20.3. Repeat labs showed a creatinine of 1.6. She received a dose of Lasix and sodium bicarb, echo was ordered for the
morning. Nephrology was consulted who renally dosed Zosyn. Don was placed to monitor I's and O's, and due to urinary retention from earlier in the night. Pulmonology was consulted who were able to work with the patient to trial CPAP since she
could not tolerate BiPAP due to anxiety. Patient was transferred to the ICU and cardiology and director business development ordered 1 packed red blood cells for patient's anemia. Fittings Finisher think patient had type II HI due to sepsis stress, and severe anemia,
would not pursue catheterization. Patient had poor response to Lasix, Bumex was ordered however continued to have poor response with only 600 cc of urine. Patient was convinced to try BiPAP which improved ventilation and work of breathing, however
remained tachypneic. Repeated chest x-rays continue to show pulmonary congestion. Overnight patient went into multi organ failure with severely elevated LFTs consistent with liver shock, creatinine also continued to trend upwards to 3.3, troponin
continued to trend upwards to 27. Patient had discussion with daughter about goals of care and decided to change CODE STATUS from full to DNR DNI. Patient's daughter flew in from [place] to be by mother side. Patient requested no
aggressive treatment and we will medically manage. Continues to receive doses of Bumex and as needed Dilaudid for pain or air hunger. Patient remained satting in the 90s on 4 L and repeated ABG without notable hypercarbia. Patient taken off BiPAP
due to nose bridge skin breakdown, diet changed to regular. Family present at bedside, patient downgraded to IMU.
#Severe sepsis due to complicated UTI with
# Pyelonephritis
# Cardiogenic shock
# Septic shock
# Multisystem organ failure due to cardiogenic, septic shock
Goals of care conversation, DNR/DNI
Blood gases continue to show acidosis
Lactic acid 3--0.9--5.4--7.0--3.9--1.9
AST greater than 7500
ALT greater than 4000
Troponin 27--24--20
Creatinine uptrending
HX UCx POS for Proteus Mirabilis
- holding BP Meds
- UA with WBCs, leukoesterase, RBCs
-Urine culture positive for Proteus mirabilis pansensitive
- BCx positive for E. coli Proteus mirabilis both pansensitive
- empiric Zosyn
- Dilaudid as needed
# Acute on chronic heart failure
# Acute hypoxemic respiratory failure
# Elevated troponin
#HX chr HFrEF
# Type II HI
# Cardiogenic shock
# COPD
04/29 echo with EF 15 to 20%
Currently on 4 L O2
Type II HI in the setting of sepsis, acute on chronic heart failure demand ischemia
Elevated troponins 13 16 27 24 20
ABG showed acidosis
Lactic acid 5.4 7 3.9 1.9
Patient transfused 1 packed red blood cells
- Bumex 2 mg IV, increase as needed
- Pulmonology consult, nephrology consult, director business development consult, cardiology consult
- Appreciate recs
#LISETTE
Baseline around 0.9
CR admission 1.3--1.1--1.6--2.6--3.3--4.2
suspect due to contrast, cardiorenal syndrome
- holding BP Meds and nephrotoxic agents
- Trend Cr
# Anemia, delusional
Hgb drop from 9.8-8.1--7.9--9.6
Likely dilutional
May be contributing to demand ischemia
- Trend H&H
# Elevated liver function tests
# Shock liver
In the setting of cardiogenic shock septic shock
- Trend LFTs
# Left lateral knee wound
# Bilateral lower extremity foot ulcers
Stage I pressure ulcer
Continue to monitor
Wound management consult
#T2DM
- Hold metformin
- Low ISS
- last A1C 5.8 in March 2025
DVT Px:
SQH
CODE STATUS
Full code
Anticipated Discharge: 24 - 48 hours
Subjective/Interval History
-
Patient was seen at bedside, with family present not on BiPAP. She reports shortness of breath with speaking but is otherwise okay. She reiterated choice of no aggressive treatment, no further escalation of care. Family by bedside agrees with
her. Patient was downgraded to IMU overnight. Answered all of family's questions by bedside. Date of Service: May 01, 2025
Objective Data
-
Labs:
Laboratory Results
05/01/25 05/01/25
04:03 12:08
WBC 9.8
Hgb 9.6 L
Hct 28.5 L
Plt Count 132
APTT 148.3 H 169.9 H*
Sodium 142
Potassium 4.2
Chloride 108 H
Carbon Dioxide 20 L
BUN 64 H
Creatinine 4.2 H*
Glucose 100 H
Calcium 8.0 L
Total Bilirubin 2.1 H
AST 2196 H*
ALT 2419 H*
Alkaline Phosphatase 52
Vital Signs:
Vital Signs
Temp Pulse Resp BP Pulse Ox
97.6 F 78 17 120/78 99
05/01/25 11:05 05/01/25 10:00 05/01/25 10:00 05/01/25 10:00 05/01/25 10:00
I&O
04/30/25 05/01/25 05/02/25
06:59 06:59 06:59
Intake Total 862.5 / 877.0 410.5 / 421.0 95.0 / 95.0
Output Total 600 / 650 102 / 102 50 / 50
Balance 262.5 / 227.0 308.5 / 319.0 45.0 / 45.0
Review of Systems
-
History Source: Patient and Family
Constitutional: Reports Fatigue; Denies Fever or Chills
EENT: Denies Sore Throat or Runny Nose
Respiratory: Reports Trouble Breathing; Denies Cough or Wheezing
Cardiac: Denies Chest Pain or Palpitations
Abdomen/GI: Denies Abdominal Pain, Nausea or Vomiting
Genitourinary: Reports Difficulty Voiding (Anuric); Denies Dysuria
Musculoskeletal: Reports No Symptoms; Denies Joint Pain
Skin: Denies Itching or Rash
Neuro: Reports No Symptoms; Denies Dizzy or Headache
Physical Exam
-
General: Well Developed, Well Nourished and Comfortable; Negative Pain
HEENT: Normocephalic, Atraumatic, Hearing Impaired and Oxygen (4 L nasal cannula)
Respiratory: Clear to Auscultation and Non Labored Respirations; Negative Wheezes or Crackles
Cardiac: Regular Rhythm and S1/S2; Negative Murmur
GI: Soft, Nontender, Nondistended and Normal Bowel Sounds
Musculoskeletal: No Clubbing, No Cyanosis and No Edema
Skin: Warm (Cold feet), Dry and Ulcers (Bilateral feet, left lateral knee lesion)
Neuro: Awake, Alert and Oriented
Psych: Calm
--- NOTE | 2025-05-01 16:00 | PTCARENOTE ---
Reassessed the patient, feeling tired and nasal congestion, this RN recommended to wear nasal BiPAP at night when go to sleep, family aware and agree, continue Bumex gtt, minimal UOP, no other changes from previous assessments.
--- NOTE | 2025-05-01 16:31 | CM ---
No change, plan for move to IMU, patient not ready to talk about hospice per physician, family very supportive. CM will continue to follow for discharge planning needs.
Plan; pending medical treatment plan
[2025-05-01] MEDS: LIPITOR 40 MG PO (17:03)
[2025-05-01] MEDS: DILAUDID 0.5 MG IV ×2 (17:04→20:59)
[2025-05-01 17:40] LABS: Glucose - Point of Care 115 mg/dl (70-99)
--- NOTE | 2025-05-01 20:00 | PTCARENOTE ---
Assumed care. Patient received lying in bed, awake, alert and oriented. Very [place]. Family at the bedside. She is without apparent signs of distress or discomfort. However, she c/o severe 10/10 pain of all extremities in joints and muscles. She is
asking for pain medication but it is a little early. LAURA Fox notified and new orders received to give pain med more frequently. See assessment services manager charted on worklist flowsheet. BBS with UL clear, bases diminished. Abdomen soft, round and
nontender. Ureña catheter patent draining clear yellow urine. S1S2 regular with loud murmur. SR with 1st degree AVB and BBB on CM. BLE with feet cold, diminished pedal pulses--patient does not want her feet covered. Midline left arm and peripheral
lines x 2 right arm, all WDL. Heparin gtt and Bumex gtt per order. PTT drawn. Bed in low and locked position, call dorsey within reach. Repositioned patient as she allows.
[2025-05-01 20:39] LABS: APTT 121.6 Sec (23.4-35.0)
[2025-05-01] MEDS: XALATAN OPHTHALMIC SOLUTION 1 DROP OPHTH (21:00)
[2025-05-01] MEDS: TYLENOL 650 MG PO (21:59)
[2025-05-01 22:20] LABS: Glucose - Point of Care 100 mg/dl (70-99)
[2025-05-02] VITALS (12 sets, daily range): BP systolic 98–125; BP diastolic 54–84; BMI 28.9
[2025-05-02] MEDS: BUMEX 50 IV ×5 (00:16→23:51)
--- NOTE | 2025-05-02 02:31 | PTCARENOTE ---
QT 0.48, QTc 0.50. SR with 1st degree AVB and BBB, HR low 60s.
--- NOTE | 2025-05-02 03:00 | PTCARENOTE ---
Patient appears to be sleeping comfortably t/o most of night. Awoke with headache. Tylenol given, ice pack to forehead. Am labs drawn with PTT due.
[2025-05-02] MEDS: HEPARIN 25000 UNITS/250 ML IV (03:02)
[2025-05-02] MEDS: TYLENOL 650 MG PO ×4 (03:02→20:51)
[2025-05-02] MEDS: ZOSYN 50 IV ×3 (03:16→20:51)
[2025-05-02 03:57] LABS: APTT 132.0 Sec (23.4-35.0)
[2025-05-02 04:33] LABS: Blood Urea Nitrogen 75 mg/dl (7-17); Calcium 8.5 mg/dl (8.4-10.2); Carbon Dioxide 22 mmol/L (22-30); Chloride 107 mmol/L (98-107); Glucose 104 mg/dl (70-99); Potassium 4.3 mmol/L (3.5-5.1); Sodium 141 mmol/L (135-145)
[2025-05-02 05:41] LABS: Estimated Creatinine Clearance 9 ml/min; eGFR 8.67
--- NOTE | 2025-05-02 07:22 | PTCARENOTE ---
Report given verbally to Isidro orosco RN. Bedside rounds, questions answered.
[2025-05-02 07:40] LABS: Glucose - Point of Care 109 mg/dl (70-99)
[2025-05-02] MEDS: DILAUDID 0.25 MG IV (07:54)
[2025-05-02] MEDS: ASPIRIN 325 MG PO (07:54)
[2025-05-02] MEDS: PROTONIX IV 40 MG IV (07:55)
[2025-05-02] MEDS: NSS (PRESERVATIVE FREE) 10 ML IV (07:56)
--- NOTE | 2025-05-02 08:30 | W.PN.PUL3 ---
Today's Communication / Plan
-
Starting dobutamine drip
Trend UOP + sCr
Trend LFTs
Continue antibiotics (Zosyn) for UTI
DNR/DNI
Poor prognosis
In setting of NSTEMI, keep SpO2 >90-94% (despite history of COPD)
prn Dilaudid for air hunger (unable to do morphine given significant LISETTE)
Patient/family has declined HD
Patient is heading towards hospice, especially if she fails trial of dobutamine drip given high concern for cardiorenal syndrome
Continue IMU level of care; pulmonary service will continue to follow along
Assessment
-
Patient is an 80-year-old female with previous history of COPD, chronic heart failure with reduced ejection fraction EF 25%, presenting to ER with chills, vomiting, LISETTE. On arrival to ER she had remarkable labs of leukocytosis with UA
demonstrating possible UTI. She is admitted to IMU with antibiotics. She had rapid heart rate event overnight with development of shortness of breath. Chest x-ray demonstrating pulmonary edema, proBNP on admission was greater than 27,000. She is
also in acute on chronic heart failure exacerbation. ABG obtained without notable hypercarbia. She does have mild increased work of breathing. She is 94% on 4 L. WE are consulted for evaluation of SOB.
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
Chronic systolic heart failure, EF 20-25%
COPD, moderate obstruction PFT 2022
Former smoker >20 PYs
Multivessel coronary artery disease
s/p LHC 2022 with occluded LAD subocclusive RCA, non-operable per CTS
Mixed hyperlipidemia�
Type 2 diabetes mellitus with other circulatory complications� �
Essential hypertension�
Anxiety�
Glaucoma of both eyes
Other proteinuria�
Age-related osteoporosis without fracture�
Sinus tachycardia�
Assessment and plan:
#1. UTI with severe sepsis with multiorgan dysfunction
- Patient has positive UTI along with bacteremia, now noted to have acute kidney injury as well as acute liver injury
-Urine culture from 04/27/2025 has grown E. coli + Proteus mirabilis
- Continues to be critically ill, continue broad-spectrum antibiotics (Zosyn)
- Not requiring any pressor support
- Keep MAP>65
#2. LISETTE
-Concerning for contrast nephropathy, ATN related to sepsis and severe cardiomyopathy
-Patient essentially anuric despite large doses of IV Lasix and IV Bumex. Currently on Bumex infusion
-Respiratory failure requiring BiPAP therapy - now off BiPAP and breathing comfortably on 4 L/min as of 05/02/2025; continue BiPAP prn going forward. Nephrology service on case.
-Continue medical management with trial of IV diuresis, no hemodialysis per patient and family preference
-Cardiology discussed case with today and starting dobutamine trial
#3. NSTEMI, severe dilated cardiomyopathy with EF 10-15%
-Patient has low cardiac output with worsening renal function, shock liver, essentially anuric
-Cardiology service on case - starting dobutamine today (05/02)
-Complex underlying coronary artery disease, not felt to be a good candidate for medical/surgical revascularization
-Keep K>4, Mg>2
#4. Acute hypoxic respiratory failure
- Related to pulmonary edema, multifactorial with underlying anuric renal failure as well as severe ischemic cardiomyopathy
- Continue BiPAP support prn, otherwise use nasal cannula to keep SpO2 >90-94%, added Dilaudid as needed for pain or air hunger per patient preference
#5. Acute on suspect chronic congestive heart failure with reduced ejection fraction, EF 10-15%.
- Patient anuric which is challenging considering inability to diurese
- Continue BiPAP support prn
#6. H/o COPD.
- PFTs from 03/19/2024 showed a mild obstructive lung defect with FEV1: 1.41 L / 83% predicted, with no air trapping or hyperinflation, and mildly reduced DLCO (63%)
- Follows with our office (Dr. Montanez) � last visit 03/19/2024 - patient was asymptomatic at that time, & there was no indication for bronchodilators; patient should follow-up with our office after discharge (if she survives)
- History of smoking for about 15 to 20 years, quit in 2004.
- No wheezing on exam, current presentation is not suggestive of COPD exacerbation
Continue IMU level of care. Pulmonary service will continue to follow along.
Prior goals of care discussions with Dr. Doan:
Goals of care: 05/01: Met with patient and 2 daughters at bedside. Patient again confirmed her decision to stay DNR/DNI. She wants to continue medical treatment and as needed opiates for air hunger if needed. Patient wants to continue using
noninvasive positive pressure ventilation and does not want to discuss further regarding palliation or comfort focused care. At the same time patient does not want to pursue aggressive care including hemodialysis, intubation, mechanical ventilation
etc. We discussed regarding aspiration risk and at this point considering patient is more leaning towards less invasive care, okay to take p.o.
Goals of care: 04/30. Met with patient's daughter at bedside. Patient has opted to proceed with DNR/DNI with more comfort focused approach with continuing medical management for now. Patient does not want to be intubated or sedated or
mechanically ventilated. No hemodialysis for now. Will continue current management, add as needed narcotics for air hunger or pain per patient's preference. Will continue to discuss goals of care daily. Depending upon patient's clinical course,
patient and family are inclined towards pursuing palliative care/hospice.
Critical care statement: A total of 36 minutes of critical care time was provided for this patient today. This includes management of unstable vital signs, evaluation of the patient at bedside, reviewing the patient�s pertinent medical records
including radiographs, microbiology, laboratory evaluations, and��discussion with primary team, consultants, pharmacy, nutrition, physical therapy, case management, charge nurse, critical care nursing, and respiratory therapy.
Diagnostic Data
CXR 04/29/25- New findings suggesting pulmonary edema. Pneumonia cannot be completely excluded. Clinical and laboratory correlation recommended. Mild cardiomegaly. New
CXR 04/27/25- No acute cardiopulmonary abnormality.
Chest X-Ray: 08/21/23- Endotracheal tube with tip in trachea above the ada. No pneumothorax. Bilateral patchy opacities which could represent pneumonitis, less likely pulmonary edema.
05/25/22- No radiographically demonstrable left rib fracture. No pleural effusion or pneumothorax. No acute cardiopulmonary process.
CT Scan: AP 05/24/22- No renal or ureteral calculus. No urinary bladder calculus. No evidence of obstructive uropathy. Mild bilateral nonspecific perinephric soft tissue stranding. Diverticulosis without acute diverticulitis. No evidence of bowel
obstruction. Chronic pancreatitis without acute inflammatory component. Mild fatty dictation of liver.
ECHO 08/17/24- Dilated LV with severe global hypokinesis and an ejection fraction of approximately 25% by visual estimation. 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 Normal right ventricular size and function. No significant valvular disease. Estimated
PASP of 16 mmHg. Compared to prior from December 17, 2023, no significant change.
Echo: 08/21/23- Dilated left ventricle. Severely reduced left ventricular systolic function.�Estimated� Left ventricular ejection fraction is 20-25%.� global hypokinesis.�Apical akinesis. Best contractility at the baseof the LV ( basal lateral,�basal
inferior and basal anterior russo. � Mild concentric left ventricular�hypertrophy. Diastolic function indeterminate.
Spirometry 08/26/23: FEV1 1.17L 64%, FVC 1.84L 75%, ratio 64. Post FEV1 1.22L 67% No BD response (moderate obstruction)
Reports and relevant images were personally reviewed.
Subjective Data
-
Date of Service:
Date of Service: May 02, 2025
Chief Complaint: Pulmonary Follow Up
Subjective:
Patient was seen and evaluated today at bedside. Patient's daughter, Ericka, present at bedside. Patient is in no acute distress. Current heart rate 74, BP 98/54, and saturating 97% on 4 L/min nasal cannula. Patient is sleepy but easily
arousable and answering questions appropriately. Anxious at times, extremely [place].
Review of Systems
General: Other (Negative unless mentioned above)
Objective Data
Data Reviewed
Vital Signs / I&O / Oxygen:
Vital Signs
Temp Pulse Resp BP Pulse Ox
97.5 F 81 15 119/72 98
05/02/25 07:16 05/02/25 07:00 05/02/25 07:00 05/02/25 06:00 05/02/25 07:00
Intake and Output
05/01/25 05/02/25 05/03/25
06:59 06:59 06:59
Intake Total 410.5 / 421.0 538.45 / 538.45
Output Total 102 / 102 225 / 225
Balance 308.5 / 319.0 313.45 / 313.45
SaO2 98
Nasal Cannula flow liters per 4
minute
Physical Exam
General: Respiratory Distress (negative), Comfortable, Chills (negative) and Sweats (negative)
HEENT: Normocephalic and Anicteric
Cardiovascular: S1-S2 and Peripheral Edema (negative)
Respiratory: Wheeze (negative), Crackles (negative), Rhonchi (negative), Non-Labored Respirations and Other (Poor inspiratory effort)
GI: Soft, Non Distended, Non Tender and Normal Bowel Sounds
Neurology: Tremors (negative) and Other (Sleepy, although easily arousable and answers questions appropriately)
Skin: Warm, Dry, Cyanosis (negative) and Jaundice
Labs/Micro/Reports
Lab Data
05/01/25 04:03
05/02/25 03:15
Laboratory Results
05/01/25 05/01/25 05/02/25
12:08 20:14 03:15
APTT 169.9 H* 121.6 H 132.0 H
Microbiology
04/28/25 05:05 Blood/Venous Blood Culture - Preliminary
No Growth in 4 days- Final report to follow
04/28/25 03:31 Blood/Venous Blood Culture - Preliminary
No Growth in 4 days- Final report to follow
04/27/25 19:01 Urine Urine Culture - Final
Escherichia coli
Proteus mirabilis
04/27/25 16:35 Blood/Venous Blood Culture - Final
Proteus mirabilis
Escherichia coli
04/27/25 16:35 Blood/Venous Gram Stain - Final
--- NOTE | 2025-05-02 09:43 | W.PN.HOSP.TC ---
Addendum entered and electronically signed by Sage Moran DO 05/03/25 14:03:
CDI: NSTEMI likely type II though cannot rule out type I, no LHC performed, transition to comfort measures today
Original Note:
Today's Communication/Plan
-
continue current management
pain management
Assessment / Plan
Assessment / Plan
Ms Farfan is an 80-year-old woman with a history of hypertension hyperlipidemia heart failure with reduced ejection fraction LVEF 25% type 2 diabetes osteoporosis glaucoma and anxiety presenting from [place] for chills, vomiting. Symptoms started 'a
couple days ago'. She had labs drawn at [facility], WBC 15.7. Sent to ED, she denies any pain but states her abd but feels 'uncomfortable'. Denies any cough or SOB, no urinary symptoms. Urine and blood cultures were sent. In the ED she was tachycardic
febrile tachypneic with blood pressures in the 110s over 50s and requiring supplementary oxygen, she met SIRS and sepsis criteria. Lactic acid was 3 but improved to 0.9. Creatinine was 1.3 on presentation, BUN 23. Urine culture positive for
Proteus mirabilis, patient has history of Proteus mirabilis UTI, blood cultures positive for E. coli and Proteus species. Patient was discontinued from vancomycin. Overnight 04/29 she had increased shortness of breath tachypnea and tachycardia into
the 150s without hypotension. She did not have chest pain or diaphoresis. An EKG chest x-ray and troponin was ordered. EKGs showed no significant changes but chest x-ray showed increased pulmonary vascularity and had troponin elevation of 13 with
a repeat of 16 with a repeat at 27 and and proBNP 27,000. The lodge sales associate was called to bedside who ordered some tests. She continued to have increased shortness of breath and IV fluids were stopped. ABG showed acidemia pH 7.22 pCO2 31 pO2 160
HCO3 12.7, repeat lactic acid 5.4, patient refused DuoNebs or BiPAP due to anxiety. Repeat ABG showed pH 7.4 [id number] PO294 HCO3 20.3. Repeat labs showed a creatinine of 1.6. She received a dose of Lasix and sodium bicarb, echo was ordered for the
morning. Nephrology was consulted who renally dosed Zosyn. Ureña was placed to monitor I's and O's, and due to urinary retention from earlier in the night. Pulmonology was consulted who were able to work with the patient to trial CPAP since she
could not tolerate BiPAP due to anxiety. Patient was transferred to the ICU and cardiology and polytechnic registrar ordered 1 packed red blood cells for patient's anemia. Hay Rake Operator think patient had type II TN due to sepsis stress, and severe anemia,
would not pursue catheterization. Patient had poor response to Lasix, Bumex was ordered however continued to have poor response with only 600 cc of urine. Patient was convinced to try BiPAP which improved ventilation and work of breathing, however
remained tachypneic. Repeated chest x-rays continue to show pulmonary congestion. Overnight patient went into multi organ failure with severely elevated LFTs consistent with liver shock, creatinine also continued to trend upwards to 3.3, troponin
continued to trend upwards to 27. Patient had discussion with daughter about goals of care and decided to change CODE STATUS from full to DNR DNI. Patient's daughter flew in from [place] to be by mother side. Patient requested no
aggressive treatment and we will medically manage. Continues to receive doses of Bumex and as needed Dilaudid for pain or air hunger. Patient remained satting in the 90s on 4 L and repeated ABG without notable hypercarbia. Patient taken off BiPAP
due to nose bridge skin breakdown, diet changed to regular. Family present at bedside, patient downgraded to IMU.
#Severe sepsis due to complicated UTI with
# Pyelonephritis
# Cardiogenic shock
# Septic shock
# Multisystem organ failure due to cardiogenic, septic shock
Goals of care conversation, DNR/DNI
Blood gases continue to show acidosis
Lactic acid 3--0.9--5.4--7.0--3.9--1.9
AST greater than 7500
ALT greater than 4000
Troponin 27--24--20
Creatinine uptrending
HX UCx POS for Proteus Mirabilis
- holding BP Meds
- UA with WBCs, leukoesterase, RBCs
-Urine culture positive for Proteus mirabilis pansensitive
- BCx positive for E. coli Proteus mirabilis both pansensitive
- empiric Zosyn
- Dilaudid as needed
-tylenol as needed
# Acute on chronic heart failure
# Acute hypoxemic respiratory failure
# Elevated troponin
#HX chr HFrEF
# Type II TN
# Cardiogenic shock
# COPD
04/29 echo with EF 15 to 20%
Currently on 4 L O2
Type II TN in the setting of sepsis, acute on chronic heart failure demand ischemia
Elevated troponins 13 16 27 24 20
ABG showed acidosis
Lactic acid 5.4 7 3.9 1.9
Patient transfused 1 packed red blood cells
- Bumex 2 mg IV, increase as needed
- Pulmonology consult, nephrology consult, polytechnic registrar consult, cardiology consult
- Appreciate recs
-heparin gtt for ACS
#LISETTE
Baseline around 0.9
CR admission 1.3--1.1--1.6--2.6--3.3--4.2
suspect due to contrast, cardiorenal syndrome
- holding BP Meds and nephrotoxic agents
- Trend Cr
#headache
tylenol as needed
ice pack as needed
# Anemia, delusional
Hgb drop from 9.8-8.1--7.9--9.6
Likely dilutional
May be contributing to demand ischemia
- Trend H&H
# Elevated liver function tests
# Shock liver
In the setting of cardiogenic shock septic shock
- Trend LFTs
# Left lateral knee wound
# Bilateral lower extremity foot ulcers
Stage I pressure ulcer
Continue to monitor
Wound management consult
#T2DM
- Hold metformin
- Low ISS
- last A1C 5.8 in March 2025
DVT Px:
SQH
CODE STATUS
Full code
Anticipated Discharge: > 48 hours
Subjective/Interval History
-
patient was sleeping in bed. Talked with family at bedside. Patient had headache yesterday that was somewhat alleviated by tylenol and ice pack. She otherwise had no complaints. Date of Service: May 02, 2025
Objective Data
-
Labs:
Laboratory Results
05/02/25 05/02/25
03:15 11:20
APTT 132.0 H Pending
Sodium 141
Potassium 4.3
Chloride 107
Carbon Dioxide 22
BUN 75 H
Creatinine 4.8 H*
Glucose 104 H
Calcium 8.5
Vital Signs:
Vital Signs
Temp Pulse Resp BP Pulse Ox
97.5 F 81 15 119/72 98
05/02/25 07:16 05/02/25 07:00 05/02/25 07:00 05/02/25 06:00 05/02/25 07:00
I&O
05/01/25 05/02/25 05/03/25
06:59 06:59 06:59
Intake Total 410.5 / 421.0 538.45 / 538.45
Output Total 102 / 102 225 / 225
Balance 308.5 / 319.0 313.45 / 313.45
Review of Systems
-
History Source: Patient and Family
Constitutional: Reports No Symptoms; Denies Fever or Fatigue
EENT: Reports No Symptoms Reported; Denies Sore Throat or Runny Nose
Respiratory: Denies Cough, Trouble Breathing or Wheezing
Cardiac: Denies Chest Pain or Palpitations
Abdomen/GI: Reports No Symptoms; Denies Abdominal Pain, Nausea, Vomiting or Diarrhea
Genitourinary: Reports No Symptoms; Denies Dysuria or Frequency
Musculoskeletal: Reports No Symptoms
Skin: Reports No Symptoms; Denies Itching
Neuro: Reports No Symptoms; Denies Dizzy or Headache
Physical Exam
-
General: Well Developed and No Apparent Distress
HEENT: Normocephalic and Atraumatic
Respiratory: Clear to Auscultation; Negative Wheezes, Crackles or Non Labored Respirations
Cardiac: Regular Rhythm and S1/S2; Negative Murmur
GI: Soft, Nontender, Nondistended and Normal Bowel Sounds
Musculoskeletal: No Clubbing, No Cyanosis, No Edema and Other (cold lower extremities)
Skin: Warm and Dry
Neuro: Awake, Alert and Oriented
--- NOTE | 2025-05-02 10:36 | PTCARENOTE ---
Assumed care. Daughter at bedside. Patient received lying in bed, awake, alert and oriented. Very [place]. Family at the bedside. She is without apparent signs of distress or discomfort. However, she c/o severe 9/10 pain of all extremities in joints and
muscles. She is asking for pain medication and tylenol for headache. Ice pack remains on head. See baggage clerk charted on worklist flowsheet. Crackles in lungs throughout, bases diminished. Abdomen soft, round and nontender. Ureña catheter patent
draining clear yellow urine. SR with 1st degree AVB and BBB on CM.Murmur reported but unable to auscultate at this time, doppler pedal pulses. Midline left arm and peripheral lines x 2 right arm. Heparin gtt and Bumex gtt per order. Bed in low and
locked position, call dorsey within reach. Repositioned patient as she allows.
--- NOTE | 2025-05-02 10:40 | W.PN.NEPH.PH ---
Today's Communication / Plan
-
Continue Bumex
Inotropic support
Assessment/Plan
-
Impression:
LISETTE
Urosepsis (E. coli and Proteus bacteremia)
Concern for right-sided pyelonephritis, noted 1.1 cm nonobstructive right-sided nephrolith
Anemia
Diabetes
Cardiomyopathy with EF 20 to 25%
Anemia
Troponin elevation
History of recent left hip fracture
Metabolic acidosis
History of nephrotic range proteinuria
Plan:
LISETTE:
- Likely exacerbated by IV contrast administration on date 04/27/2025 CT scan and/or urinary retention
Antibiotics
Ureña catheter
-No acute dialysis requirement yet however patient is DNR and not a candidate for dialysis if needed
Bumex drip oliguric
Creatinine increasing
Inotropic support as discussed with cardiology agree
Discussed with ICU team

32 minutes critical care time
-
-
Date of Service: May 02, 2025
CC / HPI / ROS
-
Chief Complaint:
LISETTE
History of Present Illness:
creatinine up to 4.2
hemodynamically stable
on bipap
Review of Systems:
weighs up
Oliguric
Labs
-
Labs:
WBC 9.8 10^3/uL (4.8-10.8) 05/01/25 04:03
RBC 3.16 10^6/uL (4.20-5.40) L 05/01/25 04:03
Hgb 9.6 g/dL (12.0-16.0) L 05/01/25 04:03
Hct 28.5 % (37.0-47.0) L 05/01/25 04:03
Plt Count 132 10^3/uL (130-400) 05/01/25 04:03
Sodium 141 mmol/L (135-145) 05/02/25 03:15
Potassium 4.3 mmol/L (3.5-5.1) 05/02/25 03:15
Chloride 107 mmol/L (98-107) 05/02/25 03:15
Carbon Dioxide 22 mmol/L (22-30) 05/02/25 03:15
BUN 75 mg/dl (7-17) H 05/02/25 03:15
Creatinine 4.8 mg/dL (0.6-1.0) H* 05/02/25 03:15
eGFR 8.67 05/02/25 03:15
Glucose 104 mg/dl (70-99) H 05/02/25 03:15
Calcium 8.5 mg/dl (8.4-10.2) 05/02/25 03:15
Sqa-I-Ablluubewjb Pept > 67165 pg/ml 04/29/25 02:07
Albumin 3.2 g/dl (3.5-5.0) L 05/01/25 04:03
Physical Exam
-
Vital Signs:
Vital Signs
Temp Pulse Resp BP Pulse Ox
97.5 F 82 20 123/73 98
05/02/25 07:16 05/02/25 10:00 05/02/25 10:00 05/02/25 10:00 05/02/25 10:00
[2025-05-02] MEDS: DILAUDID 0.5 MG IV ×4 (11:04→23:56)
[2025-05-02 12:07] LABS: Glucose - Point of Care 109 mg/dl (70-99)
[2025-05-02 12:19] LABS: APTT 71.0 Sec (23.4-35.0)
[2025-05-02] MEDS: DOBUTREX 500 MG 250 IV (13:06)
--- NOTE | 2025-05-02 13:23 | PTCARENOTE ---
Family at bedside, pt interacting and in good spirits. Dobutamine started at 2.5mcg/kg/min at set rate.
--- NOTE | 2025-05-02 13:55 | W.PN.UPDATE ---
Update Note
Progress Note Update
I have independently evaluated the patient at the bedside. I reviewed the case with the resident and agree with all documentation unless otherwise specified.
AFVSS this morning on 4 L with SPO2 mid to high 90s. Renal function continues to worsen with creatinine up to 4.8, minimal urine output.
AAO x 4, NAD, no FND or cranial nerve deficits. Reduced breath sounds at the bases, RRR without murmurs or gallops and normal S1-2. JVD difficult to assess with habitus. Trace edema. Reduced pulses, cool extremities.
Acute hypoxemic respiratory failure with cardiogenic shock secondary to NSTEMI and systolic heart failure. LVEF worsened from 25% to 15%. Has been on IV heparin drip, full dose aspirin, IV Bumex drip and midodrine for BP support. No GDMT at this
time due to shock physiology. Agree with jewelry bench worker on inotropic support with dobutamine started this morning. Continue with IV heparin drip, home dose aspirin, IV Bumex drip and dobutamine drip. May benefit from [place] if cardiology agrees,
for closer hemodynamic monitoring. Will discuss discontinuation of midodrine with jewelry bench worker to optimize afterload. Strict I's and O's, daily weights. Monitor for ectopy on telemetry. Wean oxygen for SpO2 goal >90%
Oliguria acute renal failure. Suspect multifactorial with septic ATN and cardiorenal physiology in the context of cardiogenic shock. Minimal urine output at this point despite Bumex drip. No urgent indication for HD at this time, family also
states HD is outside of the patient's goals of care. Will continue with hemodynamic optimization with inotropes and IV Bumex drip as above. Continue to strictly monitor urine output, avoid nephrotoxic agents and maintain MAP goal >65 mmHg.
Sepsis secondary to UTI. Urine cultures with E. coli and Proteus. Remains on IV Zosyn at this time. Suspect her course was complicated by septic ATN as above. Will continue with IV Zosyn for now as she remains critically ill. If she recovers
can plan to transition to Keflex to complete course of antibiotics. Continue to trend CBC and temperature curve here.
Goals of care ongoing. Patient and family have stated she does not want hemodialysis. If renal function continues to worsen to the point of urgent hemodialysis requirements then may need to transition to hospice/comfort measures depending on
family's goals of care at the time.
Renal diet
IV heparin drip
DNR/DNI
Expected discharge >48 hours though dependent on goals of care
--- NOTE | 2025-05-02 15:40 | CM ---
LVEF from 25% to 15-20% on 04/29. Multisystem organ failure. DNR. Goals of Care discussed. IV/Bumex, Zosyn, Dobutamine. Discharge POC: Return to [place]. Will need PT/OT eval for SNF.
--- NOTE | 2025-05-02 16:22 | PTCARENOTE ---
Assessment unchanged. VSS. Pt sleeping soundly
[2025-05-02 16:59] LABS: Glucose - Point of Care 108 mg/dl (70-99)
[2025-05-02] MEDS: LIPITOR 40 MG PO (17:55)
[2025-05-02 18:42] LABS: APTT 88.3 Sec (23.4-35.0)
--- NOTE | 2025-05-02 20:00 | PTCARENOTE ---
assumed care, pt Ox3 @ x's forgetful, c/o 07/22 whole body pain refer to MAR, Sinus on the monitor c BBB, + radials, doppler pedals, +1 lower extremities, trace to upper extremities, 2LNC, 96%, diminished c poor effort, BSx4 hypoactive, poor
appetite denied dinner, c/o pain when swallowing, Ureña with yellow output, wounds per worklist, Dobutamine 2.5mcg/kg/min, Bumex 8ml/hr, Hep 650 units, L midline, 20G RAC, 22G RFA, family @ bedside and updated, call dorsey within reach, bedalarm on,
otherwise refer to documentation
[2025-05-02] MEDS: XALATAN OPHTHALMIC SOLUTION 1 DROP OPHTH (22:00)
[2025-05-02 22:10] LABS: Glucose - Point of Care 102 mg/dl (70-99)
[2025-05-03] VITALS (8 sets, daily range): BP systolic 119–137; BP diastolic 62–87; BMI 28.9
[2025-05-03 00:18] LABS: APTT 90.9 Sec (23.4-35.0)
--- NOTE | 2025-05-03 02:47 | DOWNTIME ---
There was a [employer] Client Warehouse Puller Downtime on 05/03/2025 from 0100 to 05/03/2025 at 0220. Downtime documentation of patient's care, including medication administrations, has been reconciled in the electronic record per guidelines. Refer to the
patient's paper chart under the miscellaneous tab to see printed paper medication records and downtime forms.
[2025-05-03] MEDS: ZOSYN 50 IV (03:07)
[2025-05-03] MEDS: DILAUDID 0.5 MG IV ×2 (03:08→08:02)
[2025-05-03 03:51] LABS: Hematocrit 26.7 % (37.0-47.0); Hemoglobin 9.0 g/dL (12.0-16.0); Mean Corp Hgb Conc. 33.7 g/dL (33.0-37.0); Mean Corpuscular Volume 91.1 fL (81.0-99.0); Platelet Count 142 10^3/uL (130-400); Red Cell Dist. Width 16.0 % (11.5-14.5)
[2025-05-03 04:02] LABS: APTT 78.4 Sec (23.4-35.0)
[2025-05-03 04:23] LABS: Blood Urea Nitrogen 77 mg/dl (7-17); Calcium 8.0 mg/dl (8.4-10.2); Carbon Dioxide 19 mmol/L (22-30); Chloride 107 mmol/L (98-107); Glucose 92 mg/dl (70-99); Potassium 4.5 mmol/L (3.5-5.1); Sodium 141 mmol/L (135-145)
[2025-05-03 04:40] LABS: Estimated Creatinine Clearance 7 ml/min; eGFR 7.05
[2025-05-03] MEDS: BUMEX 50 IV (05:53)
[2025-05-03] MEDS: ASPIRIN PO (08:00)
[2025-05-03 08:06] LABS: Glucose - Point of Care 114 mg/dl (70-99)
--- NOTE | 2025-05-03 08:32 | PTCARENOTE ---
assumed care, pt Ox3 but can be forgetful, c/o 07/22 whole body pain refer to MAR, Sinus on the monitor c BBB, + radials, doppler pedals, +1 lower extremities, trace to upper extremities, 2LNC, 97%, diminished c poor effort, BSx4 hypoactive, poor
appetite, c/o pain when swallowing, Ureña with yellow output, wounds per worklist, Dobutamine 2.5mcg/kg/min, Bumex 2mg/hr, Hep 650 units/hr, L midline, 20G RAC, 22G RFA, refer to assessment flowsheet.
--- NOTE | 2025-05-03 08:49 | W.PN.CD ---
Documented by User: Tom Miller MD 05/03/25 08:47
Today's Communication / Plan
-
Stop heparin
Continue aspirin and statin
Stop dobutamine
Continue goals of care discussions
Impression / Plan
-
80-year-old woman with history of severe multivessel coronary artery disease including chronic LAD occlusion and RCA subtotal occlusion , cardiomyopathy with ejection fraction 25%, diabetes, hypertension, hypercholesterolemia admitted with
pyelonephritis/sepsis and was noted to have a rising troponin. Patient with no complaints of chest discomfort. Labs also noted above for severe anemia.
Patient has multiorgan dysfunction and extremely poor prognosis.
NSTEMI
-Troponin peaked at 28, now downtrending. No complaints of chest pain.
-We will plan to manage this medically given her critical status and leaning towards hospice
-She is not a good candidate for revascularization
-Stop heparin as it has been more than 48 hours of treatment
-Continue aspirin and atorvastatin
-No beta-jamison due to hemodynamic instability
Ischemic cardiomyopathy (EF 15%)
-GDMT limited by critical illness
-Stop dobutamine as I do not think this is helping
Oliguric acute renal failure
-Hemodialysis is not within goals of care per family
-Trend with attempted diuresis
-Nephrology following
Sepsis/pyelonephritis with multiorgan dysfunction
-Continue antibiotics
-Management per primary team
CCT: 35 minutes
Physical Exam
Physical Exam
Constitutional: No acute distress and Comfortable
Cardiovascular: Rhythm & rate is regular, Pedal edema is absent, S1S2 is normal and Murmur/rub/gallop absent
Respiratory: Respiratory effort normal and Crackles Present
Data Reviewed
-
Medical Decision Making: Reviewed Test Results, Independent Historian Assessment, Test Interpretation and Review of Case with other Provider
EKG: Tracing Personally Visualized and interpreted
Echo: Report Reviewed by me
X-Ray/CT/US/MRI/NUC/PET: Report Reviewed by me
Labs: Labs Reviewed by me
Critical Care Time (in minutes): 35

Documented by User: Efren Diaz MD
Physical Exam
Vital Signs/Labs
Vital Signs
Temp Pulse Resp BP Pulse Ox
97.5 F 112 24 129/92 96
04/29/25 07:30 04/29/25 10:32 04/29/25 09:00 04/29/25 10:32 04/29/25 09:32
04/28/25 04/29/25 04/30/25
06:59 06:59 06:59
Actual Weight 70.08 kg 69.9 kg
04/29/25 05:08
04/29/25 05:08
APTT 34.9 Sec (23.4-35.0) 04/29/25 05:08
Magnesium 2.3 mg/dl (1.6-2.3) 04/29/25 00:20
04/29/25
02:07
Qck-C-Upafwuiyygz Pept > 86055
LAB Results
04/29/25 04/29/25
02:07 05:08
Troponin I 13.700 H* 16.800 H*
Data Reviewed
-
Date of Service: April 29, 2025
--- NOTE | 2025-05-03 08:57 | PTCARENOTE ---
Heparin and dobutamine stopped as ordered.
--- NOTE | 2025-05-03 09:31 | PN.CDI ---
CDI
- -
CDI:
Physician Documentation Request
Admit Date: 04/27/25 21:01
Dear Doctor,
Please review the following and provide your response in the progress notes.
Clinical Indicators:
Pt admitted for severe sepsis due to complicated UTI. Multisystem organ failure due to cardiogenic, septic shock.
05/01 Cardiology: 'Elevated troponin/Up to 28. Suspected type II OK secondary to combination of severe multivessel coronary artery disease (occluded LAD and subtotally occluded RCA), sepsis and severe anemia. Peaked at 28 no complaints of chest
pain.'
05/02 Pulmonary: ' NSTEMI, severe dilated cardiomyopathy with EF 10-15%
-Patient has low cardiac output with worsening renal function, shock liver, essentially anuric'
05/02 Hospitalist: ' Type II OK in the setting of sepsis, acute on chronic heart failure demand ischemia Elevated troponins 13 16 27 24 20'(resident)
'Acute hypoxemic respiratory failure with cardiogenic shock secondary to NSTEMI and systolic heart failure. LVEF worsened from 25% to 15%.'(attending)
Please clarify the following regarding the documented myocardial infarction
Type of OK
NSTEMI- subendocardial, nontransmural
Type II (due to demand ischemia)
Other
Use of terms such as suspected, likely, concern for, or probable (associated with a specific diagnosis that is being evaluated, monitored, or treated as if it exists) are acceptable and can be coded in the inpatient setting, when documented at the
time of discharge.
Thank you,
Luz Maria Gutierrez RN, BSN
CDI Specialist
[place] [facility]
Please use your independent medical judgment in providing your response.
--- NOTE | 2025-05-03 09:44 | W.PN.HOSP.TC ---
Today's Communication/Plan
-
Family agreed to transition to comfort care
De-escalation of medications
Hospice palliative care consult
Assessment / Plan
Assessment / Plan
Ms Farfan is an 80-year-old woman with a history of hypertension hyperlipidemia heart failure with reduced ejection fraction LVEF 25% type 2 diabetes osteoporosis glaucoma and anxiety presenting from [place] for chills, vomiting. Symptoms started 'a
couple days ago'. She had labs drawn at [facility], WBC 15.7. Sent to ED, she denies any pain but states her abd but feels 'uncomfortable'. Denies any cough or SOB, no urinary symptoms. Urine and blood cultures were sent. In the ED she was tachycardic
febrile tachypneic with blood pressures in the 110s over 50s and requiring supplementary oxygen, she met SIRS and sepsis criteria. Lactic acid was 3 but improved to 0.9. Creatinine was 1.3 on presentation, BUN 23. Urine culture positive for
Proteus mirabilis, patient has history of Proteus mirabilis UTI, blood cultures positive for E. coli and Proteus species. Patient was discontinued from vancomycin. Overnight 04/29 she had increased shortness of breath tachypnea and tachycardia into
the 150s without hypotension. She did not have chest pain or diaphoresis. An EKG chest x-ray and troponin was ordered. EKGs showed no significant changes but chest x-ray showed increased pulmonary vascularity and had troponin elevation of 13 with
a repeat of 16 with a repeat at 27 and and proBNP 27,000. The air breaker operator was called to bedside who ordered some tests. She continued to have increased shortness of breath and IV fluids were stopped. ABG showed acidemia pH 7.22 pCO2 31 pO2 160
HCO3 12.7, repeat lactic acid 5.4, patient refused DuoNebs or BiPAP due to anxiety. Repeat ABG showed pH 7.4 [id number] PO294 HCO3 20.3. Repeat labs showed a creatinine of 1.6. She received a dose of Lasix and sodium bicarb, echo was ordered for the
morning. Nephrology was consulted who renally dosed Zosyn. Ureña was placed to monitor I's and O's, and due to urinary retention from earlier in the night. Pulmonology was consulted who were able to work with the patient to trial CPAP since she
could not tolerate BiPAP due to anxiety. Patient was transferred to the ICU and cardiology and communications technician ordered 1 packed red blood cells for patient's anemia. Kitchen Bath Designer think patient had type II PA due to sepsis stress, and severe anemia,
would not pursue catheterization. Patient had poor response to Lasix, Bumex was ordered however continued to have poor response with only 600 cc of urine. Patient was convinced to try BiPAP which improved ventilation and work of breathing, however
remained tachypneic. Repeated chest x-rays continue to show pulmonary congestion. Overnight patient went into multi organ failure with severely elevated LFTs consistent with liver shock, creatinine also continued to trend upwards to 3.3, troponin
continued to trend upwards to 27. Patient had discussion with daughter about goals of care and decided to change CODE STATUS from full to DNR DNI. Patient's daughter flew in from [place] to be by mother side. Patient requested no
aggressive treatment and we will medically manage. Continues to receive doses of Bumex and as needed Dilaudid for pain or air hunger. Patient remained satting in the 90s on 4 L and repeated ABG without notable hypercarbia. Patient taken off BiPAP
due to nose bridge skin breakdown, diet changed to regular. Family present at bedside, patient downgraded to IMU. Dobutamine was started to help perfuse kidneys, however following day labs showed worsening kidney function. Cardiology nephrology
provided input noting that patient's lab values, mentation not improving with escalation of care, recommended de-escalation of care. Discussed with family about worsening kidney function and de-escalation of care, family agreed and patient was
transitioned to comfort care. Consulted hospice and palliative care and patient was put on comfort measures.
# Comfort measures
Discussed with family current treatments may be prolonging suffering
Palliative care consult
Hospice consult
-Morphine drip
- As needed Ativan
#Severe sepsis due to complicated UTI with
# Pyelonephritis
# Cardiogenic shock
# Septic shock
# Multisystem organ failure due to cardiogenic, septic shock
Goals of care conversation, DNR/DNI
Blood gases continue to show acidosis
Lactic acid 3--0.9--5.4--7.0--3.9--1.9
AST greater than 7500
ALT greater than 4000
Troponin 27--24--20
Creatinine uptrending
HX UCx POS for Proteus Mirabilis
- holding BP Meds
- UA with WBCs, leukoesterase, RBCs
-Urine culture positive for Proteus mirabilis pansensitive
- BCx positive for E. coli Proteus mirabilis both pansensitive
- empiric Zosyn
- Dilaudid as needed
-tylenol as needed
# Acute on chronic heart failure
# Acute hypoxemic respiratory failure
# Elevated troponin
#HX chr HFrEF
# Type II PA
# Cardiogenic shock
# COPD
04/29 echo with EF 15 to 20%
Currently on 4 L O2
Type II PA in the setting of sepsis, acute on chronic heart failure, supply demand mismatch ischemia
Elevated troponins 13 16 27 24 20
ABG showed acidosis
Lactic acid 5.4 7 3.9 1.9
Patient transfused 1 packed red blood cells
- Bumex 2 mg IV, increase as needed
- Pulmonology consult, nephrology consult, communications technician consult, cardiology consult
- Appreciate recs
#LISETTE
Baseline around 0.9
CR admission 1.3--1.1--1.6--2.6--3.3--4.2--5.3
suspect due to contrast, cardiorenal syndrome
- holding BP Meds and nephrotoxic agents
- Trend Cr
#headache
tylenol as needed
ice pack as needed
# Anemia, delusional
Hgb drop from 9.8-8.1--7.9--9.6
Likely dilutional
May be contributing to demand ischemia
# Elevated liver function tests
# Shock liver
In the setting of cardiogenic shock septic shock
# Left lateral knee wound
# Bilateral lower extremity foot ulcers
Stage I pressure ulcer
Continue to monitor
Wound management consult
#T2DM
- Hold metformin
- Low ISS
- last A1C 5.8 in March 2025
DVT Px:
SQH
CODE STATUS
Full code
Anticipated Discharge: 24 - 48 hours
Subjective/Interval History
-
Patient was seen at bedside today. Daughter was not present this morning. She reported feeling some pain all over her body and dry lips. According to nurse when given for pain medication patient gets pretty sedated. Patient was started on
dobutamine but was stopped earlier today by cardiology as there was no benefit, patient was not improving. Bumex was also adjusted stopped as there was no benefit with increasing BUN and creatinine. Talked with patient's family at bedside who
verbalized understanding and would like to transition to comfort care. Date of Service: May 03, 2025
Objective Data
-
Labs:
Laboratory Results
05/03/25 05/03/25
00:02 03:15
WBC 14.9 H
Hgb 9.0 L
Hct 26.7 L
Plt Count 142
APTT 90.9 H 78.4 H
Sodium 141
Potassium 4.5
Chloride 107
Carbon Dioxide 19 L
BUN 77 H
Creatinine 5.7 H*
Glucose 92
Calcium 8.0 L
Vital Signs:
Vital Signs
Temp Pulse Resp BP Pulse Ox
98.2 F 91 11 134/85 97
05/03/25 08:07 05/03/25 09:00 05/03/25 09:00 05/03/25 08:00 05/03/25 09:00
I&O
05/02/25 05/03/25 05/04/25
06:59 06:59 06:59
Intake Total 538.45 / 551.95 432.8 / 452.7 47.8 / 47.8
Output Total 225 / 225 265 / 265
Balance 313.45 / 326.95 167.8 / 187.7 47.8 / 47.8
Review of Systems
-
History Source: Patient
Constitutional: Reports Fatigue and Other (Generalized pain); Denies Fever
EENT: Denies Sore Throat or Runny Nose
Respiratory: Reports No Symptoms; Denies Cough, Hemoptysis, Trouble Breathing or Wheezing
Cardiac: Reports No Symptoms; Denies Chest Pain or Palpitations
Abdomen/GI: Reports No Symptoms; Denies Abdominal Pain, Nausea or Vomiting
Genitourinary: Reports No Symptoms
Musculoskeletal: Reports No Symptoms
Skin: Reports No Symptoms
Neuro: Reports No Symptoms
Physical Exam
-
General: No Apparent Distress and Comfortable
HEENT: Normocephalic and Atraumatic
Respiratory: Clear to Auscultation; Negative Wheezes or Crackles
Cardiac: Regular Rhythm and S1/S2; Negative Murmur
GI: Soft, Nontender, Nondistended and Normal Bowel Sounds
Musculoskeletal: No Clubbing, No Cyanosis and No Edema
Skin: Warm and Dry
Neuro: Other (Somnolent but arousable)
--- NOTE | 2025-05-03 09:58 | W.PN.PUL.V3 ---
Today's Communication / Plan
-
Wean oxygen
BiPAP as needed
Diuresis as tolerated
Finite course of antibiotics
Assessment
-
Patient is an 80-year-old female with previous history of COPD, chronic heart failure with reduced ejection fraction EF 25%, presenting to ER with chills, vomiting, LISETTE. On arrival to ER she had remarkable labs of leukocytosis with UA
demonstrating possible UTI. She is admitted to IMU with antibiotics. She had rapid heart rate event overnight with development of shortness of breath. Chest x-ray demonstrating pulmonary edema, proBNP on admission was greater than 27,000. She is
also in acute on chronic heart failure exacerbation. ABG obtained without notable hypercarbia. She does have mild increased work of breathing. She is 94% on 4 L. WE are consulted for evaluation of SOB.
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
Chronic systolic heart failure, EF 20-25%
COPD, moderate obstruction PFT 2022
Former smoker >20 PYs
Multivessel coronary artery disease
s/p LHC 2022 with occluded LAD subocclusive RCA, non-operable per CTS
Mixed hyperlipidemia�
Type 2 diabetes mellitus with other circulatory complications� �
Essential hypertension�
Anxiety�
Glaucoma of both eyes
Other proteinuria�
Age-related osteoporosis without fracture�
Sinus tachycardia�
Assessment and plan:
#1. UTI with severe sepsis with multiorgan dysfunction
- Patient has positive UTI along with bacteremia, now noted to have acute kidney injury as well as acute liver injury
-Urine culture from 04/27/2025 has grown E. coli + Proteus mirabilis
- Continues to be critically ill, continue broad-spectrum antibiotics (Zosyn)
- Not requiring any pressor support
- Keep MAP>65
#2. LISETTE
-Concerning for contrast nephropathy, ATN related to sepsis and severe cardiomyopathy
-Patient essentially anuric despite large doses of IV Lasix and IV Bumex. Currently on Bumex infusion
-Respiratory failure requiring BiPAP therapy - now off BiPAP and breathing comfortably on 4 L/min as of 05/02/2025; continue BiPAP prn going forward. Nephrology service on case.
-Continue medical management with trial of IV diuresis, no hemodialysis per patient and family preference
-Cardiology discussed case with today and starting dobutamine trial
#3. NSTEMI, severe dilated cardiomyopathy with EF 10-15%
-Patient has low cardiac output with worsening renal function, shock liver, essentially anuric
-Cardiology service on case - starting dobutamine (05/02) and discontinued in 05/03/2025-felt helping
-Complex underlying coronary artery disease, not felt to be a good candidate for medical/surgical revascularization
-Keep K>4, Mg>2
#4. Acute hypoxic respiratory failure
- Related to pulmonary edema, multifactorial with underlying anuric renal failure as well as severe ischemic cardiomyopathy
- Continue BiPAP support prn, otherwise use nasal cannula to keep SpO2 >90-94%, added Dilaudid as needed for pain or air hunger per patient preference
#5. Acute on suspect chronic congestive heart failure with reduced ejection fraction, EF 10-15%.
- Patient anuric which is challenging considering inability to diurese
- Continue BiPAP support prn
-Diuresis as tolerated
-Monitor renal function, electrolytes, intake/output, lower extremity edema and weight
Replace electrolytes as needed
#6. H/o COPD.
- PFTs from 03/19/2024 showed a mild obstructive lung defect with FEV1: 1.41 L / 83% predicted, with no air trapping or hyperinflation, and mildly reduced DLCO (63%)
- Follows with our office (Dr. Montanez) � last visit 03/19/2024 - patient was asymptomatic at that time, & there was no indication for bronchodilators; patient should follow-up with our office after discharge (if she survives)
- History of smoking for about 15 to 20 years, quit in 2004.
- No wheezing on exam, current presentation is not suggestive of COPD exacerbation
Pulmonary service will continue to follow along.
Prior goals of care discussions with Dr. Doan:
Goals of care: 05/01: Met with patient and 2 daughters at bedside. Patient again confirmed her decision to stay DNR/DNI. She wants to continue medical treatment and as needed opiates for air hunger if needed. Patient wants to continue using
noninvasive positive pressure ventilation and does not want to discuss further regarding palliation or comfort focused care. At the same time patient does not want to pursue aggressive care including hemodialysis, intubation, mechanical ventilation
etc. We discussed regarding aspiration risk and at this point considering patient is more leaning towards less invasive care, okay to take p.o.
Goals of care: 04/30. Met with patient's daughter at bedside. Patient has opted to proceed with DNR/DNI with more comfort focused approach with continuing medical management for now. Patient does not want to be intubated or sedated or
mechanically ventilated. No hemodialysis for now. Will continue current management, add as needed narcotics for air hunger or pain per patient's preference. Will continue to discuss goals of care daily. Depending upon patient's clinical course,
patient and family are inclined towards pursuing palliative care/hospice.
Diagnostic Data
CXR 04/29/25- New findings suggesting pulmonary edema. Pneumonia cannot be completely excluded. Clinical and laboratory correlation recommended. Mild cardiomegaly. New
CXR 04/27/25- No acute cardiopulmonary abnormality.
Chest X-Ray: 08/21/23- Endotracheal tube with tip in trachea above the ada. No pneumothorax. Bilateral patchy opacities which could represent pneumonitis, less likely pulmonary edema.
05/25/22- No radiographically demonstrable left rib fracture. No pleural effusion or pneumothorax. No acute cardiopulmonary process.
CT Scan: AP 05/24/22- No renal or ureteral calculus. No urinary bladder calculus. No evidence of obstructive uropathy. Mild bilateral nonspecific perinephric soft tissue stranding. Diverticulosis without acute diverticulitis. No evidence of bowel
obstruction. Chronic pancreatitis without acute inflammatory component. Mild fatty dictation of liver.
ECHO 08/17/24- Dilated LV with severe global hypokinesis and an ejection fraction of approximately 25% by visual estimation. 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 Normal right ventricular size and function. No significant valvular disease. Estimated
PASP of 16 mmHg. Compared to prior from December 17, 2023, no significant change.
Echo: 08/21/23- Dilated left ventricle. Severely reduced left ventricular systolic function.�Estimated� Left ventricular ejection fraction is 20-25%.� global hypokinesis.�Apical akinesis. Best contractility at the baseof the LV ( basal lateral,�basal
inferior and basal anterior russo. � Mild concentric left ventricular�hypertrophy. Diastolic function indeterminate.
Spirometry 08/26/23: FEV1 1.17L 64%, FVC 1.84L 75%, ratio 64. Post FEV1 1.22L 67% No BD response (moderate obstruction)
Reports and relevant images were personally reviewed.
Subjective Data
-
Date of Service:
Date of Service: May 03, 2025
Chief Complaint: Pulmonary Follow Up and Dyspnea Follow Up
Subjective:
Confused, sleepy, no respiratory distress
Review of Systems
General: Other (Per HPI)
Objective Data
Data Reviewed
Vital Signs / I&O:
Vital Signs
Temp Pulse Resp BP Pulse Ox
98.2 F 91 11 134/85 97
05/03/25 08:07 05/03/25 09:00 05/03/25 09:00 05/03/25 08:00 05/03/25 09:00
Intake and Output
05/02/25 05/03/25 05/04/25
06:59 06:59 06:59
Intake Total 538.45 / 551.95 432.8 / 452.7 47.8 / 47.8
Output Total 225 / 225 265 / 265
Balance 313.45 / 326.95 167.8 / 187.7 47.8 / 47.8
SaO2: 97
Nasal Cannula flow liters per minute: 2
Physical Exam
General: Respiratory Distress (negative), Comfortable, Chills (negative) and Sweats (negative)
HEENT: Normocephalic and Anicteric
Cardiovascular: Regular Rhythm, Murmur and Peripheral Edema (negative)
Respiratory: Wheeze (negative), Crackles (negative), Rhonchi (negative), Non-Labored Respirations and Other (Poor inspiratory effort)
GI: Soft, Non Distended, Non Tender and Normal Bowel Sounds
Neurology: Tremors (negative) and Other (Sleepy, although easily arousable and answers questions occasionally appropriately)
Skin: Warm, Good Color, Cyanosis (negative) and Jaundice
Labs/Micro/Reports
Lab Data
05/03/25 03:15
05/03/25 03:15
Laboratory Results
05/02/25 05/02/25 05/03/25
11:51 18:23 00:02
APTT 71.0 H 88.3 H 90.9 H
05/03/25
03:15
APTT 78.4 H
Microbiology
04/28/25 05:05 Blood/Venous Blood Culture - Preliminary
No Growth in 4 days- Final report to follow
04/28/25 03:31 Blood/Venous Blood Culture - Preliminary
No Growth in 4 days- Final report to follow
04/27/25 19:01 Urine Urine Culture - Final
Escherichia coli
Proteus mirabilis
04/27/25 16:35 Blood/Venous Blood Culture - Final
Proteus mirabilis
Escherichia coli
04/27/25 16:35 Blood/Venous Gram Stain - Final
--- NOTE | 2025-05-03 10:33 | W.PN.NEPH.PH ---
Today's Communication / Plan
-
Discontinue Bumex
Needs comfort care
Assessment/Plan
-
Impression:
LISETTE
Urosepsis (E. coli and Proteus bacteremia)
Concern for right-sided pyelonephritis, noted 1.1 cm nonobstructive right-sided nephrolith
Anemia
Diabetes
Cardiomyopathy with EF 20 to 25%
Anemia
Troponin elevation
History of recent left hip fracture
Metabolic acidosis
History of nephrotic range proteinuria
Plan:
LISETTE:
- Likely exacerbated by IV contrast administration on date 04/27/2025 CT scan and/or urinary retention
Antibiotics
Ureña catheter
-No acute dialysis requirement yet however patient is DNR and not a candidate for dialysis if needed
Inotrope discontinued as there is no improvement no utility with the Bumex drip will discontinue
Palliative care most reasonable option as her renal function continues to decline
Discussed with ICU team

32 minutes critical care time
-
-
Date of Service: May 03, 2025
CC / HPI / ROS
-
Chief Complaint:
LISETTE
History of Present Illness:
creatinine continues to decline
hemodynamically stable
on bipap
Review of Systems:
weighs up
Oliguric
Labs
-
Labs:
WBC 14.9 10^3/uL (4.8-10.8) H 05/03/25 03:15
RBC 2.93 10^6/uL (4.20-5.40) L 05/03/25 03:15
Hgb 9.0 g/dL (12.0-16.0) L 05/03/25 03:15
Hct 26.7 % (37.0-47.0) L 05/03/25 03:15
Plt Count 142 10^3/uL (130-400) 05/03/25 03:15
Sodium 141 mmol/L (135-145) 05/03/25 03:15
Potassium 4.5 mmol/L (3.5-5.1) 05/03/25 03:15
Chloride 107 mmol/L (98-107) 05/03/25 03:15
Carbon Dioxide 19 mmol/L (22-30) L 05/03/25 03:15
BUN 77 mg/dl (7-17) H 05/03/25 03:15
Creatinine 5.7 mg/dL (0.6-1.0) H* 05/03/25 03:15
eGFR 7.05 05/03/25 03:15
Glucose 92 mg/dl (70-99) 05/03/25 03:15
Calcium 8.0 mg/dl (8.4-10.2) L 05/03/25 03:15
Uax-F-Umlkeyzoiie Pept > 59263 pg/ml 04/29/25 02:07
Albumin 3.2 g/dl (3.5-5.0) L 05/01/25 04:03
Physical Exam
-
Vital Signs:
Vital Signs
Temp Pulse Resp BP Pulse Ox
98.2 F 91 11 134/85 97
05/03/25 08:07 05/03/25 09:00 05/03/25 09:00 05/03/25 08:00 05/03/25 09:58
Respiratory:: Bilateral: Coarse
Lung Excursion:: Normal
Abdomen:: Soft
Bowel Sounds:: Normal
Extremity Edema:: +1: Bilateral:
[2025-05-03] MEDS: DILAUDID 0.25 MG IV (12:20)
--- NOTE | 2025-05-03 13:23 | CM ---
Patient from [facility] with Dx Acute hypoxemic respiratory failure, cardiogenic shock, NSTEMI, HF, ARF, sepsis due to UTI. Comfort care.
CM Consult: Hospice
Met with patient, , daughter Ericka and about 4 other family members were present;
Offered hospice to help keep patient comfortable and patient//daughter agreed.
stated he did not want further information about hospice at this time.
Offered metal grinder and family declined.
Spoke with Ketan Gonzalez [facility]ms (cell [phone]); provided update that patient is in comfort care waiting to see hospice. Lisa confirms patient was at [facility] for short term rehab.
Spoke with [facility]; she will speak with the family.
Plan follow up after seen by Hospice.
[2025-05-03] MEDS: ZOSYN IV (13:37)
[2025-05-03] MEDS: LIPITOR PO (13:39)
--- NOTE | 2025-05-03 13:56 | PTCARENOTE ---
Pt arrived to IMU. medical team met with family and pt transitioned to comfort measures. Pt currently appears comfortable
--- NOTE | 2025-05-03 13:59 | HOSPNOTE ---
Hospice referral received. Plan is to initiate comfort measures today and reassess for inpatient hospice tomorrow. More information to follow.
[2025-05-03] MEDS: MORPHINE SULFATE 2 MG IV ×6 (14:05→22:57)
[2025-05-03] MEDS: XALATAN OPHTHALMIC SOLUTION OPHTH (18:24)
[2025-05-04] MEDS: MORPHINE SULFATE 2 MG IV ×5 (00:01→10:06)
[2025-05-04] MEDS: MORPHINE 100 IV (00:24)
--- NOTE | 2025-05-04 05:31 | PTCARENOTE ---
Patient placed on morphine drip at step one. Son at bedside. Patient appeared comfortable throughout the shift. Will continue to monitor.
[2025-05-04] MEDS: LIPITOR PO (07:29)
[2025-05-04] MEDS: ASPIRIN PO (07:29)
--- NOTE | 2025-05-04 09:22 | HOSPNOTE ---
Patient will be admitted inpatient hospice. Family in agreement and admissions was called and hospice chart was started. Consents were signed.
--- NOTE | 2025-05-04 09:42 | W.PN.HOSP.TC ---
Today's Communication/Plan
-
Continue comfort care
Discharge to inpatient hospice
Assessment / Plan
Assessment / Plan
Ms Farfan is an 80-year-old woman with a history of hypertension hyperlipidemia heart failure with reduced ejection fraction LVEF 25% type 2 diabetes osteoporosis glaucoma and anxiety presenting from [facility] for chills, vomiting. Symptoms started 'a
couple days ago'. She had labs drawn at [facility], WBC 15.7. Sent to ED, she denies any pain but states her abd but feels 'uncomfortable'. Denies any cough or SOB, no urinary symptoms. Urine and blood cultures were sent. In the ED she was tachycardic
febrile tachypneic with blood pressures in the 110s over 50s and requiring supplementary oxygen, she met SIRS and sepsis criteria. Lactic acid was 3 but improved to 0.9. Creatinine was 1.3 on presentation, BUN 23. Urine culture positive for
Proteus mirabilis, patient has history of Proteus mirabilis UTI, blood cultures positive for E. coli and Proteus species. Patient was discontinued from vancomycin. Overnight 04/29 she had increased shortness of breath tachypnea and tachycardia into
the 150s without hypotension. She did not have chest pain or diaphoresis. An EKG chest x-ray and troponin was ordered. EKGs showed no significant changes but chest x-ray showed increased pulmonary vascularity and had troponin elevation of 13 with
a repeat of 16 with a repeat at 27 and and proBNP 27,000. The aligning checker was called to bedside who ordered some tests. She continued to have increased shortness of breath and IV fluids were stopped. ABG showed acidemia pH 7.22 pCO2 31 pO2 160
HCO3 12.7, repeat lactic acid 5.4, patient refused DuoNebs or BiPAP due to anxiety. Repeat ABG showed pH 7.4 [id number] PO294 HCO3 20.3. Repeat labs showed a creatinine of 1.6. She received a dose of Lasix and sodium bicarb, echo was ordered for the
morning. Nephrology was consulted who renally dosed Zosyn. Ureña was placed to monitor I's and O's, and due to urinary retention from earlier in the night. Pulmonology was consulted who were able to work with the patient to trial CPAP since she
could not tolerate BiPAP due to anxiety. Patient was transferred to the ICU and cardiology and can technician ordered 1 packed red blood cells for patient's anemia. Gang Pusher think patient had type II RI due to sepsis stress, and severe anemia,
would not pursue catheterization. Patient had poor response to Lasix, Bumex was ordered however continued to have poor response with only 600 cc of urine. Patient was convinced to try BiPAP which improved ventilation and work of breathing, however
remained tachypneic. Repeated chest x-rays continue to show pulmonary congestion. Overnight patient went into multi organ failure with severely elevated LFTs consistent with liver shock, creatinine also continued to trend upwards to 3.3, troponin
continued to trend upwards to 27. Patient had discussion with daughter about goals of care and decided to change CODE STATUS from full to DNR DNI. Patient's daughter flew in from [place] to be by mother side. Patient requested no
aggressive treatment and we will medically manage. Continues to receive doses of Bumex and as needed Dilaudid for pain or air hunger. Patient remained satting in the 90s on 4 L and repeated ABG without notable hypercarbia. Patient taken off BiPAP
due to nose bridge skin breakdown, diet changed to regular. Family present at bedside, patient downgraded to IMU. Dobutamine was started to help perfuse kidneys, however following day labs showed worsening kidney function. Cardiology nephrology
provided input noting that patient's lab values, mentation not improving with escalation of care, recommended de-escalation of care. Discussed with family about worsening kidney function and de-escalation of care, family agreed and patient was
transitioned to comfort care. Consulted hospice and palliative care and patient was put on comfort measures. Patient discharged to inpatient hospice.
# Comfort measures
Discussed with family current treatments may be prolonging suffering
Palliative care consult
Hospice consult
-Morphine drip
- As needed Ativan
- Discharged to inpatient hospice
#Severe sepsis due to complicated UTI with
# Pyelonephritis
# Cardiogenic shock
# Septic shock
# Multisystem organ failure due to cardiogenic, septic shock
Goals of care conversation, DNR/DNI
Blood gases continue to show acidosis
Lactic acid 3--0.9--5.4--7.0--3.9--1.9
AST greater than 7500
ALT greater than 4000
Troponin 27--24--20
Creatinine uptrending
HX UCx POS for Proteus Mirabilis
- holding BP Meds
- UA with WBCs, leukoesterase, RBCs
-Urine culture positive for Proteus mirabilis pansensitive
- BCx positive for E. coli Proteus mirabilis both pansensitive
- empiric Zosyn
- Dilaudid as needed
-tylenol as needed
# Acute on chronic heart failure
# Acute hypoxemic respiratory failure
# Elevated troponin
#HX chr HFrEF
# Type II RI
# Cardiogenic shock
# COPD
04/29 echo with EF 15 to 20%
Currently on 4 L O2
Type II RI in the setting of sepsis, acute on chronic heart failure, supply demand mismatch ischemia
Elevated troponins 13 16 27 24 20
ABG showed acidosis
Lactic acid 5.4 7 3.9 1.9
Patient transfused 1 packed red blood cells
- Bumex 2 mg IV, increase as needed
- Pulmonology consult, nephrology consult, can technician consult, cardiology consult
- Appreciate recs
#LISETTE
Baseline around 0.9
CR admission 1.3--1.1--1.6--2.6--3.3--4.2--5.3
suspect due to contrast, cardiorenal syndrome
- holding BP Meds and nephrotoxic agents
- Trend Cr
#headache
tylenol as needed
ice pack as needed
# Anemia, delusional
Hgb drop from 9.8-8.1--7.9--9.6
Likely dilutional
May be contributing to demand ischemia
# Elevated liver function tests
# Shock liver
In the setting of cardiogenic shock septic shock
# Left lateral knee wound
# Bilateral lower extremity foot ulcers
Stage I pressure ulcer
Continue to monitor
Wound management consult
#T2DM
- Hold metformin
- Low ISS
- last A1C 5.8 in March 2025
DVT Px:
SQH
CODE STATUS
Full code
Anticipated Discharge: Within 24 hours
Subjective/Interval History
-
Patient was sleeping and family was at bedside. They reported that yesterday she was able to talk and interact with family members. She had some reported mild pain that was alleviated with morphine drip. Hospice call family and was able to set up
an appointment today. Will follow-up on hospice note. Ms. Farfan asked for water occasionally due to dry lips, but otherwise had no other complaints. Date of Service: May 04, 2025
Objective Data
-
Vital Signs:
Vital Signs
Temp Pulse Resp BP Pulse Ox
98.5 F 79 12 119/73 91
05/03/25 19:17 05/04/25 06:00 05/04/25 06:00 05/03/25 12:00 05/04/25 06:00
I&O
05/03/25 05/04/25 05/05/25
06:59 06:59 06:59
Intake Total 432.8 / 452.7 72.8 / 72.8
Output Total 265 / 265 450 / 450
Balance 167.8 / 187.7 -377.2 / -377.2
Review of Systems
-
History Source: Family
Constitutional: Reports No Symptoms
EENT: Reports Other (Dry mouth)
Respiratory: Reports No Symptoms
Cardiac: Reports No Symptoms
Abdomen/GI: Reports No Symptoms
Genitourinary: Reports No Symptoms
Musculoskeletal: Reports No Symptoms
Skin: Reports No Symptoms
Neuro: Reports No Symptoms
Physical Exam
-
General: Well Developed, Well Nourished, No Apparent Distress and Comfortable
HEENT: Normocephalic and Atraumatic
Respiratory: Clear to Auscultation; Negative Wheezes or Crackles
Cardiac: Regular Rhythm and S1/S2; Negative Murmur
GI: Soft, Nontender, Nondistended and Normal Bowel Sounds
Musculoskeletal: No Clubbing, No Cyanosis and No Edema
Skin: Warm and Dry
Neuro: Negative Awake (Somnolent)
Psych: Calm
--- NOTE | 2025-05-04 09:57 | W.PN.PUL.V3 ---
Today's Communication / Plan
-
Patient now comfort care receiving morphine-pulmonary will sign off-please call with questions
Assessment
-
Patient is an 80-year-old female with previous history of COPD, chronic heart failure with reduced ejection fraction EF 25%, presenting to ER with chills, vomiting, LISETTE. On arrival to ER she had remarkable labs of leukocytosis with UA
demonstrating possible UTI. She is admitted to IMU with antibiotics. She had rapid heart rate event overnight with development of shortness of breath. Chest x-ray demonstrating pulmonary edema, proBNP on admission was greater than 27,000. She is
also in acute on chronic heart failure exacerbation. ABG obtained without notable hypercarbia. She does have mild increased work of breathing. She is 94% on 4 L. WE are consulted for evaluation of SOB.
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
Chronic systolic heart failure, EF 20-25%
COPD, moderate obstruction PFT 2022
Former smoker >20 PYs
Multivessel coronary artery disease
s/p LHC 2022 with occluded LAD subocclusive RCA, non-operable per CTS
Mixed hyperlipidemia�
Type 2 diabetes mellitus with other circulatory complications� �
Essential hypertension�
Anxiety�
Glaucoma of both eyes
Other proteinuria�
Age-related osteoporosis without fracture�
Sinus tachycardia�
Assessment and plan:
#1. UTI with severe sepsis with multiorgan dysfunction
- Patient has positive UTI along with bacteremia, now noted to have acute kidney injury as well as acute liver injury
-Urine culture from 04/27/2025 has grown E. coli + Proteus mirabilis
- Continues to be critically ill, continue broad-spectrum antibiotics (Zosyn)
- Not requiring any pressor support
- Keep MAP>65
#2. LISETTE
-Concerning for contrast nephropathy, ATN related to sepsis and severe cardiomyopathy
-Patient essentially anuric despite large doses of IV Lasix and IV Bumex. Currently on Bumex infusion
-Respiratory failure requiring BiPAP therapy - now off BiPAP and breathing comfortably on 4 L/min as of 05/02/2025; continue BiPAP prn going forward. Nephrology service on case.
-Continue medical management with trial of IV diuresis, no hemodialysis per patient and family preference
-Cardiology discussed case with today and starting dobutamine trial
#3. NSTEMI, severe dilated cardiomyopathy with EF 10-15%
-Patient has low cardiac output with worsening renal function, shock liver, essentially anuric
-Cardiology service on case - starting dobutamine (05/02) and discontinued in 05/03/2025-felt helping
-Complex underlying coronary artery disease, not felt to be a good candidate for medical/surgical revascularization
-Keep K>4, Mg>2
#4. Acute hypoxic respiratory failure
- Related to pulmonary edema, multifactorial with underlying anuric renal failure as well as severe ischemic cardiomyopathy
- Continue BiPAP support prn, otherwise use nasal cannula to keep SpO2 >90-94%, added Dilaudid as needed for pain or air hunger per patient preference
#5. Acute on suspect chronic congestive heart failure with reduced ejection fraction, EF 10-15%.
- Patient anuric which is challenging considering inability to diurese
- Continue BiPAP support prn
-Diuresis as tolerated
-Monitor renal function, electrolytes, intake/output, lower extremity edema and weight
Replace electrolytes as needed
#6. H/o COPD.
- PFTs from 03/19/2024 showed a mild obstructive lung defect with FEV1: 1.41 L / 83% predicted, with no air trapping or hyperinflation, and mildly reduced DLCO (63%)
- Follows with our office (Dr. Montanez) � last visit 03/19/2024 - patient was asymptomatic at that time, & there was no indication for bronchodilators; patient should follow-up with our office after discharge (if she survives)
- History of smoking for about 15 to 20 years, quit in 2004.
- No wheezing on exam, current presentation is not suggestive of COPD exacerbation
Patient now comfort care on morphine-pulmonary will sign off-please call with questions
Prior goals of care discussions with Dr. Doan:
Goals of care: 05/01: Met with patient and 2 daughters at bedside. Patient again confirmed her decision to stay DNR/DNI. She wants to continue medical treatment and as needed opiates for air hunger if needed. Patient wants to continue using
noninvasive positive pressure ventilation and does not want to discuss further regarding palliation or comfort focused care. At the same time patient does not want to pursue aggressive care including hemodialysis, intubation, mechanical ventilation
etc. We discussed regarding aspiration risk and at this point considering patient is more leaning towards less invasive care, okay to take p.o.
Goals of care: 04/30. Met with patient's daughter at bedside. Patient has opted to proceed with DNR/DNI with more comfort focused approach with continuing medical management for now. Patient does not want to be intubated or sedated or
mechanically ventilated. No hemodialysis for now. Will continue current management, add as needed narcotics for air hunger or pain per patient's preference. Will continue to discuss goals of care daily. Depending upon patient's clinical course,
patient and family are inclined towards pursuing palliative care/hospice.
Diagnostic Data
CXR 04/29/25- New findings suggesting pulmonary edema. Pneumonia cannot be completely excluded. Clinical and laboratory correlation recommended. Mild cardiomegaly. New
CXR 04/27/25- No acute cardiopulmonary abnormality.
Chest X-Ray: 08/21/23- Endotracheal tube with tip in trachea above the ada. No pneumothorax. Bilateral patchy opacities which could represent pneumonitis, less likely pulmonary edema.
05/25/22- No radiographically demonstrable left rib fracture. No pleural effusion or pneumothorax. No acute cardiopulmonary process.
CT Scan: AP 05/24/22- No renal or ureteral calculus. No urinary bladder calculus. No evidence of obstructive uropathy. Mild bilateral nonspecific perinephric soft tissue stranding. Diverticulosis without acute diverticulitis. No evidence of bowel
obstruction. Chronic pancreatitis without acute inflammatory component. Mild fatty dictation of liver.
ECHO 08/17/24- Dilated LV with severe global hypokinesis and an ejection fraction of approximately 25% by visual estimation. 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 Normal right ventricular size and function. No significant valvular disease. Estimated
PASP of 16 mmHg. Compared to prior from December 17, 2023, no significant change.
Echo: 08/21/23- Dilated left ventricle. Severely reduced left ventricular systolic function.�Estimated� Left ventricular ejection fraction is 20-25%.� global hypokinesis.�Apical akinesis. Best contractility at the baseof the LV ( basal lateral,�basal
inferior and basal anterior russo. � Mild concentric left ventricular�hypertrophy. Diastolic function indeterminate.
Spirometry 08/26/23: FEV1 1.17L 64%, FVC 1.84L 75%, ratio 64. Post FEV1 1.22L 67% No BD response (moderate obstruction)
Reports and relevant images were personally reviewed.
Subjective Data
-
Date of Service:
Date of Service: May 04, 2025
Chief Complaint: Pulmonary Follow Up and Dyspnea Follow Up
Subjective:
Patient receiving morphine, now comfortable, no respiratory distress
Review of Systems
General: Other (Per HPI)
Objective Data
Data Reviewed
Vital Signs / I&O:
Vital Signs
Temp Pulse Resp BP Pulse Ox
98.5 F 79 12 119/73 91
05/03/25 19:17 05/04/25 06:00 05/04/25 06:00 05/03/25 12:00 05/04/25 06:00
Intake and Output
05/03/25 05/04/25 05/05/25
06:59 06:59 06:59
Intake Total 432.8 / 452.7 72.8 / 72.8
Output Total 265 / 265 450 / 450
Balance 167.8 / 187.7 -377.2 / -377.2
SaO2: 91
Nasal Cannula flow liters per minute: 2
Physical Exam
General: Respiratory Distress (negative), Comfortable, Chills (negative) and Sweats (negative)
HEENT: Normocephalic and Anicteric
Cardiovascular: Regular Rhythm, Murmur and Peripheral Edema (negative)
Respiratory: Wheeze (negative), Crackles (negative), Rhonchi (negative), Non-Labored Respirations and Other (Poor inspiratory effort)
GI: Soft, Non Distended, Non Tender and Normal Bowel Sounds
Neurology: Other (Sleeping receiving morphine for comfort care)
Skin: Warm, Good Color, Cyanosis (negative) and Jaundice
Labs/Micro/Reports
Lab Data
05/03/25 03:15
05/03/25 03:15
Microbiology
04/28/25 05:05 Blood/Venous Blood Culture - Final
No Growth - Final Report
04/28/25 03:31 Blood/Venous Blood Culture - Final
No Growth - Final Report
04/27/25 19:01 Urine Urine Culture - Final
Escherichia coli
Proteus mirabilis
--- NOTE | 2025-05-04 13:47 | CM ---
Patient from [facility] with Dx Acute hypoxemic respiratory failure, cardiogenic shock, NSTEMI, HF, ARF, sepsis due to UTI. Comfort care. O2 2L. Receiving IV MS.
Notified by [facility] that patient will be staying here in Inpatient Hospice.
Plan [facility].
--- NOTE | 2025-05-04 13:47 | W.DCSUMMARY ---
Documented by User: Kaiser Frank MD, Resident 05/04/25 14:04
Discharge Summary
Discharge Data
Date of Admission: 04/27/25
Date of Discharge: 05/04/25
-
Pending Results: No
Hospital Course
Discharging Physician : Dr. Moran, Dr. Frank
Disposition : Inpatient hospice
Primary care physician : Armen Hernandez MD
Principal Discharge diagnosis : Severe sepsis due to Pyelonephritis, Multisystem organ failure due to cardiogenic, septic shock
Chronic Discharge diagnosis :
Hypertension
DM-II
Ischemic Cardiomyopathy
Chronic HFrEF (25%)
Osteoporosis
Glaucoma
Anxiety
Hospital Course :
Ms Farfan is an 80-year-old woman with a history of hypertension hyperlipidemia heart failure with reduced ejection fraction LVEF 25% type 2 diabetes osteoporosis glaucoma and anxiety presenting from [place] for chills, vomiting. Symptoms started 'a
couple days ago'. She had labs drawn at [place], WBC 15.7. Sent to ED, she denies any pain but states her abd but feels 'uncomfortable'. Denies any cough or SOB, no urinary symptoms. Urine and blood cultures were sent. In the ED she was tachycardic
febrile tachypneic with blood pressures in the 110s over 50s and requiring supplementary oxygen, she met SIRS and sepsis criteria. Lactic acid was 3 but improved to 0.9. Creatinine was 1.3 on presentation, BUN 23. Urine culture positive for
Proteus mirabilis, patient has history of Proteus mirabilis UTI, blood cultures positive for E. coli and Proteus species. Patient was discontinued from vancomycin. Overnight 04/29 she had increased shortness of breath tachypnea and tachycardia into
the 150s without hypotension. She did not have chest pain or diaphoresis. An EKG chest x-ray and troponin was ordered. EKGs showed no significant changes but chest x-ray showed increased pulmonary vascularity and had troponin elevation of 13 with
a repeat of 16 with a repeat at 27 and and proBNP 27,000. The waffle machine operator was called to bedside who ordered some tests. She continued to have increased shortness of breath and IV fluids were stopped. ABG showed acidemia pH 7.22 pCO2 31 pO2 160
HCO3 12.7, repeat lactic acid 5.4, patient refused DuoNebs or BiPAP due to anxiety. Repeat ABG showed pH 7.4 QTX131 PO294 HCO3 20.3. Repeat labs showed a creatinine of 1.6. She received a dose of Lasix and sodium bicarb, echo was ordered for the
morning. Nephrology was consulted who renally dosed Zosyn. Ureña was placed to monitor I's and O's, and due to urinary retention from earlier in the night. Pulmonology was consulted who were able to work with the patient to trial CPAP since she
could not tolerate BiPAP due to anxiety. Patient was transferred to the ICU and cardiology and art model ordered 1 packed red blood cells for patient's anemia. [employer] think patient had type II DE due to sepsis stress, and severe anemia,
would not pursue catheterization. Patient had poor response to Lasix, Bumex was ordered however continued to have poor response with only 600 cc of urine. Patient was convinced to try BiPAP which improved ventilation and work of breathing, however
remained tachypneic. Repeated chest x-rays continue to show pulmonary congestion. Overnight patient went into multi organ failure with severely elevated LFTs consistent with liver shock, creatinine also continued to trend upwards to 3.3, troponin
continued to trend upwards to 27. Patient had discussion with daughter about goals of care and decided to change CODE STATUS from full to DNR DNI. Patient's daughter flew in from [place] to be by mother side. Patient requested no
aggressive treatment and we will medically manage. Continues to receive doses of Bumex and as needed Dilaudid for pain or air hunger. Patient remained satting in the 90s on 4 L and repeated ABG without notable hypercarbia. Patient taken off BiPAP
due to nose bridge skin breakdown, diet changed to regular. Family present at bedside, patient downgraded to IMU. Dobutamine was started to help perfuse kidneys, however following day labs showed worsening kidney function. Cardiology nephrology
provided input noting that patient's lab values, mentation not improving with escalation of care, recommended de-escalation of care. Discussed with family about worsening kidney function and de-escalation of care, family agreed and patient was
transitioned to comfort care. Consulted hospice and palliative care and patient was put on comfort measures. Patient discharged to inpatient hospice.
Important imaging findings :
CT abdomen pelvis 04/27
IMPRESSION:
There is mild urinary bladder wall thickening with surrounding stranding suggestive of cystitis. There is asymmetric stranding and edema along the right ureter and kidney suggestive of ascending infection/right-sided pyelonephritis. Recommend
correlation with urinalysis.
There is a 1.1 cm stone in the lower pole of the right kidney just proximal to the renal pelvis.
Findings of likely chronic pancreatitis. There are no findings suggestive of acute on chronic pancreatitis.
2.4 cm hyperdense lesion along the posterior aspect of the uterine fundus which likely represents a uterine fibroid.
Chest x-ray 04/27
IMPRESSION:
No acute cardiopulmonary abnormality.
Chest x-ray 04/29
IMPRESSION:
New findings suggesting pulmonary edema. Pneumonia cannot be completely excluded. Clinical and laboratory correlation recommended.
Mild cardiomegaly. New
Chest x-ray 04/29
IMPRESSION:
1. MODERATE ACUTE INTERSTITIAL and ALVEOLAR CARDIOGENIC PULMONARY EDEMA which appears to have mildly decreased since 12:42 AM on 04/29/2025.
2. Mild to moderate airspace opacity in the basilar segments of the lower lobes which is most likely subsegmental atelectasis. Bilateral lower lobe pneumonia is an alternative diagnostic possibility.
3. Small left pleural effusion.
Chest x-ray 04/30
IMPRESSION:
Likely slightly improved pulmonary edema
Chest x-ray 05/01
IMPRESSION:
Low lung volumes.
Procedure findings :
Blood culture 04/27
Proteus mirabilis
Escherichia coli
Urine culture 04/27
Proteus mirabilis
Escherichia coli
Blood culture 04/28
Negative
Urine culture 04/28
Negative
EKG 04/27
SINUS TACHYCARDIA
LEFT ANTERIOR FASCICULAR BLOCK
MINIMAL VOLTAGE CRITERIA FOR LVH, MAY BE NORMAL VARIANT ( [place] product )
ANTERIOR INFARCT
T WAVE ABNORMALITY, CONSIDER LATERAL ISCHEMIA
ABNORMAL ECG
WHEN COMPARED WITH ECG OF 17-FEB-2025 05:33,
VENT. RATE HAS INCREASED BY 40 BPM
EKG 04/28
SINUS TACHYCARDIA
POSSIBLE LEFT ATRIAL ENLARGEMENT
LEFT ANTERIOR FASCICULAR BLOCK
LEFT VENTRICULAR HYPERTROPHY WITH QRS WIDENING ( [place] product )
ANTEROLATERAL INFARCT (CITED ON OR BEFORE 06-DEC-2014)
ABNORMAL ECG
WHEN COMPARED WITH ECG OF 27-APR-2025 17:11,
QUESTIONABLE CHANGE IN INITIAL FORCES OF LATERAL LEADS
EKG 04/29
SINUS TACHYCARDIA
LEFT ANTERIOR FASCICULAR BLOCK
MINIMAL VOLTAGE CRITERIA FOR LVH, MAY BE NORMAL VARIANT ( [place] product )
ANTEROLATERAL INFARCT (CITED ON OR BEFORE 06-DEC-2014)
ABNORMAL ECG
WHEN COMPARED WITH ECG OF 28-APR-2025 23:31,
T WAVE INVERSION NOW EVIDENT IN INFERIOR LEADS
Echocardiogram 04/29
FINDINGS
Left Ventricle
Dilated left ventricle severely reduced left ventricular systolic function.
Left ventricular ejection fraction is 15 to 20%. Lateral wall appears to have
the best contractility. diastolic function indeterminate.
Discharge Plan
-
Patient Disposition: Hospice - Inpatient
Discharge Diagnosis/Procedures: Acute hypoxemic respiratory failure, cardiogenic state, acute renal failure
Condition: Serious
Diet: No restrictions
Activity: As tolerated
Driving Restrictions: No driving
Other Services: Hospice
Activity Restrictions/Additional Instructions:
Sacrum-newly healed pressure injury, apply sacral shaped silicone border foam, change q 3 days and prn loosened dressing.
Heels, R lateral ankle, L lateral knee-protective foam dressing, change q 3 days and prn loosened dressing.
Air mattress.
Elevate heels off bed with pillow/s
Pressure redistributing chair cushion (i.e. Air chair cushion).
Referrals:
Mendel Urena MD [Active, Pulmonary Medicine] - in two to three weeks
Armen Hernandez MD [Family Provider, Family Practice]
Prescriptions:
New
aspirin 325 mg Tablet
325 mg PO DAILY Qty: 10 0RF
Continued
acetaminophen 325 mg Tablet
650 mg PO Q6H PRN (Reason: TEMP >100F, MILD PAIN)
Discontinued
fenofibrate 160 MG tablet
160 mg PO DAILY
therapeutic multivitamin Tablet
1 tab PO DAILY
polyethylene glycol 3350 17 gram powder in packet
17 g PO DAILY PRN (Reason: Constipation)
furosemide 20 mg Tablet
20 mg PO DAILY Qty: 30 0RF
latanoprost 0.005 % Drops
1 drp BOTH EYES QPM
Rx Instructions:
1 gtt both eyes at bedtime daily
atorvastatin 40 mg Tablet
40 mg PO QPM
metformin 850 mg Tablet
850 mg PO BID
aspirin 325 mg Tablet
325 mg PO DAILY Qty: 0 0RF
metoprolol succinate 50 mg Tablet Extended Release 24 Hr
50 mg PO QPM Qty: 0 0RF
midodrine 2.5 mg Tablet
2.5 mg PO TID Qty: 30 0RF
Rx Instructions:
hold for SBP>150
oxycodone 5 mg Tablet
5 mg PO Q6HPRN PRN (Reason: severe pain) Qty: 5 0RF
docusate sodium 100 mg Capsule
100 mg PO BID PRN (Reason: Constipation) Qty: 0 0RF
magnesium hydroxide [Milk of Magnesia] 400 mg/5 mL Suspension
400 mg PO HS PRN (Reason: IF NO BM X 2 DAYS)
bisacodyl 10 mg Suppository
10 mg ND DAILY PRN (Reason: IF NO BM X 3 DAYS)
Fleet Enema 19-7 gram/118 mL Enema
118 ml ND ONCE
Santyl 250 unit/gram Ointment
1 applic TOPICAL DAILY
Rx Instructions:
APPLY TO SACRUM
Balmex Adult Care 11.3 % Cream
1 applic TOPICAL TID
Rx Instructions:
APPLY TO SACRUM
magnesium oxide 400 mg magnesium Tablet
400 mg PO BID
Discharge Orders:
Discharge Patient (As Directed); Ordered 05/04/25
Ordered By: Sage Moran
Discharge Date and Time
Discharge Date/Time: 05/04/25 13:43
Print Language: MOROCCAN

Documented by User: Sage Moran DO 05/05/25 11:32
Discharge Summary
Discharge Data
Date of Admission: 04/27/25
Date of Discharge: 05/04/25
Total time spent discharging patient (in min): 31
Discharge Plan
-
Patient Disposition: Hospice - Inpatient
Discharge Diagnosis/Procedures: Acute hypoxemic respiratory failure, cardiogenic state, acute renal failure
Condition: Serious
Diet: No restrictions
Activity: As tolerated
Driving Restrictions: No driving
Other Services: Hospice
Activity Restrictions/Additional Instructions:
Sacrum-newly healed pressure injury, apply sacral shaped silicone border foam, change q 3 days and prn loosened dressing.
Heels, R lateral ankle, L lateral knee-protective foam dressing, change q 3 days and prn loosened dressing.
Air mattress.
Elevate heels off bed with pillow/s
Pressure redistributing chair cushion (i.e. Air chair cushion).
Referrals:
Mendel Urena MD [Active, Pulmonary Medicine] - in two to three weeks
Armen Hernandez MD [Family Provider, Family Practice]
Prescriptions:
New
aspirin 325 mg Tablet
325 mg PO DAILY Qty: 10 0RF
Continued
acetaminophen 325 mg Tablet
650 mg PO Q6H PRN (Reason: TEMP >100F, MILD PAIN)
Discontinued
fenofibrate 160 MG tablet
160 mg PO DAILY
therapeutic multivitamin Tablet
1 tab PO DAILY
polyethylene glycol 3350 17 gram powder in packet
17 g PO DAILY PRN (Reason: Constipation)
furosemide 20 mg Tablet
20 mg PO DAILY Qty: 30 0RF
latanoprost 0.005 % Drops
1 drp BOTH EYES QPM
Rx Instructions:
1 gtt both eyes at bedtime daily
atorvastatin 40 mg Tablet
40 mg PO QPM
metformin 850 mg Tablet
850 mg PO BID
aspirin 325 mg Tablet
325 mg PO DAILY Qty: 0 0RF
metoprolol succinate 50 mg Tablet Extended Release 24 Hr
50 mg PO QPM Qty: 0 0RF
midodrine 2.5 mg Tablet
2.5 mg PO TID Qty: 30 0RF
Rx Instructions:
hold for SBP>150
oxycodone 5 mg Tablet
5 mg PO Q6HPRN PRN (Reason: severe pain) Qty: 5 0RF
docusate sodium 100 mg Capsule
100 mg PO BID PRN (Reason: Constipation) Qty: 0 0RF
magnesium hydroxide [Milk of Magnesia] 400 mg/5 mL Suspension
400 mg PO HS PRN (Reason: IF NO BM X 2 DAYS)
bisacodyl 10 mg Suppository
10 mg ND DAILY PRN (Reason: IF NO BM X 3 DAYS)
Fleet Enema 19-7 gram/118 mL Enema
118 ml ND ONCE
Santyl 250 unit/gram Ointment
1 applic TOPICAL DAILY
Rx Instructions:
APPLY TO SACRUM
Balmex Adult Care 11.3 % Cream
1 applic TOPICAL TID
Rx Instructions:
APPLY TO SACRUM
magnesium oxide 400 mg magnesium Tablet
400 mg PO BID
Discharge Orders:
Discharge Patient (As Directed); Ordered 05/04/25
Ordered By: Sage Moran
Discharge Date and Time
Discharge Date/Time: 05/04/25 13:43
Print Language: MOROCCAN
== END 2025-05-04 13:43 | disposition hospice, inpatient (51) | DRG 871 ==
LOC: IMU 21:01
PROVIDERS: Internal Medicine; Nurse Practitioner; Nurse Practitioner Family; Nurse Practitioner Gerontology; Student in an Organized Health Care Education/Training Program; ADMITTING PHYSICIAN Internal Medicine; ATTENDING PHYSICIAN Internal Medicine; CONSULT PHYSICIAN Specialist; EMERGENCY PHYSICIAN Emergency Medicine; FAMILY PHYSICIAN Family Medicine; OTHER PHYSICIAN Internal Medicine; OTHER PHYSICIAN Internal Medicine Cardiovascular Disease
PROC: 30233N1 Transfusion of Nonautologous Red Blood Cells into Peripheral Vein, Percutaneous Approach (ICD-10-PCS; 2025-04-29)
DX: A41.59 Other Gram-negative sepsis (principal); I21.A1 Myocardial infarction type 2; J96.01 Acute respiratory failure with hypoxia; R65.21 Severe sepsis with septic shock; J18.9 Pneumonia, unspecified organism; K72.00 Acute and subacute hepatic failure without coma; N10 Acute pyelonephritis; I50.22 Chronic systolic (congestive) heart failure; N17.9 Acute kidney failure, unspecified; J44.0 Chronic obstructive pulmonary disease with (acute) lower respiratory infection; E87.20 Acidosis, unspecified; J98.11 Atelectasis; K86.1 Other chronic pancreatitis; I25.5 Ischemic cardiomyopathy; I11.0 Hypertensive heart disease with heart failure; H40.9 Unspecified glaucoma; F41.9 Anxiety disorder, unspecified; M81.0 Age-related osteoporosis without current pathological fracture; E11.59 Type 2 diabetes mellitus with other circulatory complications; Z87.891 Personal history of nicotine dependence; Z79.84 Long term (current) use of oral hypoglycemic drugs; K59.00 Constipation, unspecified; D64.9 Anemia, unspecified; B96.20 Unspecified Escherichia coli [E. coli] as the cause of diseases classified elsewhere; E66.9 Obesity, unspecified; Z68.28 Body mass index [BMI] 28.0-28.9, adult; E78.2 Mixed hyperlipidemia; E86.1 Hypovolemia; I25.10 Atherosclerotic heart disease of native coronary artery without angina pectoris; I44.4 Left anterior fascicular block; N20.0 Calculus of kidney; R33.8 Other retention of urine; Z79.82 Long term (current) use of aspirin; Z79.899 Other long term (current) drug therapy; Z11.52 Encounter for screening for COVID-19
CPT/HCPCS: 36415; 36600; 71045; 71046; 74177; 80048; 80053; 80202; 81003; 81015; 82805; 82962; 83036; 83605; 83690; 83735; 83880; 84484; 85014; 85018; 85025; 85027; 85379; 85610; 85730; 86850; 86900; 86901; 86920; 87040; 87077; 87086; 87154; 87186; 87205; 87502; 87811; 93005; 93306; 94640; 94660; 99291; P9016; Q9967

== ENCOUNTER 2025-05-04 13:43 | Inpatient (IN) | payer OTHER, SELFPAY ==
--- NOTE | 2025-05-04 10:13 | HOSPNOTE ---
Patient will be admitted inpatient hospice today for pain and shortness of breath. Admission was called. Family in agreement and patient is inpatient appropriate for IV medications for pain and shortness of breath.
--- NOTE | 2025-05-04 13:52 | CM ---
Patient from [facility] with Dx Acute hypoxemic respiratory failure, cardiogenic shock, NSTEMI, HF, ARF, sepsis due to UTI.
Notified by [facility] that patient will be staying here in Inpatient Hospice.
Plan [facility].
--- NOTE | 2025-05-04 14:05 | HPS.HSE ---
Family Physician
-
Family Physician: Armen Hernandez MD
Chief Complaint
-
hospice admit
History of Present Illness
Hospital Course :
Ms Farfan is an 80-year-old woman with a history of hypertension hyperlipidemia heart failure with reduced ejection fraction LVEF 25% type 2 diabetes osteoporosis glaucoma and anxiety presenting from [place] for chills, vomiting. Symptoms started 'a
couple days ago'. She had labs drawn at [place], WBC 15.7. Sent to ED, she denies any pain but states her abd but feels 'uncomfortable'. Denies any cough or SOB, no urinary symptoms. Urine and blood cultures were sent. In the ED she was tachycardic
febrile tachypneic with blood pressures in the 110s over 50s and requiring supplementary oxygen, she met SIRS and sepsis criteria. Lactic acid was 3 but improved to 0.9. Creatinine was 1.3 on presentation, BUN 23. Urine culture positive for
Proteus mirabilis, patient has history of Proteus mirabilis UTI, blood cultures positive for E. coli and Proteus species. Patient was discontinued from vancomycin. Overnight 04/29 she had increased shortness of breath tachypnea and tachycardia into
the 150s without hypotension. She did not have chest pain or diaphoresis. An EKG chest x-ray and troponin was ordered. EKGs showed no significant changes but chest x-ray showed increased pulmonary vascularity and had troponin elevation of 13 with
a repeat of 16 with a repeat at 27 and and proBNP 27,000. The diabetes physician was called to bedside who ordered some tests. She continued to have increased shortness of breath and IV fluids were stopped. ABG showed acidemia pH 7.22 pCO2 31 pO2 160
HCO3 12.7, repeat lactic acid 5.4, patient refused DuoNebs or BiPAP due to anxiety. Repeat ABG showed pH 7.4 [id number] PO294 HCO3 20.3. Repeat labs showed a creatinine of 1.6. She received a dose of Lasix and sodium bicarb, echo was ordered for the
morning. Nephrology was consulted who renally dosed Zosyn. Ureña was placed to monitor I's and O's, and due to urinary retention from earlier in the night. Pulmonology was consulted who were able to work with the patient to trial CPAP since she
could not tolerate BiPAP due to anxiety. Patient was transferred to the ICU and cardiology and geothermal hvac technician ordered 1 packed red blood cells for patient's anemia. Ingot Supervisor think patient had type II CO due to sepsis stress, and severe anemia,
would not pursue catheterization. Patient had poor response to Lasix, Bumex was ordered however continued to have poor response with only 600 cc of urine. Patient was convinced to try BiPAP which improved ventilation and work of breathing, however
remained tachypneic. Repeated chest x-rays continue to show pulmonary congestion. Overnight patient went into multi organ failure with severely elevated LFTs consistent with liver shock, creatinine also continued to trend upwards to 3.3, troponin
continued to trend upwards to 27. Patient had discussion with daughter about goals of care and decided to change CODE STATUS from full to DNR DNI. Patient's daughter flew in from [place] to be by mother side. Patient requested no
aggressive treatment and we will medically manage. Continues to receive doses of Bumex and as needed Dilaudid for pain or air hunger. Patient remained satting in the 90s on 4 L and repeated ABG without notable hypercarbia. Patient taken off BiPAP
due to nose bridge skin breakdown, diet changed to regular. Family present at bedside, patient downgraded to IMU. Dobutamine was started to help perfuse kidneys, however following day labs showed worsening kidney function. Cardiology nephrology
provided input noting that patient's lab values, mentation not improving with escalation of care, recommended de-escalation of care. Discussed with family about worsening kidney function and de-escalation of care, family agreed and patient was
transitioned to comfort care. Consulted hospice and palliative care and patient was put on comfort measures. Patient admitted to inpatient hospice.
Important imaging findings :
CT abdomen pelvis 04/27
IMPRESSION:
There is mild urinary bladder wall thickening with surrounding stranding suggestive of cystitis. There is asymmetric stranding and edema along the right ureter and kidney suggestive of ascending infection/right-sided pyelonephritis. Recommend
correlation with urinalysis.
There is a 1.1 cm stone in the lower pole of the right kidney just proximal to the renal pelvis.
Findings of likely chronic pancreatitis. There are no findings suggestive of acute on chronic pancreatitis.
2.4 cm hyperdense lesion along the posterior aspect of the uterine fundus which likely represents a uterine fibroid.
Chest x-ray 04/27
IMPRESSION:
No acute cardiopulmonary abnormality.
Chest x-ray 04/29
IMPRESSION:
New findings suggesting pulmonary edema. Pneumonia cannot be completely excluded. Clinical and laboratory correlation recommended.
Mild cardiomegaly. New
Chest x-ray 04/29
IMPRESSION:
1. MODERATE ACUTE INTERSTITIAL and ALVEOLAR CARDIOGENIC PULMONARY EDEMA which appears to have mildly decreased since 12:42 AM on 04/29/2025.
2. Mild to moderate airspace opacity in the basilar segments of the lower lobes which is most likely subsegmental atelectasis. Bilateral lower lobe pneumonia is an alternative diagnostic possibility.
3. Small left pleural effusion.
Chest x-ray 04/30
IMPRESSION:
Likely slightly improved pulmonary edema
Chest x-ray 05/01
IMPRESSION:
Low lung volumes.
Procedure findings :
Blood culture 04/27
Proteus mirabilis
Escherichia coli
Urine culture 04/27
Proteus mirabilis
Escherichia coli
Blood culture 04/28
Negative
Urine culture 04/28
Negative
EKG 04/27
SINUS TACHYCARDIA
LEFT ANTERIOR FASCICULAR BLOCK
MINIMAL VOLTAGE CRITERIA FOR LVH, MAY BE NORMAL VARIANT ( [place] product )
ANTERIOR INFARCT
T WAVE ABNORMALITY, CONSIDER LATERAL ISCHEMIA
ABNORMAL ECG
WHEN COMPARED WITH ECG OF 17-FEB-2025 05:33,
VENT. RATE HAS INCREASED BY 40 BPM
EKG 04/28
SINUS TACHYCARDIA
POSSIBLE LEFT ATRIAL ENLARGEMENT
LEFT ANTERIOR FASCICULAR BLOCK
LEFT VENTRICULAR HYPERTROPHY WITH QRS WIDENING ( [place] product )
ANTEROLATERAL INFARCT (CITED ON OR BEFORE 06-DEC-2014)
ABNORMAL ECG
WHEN COMPARED WITH ECG OF 27-APR-2025 17:11,
QUESTIONABLE CHANGE IN INITIAL FORCES OF LATERAL LEADS
EKG 04/29
SINUS TACHYCARDIA
LEFT ANTERIOR FASCICULAR BLOCK
MINIMAL VOLTAGE CRITERIA FOR LVH, MAY BE NORMAL VARIANT ( [place] product )
ANTEROLATERAL INFARCT (CITED ON OR BEFORE 06-DEC-2014)
ABNORMAL ECG
WHEN COMPARED WITH ECG OF 28-APR-2025 23:31,
T WAVE INVERSION NOW EVIDENT IN INFERIOR LEADS
Echocardiogram 04/29
FINDINGS
Left Ventricle
Dilated left ventricle severely reduced left ventricular systolic function.
Left ventricular ejection fraction is 15 to 20%. Lateral wall appears to have
the best contractility. diastolic function indeterminate.
Medical History
Past Medical History
Past Medical History: Reports CAD, CHF, HTN, Hypercholesterolemia, NIDDM, CO and Other (Osteoporosis, glaucoma)
Past Surgical History: Reports Orthopedic
Social History
Unable to obtain full social history at this time due to: Acuity
Alcohol: Occasional
Drug: None
Personal: Partner
Employment: Retired
Family History
Family History: Not pertinent
Allergies / Home Medications
Allergies reflects when Allergies were last updated in [employer].
Home Medications with original date entered in [employer]
Allergy/Medication List:
Allergies
Allergy/AdvReac Type Severity Reaction Status Date / Time
No Known Allergies Allergy Verified 03/18/25 00:09
Home Medications
acetaminophen 325 mg tablet 650 mg PO Q6H PRN TEMP >100F, MILD PAIN 04/29/25
aspirin 325 mg tablet 325 mg PO DAILY #10 tabs 05/04/25
Review of Systems
-
Unable to obtain full review of systems at this time due to: Acuity
History Source: Family
A 12 point ROS was completed and negative except as noted: Yes
Physical Exam
Physical Exam
General: Well Developed, Well Nourished and No Apparent Distress
HEENT: NormoCephalic, Anicteric and Atraumatic
Respiratory: Clear and Non Labored Respirations; No Wheezes or Crackles
Cardiac: S1/S2 and Regular Rhythm; No Murmur
GI: Soft, Non Tender, Non Distended and Normal Bowel Sounds
Genito-urinary: Deferred by me
Musculoskeletal: No Clubbing, No Cyanosis and No Edema
Skin: Warm and Dry
Neuro: No Awake or Alert
Impression/Plan
-
IMPRESSION:
Ms Farfan is an 80-year-old woman with a history of hypertension hyperlipidemia heart failure with reduced ejection fraction LVEF 25% type 2 diabetes osteoporosis glaucoma and anxiety admitted to inpatient hospice after severe urosepsis with
multisystem organ failure in cardiogenic and septic shock.
PLAN:
# Comfort measures
Discussed with family current treatments may be prolonging suffering
Palliative care consult
Hospice consult
-Morphine drip
- As needed Ativan
-Analgesics as needed
-Antiemetics as needed
- Maintain hygiene
-Supportive care as needed
-Rice Farmer services as needed
--- NOTE | 2025-05-04 14:45 | CHAP ---
Rabbi Patel will be visiting Ms. Farfan as family requested. Pastoral Care is available if needed.
[2025-05-04] MEDS: MORPHINE SULFATE 2 MG IV (19:08)
--- NOTE | 2025-05-05 04:34 | PTCARENOTE ---
No acute events overnight. Remains on step 2 of end of life morphine protocol. Appeared comfortable throughout the night with brother at bedside. Will continue to monitor.
[2025-05-05] MEDS: MORPHINE SULFATE 2 MG IV ×3 (05:58→08:57)
--- NOTE | 2025-05-05 09:44 | W.PN.HOSP.TC ---
Today's Communication/Plan
-
Step 3 morphine drip
Continue comfort measures
Assessment / Plan
Assessment / Plan
IMPRESSION:
Ms Farfan is an 80-year-old woman with a history of hypertension hyperlipidemia heart failure with reduced ejection fraction LVEF 25% type 2 diabetes osteoporosis glaucoma and anxiety admitted to inpatient hospice after severe urosepsis with
multisystem organ failure in cardiogenic and septic shock. Progression to stop 3 of morphine drip.
PLAN:
# Comfort measures
Discussed with family current treatments may be prolonging suffering
Palliative care consult
Hospice consult
-Morphine drip
- As needed Ativan
-Analgesics as needed
-Antiemetics as needed
- Maintain hygiene
-Supportive care as needed
-Price Analyst services as needed
Anticipated Discharge: 24 - 48 hours
Subjective/Interval History
-
Patient was seen with family at bedside. Family reported that she has been waking up more often overnight and grimacing as if she were in pain. Talked with nurse and family who decided to move on to step 3 of morphine drip to make sure she is
comfortable. Family appreciative without other complaints. Date of Service: May 05, 2025
Objective Data
-
Vital Signs:
Vital Signs
Temp
97.9 F
05/04/25 19:54
I&O
05/04/25 05/05/25 05/06/25
06:59 06:59 06:59
Output Total 400 / 400
Balance -400 / -400
Review of Systems
-
Unable to obtain full review of systems at this time due to: Acuity
History Source: Family
Constitutional: Reports Not Done
Physical Exam
-
General: No Apparent Distress, Comfortable and Other (Somnolent)
HEENT: Normocephalic and Atraumatic
Respiratory: Clear to Auscultation; Negative Wheezes
Cardiac: Regular Rhythm and S1/S2; Negative Murmur
GI: Other (Deferred)
Musculoskeletal: Other (Deferred)
Skin: Warm and Dry
Neuro: Other (Deferred)
--- NOTE | 2025-05-05 10:54 | HOSPNOTE ---
Patient is on a morphine drip step 4 and does require IV pushes prior to care and repositioning. Patient is having periods of apnea lasting approximately 6 seconds, bilateral edema in hands. Patient is unresponsive and family is bedside support
given. Patient continues to be inpatient hospice appropriate for management of pain and shortness of breath. Patient will be seen daily.
[2025-05-05] MEDS: MORPHINE 100 IV (13:23)
--- NOTE | 2025-05-05 14:12 | HOSPNOTE ---
SUPERVISOR ALTERATION WORKROOM VISITED 80 YEAR OLD PATIENT TO CONDUCT INITIAL LEAD CARGO MOVER ASSESSMENT. PATIENT RECENTLY ADMITTED ONTO HOSPICE SERVICES AND [facility] LEVEL OF CARE WITH THE PRIMARY DIAGNOSIS OF CHF. NURSE REPORTED MEDICATIONS ADMINISTERED, PATIENT
COMFORTABLE AND NO CONCERNS. LEAD CARGO MOVER GREETED SEVERAL OF PATIENT'S FAMILY MEMBERS (SPOUSE, KRISSY, BOLA, AND STACEY) THEY WERE AT PATIENT'S BEDSIDE. PATIENT ASLEEP AND APPEARED TO BE RESTING COMFORTABLY, NO SIGNS OF PAIN AND/OR DISTRESS OBSERVED. LEAD CARGO MOVER
GENTLY TOUCHED PATIENT'S SHOULDER, INTRODUCED HERSELF, AND THE PURPOSE OF HER VISIT, PATIENT RESPONDED BY RAISING HER EYEBROWS, FAMILY GRATEFUL FOR THE RESPONSE. SPOUSE BROTHER YASMANI AND KRISSY ENTERED PATIENT'S ROOM LEAD CARGO MOVER WAS DEPARTING. EMOTIONAL
SUPPORT PROVIDED
LEAD CARGO MOVER MET WITH PATIENT'S DAUGHTER BOLA IN THE WAITING AREA. SHE REPORTED SHE'S DOING OKAY, GLAD SHE CAME WHEN SHE DID PATIENT DECLINED FRIDAY. BOLA REPORTED PATIENT AND SPOUSE AFSHAN WERE TOGETHER 20 YEARS BEFORE THEY GOT , THEY'VE
BEEN FOR 26 YEARS AND HAVE BEEN TOGETHER FOR 46 YEARS. BOLA REPORTED PATIENT MARRYING SPOUSE WAS THE BEST THING SHE DID FOR THEIR FAMILY. PATIENT HAS 3 CHILDREN ED ([place]), YUE ([place]), AND BOLA ([place]) AND 3 GRANDSONS, AND THEY'RE
SUPPORTIVE. PATIENT'S BROTHERS STACEY AND SAEED RESIDE LOCALLY AND ARE SUPPORTIVE. PATIENT'S BEST FRIEND REYNA MET WHEN THEY WERE 3 YEARS OF AGE VISITED PATIENT FRIDAY, THEY'VE BEEN FRIENDS FOR 77 YEARS. 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 PATIENT ENJOYED KNITTING, NEEDLE POINT, CROSS STITCH, PUZZLES, AND [employer]AMES. PATIENT IS CHEONDOISM AND ISN'T AFFILIATED WITH A CHRISTIAN, VISITED YESTERDAY. BOLA REPORTED PATIENT WISHES ARE TO
BE CREMATED ALTHOUGH THAT GOES AGAINST HER DENOMINATIONAL, HOMES CONTACTED AWAITING A RETURN CALL. FAMILY APPEARS TO BE COPING APPROPRIATELY. BEREAVEMENT SERVICES DISCUSSED WITH BOLA AND SHE WILL SPEAK WITH SPOUSE AND SIBLINGS TO SEE IF THE
ARE INTERESTED. MUCH EMOTIONAL SUPPORT PROVIDED.
PATIENT MEETS [facility]ITER[facility] FOR SN ASSESSMENTS, PAIN, AND DYSPNEA REQUIRING IV MORPHINE THAT COULD NOT BE MANAGED AT HOME AND/OR IN AN OUTPATIENT SETTING. DISCHARGE PLANNING CONTINUES.
LEAD CARGO MOVER WILL CONDUCT VISITS ONCE A WEEK WHILE ON GIP LEVEL OF CARE TO PROVIDE SUPPORTIVE SERVICES AND MONITOR FOR ADDITIONAL SERVICES.
[2025-05-05 15:54] VITALS: BP 117/60
--- NOTE | 2025-05-05 17:55 | PTCARENOTE ---
pt transferred from IMU hospice care. resting comfortably. Family at bedside. Morphine gtt 4mg/hr. skin CDI, offload pressure areas.
[2025-05-05 18:00] VITALS: BP 114/63
[2025-05-05] MEDS: MORPHINE SULFATE 4 MG IV ×3 (20:00→23:29)
[2025-05-05 21:16] VITALS: BP 119/60
[2025-05-05] MEDS: ROBINUL 0.2 MG IV (23:59)
[2025-05-06] MEDS: MORPHINE SULFATE 4 MG IV (00:07)
[2025-05-06] MEDS: MORPHINE SULFATE 6 MG IV ×8 (02:52→16:48)
[2025-05-06 07:05] VITALS: BP 108/56
--- NOTE | 2025-05-06 09:55 | W.PN.HOSP.TC ---
Today's Communication/Plan
-
Continue comfort measures
Robinul and Levsin for secretions
Assessment / Plan
Assessment / Plan
IMPRESSION:
Ms Farfan is an 80-year-old woman with a history of hypertension hyperlipidemia heart failure with reduced ejection fraction LVEF 25% type 2 diabetes osteoporosis glaucoma and anxiety admitted to inpatient hospice after severe urosepsis with
multisystem organ failure in cardiogenic and septic shock. Progression to step 3 of morphine drip. Progression of morphine protocol. Addition of Robinul and Levsin oral drops for secretions.
PLAN:
# Comfort measures
Discussed with family current treatments may be prolonging suffering
Palliative care consult
Hospice consult
-Morphine drip
- As needed Ativan
-Analgesics as needed
-Antiemetics as needed
- Maintain hygiene
-Supportive care as needed
-Mixer Operator Helper Hot Metal services as needed
Anticipated Discharge: Within 24 hours
Subjective/Interval History
-
Spoke with patient's family at bedside. Daughter reports that patient started around on 11 PM and was morning with pain, at which time patient received pain medication and morphine drip was advanced. Daughter also reported that patient seemed to
have more junky breath sounds at night and was given Robinul which has helped. Patient sometimes wakes up, but is not fully conversant. Otherwise no other complaints. Date of Service: May 06, 2025
Objective Data
-
Vital Signs:
Vital Signs
Temp Pulse Resp BP Pulse Ox
98.2 F 88 16 108/56 81
05/06/25 07:05 05/06/25 07:05 05/06/25 07:05 05/06/25 07:05 05/06/25 07:05
I&O
05/05/25 05/06/25 05/07/25
06:59 06:59 06:59
Output Total 400 / 400 325 / 325
Balance -400 / -400 -325 / -325
Review of Systems
-
Unable to obtain full review of systems at this time due to: Acuity
History Source: Family
Constitutional: Reports No Symptoms; Denies Fever
EENT: Reports No Symptoms Reported; Denies Sore Throat or Runny Nose
Respiratory: Denies Cough, Trouble Breathing or Wheezing
Cardiac: Reports No Symptoms; Denies Chest Pain or Diaphoresis
Abdomen/GI: Reports No Symptoms; Denies Abdominal Pain, Nausea or Vomiting
Genitourinary: Reports No Symptoms
Musculoskeletal: Reports No Symptoms
Skin: Reports No Symptoms
Neuro: Reports No Symptoms
Physical Exam
-
General: Well Nourished, No Apparent Distress and Comfortable
HEENT: Normocephalic and Atraumatic
Respiratory: Rhonchi and Non Labored Respirations; Negative Wheezes or Crackles
Cardiac: Regular Rhythm and S1/S2; Negative Murmur
GI: Other (Deferred)
Musculoskeletal: No Cyanosis and No Edema
Skin: Warm and Dry
Neuro: Sedated
[2025-05-06] MEDS: MORPHINE 100 IV ×2 (09:56→20:41)
[2025-05-06] MEDS: ROBINUL 0.2 MG IV ×3 (10:14→22:17)
[2025-05-06] MEDS: ATIVAN 1 MG PO ×2 (10:15→22:17)
--- NOTE | 2025-05-06 10:35 | HOSPNOTE ---
Daughter at bedside a new bag of morphine was hung and patient was medicated with a PRN dose of ativan, morphine and robinol for secretions. Emotional support provided, patient is on step 3 and is medicated prior to any care or repositioning.
Patient will be seen daily and remains appropriate for inpatient hospice.
[2025-05-06 19:05] VITALS: BP 107/63
[2025-05-06] MEDS: MORPHINE SULFATE 8 MG IV (23:37)
[2025-05-07] MEDS: MORPHINE SULFATE 8 MG IV ×4 (02:14→11:48)
[2025-05-07] MEDS: ROBINUL 0.2 MG IV ×4 (02:14→21:55)
[2025-05-07 07:05] VITALS: BP 101/55
[2025-05-07] MEDS: MORPHINE 100 IV ×2 (09:04→19:48)
--- NOTE | 2025-05-07 09:14 | W.PN.HOSP.TC ---
Today's Communication/Plan
-
Continue with comfort measures
Assessment / Plan
Assessment / Plan
IMPRESSION:
Ms Farfan is an 80-year-old woman with a history of hypertension hyperlipidemia heart failure with reduced ejection fraction LVEF 25% type 2 diabetes osteoporosis glaucoma and anxiety admitted to inpatient hospice after severe urosepsis with
multisystem organ failure in cardiogenic and septic shock. Progression to step 3 of morphine drip. Progression of morphine protocol. Addition of Robinul and Levsin oral drops for secretions.
PLAN:
# Comfort measures
Discussed with family current treatments may be prolonging suffering
Palliative care consult
Hospice consult
-Morphine drip
- As needed Ativan
-Analgesics as needed
-Antiemetics as needed
- Maintain hygiene
-Supportive care as needed
-Pile Driving Supervisor services as needed
Anticipated Discharge: 24 - 48 hours
Subjective/Interval History
-
Date of Service: May 07, 2025
Seen and examined at the bedside. Sleeping comfortably, no acute distress
Objective Data
-
Vital Signs:
Vital Signs
Temp Pulse Resp BP Pulse Ox
97.8 F 89 18 101/55 86
05/07/25 07:05 05/07/25 07:05 05/07/25 07:05 05/07/25 07:05 05/07/25 08:54
I&O
05/06/25 05/07/25 05/08/25
06:59 06:59 06:59
Intake Total 0 / 0
Output Total 325 / 325 375 / 375
Balance -325 / -325 -375 / -375
Review of Systems
-
History Source: Patient
All other systems: Reviewed and negative
Physical Exam
-
General: Well Developed, Well Nourished and Comfortable
HEENT: Normocephalic, Atraumatic and Moist Mucous Membranes
Respiratory: Crackles and Non Labored Respirations
Cardiac: Regular Rhythm and S1/S2
GI: Soft, Nontender and Nondistended
Musculoskeletal: No Clubbing and No Cyanosis
Skin: Warm and Dry; Negative Rash
Neuro: Sedated
[2025-05-07 10:24] VITALS: BMI 29.0
[2025-05-07] MEDS: ATIVAN 1 MG PO ×2 (11:49→16:19)
--- NOTE | 2025-05-07 12:00 | CHAP ---
Delvin was sleeping, minimally responsive, moaning with each breath. Daughter Ana was present. She shared background about Delvin, who has had a colorful life, always caring sincerely about each member of her extended family. Delvin's brother
Ruddy arrived and shared his memories. He said Delvin was the 'family historian, the one who kept track of everyone's birthday.' He also mentioned that Rabbi Patel came to offer prayers. Gas And Oil Servicer provided emotional and spiritual support through
presence, dialogue, Scripture reading and prayer. Prayer blanket also provided. Gas And Oil Servicer alerted MARIA GUADALUPE Oates about the patient's moaning, and also administrative law judge Jeanne. Gas And Oil Servicer will continue support through visits 2x week.
--- NOTE | 2025-05-07 12:07 | HOSPNOTE ---
Patient continues to be inpatient hospice appropriate for management of pain and shortness of breath, requiring IV medications patient is uable to swallow. Patient unresponsive. Morphine drip increased to 10 mg/ hour this morning as per protocol.
Patient has required 12 prn doses of Morphine and 3 prn doses of Ativan in the past 24 hours. Patients brother present in the room, offered support and reviewed to contact hospice with any questions. Patient will receive daily nursing visits.
[2025-05-07] MEDS: MORPHINE SULFATE 10 MG IV ×2 (16:04→18:43)
[2025-05-07 19:34] VITALS: BP 110/55
[2025-05-08] MEDS: MORPHINE 100 IV ×2 (06:13→16:43)
[2025-05-08 07:05] VITALS: BP 109/63
--- NOTE | 2025-05-08 10:22 | VATNOTE ---
Left arm midline site c/d/i. Was do for redress on Friday, however, spoke with family at bedside who asked to defer redress at this time as patient is resting comfortably at this time. NGOZI Edward updated.
--- NOTE | 2025-05-08 10:57 | HOSPNOTE ---
Patient GIP for management of pain and sob. Patient continues on a Morphine gtt infusing at 10 mg/ hr and has required 3 PRN doses of Morphine in the past 24 hours. Moaning noted with care. Patient required Robinul x 3 for excessive secretions and
Ativan x 2 PRN IV. Patient unresponsive. Respirations shallow with periods of apnea. Family at the bedside. Patient to continue on daily visits.
[2025-05-08] MEDS: MORPHINE SULFATE 10 MG IV (13:00)
[2025-05-08] MEDS: ROBINUL 0.2 MG IV ×2 (13:01→22:32)
--- NOTE | 2025-05-08 13:27 | W.PN.HOSP.TC ---
Today's Communication/Plan
-
Continue comfort measures, inpatient hospice
Assessment / Plan
Assessment / Plan
IMPRESSION:
Ms Farfan is an 80-year-old woman with a history of hypertension hyperlipidemia heart failure with reduced ejection fraction LVEF 25% type 2 diabetes osteoporosis glaucoma and anxiety admitted to inpatient hospice after severe urosepsis with
multisystem organ failure in cardiogenic and septic shock. Progression to step 3 of morphine drip. Progression of morphine protocol. Addition of Robinul and Levsin oral drops for secretions.
PLAN:
# Comfort measures
Discussed with family current treatments may be prolonging suffering
Palliative care consult
Hospice consult
-Morphine drip
- As needed Ativan
-Analgesics as needed
-Antiemetics as needed
- Maintain hygiene
-Supportive care as needed
-Drier And Grinder Tender services as needed
Anticipated Discharge: 24 - 48 hours
Subjective/Interval History
-
Date of Service: May 08, 2025
Seen and examined at the bedside. Sleeping comfortably
Objective Data
-
Vital Signs:
Vital Signs
Temp Pulse Resp BP Pulse Ox
99.1 F 100 20 109/63 87
05/08/25 07:05 05/08/25 07:05 05/08/25 07:05 05/08/25 07:05 05/08/25 07:05
I&O
05/07/25 05/08/25 05/09/25
06:59 06:59 06:59
Intake Total 0 / 0 0 / 0
Output Total 375 / 375 490 / 490
Balance -375 / -375 -490 / -490
Review of Systems
-
Unable to obtain full review of systems at this time due to: Acuity
Physical Exam
-
General: Well Developed, No Apparent Distress and Appears Chronically Ill
HEENT: Normocephalic, Atraumatic and Moist Mucous Membranes
Respiratory: Non Labored Respirations and Decreased Breath Sounds
Cardiac: Regular Rhythm and S1/S2
GI: Soft, Nontender and Nondistended
Musculoskeletal: No Clubbing, No Cyanosis and No Edema
Skin: Warm and Dry; Negative Rash
Neuro: Sedated
Psych: Calm
[2025-05-08] MEDS: VALIUM INJECTION 2 MG IV ×3 (13:34→17:38)
[2025-05-08 23:06] VITALS: BP 124/63
[2025-05-09] MEDS: MORPHINE 100 IV (01:08)
[2025-05-09] MEDS: ROBINUL 0.2 MG IV (06:21)
[2025-05-09] MEDS: MORPHINE SULFATE 10 MG IV (06:23)
[2025-05-09 07:09] VITALS: BP 108/63
--- NOTE | 2025-05-09 08:10 | PTCARENOTE ---
Patient observed without respirations and abnormal skin tone, without heart tones. MD notified to pronounce patient. Patient's brother was not in the room at the time and I was unable to locate him nearby. MD notified brother by telephone. I spoke
with patient's dghtr on phone who called to let us know that the patient's Matty would stop by to view the body.
--- NOTE | 2025-05-09 08:27 | W.PN.DEATH ---
Pronouncement of
-
Called to see patient to pronounce.
No spontaneous heart tones or respirations noted.
Patient not responsive to verbal stimuli.
Patient is pronounced .
Time of : 08:20
Date of : 05/09/25
Cause of : cardiogenic and septic shock, acute heart failure with reduced ejection fraction, type 2 diabetes mellitus
Family Notified: Yes (called daughter Darien, and pt brother Bladimir at bedside)
--- NOTE | 2025-05-09 09:07 | CM ---
Patient per physician. Patient GIP with [facility] hospice. CM will continue to follow for discharge planning needs.
Plan; .
--- NOTE | 2025-05-09 10:39 | HOSPNOTE ---
Support given to family. More family coming to view patient.
--- NOTE | 2025-05-09 19:30 | W.DCSUMMARY ---
Addendum entered and electronically signed by Debbie Calvin MD 05/10/25 07:02:
Read, reviewed, and agree. See same day progress note for additional details. Time spent coordinating care, DC planning, review of DC plan of care with resident, transition of care, review of records in EMR, med rec, consults, notes, d/w
consultants, nursing, family, and CM = 31 minutes
Original Note:
Discharge Summary
Discharge Data
Date of Admission: 05/04/25
Date of Discharge: 05/09/25
-
Pending Results: No
Hospital Course
80-year-old woman with a history of hypertension, hyperlipidemia, heart failure with reduced ejection fraction EF 25%, type 2 diabetes, osteoporosis, glaucoma and anxiety who presented with chills, vomiting on 04/27/25. CT abd/pelvis 04/27 suggestive
of cystitis and right sided pyelonephritis. CXR 04/27 normal. 04/29: pulmonary edema, mild cardiomegaly. Urine culture positive for Proteus mirabilis, patient has history of Proteus mirabilis UTIs. Blood culture positive for E. coli and Proteus
species. Lactic acid was 3 but eventually improved to 0.9.
Patient had NSTEMI and respiratory failure while admitted. Cardiology was consulted, IVF stopped. The patient refused DuoNeb and BiPAP due to anxiety at the time. Cardiology suggests her SC was due to sepsis stress and severe anemia. Pulmonology
consulted to trial CPAP and the patient was transferred to ICU. Daughter flew in from [place] to be with mother. Was getting Bumex and Dilaudid for pain. Serial lab work showed worsening of renal function. Eventually the patient was taken off
of BiPAP due to nose bridge skin breakdown. Patient diagnosed with urosepsis with end organ damage with cardiogenic and septic shock. She was placed on hospice, and started on comfort measures including morphine drip, Robinul and Levsin oral drops
for secretions, and Ativan/analgesics/antiemetics as needed. She was eventually on step 3 of morphine drip with progression of morphine.
Overnight 05/08/25: Patient slept well, but required breakthrough morphine and valium. Upon examination, the patient's chest wall was not rising. Heart sounds not heard on auscultation. Pronouncement of was at 8:20 AM on 05/09/25. Daughter
Darien made aware via phone call, and brother who was present with her also notified after he returned from breakfast around 8:40 AM.
Discharge Plan
-
Patient Disposition:
Date/Time
Date/Time: 05/09/25 08:20
Discharge Date and Time
Discharge Date/Time: 05/09/25 08:20
Print Language: VINCENTIAN
== END 2025-05-09 08:20 | disposition expired | DRG 951 ==
LOC: 2 NORTH 13:43
PROVIDERS: ADMITTING PHYSICIAN Internal Medicine; ATTENDING PHYSICIAN Internal Medicine
DX: Z51.5 Encounter for palliative care (principal); I21.4 Non-ST elevation (NSTEMI) myocardial infarction; J96.90 Respiratory failure, unspecified, unspecified whether with hypoxia or hypercapnia; A41.51 Sepsis due to Escherichia coli [E. coli]; A41.59 Other Gram-negative sepsis; I50.23 Acute on chronic systolic (congestive) heart failure; R65.21 Severe sepsis with septic shock; E87.20 Acidosis, unspecified; J98.11 Atelectasis; K86.1 Other chronic pancreatitis; D64.9 Anemia, unspecified; F41.9 Anxiety disorder, unspecified; E11.9 Type 2 diabetes mellitus without complications; E78.00 Pure hypercholesterolemia, unspecified; I11.0 Hypertensive heart disease with heart failure; I25.10 Atherosclerotic heart disease of native coronary artery without angina pectoris; M81.0 Age-related osteoporosis without current pathological fracture; R33.8 Other retention of urine; R57.0 Cardiogenic shock